=== PATIENT | male | born 1940 | race Two or more races ===

== ENCOUNTER 2024-10-22 05:54 | Inpatient (IN) | payer MEDICARE, MEDICAID, SELFPAY ==
[2024-10-22] VITALS (15 sets, daily range): BP systolic 102–148; BP diastolic 64–101; PULSE 69–122; RESP 20–34; TEMP 36.3–36.9; O2SAT 89–100; BMI 29.5
--- NOTE | 2024-10-22 06:10 | XR_ITS ---
Examination: AP chest single view Technique one AP portable upright chest single view Exam date and time: October 22, 2024 0616 hrs. Comparison December 30, 2023 Indications: Onset chest pain today Findings: Mild heart failure Moderate enlargement left ventricle Prominent vascular congestion with early septal edema at the lung bases Cardiac leads stable position Impression: Mild heart failure
--- NOTE | 2024-10-22 06:10 | EKG_ITS ---
[facility] Test Date: 2024-10-22 Pat Name: JIN THURSTON Department: Room: - Gender: Male Clamper: : [id number] Requested By: Ariane Ferraro Order Number: [id number] Reading MD: Ariane Ferraro Measurements Intervals [place] Rate: 105 P: 82 OK: 88 QRS: 172 QRSD: 172 T: 28 QT: 420 QTc: 557 Interpretive Statements ELECTRONIC VENTRICULAR PACEMAKER ABNORMAL RHYTHM ECG Compared to ECG 12/30/2023 18:40:21 No significant changes /store/S0/[id number]/ecg/[id number].pdf
[2024-10-22] MEDS: FUROSEMIDE INJ 10 MG/ML 4ML VIAL 60 MG IVP (06:20)
--- NOTE | 2024-10-22 06:41 | PD.EDSOB ---
ED SOB =RME/HPI General Chief Complaint: Shortness of Breath/Dyspnea Stated Complaint: SOB Time Seen by Provider: 10/22/24 06:10 Arrival date/time: 10/22/24 05:54 RME / HPI RME / HPI Narrative: DR. RUIZ MAIN ED EVALUATION: 84 year old male presents to the Emergency Department [facility] with complaint of shortness of breath today. Symptoms are moderate. No fevers, chills, vomiting, diarrhea, dysuria, or other symptoms reported. 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 Social Hx: No tobacco, alcohol, or substance use. Related Data Home Medications ?Medication ?Instructions ?Recorded ?Confirmed atorvastatin 10 mg tablet 10 mg PO QDAY 03/31/21 12/08/23 amlodipine 5 mg tablet 5 mg PO QDAY 04/02/21 12/08/23 finasteride 5 mg tablet 1 tab PO QDAY 03/24/22 12/08/23 albuterol sulfate 90 mcg/actuation 90 mcg inhalation Q4H PRN short of 12/08/23 12/08/23 aerosol inhaler breath dapagliflozin propanediol 10 mg 10 mg PO DAILY 12/08/23 12/08/23 tablet (Farxiga) Previous Rx's ?Medication ?Instructions ?Recorded bumetanide 1 mg tablet 1 mg PO QDAY #30 tabs 01/03/24 Allergies Allergy/AdvReac Type Severity Reaction Status Date / Time Penicillins Allergy Severe RASH Verified 03/30/21 10:07 Review of Systems Review of Systems Systems Reviewed: All systems reviewed, normal except as documented Narrative Review of Systems: GEN: No fever, no chills, no weight loss EYES: No discharge, no visual changes, no pain HEENT: No ear pain, no congestion, no sore throat PULM: + shortness of breath, no cough, no congestion CV: No chest pain, no dyspnea on exertion, no palpitations GI: No nausea, no vomiting, no diarrhea, no pain, no constipation : No frequency, no urgency and no dysuria MUSC/SKEL: No joint pain, no back pain SKIN: No rash PSYCH: No hallucinations, no depression HEME/LYMPH: No easy bleeding or bruising tendencies NEURO: No weakness, no headache Past Medical History Past Medical History CARDIAC: Positive Cardiac Disorders, Atrial Fibrillation, Congestive Heart Failure, Edema and Hypertension RESPIRATORY: Negative Chronic Obstructive Pulmonary Disease (COPD) GENITOURINARY: Positive Benign Prostatic Hyperplasia; Negative Renal Disease MUSCULOSKELETAL: Positive Musculoskeletal Disorders and Arthritis ENT: Positive Cataracts ENDOCRINE: Positive Diabetes Mellitus Type 2; Negative Diabetes Mellitus Type 1 Surgical History SURGICAL: Positive Cardiac Surgery and Pacemaker Social History SMOKING STATUS: Never smoker SECOND HAND EXPOSURE: No SUBSTANCE USE: does not use ALCOHOL: Never Travel History EBOLA RISK: No ED Exam Narrative Physical exam: GENERAL APPEARANCE: alert and oriented x 4, well-developed, well-nourished VITALS: All vitals were reviewed and the pulse ox is 98% on 2 L/min via a nasal cannula. HEENT: Normocephalic, atraumatic; pupils equal, round, reactive to light; EOMI; mucous membranes pink, moist; oropharynx clear NECK: Supple LUNGS: no wheezes, no rales, no rhonchi HEART: Regular rate, regular rhythm; normal S1, S2; no murmurs ABDOMEN: non distended; normal BS; soft, no tenderness, no guarding, no rebound; no masses, no organomegaly, no hernia BACK: no CVA tenderness EXTREMITIES: atraumatic; no edema NEUROLOGIC: awake; alert and oriented x4; cranial nerves II-XII grossly intact; no focal sensory or motor deficits PSYCHIATRIC: appropriate mood and affect SKIN: warm, dry, normal color; no rashes Course Quality Measures none Orders Category Date Time Status Bedside COVID-19 Antigen Test NOW Care 10/22/24 08:26 Active Bedside Influenza A&B Antigen Test NOW Care 10/22/24 08:26 Completed Package 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 NOW Care 10/22/24 06:10 Active EKG (ED ONLY) *Do not use* NOW Care 10/22/24 06:10 Completed EKG (ED Only) Stat Exams 10/22/24 06:10 Draft XR chest 1V portable Stat Exams 10/22/24 06:10 Completed Alcohol, Blood Medical Stat Lab 10/22/24 08:40 Completed B-Type Natriuretic Peptide Stat Lab 10/22/24 06:23 Completed Blood Culture (Lab) Stat Lab 10/22/24 08:40 Received CBC Stat Lab 10/22/24 06:23 Completed Comprehensive Metabolic Panel Stat Lab 10/22/24 06:23 Completed Drug Screen,Urine Stat Lab 10/22/24 09:35 Completed Lactate (Lactic Acid) Stat Lab 10/22/24 08:40 Completed Lipase Stat Lab 10/22/24 06:23 Completed Magnesium Stat Lab 10/22/24 06:23 Completed Partial Thromboplastin Time Stat Lab 10/22/24 06:23 Completed Procalcitonin Stat Lab 10/22/24 08:40 Completed Prothrombin Time with INR Stat Lab 10/22/24 06:23 Completed Troponin I Stat Lab 10/22/24 06:23 Completed Troponin I Stat Lab 10/22/24 08:40 Completed UA, C/S IF [Urinalysis, C/S if Indicated] Stat Lab 10/22/24 09:35 Completed Urine Culture Stat Lab 10/22/24 09:35 Received Aspirin Chew Med 10/22/24 07:03 Discontinued 324 mg PO X1 ONE Furosemide Inj [Lasix Inj] Med 10/22/24 06:11 Discontinued 60 mg IVP X1 ONE Vital Signs Vital signs: Vital Signs Temperature 98.5 F 10/22/24 05:59 Pulse Rate 108 H 10/22/24 05:59 Respiratory Rate 22 H 10/22/24 05:59 Blood Pressure 115/67 10/22/24 05:59 Pulse Oximetry (%) 99 10/22/24 05:59 Oxygen Delivery Method Oxy Mask 10/22/24 05:59 Oxygen Flow Rate 10 10/22/24 05:59 Shortness of Breath / Dyspnea MDM Narrative MDM Narrative:: Delmi Roberts am scribing for and in the presence of Dr. Ruiz. 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 How is presenting disease/condition affected by chronic disease/condition?: exacerbated by Evaluation data The following diagnostics were reviewed and interpreted by me:: lab results, radiology exam(s) and EKG tracing(s) (EKG#1: EKG at 0624 hours. Interpreted by me: ventricular paced rhythm, rate 105, frequent PVCs, moderate artifact) Lab and/or radiology exams considered but not ordered:: none Interpretation Summary: Procedure(s): XR chest 1V portable Accession Number(s): [id number] cc: Michael Keane MD; NO PRIMARY/FAMILY,PHYSICIAN; Ariane Ruiz MD~ Examination: AP chest single view Technique one AP portable upright chest single view Exam date and time: October 22, 2024 0616 hrs. Comparison December 30, 2023 Indications: Onset chest pain today Findings: Mild heart failure Moderate enlargement left ventricle Prominent vascular congestion with early septal edema at the lung bases Cardiac leads stable position Impression: Mild heart failure Dictated By: Michael Keane MD Medications / Prescriptions Medications or Prescriptions considered but not ordered:: none Medication administrations:: Medication Administration History Acetaminophen (Acetaminophen 325 Mg Tablet) 650 mg PO Q4HR PRN PRN Reason: Fever >100.3 or pain Stop: 11/21/24 12:54 Hydrocodone Bitart/Acetaminophen (Hydrocodone/Apap 5/325 Tablet) 1 tab PO Q4HR PRN PRN Reason: PAIN SCALE 4-10(Mod-Sev Stop: 10/27/24 14:19 Albuterol/Ipratropium (Albuterol/Ipratropium (Duoneb) Rt Risa 3 Ml Nebu) 3 ml INH Q8HRRT FRED Stop: 11/21/24 14:59 Last Admin: 10/22/24 13:35 Dose: 3 ml Documented By: AA Bumetanide (Bumetanide Inj 0.25 Mg/Ml Vial 4 Ml) 1 mg IVP BID FRED Stop: 11/21/24 20:59 Discontinued Medications Aspirin (Aspirin 81 Mg Chew) 324 mg PO X1 ONE Stop: 10/22/24 07:04 Last Admin: 10/22/24 07:16 Dose: 324 mg Documented By: EH Furosemide (Furosemide Inj 10 Mg/Ml 4ml Vial) 60 mg IVP X1 ONE Stop: 10/22/24 06:12 Last Admin: 10/22/24 06:20 Dose: 60 mg Documented By: SYLVAIN Magnesium Sulfate (Magnesium Sulfate Ivpb) 2 gm in 50 mls @ 25 mls/hr IV X1 ONE Stop: 10/22/24 14:52 Last Infusion: 10/22/24 15:09 Dose: Infused Documented By: Admin: 10/22/24 13:02 Dose: 25 mls/hr Documented By: GM Oseltamivir Phosphate (Oseltamivir 30 Mg Capsule) 30 mg PO X1 ONE Stop: 10/22/24 13:36 Last Admin: 10/22/24 14:52 Dose: 30 mg Documented By: EH Potassium Chloride (Potassium Chloride 10% 20 Meq/15 Ml Udc) 40 meq PO X1 ONE Stop: 10/22/24 12:54 Last Admin: 10/22/24 13:00 Dose: 40 meq Documented By: GM Sodium Chloride (Sodium Chloride Rt 10% 15 Ml Nebu) 5 ml INH X1 ONE Stop: 10/22/24 13:37 Last Admin: 10/22/24 14:22 Dose: Not Given Documented By: JERARDO Non-Admin Reason: Other, see note Comments: not needed see above Consultations Consultation(s) initiated? (list below): Yes Consultation #1 (Physician, Specialty, Details): Discussed test HPI, PMHx, lab, radiology results and/or management with hospitalist. Will admit for further evaluation and management. Accepts patient for admission. Time: 12:35 Diagnosis Shortness of Breath Differential Diagnosis: acute exacerbation of chronic obstructive airways disease, congestive heart failure, community acquired pneumonia, asthma with exacerbation and pulmonary embolism Most likely diagnosis given after review of the tests above:: CHF exacerbation Hypoxia Thrombocytopenia Dyspnea Elevated troponin Admission Indicated Admission indicated?: indicated Admission Request Was there a request for admission?: Yes Admission Attestation Admission request attestation: Discussed case with [] from Hospitalist service regarding admission. Discussed patients ED course, exam findings, labs, and radiology results. The Hospitalist [agrees,declines] to accept the patient for admission. Disposition Plan Disposition Plan: Admit Critical Care Time Critical Care Time Critical Care Time: Yes Total Critical Care Time (min.): 45 Attestation: The high probability of sudden, clinically significant deterioration in the patient?s condition required the highest level of my preparedness to intervene urgently. The services I provided to this patient were to treat and/or prevent clinically significant deterioration. Services included the following: chart data review, reviewing nursing notes and/or old charts, documentation time, call center support consultant collaboration regarding findings and treatment options, medication orders and management, direct patient care, vital sign assessments and ordering, interpreting and reviewing diagnostic studies and lab tests. Aggregate critical care time includes only time during which I was engaged in work directly related to the patient?s care, as described above, whether at bedside or elsewhere in the Emergency Department. It did not include time spent performing other reported procedures or the services of residents, students, nurses or physician assistants. Discharge Plan Problem List Clinical Impression: CHF exacerbation, Hypoxia, Thrombocytopenia, Dyspnea, Elevated troponin
[2024-10-22 06:49] LABS: B-Type Natriuretic Peptide 1904 pg/mL (0-100); Basophils % (Auto) 0 % (0-2.5); Eosinophils % (Auto) 0 % (0-10); Hematocrit 31.7 % (41.0-53.0); Hemoglobin 10.6 g/dL (13.5-16.0); Immature Granulocytes % (Auto) 1 % (0-0); Immature Granulocytes Auto 0.08 Thou/mm3 (0.00-0.00); Lymphocytes # (Auto) 0.5 Thou/mm3 (1.0-4.8); Lymphocytes % (Auto) 4 % (10-50); Mean Corpuscular HGB Conc 33.4 g/dl (31.0-37.0); Mean Corpuscular Hemoglobin 32.3 pg (25.0-35.0); Mean Corpuscular Volume 97 fL (80-100); Monocytes # (Auto) 1.3 Thou/mm3 (0.0-0.8); Monocytes % (Auto) 10 % (0-12); Neutrophils # (Auto) 11.6 Thou/mm3 (1.8-7.7); Neutrophils % (Auto) 86 % (37-80); Nucleated Red Blood Cell % 0 /100 WBC (0); RDW Standard Deviation 49.1 fL (35.1-43.9); Red Blood Count 3.28 Miln/mm3 (4.50-5.90); White Blood Count 13.5 Thou/mm3 (3.8-10.6)
[2024-10-22 06:50] LABS: Alanine Aminotransferase 15 U/L (10-49); Albumin, Serum 4.2 gm/dL (3.4-4.8); Albumin/Globulin Ratio 1.4 (1.2-2.2); Alkaline Phosphatase 73 U/L (46-116); Anion Gap 11 (7-16); Aspartate Amino Transferase 19 U/L (0-34); BUN/Creatinine Ratio 19 Ratio (12-20); Bilirubin,Total 1.6 mg/dL (0.3-1.2); Blood Urea Nitrogen 30 mg/dL (9-23); Carbon Dioxide 22.7 mMol/L (20.0-31.0); Chloride 106 mMol/L (98-107); Creatinine (Component) 1.6 mg/dL (0.6-1.3); Estimated Creatinine Clearance 37.6 mL/min (>60); Globulin 2.9 gm/dL (2.3-3.5); Glucose 130 mg/dL (74-106); Lipase 25 U/L (12-53); Magnesium 1.8 mg/dL (1.6-2.6); Osmolality,Calculated 287 (275-295); Potassium 3.6 mMol/L (3.4-5.1); Sodium 140 mMol/L (136-145); Total Protein 7.1 gm/dL (5.7-8.2); eGFR 42 See Note
[2024-10-22 07:01] LABS: INR 1.2 (0.9-1.3); Prothrombin Time 13.2 Seconds (9.0-12.2)
[2024-10-22 07:02] LABS: Troponin I 0.134 ng/mL (0.0-0.045)
[2024-10-22] MEDS: ASPIRIN 81 MG CHEW 324 MG PO (07:16)
[2024-10-22 07:32] LABS: Platelet Count 18 Thou/mm3 (140-440)
[2024-10-22 07:33] LABS: Slide Review Platelets confirmed
[2024-10-22 08:57] LABS: Lactate (Lactic Acid) 1.3 mMol/L (0.4-2.0)
[2024-10-22 10:08] LABS: Collection Type, Urine Clean Catch
[2024-10-22 10:15] LABS: Alcohol, Blood Medical < 10.0 mg/dL (0-10.0); Procalcitonin 0.38 ng/ml (0.0-0.49)
[2024-10-22 10:19] LABS: Amphetamine/Methamp Scrn,U Negative (Negative); Barbiturate Screen,Urine Negative (Negative); Benzodiazepines Screen,Urine Negative (Negative); Benzoylecgonine Screen, Ur Negative (Negative); Fentanyl Screen,Urine Negative (Negative); Opiate Screen,Urine Negative (Negative); THC Screen,Urine Negative (Negative)
[2024-10-22 10:19] LABS: Troponin I 0.178 ng/mL (0.0-0.045)
[2024-10-22 10:29] LABS: Bacteria,Urine Rare; Bilirubin,Urine Negative (Negative); Blood,Urine 1+ (Negative); Budding Yeast,Urine Present; Clarity,Urine Cloudy (Clear/Hazy); Color,Urine Lt-Yellow (Lt Yel-Yel); Culture Indicated,Urine Yes; Glucose, Urine Negative (Negative); Ketones,Urine Negative (Negative); Leukocyte Esterase,Urine Positive (Negative); Nitrite,Urine Negative (Negative); Protein,Urine 1+ (Neg - Trace); RBC,Urine 21 /hpf (0-3); Specific Gravity,Urine 1.009 (1.001-1.035); Squamous Epithelial Cell,Urine 2 /hpf (0-5); Urobilinogen,Urine Negative mg/dL (0.0-1.0); WBC,Urine 90 /hpf (0-5)
--- NOTE | 2024-10-22 12:54 | ESHP_ITS ---
<Statement entered by Milton Trujillo MD - 10/30/24 15:01> I reviewed above note and agree with findings and plans. I have also personally examined the patient with medicine team and went over assessment and plan with medical team including promotions intern and resident physician. <Statement entered by Keith Burleson MD - 10/23/24 16:30> Agree with plan and examination finding on the note below. Patient seen and examined at bedside today. Labs and imaging reviewed. Patient care discussed with my attending Dr. Trujillo and co-resident . Documentation for date of: 10/22/24 HPI History of Present Illness Chief complaint: Shortness of breath History of present illness: HPI: Patient is an 84-year-old male with past medical history significant for HFrEF [15-20%], atrial fibrillation s/p PROGRAM DIRECTOR/MORNING SHOW HOST-D placement, guo-[id number]-[id number] diabetes mellitus type 2, primary hypertension, hyperlipidemia and BPH presented with a chief complaint of worsening shortness of breath. Patient states his shortness of breath started yesterday and progressively started to worsen. He stated that initially it was on mild activity while he was taking a shower but progressed to being at rest. Usually patient can carry out his daily activities without any SOB and this is much worse than his baseline. He also has an associated nonproductive cough. Patient also endorses a 2 pillow orthopnea and PND. He says he cannot lie flat or else he feels as if he is drowning. Denies any chest pain/pressure, palpitations, lower extremity swelling, fever, vomiting, sick contacts and recent travel. Of note patient states that he has noncompliant with medication as it is too many pills to take. ED course: BP 148/86, pulse 89, RR 23, temp 97.7 F, SpO2 96% on 2L via NC. Labs significant for Hb 10.6, HCT 31.7, Mg 1.8, K 3.6, BUN 30, CR 1.6, troponin I 0.134 --> 0.178, BNP 1904. Chest x-ray significant for pulmonary vascular congestion with septal edema at lung bases. EKG significant for ventricular paced rhythm, rate 105. In the ED patient received furosemide 60 Mg IV x 1, ASA 324 Mg p.o. x 1. Patient will be admitted for acute respiratory failure with hypoxia secondary to acute decompensated CHF exacerbation. Review of Systems Review of Systems Narrative Review of Systems: GENERAL: Denies fever/chills or diaphoresis. HEENT: Denies headaches or visual changes. Denies discharge. Neuro: Denies unusual weakness or difficulty speaking. CARDIO: As above PULM: As above GI: Denies abdominal pain, N/V/C/D. Reports having BMs. URO: Denies burning/itching/pain/urinary changes. MSK/EXT/SKIN: Denies joint/skeletal/muscle pain, issues/changes in upper or lower extremities, itchiness, or superficial pain. PSYCH: Cooperative, pleasant mood & affect. The rest of the review of systems is otherwise negative. Past Medical History Past Medical History Comments PMH COMMENT: Past medical history: ?Chronic systolic heart failure with reduced ejection fraction [15-20%] ? Atrial fibrillation s/p PROGRAM DIRECTOR/MORNING SHOW HOST-D ? Uia-sggwoyn-brpudnmrd diabetes mellitus type 2 ? Primary hypertension ? BPH ? 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 Previously [id number] history ETHO use: Denies Illicit drug use: Denies Social History Note: [place]. At baseline ambulates with a walker Family History: Nil Exam Vital Signs Temp Pulse Resp BP Pulse Ox O2 Del Method O2 Flow Rate 97.7 F 75 22 H 102/83 97 Room Air 2 10/22/24 12:16 10/22/24 12:16 10/22/24 12:16 10/22/24 12:16 10/22/24 12:16 10/22/24 12:16 10/22/24 09:32 Narrative Exam Constitutional Alert, oriented x 3 and comfortable. Elderly male on O2 via NC HEENT Vision grossly intact. Patent nares. Trachea midline Respiratory Chest normal on inspection and poor air entry in all lung lang bilaterally with scattered crackles at bases Cardiovascular S1 and S2 audible, RRR. No murmurs carotid bruit. No gross JVD. Abdominal Soft and non tender to palpation in all quadrants. BS + Genitourinary No bladder tenderness, no flank pain. Normal to palpation Musculoskeletal Extremities tone within normal limits. 2+ lower extremity pitting edema bilaterally up to knees Neurological CN II - XII grossly intact. Extremity motor and sensation grossly intact. Skin Warm, dry and intact. No apparent lesions. Psychiatric Patient has good affect, is cooperative Results: Labs 10/23/24 05:29 10/23/24 05:29 Labs: Short CBC 10/22/24 Range/Units 06:23 WBC 13.5 H (3.8-10.6) Thou/mm3 Hgb 10.6 L (13.5-16.0) g/dL Hct 31.7 L (41.0-53.0) % Plt Count 18 L* (140-440) Thou/mm3 BMP 10/22/24 06:23 Sodium 140 Potassium 3.6 Chloride 106 Carbon Dioxide 22.7 BUN 30 H Creatinine 1.6 H Glucose 130 H Calcium 10.0 Cardiac Enzymes 10/22/24 10/22/24 Range/Units 06:23 08:40 Troponin I 0.134 H* 0.178 H* (0.0-0.045) ng/mL Liver Function 10/22/24 Range/Units 06:23 Total Bilirubin 1.6 H (0.3-1.2) mg/dL AST 19 (0-34) U/L ALT 15 (10-49) U/L Alkaline Phosphatase 73 (46-116) U/L Albumin 4.2 (3.4-4.8) gm/dL Urine 10/22/24 Range/Units 09:35 Urine Color Lt-Yellow (Lt Yel-Yel) Urine Clarity Cloudy A (Clear/Hazy) Urine pH 6.0 (5.0-7.0) Ur Specific [place] 1.009 (1.001-1.035) Urine Protein 1+ A (Neg - Trace) Urine Glucose (UA) Negative (Negative) Quality Measures Quality Measures none Advance care planning discussed with:: patient Medications Home Medications and Allergies Home Medications ?Medication ?Instructions ?Recorded ?Confirmed ?Type atorvastatin 10 mg tablet 10 mg PO QDAY 03/31/2112/07 History amlodipine 5 mg tablet 5 mg PO QDAY 04/02/21 History finasteride 5 mg tablet 1 tab PO QDAY 03/24/2212/07 History albuterol sulfate 90 mcg/actuation 90 mcg inhalation Q 4H PRN short of 12/08/23 12/08/23 History aerosol inhaler breath dapagliflozin propanediol 10 mg 10 mg PO DAILY 4 12/08/23 History tablet (Farxiga) Allergies Allergy/AdvReac Type Severity Reaction Status Date / Time Penicillins Allergy Severe RASH Verified 03/30/21 10:07 Visit Medications Albuterol/Ipratropium (Albuterol/Ipratropium (Duoneb) Rt Risa 3 Ml Nebu) 3 ml INH Q8HRRT FRED Stop: 11/21/24 14:59 Bumetanide (Bumetanide Inj 0.25 Mg/Ml Vial 4 Ml) 1 mg IVP BID FRED Stop: 11/21/24 20:59 Magnesium Sulfate (Magnesium Sulfate Ivpb) 2 gm in 50 mls @ 25 mls/hr IV X1 ONE Stop: 10/22/24 14:52 Potassium Chloride (Potassium Chloride 10% 20 Meq/15 Ml Udc) 40 meq PO X1 ONE Stop: 10/22/24 12:54 Discontinued Medications Aspirin (Aspirin 81 Mg Chew) 324 mg PO X1 ONE Stop: 10/22/24 07:04 Last Admin: 10/22/24 07:16 Dose: 324 mg Furosemide (Furosemide Inj 10 Mg/Ml 4ml Vial) 60 mg IVP X1 ONE Stop: 10/22/24 06:12 Last Admin: 10/22/24 06:20 Dose: 60 mg Assessment & Plan Plan Patient is an 84-year-old male with past medical history significant for HFrEF [15-20%], atrial fibrillation s/p PROGRAM DIRECTOR/MORNING SHOW HOST-D placement, phj-wgheexp-qkhwtiauh diabetes mellitus type 2, primary hypertension, hyperlipidemia and BPH presented with a chief complaint of worsening shortness of breath.Patient will be admitted for acute respiratory failure with hypoxia secondary to acute decompensated CHF exacerbation. 1. Acute respiratory failure with hypoxia 2. Acute decompensated chronic systolic and diastolic heart failure exacerbation [15-20%] 3. Dilated cardiomyopathy Patient presented with worsening shortness of breath On exam patient had decreased air entry bilaterally with scattered crackles at bases Chest x-ray significant for increased vascular markings and septal edema at lung bases. Last echo completed on 12/05/2023 findings include: Dilated cardiomyopathy. Severe dilated LV. Severe systolic dysfunction. Severe global hypokinesis. Estimated EF 15-20% diastolic dysfunction present but cannot grade due to paced rhythm. RV mildly dilated with normal systolic dysfunction. Pacing wire present. NYHA class D stage IV BNP 1904 Home medication Bumex 1 Mg p.o. twice daily. Noncompliant Plan: ? 2G sodium restricted diet - Strict input output charting - 1500 cc/day fluid restriction ? Daily weight ?Transthoracic echocardiogram ordered to assess for wall motion abnormalities, valvular defects and ejection fraction. ? Start Bumex 1 Mg IV twice daily ? Patient will need to start beta-jaret and ARB at later date as part of GDMT. ? DuoNebs Q8 hourly for decreased air entry' 4. Thrombocytopenia On admission plt 18. DDx: Leukemia, viral infection, autoimmune, portal hypertension. Currently no signs of active bleeding and patient not on any aspirin or antiplatelet agents. Currently low suspicion for TTP. Plan: ? Avoid antiplatelet agents and heparin ? Monitor for signs of bleeding ? LDH, blood smear and reticulocyte count ordered 5. Influenza A infection Patient had shortness of breath and cough that started 1 day ago Creatinine clearance 31 Plan: ? Started on Tamiflu 30 Mg p.o. twice daily for total of 5 days. To complete on 10/27/2024 6. Acute kidney injury prerenal versus renal On admission CR 1.6. Baseline appears to be between 1?1.2 Plan: ? Renally dose medication ? Avoid nephrotoxic agents 7. Atrial fibrillation s/p PROGRAM DIRECTOR/MORNING SHOW HOST-D placement Vascor is high. Patient may benefit from anticoagulation EKG on admission showed ventricular paced rhythm rate 105. No acute ST changes Plan: ? Consider anticoagulation on discharge 8. NSTEMI type I versus type II Patient denies any ACS symptoms including chest pain/pressure or palpitations. Likely type II in setting of acute decompensated CHF exacerbation Stroke I 0.134 ---> 0.178 Plan: ? Trend 1 more troponin 9. Primary hypertension 10. Hyperlipidemia BP 148/86 Plan: ? Antihypertensives currently on hold to give blood pressure extra room for diuresis if necessary 11. BPH Home medication finasteride Plan: ? Restarted home medication finasteride Health maintenance: Disposition: IV diuresis Diet: Cardiac Lines: pIVs GI Prophylaxis: None Thrombo Prophylaxis: Contraindicated Code status: FULL CODE
[2024-10-22] MEDS: POTASSIUM CHLORIDE 10% 20 MEQ/15 ML UDC 40 MEQ PO ×2 (13:00→18:49)
[2024-10-22] MEDS: Magnesium Sulfate 2 GM Ivpb 2 GM/50 ML BAG IV (13:02)
[2024-10-22 13:15] LABS: Basophils % (Auto) 0 % (0-2.5); Eosinophils % (Auto) 0 % (0-10); Hematocrit 33.8 % (41.0-53.0); Hemoglobin 11.4 g/dL (13.5-16.0); Immature Granulocytes % (Auto) 1 % (0-0); Immature Granulocytes Auto 0.08 Thou/mm3 (0.00-0.00); Lymphocytes # (Auto) 1.1 Thou/mm3 (1.0-4.8); Lymphocytes % (Auto) 7 % (10-50); Mean Corpuscular HGB Conc 33.7 g/dl (31.0-37.0); Mean Corpuscular Hemoglobin 32.9 pg (25.0-35.0); Mean Corpuscular Volume 97 fL (80-100); Monocytes # (Auto) 1.6 Thou/mm3 (0.0-0.8); Monocytes % (Auto) 10 % (0-12); Neutrophils # (Auto) 13.2 Thou/mm3 (1.8-7.7); Neutrophils % (Auto) 83 % (37-80); Nucleated Red Blood Cell % 0 /100 WBC (0); RDW Standard Deviation 49.7 fL (35.1-43.9); Red Blood Count 3.47 Miln/mm3 (4.50-5.90)
[2024-10-22] MEDS: ALBUTEROL/IPRATROPIUM (Duoneb) RT SOL 3 ML NEBU INH ×2 (13:35→23:44)
[2024-10-22 13:38] LABS: Albumin, Serum 4.4 gm/dL (3.4-4.8); Anion Gap 10 (7-16); BUN/Creatinine Ratio 17 Ratio (12-20); Blood Urea Nitrogen 31 mg/dL (9-23); Calcium 10.3 mg/dL (8.3-10.6); Calcium (Corrected) 10.3 mg/dL (8.5-10.1); Carbon Dioxide 27.6 mMol/L (20.0-31.0); Chloride 103 mMol/L (98-107); Creatinine (Component) 1.8 mg/dL (0.6-1.3); Estimated Creatinine Clearance 33.4 mL/min (>60); Glucose 124 mg/dL (74-106); Osmolality,Calculated 288 (275-295); Phosphorous 4.3 mg/dL (2.4-5.1); Potassium 3.5 mMol/L (3.4-5.1); Sodium 141 mMol/L (136-145); eGFR 36 See Note
--- NOTE | 2024-10-22 13:38 | ECHO_ITS ---
Transthoracic Echo Report Ht (in): 69 Wt (lb): 200 Exam Location: Echo Lab Status: Inpatient Plant Controller: MARLON Toscano^^^^ Indications: Procedure Performed: BP: 146 / 100 HR: 86 Rhythm: NSR Technical Quality: Fair MEASUREMENTS (Male / Female) Normal Values 2D ECHO LV Diastolic Diameter PLAX 6.5 cm 4.2 - 5.9 / 3.9 - 5.3 cm LV Systolic Diameter PLAX 5.1 cm IVS Diastolic Thickness 0.9 cm 0.6 - 1.0 / 0.6 - 0.9 cm LVPW Diastolic Thickness 1.1 cm 0.6 - 1.0 / 0.6 - 0.9 cm LV Relative Wall Thickness 0.3 RV Internal Dim ED PLAX 3.5 cm LVOT Diameter 1.9 cm Aortic Root Diameter 4.1 cm LA Systolic Diameter LX 3.5 cm 3.0 - 4.0 / 2.7 - 3.8 cm LV Ejection Fraction MOD 4C 42.8 % LV Cardiac Index MOD 4C 4210.3 cm?/min?m? LV Ejection Fraction 4C AL 43.8 % LV Cardiac Index 4C AL 4466.0 cm?/min?m? LA Volume Index 53.0 cm?/m? 16 - 28 cm?/m? Ascending Aorta Diameter 3.6 cm DOPPLER AV Peak Velocity 196.0 cm/s AV Peak Gradient 15.4 mmHg AV Mean Gradient 9.0 mmHg AV Velocity Time Integral 35.6 cm AI Peak Velocity 338.0 cm/s AI Peak Gradient 45.7 mmHg AI Pressure Half Time 536.0 ms LVOT Peak Velocity 93.8 cm/s LVOT Peak Gradient 3.5 mmHg LVOT Velocity Time Integral 16.0 cm LVOT Cardiac Index 1836.5 cm?/min?m? AV Area Cont Eq vti 1.3 cm? AV Area Cont Eq pk 1.4 cm? MV Area PHT 5.5 cm? MR Peak Velocity 461.0 cm/s MR Peak Gradient 85.0 mmHg Mitral E Point Velocity 108.0 cm/s Mitral A Point Velocity 107.0 cm/s Mitral E to A Ratio 1.0 LV E' Lateral Velocity 7.9 cm/s Mitral E to LV E' Lateral Ratio 13.6 LV E' Septal Velocity 4.9 cm/s Mitral E to LV E' Septal Ratio 22.0 TR Peak Velocity 251.7 cm/s TR Peak Gradient 25.3 mmHg PV Peak Velocity 63.8 cm/s PV Peak Gradient 1.6 mmHg FINDINGS Left Ventricle The left ventricular ejection fraction is moderately decreased, estimated at 30-35%. The left ventricular cavity size is moderately increased. There is grade II diastolic dysfunction of the left ventricle (pseudonormal filling pattern). Right Ventricle The right ventricle is normal in size and systolic function. The estimated right ventricular systolic pressure, 31 mmHg. Left Atrium The left atrial cavity size is moderately increased. Right Atrium The right atrium is normal by two-dimensional imaging, color flow and Doppler imaging with no structural abnormalities, no thrombus formation present. Atrial Septum The interatrial septum appears normal with no evidence of a shunt. Aorta The aortic root and proximal ascending aorta are normal to two-dimensional imaging. Mitral Valve Mitral annular calcification. [id number]-[id number] mitral regurgitation. Mild thickening of the mitral valve leaflets. Aortic Valve Mild aortic valve regurgitation. Aortic valve sclerosis. Tricuspid Valve There is mild tricuspid valve regurgitation. Pulmonic Valve Mild pulmonic valve regurgitation. Vessels The pulmonary artery appears normal. The inferior vena cava pulmonary and hepatic veins appear normal. Pericardium The pericardium is normal by two-dimensional imaging. There is no significant pericardial effusion. CONCLUSIONS Indication: CHF EXACERBATION Dilated Cariomyopathy. Severe LV systolic dysfunction. Estimated EF of 10-15%. Moderately dilated LV. Diastolic dysfunction present butc annot be graded due to paced rhythm. Normal Rv size and function. The estimated right ventricular systolic pressure, 31 mmHg. Mild TR. Modertately dilated LA and mildly dilated RA Mild MAC. Moderate MR. Mild thickening of the MV leaflets. Mild AI. Modertae AV sclerosis without stenosis - possible underestimated AV velocities and PG due to low EF. Jose M Gonzalez (Electronically Signed) Final Date: 24 October 2024 03:29
[2024-10-22 13:45] LABS: Path Review Blood Smear Sent to Pathologist
[2024-10-22 13:46] LABS: Slide Review Platelets confirmed
--- NOTE | 2024-10-22 14:01 | PC.CC ---
ASWShraddha attempted to complete initial assessment with patient; however, patient is confused. Patient presents as alert but only oriented to self. ASW attempted to make telephone contact with Carmen Munson patient's granddaughter that is listed as his next of Kin on demographics but all numbers are disconnected. ASW also attempted to make contact with Rip Munson person listed to Notify but the number is listed is disconnected.
[2024-10-22 14:17] LABS: Immature Reticulocyte Fraction 10.7 % (2.3-13.4); Reticulocyte % (Auto) 2.5 % (0.5-1.5); Reticulocyte Absolute Auto 85.5 Biln/L (25.0-75.0); Reticulocyte Hgb Content 33.9 pg (28.0-35.0)
--- NOTE | 2024-10-22 14:22 | PC.RT ---
sputum sent to lab
[2024-10-22 14:27] LABS: Platelet Count 22 Thou/mm3 (140-440)
[2024-10-22 14:30] LABS: Bilirubin,Direct 0.6 mg/dL (0.0-0.3); LDH (Lactate Dehydrogenase) 206 U/L (120-246)
[2024-10-22] MEDS: OSELTAMIVIR 30 MG CAPSULE PO (14:52)
[2024-10-22 15:29] LABS: Troponin I 0.143 ng/mL (0.0-0.045)
--- NOTE | 2024-10-22 16:59 | PC.NURSE ---
Patients grandson/caregiver states that he would like to look into SNF placement when patient D/Cs home.
[2024-10-22] MEDS: BUMETANIDE INJ 0.25 MG/ML VIAL 4 ML 1 MG IVP (21:55)
--- NOTE | 2024-10-22 22:12 | EKG_ITS ---
[facility] Test Date: 2024-10-22 Pat Name: JIN THURSTON [facility] Lock Fitter: QUITA : 1940 Requested By: Jose M Lorenzo Order Number: [id number] Reading MD: Jose M Lorenzo Measurements Intervals [place] Rate: 112 P: 86 WV: 103 QRS: 167 QRSD: 160 T: -9 QT: 370 QTc: 506 Interpretive Statements ELECTRONIC VENTRICULAR PACEMAKER ABNORMAL RHYTHM ECG Compared to ECG 10/22/2024 06:24:52 No significant changes /store/S0/[id number]
[2024-10-22 22:18] LABS: Magnesium 2.4 mg/dL (1.6-2.6); Potassium 4.6 mMol/L (3.4-5.1)
--- NOTE | 2024-10-22 22:24 | PD.RESEVENT ---
Documentation for date of: 10/22/24 Event Note Event Note: Rapid response called for patient at about 10:30 PM for tachycardia, heart rate sustaining in 140s, SpO2 down to 70s. On examination patient alert and oriented, no wheezing appreciated on physical exam, reports feeling tired, patient's O2 flow rate increased to 6 L, patient's SpO2 improved to 100, EKG ordered showed pacemaker rhythm, no concern of atrial fibrillation ordered CMP, magnesium, troponin. Eventually patient's heart rate improved to 110s, patient will be placed on BiPAP as patient has congestive heart failure. Will follow labs, continue to monitor patient. Case discussed with Attending Dr. Delgado. Jennifer Lorenzo PGY1 Disclaimer: This note was dictated by speech recognition. Minor errors in nurse staff community health may be present due to voice recognition software.
[2024-10-22 22:58] LABS: Alanine Aminotransferase 18 U/L (10-49); Albumin, Serum 4.2 gm/dL (3.4-4.8); Albumin/Globulin Ratio 1.4 (1.2-2.2); Alkaline Phosphatase 75 U/L (46-116); Anion Gap 9 (7-16); Aspartate Amino Transferase 23 U/L (0-34); BUN/Creatinine Ratio 21 Ratio (12-20); Bilirubin,Total 1.3 mg/dL (0.3-1.2); Blood Urea Nitrogen 37 mg/dL (9-23); Calcium 9.9 mg/dL (8.3-10.6); Calcium (Corrected) 9.9 mg/dL (8.5-10.1); Carbon Dioxide 26.6 mMol/L (20.0-31.0); Chloride 106 mMol/L (98-107); Creatinine (Component) 1.8 mg/dL (0.6-1.3); Estimated Creatinine Clearance 33.4 mL/min (>60); Globulin 2.9 gm/dL (2.3-3.5); Glucose 142 mg/dL (74-106); Osmolality,Calculated 293 (275-295); Potassium 4.7 mMol/L (3.4-5.1); Sodium 142 mMol/L (136-145); Total Protein 7.1 gm/dL (5.7-8.2); eGFR 36 See Note
[2024-10-22 23:01] LABS: Troponin I 0.117 ng/mL (0.0-0.045)
[2024-10-23] VITALS (82 sets, daily range): BP systolic 88–175; BP diastolic 49–121; PULSE 75–173; RESP 13–49; TEMP 35.8–36.1; O2SAT 67–100; BMI 29.5
[2024-10-23 06:01] LABS: Basophils % (Auto) 0 % (0-2.5); Eosinophils % (Auto) 0 % (0-10); Hematocrit 33.7 % (41.0-53.0); Immature Granulocytes % (Auto) 1 % (0-0); Immature Granulocytes Auto 0.07 Thou/mm3 (0.00-0.00); Lymphocytes # (Auto) 0.8 Thou/mm3 (1.0-4.8); Lymphocytes % (Auto) 7 % (10-50); Mean Corpuscular HGB Conc 32.6 g/dl (31.0-37.0); Mean Corpuscular Hemoglobin 31.9 pg (25.0-35.0); Mean Corpuscular Volume 98 fL (80-100); Monocytes # (Auto) 1.2 Thou/mm3 (0.0-0.8); Monocytes % (Auto) 10 % (0-12); Neutrophils # (Auto) 9.9 Thou/mm3 (1.8-7.7); Neutrophils % (Auto) 82 % (37-80); Nucleated Red Blood Cell % 0 /100 WBC (0); RDW Standard Deviation 50.1 fL (35.1-43.9); Red Blood Count 3.45 Miln/mm3 (4.50-5.90); White Blood Count 12.1 Thou/mm3 (3.8-10.6)
[2024-10-23 06:09] LABS: Platelet Count 41 Thou/mm3 (140-440)
[2024-10-23 06:23] LABS: Slide Review Platelets confirmed
--- NOTE | 2024-10-23 07:31 | ESPR_ITS ---
<Statement entered by Milton Trujillo MD - 10/30/24 15:02> I reviewed above note and agree with findings and plans. I have also personally examined the patient with medicine team and went over assessment and plan with medical team including consultants intern and resident physician. <Statement entered by Keith Burleson MD - 10/24/24 17:14> Agree with plan and examination finding on the note below. Patient seen and examined at bedside today. Labs and imaging reviewed. Patient care discussed with my attending Dr. Trujillo and co-resident Dr. Tapia. Documentation for date of: 10/23/24 Subjective Subjective Interval history: Patient is Setswana-speaking and interaction facilitated by registered healthcare asphalt dauber Patient was seen and examined at bedside this AM. Overnight patient became confused and attempted to leave the room. He was assigned a one-to-one sitter Patient tolerating diet, adequate urine output and mentation is at baseline. Patient still complains of shortness of breath at rest. Patient had 1 minute of sustained V. tach this morning EKG was ordered showed ventricular paced rhythm, rate 100. Started patient on amiodarone 200 Mg p.o. twice daily and metoprolol XL 50 Mg p.o. daily. Patient on diuresis with Bumex 1 Mg IV twice daily. Urine output not accurately charted. Will place Moore catheter for accurate input/output K4.7, Mg 2.4. Will maintain K >4 and Mg >2 at all times to avoid any further arrhythmias. Trop I 0.143??>0.117. Will stop trending troponin. Exam Vital Signs Temp Pulse Resp BP Pulse Ox O2 Del Method O2 Flow Rate 97.0 F 97 18 136/91 H 96 Nasal Cannula 2 10/23/24 04:00 10/23/24 04:00 10/23/24 04:00 10/23/24 04:00 10/23/24 04:00 10/23/24 04:00 10/23/24 04:00 FiO2 30 10/23/24 03:16 Narrative Exam Constitutional Alert, oriented x 3 and comfortable. Elderly male on O2 via NC HEENT Vision grossly intact. Patent nares. Trachea midline Respiratory Chest normal on inspection and air entry equal bilaterally with scattered crackles at bases Cardiovascular S1 and S2 audible, RRR. No murmurs carotid bruit. No gross JVD. Abdominal Soft and non tender to palpation in all quadrants. BS + Genitourinary No bladder tenderness, no flank pain. Normal to palpation Musculoskeletal Extremities tone within normal limits. 2+ lower extremity pitting edema bilaterally up to knees?improving Neurological CN II - XII grossly intact. Extremity motor and sensation grossly intact. Skin Warm, dry and intact. No apparent lesions. Psychiatric Patient has good affect, is cooperative Objective Labs 10/23/24 05:29 10/23/24 05:29 Labs: Laboratory Results - last 24 hr 10/22/24 10/22/24 10/22/24 06:23 08:40 09:35 WBC 13.5 H RBC 3.28 L Hgb 10.6 L Hct 31.7 L MCV 97 MCH 32.3 MCHC 33.4 RDW Std Deviation 49.1 H Plt Count 18 L* Neut % (Auto) 86 H Lymph % (Auto) 4 L [place] % (Auto) 10 Eos % (Auto) 0 Baso % (Auto) 0 Neut # (Auto) 11.6 H Lymph # (Auto) 0.5 L [place] # (Auto) 1.3 H Eos # (Auto) 0.0 Baso # (Auto) 0.0 Immature Gran # (Auto) 0.08 H Absolute Nucleated RBC 0.00 Immature Gran % 1 H Nucleated RBC % 0 Smear Path Review Retic Count (auto) Absolute Retic Immature Retic Fraction Retic Hgb Content CHr Sodium Potassium Chloride Carbon Dioxide Anion Gap BUN Creatinine Estim Creat Clear Calc eGFR BUN/Creatinine Ratio Glucose Calculated Osmolality Lactic Acid 1.3 Calcium Corrected Calcium Phosphorus Magnesium Total Bilirubin Direct Bilirubin AST ALT Alkaline Phosphatase Lactate Dehydrogenase Troponin I 0.178 H* Total Protein Albumin Globulin Albumin/Globulin Ratio Procalcitonin 0.38 Ur Collection Type Clean Catch Urine Color Lt-Yellow Urine Clarity Cloudy A Urine pH 6.0 Ur Specific Otho 1.009 Urine Protein 1+ A Urine Glucose (UA) Negative Urine Ketones Negative Urine Blood 1+ A Urine Nitrite Negative Urine Bilirubin Negative Urine Urobilinogen (Auto) Negative Ur Leukocyte Esterase Positive Urine RBC 21 H Urine WBC 90 H Ur Squamous Epith Cells 2 Urine Bacteria Rare Urine Yeast (Budding) Present A Ur Culture Indicated? Yes Urine Opiates Screen Negative Urine Fentanyl Screen Negative Ur Barbiturates Screen Negative U Amphetamin/Meth Scrn Negative U Benzodiazepines Scrn Negative U Cocaine Metab Screen Negative U Marijuana (THC) Screen Negative Ethyl Alcohol < 10.0 Misc Test Result Platelets confirmed 10/22/24 10/22/24 10/22/24 13:00 14:55 21:53 WBC 16.0 H RBC 3.47 L Hgb 11.4 L Hct 33.8 L MCV 97 MCH 32.9 MCHC 33.7 RDW Std Deviation 49.7 H Plt Count 22 L* D Neut % (Auto) 83 H Lymph % (Auto) 7 L [place] % (Auto) 10 Eos % (Auto) 0 Baso % (Auto) 0 Neut # (Auto) 13.2 H Lymph # (Auto) 1.1 [place] # (Auto) 1.6 H Eos # (Auto) 0.0 Baso # (Auto) 0.0 Immature Gran # (Auto) 0.08 H Absolute Nucleated RBC 0.00 Immature Gran % 1 H Nucleated RBC % 0 Smear Path Review Sent to Pathologist Retic Count (auto) 2.5 H Absolute Retic 85.5 H Immature Retic Fraction 10.7 Retic Hgb Content CHr 33.9 Sodium 141 142 Potassium 3.5 4.6 D Chloride 103 Carbon Dioxide 27.6 Anion Gap 10 BUN 31 H Creatinine 1.8 H Estim Creat Clear Calc 33.4 L eGFR 36 L BUN/Creatinine Ratio 17 Glucose 124 H Calculated Osmolality 288 Lactic Acid Calcium 10.3 Corrected Calcium 10.3 H Phosphorus 4.3 Magnesium Total Bilirubin Direct Bilirubin 0.6 H AST ALT Alkaline Phosphatase Lactate Dehydrogenase 206 Troponin I 0.143 H* Total Protein Albumin 4.4 Globulin Albumin/Globulin Ratio Procalcitonin Ur Collection Type Urine Color Urine Clarity Urine pH Ur Specific Otho Urine Protein Urine Glucose (UA) Urine Ketones Urine Blood Urine Nitrite Urine Bilirubin Urine Urobilinogen (Auto) Ur Leukocyte Esterase Urine RBC Urine WBC Ur Squamous Epith Cells Urine Bacteria Urine Yeast (Budding) Ur Culture Indicated? Urine Opiates Screen Urine Fentanyl Screen Ur Barbiturates Screen U Amphetamin/Meth Scrn U Benzodiazepines Scrn U Cocaine Metab Screen U Marijuana (THC) Screen Ethyl Alcohol Misc Test Result Platelets confirmed 10/22/24 10/23/24 21:53 05:29 WBC 12.1 H RBC 3.45 L Hgb 11.0 L Hct 33.7 L MCV 98 MCH 31.9 MCHC 32.6 RDW Std Deviation 50.1 H Plt Count 41 L D Neut % (Auto) 82 H Lymph % (Auto) 7 L [place] % (Auto) 10 Eos % (Auto) 0 Baso % (Auto) 0 Neut # (Auto) 9.9 H Lymph # (Auto) 0.8 L [place] # (Auto) 1.2 H Eos # (Auto) 0.0 Baso # (Auto) 0.0 Immature Gran # (Auto) 0.07 H Absolute Nucleated RBC 0.00 Immature Gran % 1 H Nucleated RBC % 0 Smear Path Review Retic Count (auto) Absolute Retic Immature Retic Fraction Retic Hgb Content CHr Sodium Potassium 4.7 Chloride 106 Carbon Dioxide 26.6 Anion Gap 9 BUN 37 H Creatinine 1.8 H Estim Creat Clear Calc 33.4 L eGFR 36 L BUN/Creatinine Ratio 21 H Glucose 142 H Calculated Osmolality 293 Lactic Acid Calcium 9.9 Corrected Calcium 9.9 Phosphorus Magnesium 2.4 Total Bilirubin 1.3 H Direct Bilirubin AST 23 ALT 18 Alkaline Phosphatase 75 Lactate Dehydrogenase Troponin I 0.117 H* Total Protein 7.1 Albumin 4.2 Globulin 2.9 Albumin/Globulin Ratio 1.4 Procalcitonin Ur Collection Type Urine Color Urine Clarity Urine pH Ur Specific Otho Urine Protein Urine Glucose (UA) Urine Ketones Urine Blood Urine Nitrite Urine Bilirubin Urine Urobilinogen (Auto) Ur Leukocyte Esterase Urine RBC Urine WBC Ur Squamous Epith Cells Urine Bacteria Urine Yeast (Budding) Ur Culture Indicated? Urine Opiates Screen Urine Fentanyl Screen Ur Barbiturates Screen U Amphetamin/Meth Scrn U Benzodiazepines Scrn U Cocaine Metab Screen U Marijuana (THC) Screen Ethyl Alcohol Misc Test Result Platelets confirmed Quality Measures Quality Measures none Advance care planning discussed with:: patient Assessment & Plan Assessment Current Active Medications: Generic Name Dose Route Start Last Admin Trade Name Regina PRN Reason Stop Dose Admin Acetaminophen 650 mg 10/22/24 12:55 Acetaminophen 325 Mg Tablet PO 11/21/24 12:54 Q4HR PRN Fever >100.3 or pain Protocol Hydrocodone Bitart/Acetaminophen 1 tab 10/22/24 14:20 Hydrocodone/Apap 5/325 Tablet PO 10/27/24 14:19 Q4HR PRN PAIN SCALE 4-10(Mod-Sev Albuterol/Ipratropium 3 ml 10/22/24 15:00 10/23/24 07:27 Albuterol/Ipratropium (Duoneb) Rt Risa 3 Ml Nebu INH 11/21/24 14:59 Not Given Q8HRRT FRED Amiodarone HCl 200 mg 10/23/24 09:00 Amiodarone Hcl 200 Mg Tablet PO 11/22/24 08:59 QDAY [facility] Bumetanide 1 mg 10/22/24 21:00 10/22/24 21:55 Bumetanide Inj 0.25 Mg/Ml Vial 4 Ml IVP 11/21/24 20:59 1 mg BID FRED Administration Dextrose 50 ml 10/22/24 17:48 Dextrose 50%-Water Inj 50 Ml Syringe IV 11/21/24 17:47 Q15MIN PRN BG <50 OR BG <70 & pt unresponsive Glucagon 1 mg 10/22/24 17:48 Glucagon Inj 1 Mg Vial IM Q15MIN PRN BG <70, and no IV access Insulin Human Regular 0 unit 10/23/24 07:30 Insulin Hum Regular 1 Unit/0.01 Ml (Per Unit) SC 11/22/24 07:29 AC [facility] Protocol Oseltamivir Phosphate 30 mg 10/23/24 09:00 Oseltamivir 30 Mg Capsule PO 10/27/24 08:59 BID [facility] Plan Patient is an 84-year-old male with past medical history significant for HFrEF [15-20%], atrial fibrillation s/p RESIDENT SERVICES MANAGER-D placement, oax-tutqlpd-cqlvkptza diabetes mellitus type 2, primary hypertension, hyperlipidemia and BPH presented with a chief complaint of worsening shortness of breath.Patient will be admitted for acute respiratory failure with hypoxia secondary to acute decompensated CHF exacerbation. 1. Acute respiratory failure with hypoxia - improving 2. Acute decompensated chronic systolic and diastolic heart failure exacerbation [15-20%] 3. Dilated cardiomyopathy Patient presented with worsening shortness of breath On exam patient had decreased air entry bilaterally with scattered crackles at bases Chest x-ray significant for increased vascular markings and septal edema at lung bases. Last echo completed on 12/05/2023 findings include: Dilated cardiomyopathy. Severe dilated LV. Severe systolic dysfunction. Severe global hypokinesis. Estimated EF 15-20% diastolic dysfunction present but cannot grade due to paced rhythm. RV mildly dilated with normal systolic dysfunction. Pacing wire present. NYHA class D stage IV BNP 1903 Home medication Bumex 1 Mg p.o. twice daily. Noncompliant Patient still complains of shortness of breath at rest. Patient on diuresis with Bumex 1 Mg IV twice daily. Urine output not accurately charted. Will place Moore catheter for accurate input/output K4.7, Mg 2.4. Will maintain K >4 and Mg >2 at all times to avoid any further arrhythmias. Plan: ? 2G sodium restricted diet - Strict input output charting - 1500 cc/day fluid restriction ? Daily weight ? Transthoracic echocardiogram ordered to assess for wall motion abnormalities, valvular defects and ejection fraction. ? Continue Bumex 1 Mg IV twice daily ? Patient will need to start Entresto and SGLT2 at later date as part of GDMT. ? DuoNebs Q8 hourly for decreased air entry. - Cardiology, Dr. Gonzalez consulted and closely following the case. Appreciate recommendations 4. Thrombocytopenia - improving On admission plt 18 ---> plt 41 DDx: Leukemia, viral infection, autoimmune, portal hypertension. Currently no signs of active bleeding and patient not on any aspirin or antiplatelet agents. Currently low suspicion for TTP. LDH 206, reticulocyte count 2.5, Peripheral blood smear revealed severe thrombocytopenia Plan: ? Avoid antiplatelet agents and heparin ? Monitor for signs of bleeding 5. Influenza A infection Patient had shortness of breath and cough that started 1 day ago Creatinine clearance 31 Plan: ? Continue Tamiflu 30 Mg p.o. twice daily for total of 5 days. To complete on 10/27/2024 6. Acute kidney injury prerenal versus renal - worsening Baseline appears to be between 1?1.2 On admission CR 1.6. Plan: ? Renally dose medication ? Avoid nephrotoxic agents 7. Atrial fibrillation -paroxysmal 8. History of V. tach s/p RESIDENT SERVICES MANAGER T?D placement Patient had RESIDENT SERVICES MANAGER TD placement greater than 12 years ago. Last battery change in June 2023 Vascor is high. Patient may benefit from anticoagulation EKG on admission showed ventricular paced rhythm rate 105. No acute ST changes Patient had 1 minute of sustained V. tach this morning EKG was ordered showed ventricular paced rhythm, rate 100. Started patient on amiodarone 200 Mg p.o. twice daily and metoprolol XL 50 Mg p.o. daily. Plan: ? Started on amiodarone 200 Mg p.o. twice daily ? Started on metoprolol XL 50 Mg p.o. daily ? Consider anticoagulation on discharge. Currently anticoagulation on hold due to thrombocytopenia. ? Cardiology, Dr. Gonzalez consulted and closely following the case. Appreciate recommendations 9. NSTEMI type I versus type II Patient denies any ACS symptoms including chest pain/pressure or palpitations. Likely type II in setting of acute decompensated CHF exacerbation Stroke I 0.134 ---> 0.178 ---> 0.117 Plan: ? No need to further trend troponin 10. Primary hypertension 11. Hyperlipidemia BP 136/91 Plan: ? Antihypertensives currently on hold to give blood pressure extra room for diuresis if necessary 12. BPH Home medication finasteride Plan: ? Coninue home medication finasteride Health maintenance: Disposition: IV diuresis. Pending echocardiogram Diet: Cardiac, fluid restriction. Lines: pIVs GI Prophylaxis: None Thrombo Prophylaxis: Contraindicated Code status: FULL CODE Plan of care discussed with Attending Dr. Trujillo and PGY3 Dr. Benjy Tapia MD PGY 1
--- NOTE | 2024-10-23 07:36 | PC.NURSE ---
@[phone]- Dr. Barnard notified of patient in V-tach and sustaining. STAT order for EKG, no other orders at this time.
--- NOTE | 2024-10-23 07:38 | EKG_ITS ---
[facility] Test Date: 2024-10-23 Pat Name: JIN THURSTON [facility] Male Slab Polisher: DAVID : 1940 Requested By: Eulalio Tapia Order Number: [id number] Reading MD: Eulalio Tapia Measurements Intervals [place] Rate: 100 P: 76 VA: 107 QRS: 206 QRSD: 170 T: 43 QT: 425 QTc: 550 Interpretive Statements ELECTRONIC VENTRICULAR PACEMAKER ABNORMAL RHYTHM ECG Compared to ECG 10/22/2024 22:17:59 No significant changes /store/S0/[id number].pdf
[2024-10-23 07:49] LABS: Alanine Aminotransferase 17 U/L (10-49); Albumin, Serum 4.2 gm/dL (3.4-4.8); Albumin/Globulin Ratio 1.3 (1.2-2.2); Alkaline Phosphatase 71 U/L (46-116); Anion Gap 11 (7-16); Aspartate Amino Transferase 25 U/L (0-34); BUN/Creatinine Ratio 21 Ratio (12-20); Bilirubin,Total 1.3 mg/dL (0.3-1.2); Blood Urea Nitrogen 37 mg/dL (9-23); Calcium 10.1 mg/dL (8.3-10.6); Calcium (Corrected) 10.1 mg/dL (8.5-10.1); Carbon Dioxide 28.5 mMol/L (20.0-31.0); Cardiac Risk Estimate 3.1 RATIO (4.0-6.7); Chloride 104 mMol/L (98-107); Cholesterol 118 mg/dL (132-200); Creatinine (Component) 1.8 mg/dL (0.6-1.3); Estimated Creatinine Clearance 33.4 mL/min (>60); Globulin 3.2 gm/dL (2.3-3.5); Glucose 115 mg/dL (74-106); HDL Cholesterol 38 mg/dL (40-60); LDL Cholesterol,Calculated 65 mg/dL (0-130); Osmolality,Calculated 294 (275-295); Potassium 4.5 mMol/L (3.4-5.1); Sodium 143 mMol/L (136-145); Thyroid Stimulating Hormone 0.66 uIU/mL (0.55-4.78); Total Protein 7.4 gm/dL (5.7-8.2); Triglycerides 75 mg/dL (30-150); eGFR 36 See Note
[2024-10-23 07:52] LABS: Glucose Estimated Average 100 mg/dL (80-131); Hemoglobin A1C 5.1 % Hgb (4.8-6.0)
[2024-10-23 08:24] LABS: Base Excess 3 (-3-3); HCO3 28 mEq/L (20-26); Inspired O2, VO2 Liters 3 L/min; Inspired Oxygen, FIO2 21 %; O2 Saturation 99 % (91-98); PCO2 43 mmHg (32.0-48.0); PO2 107 mmHg (83-108); pH, Arterial 7.42 (7.35-7.45)
[2024-10-23 08:29] LABS: Allen Test Performed/OK; Puncture Site Right Radial
--- NOTE | 2024-10-23 09:07 | PC.SS ---
Follow up note: Possible d/c after dialysis. Pt will return home upon dc.
--- NOTE | 2024-10-23 09:08 | PC.SS ---
Follow up note: Heart failure. Echo is pending.
[2024-10-23] MEDS: BUMETANIDE INJ 0.25 MG/ML VIAL 4 ML 1 MG IVP ×3 (09:12→21:40)
[2024-10-23] MEDS: AMIODARONE HCL 200 MG TABLET PO (09:13)
--- NOTE | 2024-10-23 10:00 | PC.NURSE ---
@1000- Dr. Barnard notified of patient with SOB, restless, elevated HR(130's), RR(30's). Pt with dementia and not following instructions, pulling at lines. 1:[address] New order for 0.5mg Morphine IVP x1
[2024-10-23] MEDS: METOPROLOL SUCCINATE XL 25 MG TABCR 50 MG PO (11:17)
[2024-10-23] MEDS: MORPHINE SULF INJ 10 MG/ML VIAL IVP (11:18)
[2024-10-23] MEDS: OSELTAMIVIR 30 MG CAPSULE PO ×2 (11:19→21:43)
--- NOTE | 2024-10-23 11:30 | PC.NURSE ---
Pt agitated with 1:1 sitter, not following instructions, confused, restless. Unable to reach MD (residents/attending) at this time.
--- NOTE | 2024-10-23 12:45 | PC.NURSE ---
Dr. Trujillo notified of patient still continuing to be restless, pulling at lines, SOB, not following instructions. Pt agitated with 1:1 sitter x1 order 25mg Benadryl IVP
[2024-10-23] MEDS: HYDROcodone/APAP 5/325 TABLET 1 TAB PO (13:19)
[2024-10-23] MEDS: DiphenhydrAMINE INJ 50 MG/ML VIAL 25 MG IVP (13:19)
--- NOTE | 2024-10-23 14:00 | PC.NURSE ---
Pt agitated, restless, continuously pulling monitoring coordinator and taking clothing off with SOB. Benadryl was administered with no effect. Attempted to call Team B at all extensions multiple times, no answer. RT notified pt in need of scheduled breathing treatment NOW, pt wheezing and SOB. 1:1 sitter at bedside, will continue to make contact with MD.
--- NOTE | 2024-10-23 14:27 | PC.NURSE ---
Pt in Vtach 161bpm; did not sustain. Unable to reach MD
[2024-10-23] MEDS: ALBUTEROL/IPRATROPIUM (Duoneb) RT SOL 3 ML NEBU INH ×2 (14:43→23:30)
--- NOTE | 2024-10-23 15:00 | PC.NURSE ---
After breathing treatment, pt now sleeping with no signs of distress.
--- NOTE | 2024-10-23 16:43 | PD.RESCONSUL ---
HPI Data of Consult Requesting Physician: Milton Trujillo MD Admitting Provider: Milton Trujillo MD Attending Provider: Milton Trujillo MD Primary Care Provider: Physician No Primary/Family Consult Narrative History of present illness: Mr. Ramos is an 84 year old male with past medical history significant for hypertension, hyperlipidemia, aef-qkhfkdz-ggsybzbeq type 2 diabetes, BPH, A-fib status post POWDER ROOM ATTENDANT-D placed 12 years ago, HFrEF with ejection fraction of 15 to 20% presented to the ED complaining of worsening shortness of breath. Patient recently was having cough and flu like symptoms for the last couple days and started experiencing severe shortness of breath yesterday which has progressively worsened. Patient was unable to complete his daily activities like showering and walking around the home as patient even experienced the shortness of breath at rest. Patient states he was unable to lay flat due to the shortness of breath and was waking up in the middle of the night gasping for air. However patient denies any chest pain pressure, palpitations, dizziness or blurred. ED course in the ED patient's initial blood pressure 148/86, heart rate 89, respirations 23 and oxygen saturation is 96% on 2 L of oxygen via nasal cannula. Lab findings include hemoglobin 10.6, hematocrit 31.7, potassium 3.6, magnesium 1.8, creatinine 146, troponins 0.134 -> 0.178 and BNP 09/21/2003 -EKG findings included paced rhythm with heart rate of 105 Chest Xray - Mild heart failure, Moderate enlargement left ventricle In the ED patient was given Lasix 60 mg IV x 1 and aspirin 324 Mg p.o. x 1 Rapid influenza A was positive Echo 12/05/23 findings include: Dilated cardiomyopathy. Severe dilated LV. Severe systolic dysfunction. Severe global hypokinesis. Estimated EF 15-20 % Diastolic dysfunction present but cannot grade due to paced rhythm. RV mildly dilated with normal systolic dysfunction. Pacing wire present Moderate MR, mild AI, mild to moderate TR, PI. Mild AV sclerosis without stenosis. Pleural effusion present. 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 somlonant not in acute distress, Pt is saturating 97% on 3L O2 NEURO: no focal neurological deficits HEENT: Atraumatic, Normocephalic. mucous membranes moist. Eyes open, symmetrical, & clear HEART: Normal Heart Sounds LUNGS: Clear to auscultation with no wheezing or crackles. ABDOMEN: soft, non-distended, non-tender, bowel sounds heard, no guarding or rebound tenderness SKIN: No Rash or ecchymoses, chronic venous stasis skin changes bilaterally below knees EXTREMITIES: No edema, tenderness, able to move all 4 extremities, pedal pulses palpated Results Labs 10/23/24 05:29 10/23/24 18:55 Labs: Short CBC 10/23/24 Range/Units 05:29 WBC 12.1 H (3.8-10.6) Thou/mm3 Hgb 11.0 L (13.5-16.0) g/dL Hct 33.7 L (41.0-53.0) % Plt Count 41 L D (140-440) Thou/mm3 BMP 10/22/24 10/22/24 10/23/24 21:53 21:53 05:29 Sodium 142 143 Potassium 4.6 D 4.7 4.5 Chloride 106 104 Carbon Dioxide 26.6 28.5 BUN 37 H 37 H Creatinine 1.8 H 1.8 H Glucose 142 H 115 H Calcium 9.9 10.1 Cardiac Enzymes 10/22/24 Range/Units 21:53 Troponin I 0.117 H* (0.0-0.045) ng/mL Liver Function 10/22/24 10/23/24 Range/Units 21:53 05:29 Total Bilirubin 1.3 H 1.3 H (0.3-1.2) mg/dL AST 23 25 (0-34) U/L ALT 18 17 (10-49) U/L Alkaline Phosphatase 75 71 (46-116) U/L Albumin 4.2 4.2 (3.4-4.8) gm/dL ABG Interpretation ABG results: 10/23/24 08:16 ABG pH 7.42 ABG pCO2 43 ABG pO2 107 ABG HCO3 28 H ABG O2 Saturation 99 H ABG Base Excess 3 Quality Measures Quality Measures none Advance care planning discussed with:: patient Medications Home Medications and Allergies Home Medications ?Medication ?Instructions ?Recorded ?Confirmed ?Type atorvastatin 10 mg tablet 10 mg PO QDAY 03/31/21 12/08/23 History amlodipine 5 mg tablet 5 mg PO QDAY 04/02/21 12/08/23 History finasteride 5 mg tablet 1 tab PO QDAY 03/24/22 12/08/23 History albuterol sulfate 90 mcg/actuation 90 mcg inhalation Q4H PRN short of 12/08/23 12/08/23 History aerosol inhaler breath dapagliflozin propanediol 10 mg 10 mg PO DAILY 12/08/23 12/08/23 History tablet (Farxiga) Allergies Allergy/AdvReac Type Severity Reaction Status Date / Time Penicillins Allergy Severe RASH Verified 03/30/21 10:07 Visit Medications Acetaminophen (Acetaminophen 325 Mg Tablet) 650 mg PO Q4HR PRN; Protocol PRN Reason: Fever >100.3 or pain Stop: 11/21/24 12:54 Hydrocodone Bitart/Acetaminophen (Hydrocodone/Apap 5/325 Tablet) 1 tab PO Q4HR PRN PRN Reason: PAIN SCALE 4-10(Mod-Sev Stop: 10/27/24 14:19 Last Admin: 10/23/24 13:19 Dose: 1 tab Albuterol/Ipratropium (Albuterol/Ipratropium (Duoneb) Rt Risa 3 Ml Nebu) 3 ml INH Q8HRRT FRED Stop: 11/21/24 14:59 Last Admin: 10/23/24 14:43 Dose: 3 ml Amiodarone HCl (Amiodarone Hcl 200 Mg Tablet) 200 mg PO BID FRED Stop: 11/22/24 20:59 Bumetanide (Bumetanide Inj 0.25 Mg/Ml Vial 4 Ml) 1 mg IVP BID [facility] Stop: 11/21/24 20:59 Last Admin: 10/23/24 09:12 Dose: 1 mg Dextrose (Dextrose 50%-Water Inj 50 Ml Syringe) 50 ml IV Q15MIN PRN PRN Reason: BG <50 OR BG <70 & pt unresponsive Stop: 11/21/24 17:47 Glucagon (Glucagon Inj 1 Mg Vial) 1 mg IM Q15MIN PRN PRN Reason: BG <70, and no IV access Insulin Human Regular (Insulin Hum Regular 1 Unit/0.01 Ml (Per Unit)) 0 unit SC [facility]; Protocol Stop: 11/22/24 07:29 Last Admin: 10/23/24 11:29 Dose: Not Given Metoprolol Succinate (Metoprolol Succinate Xl 25 Mg Tabcr) 50 mg PO QDAY [facility] Stop: 11/22/24 09:59 Last Admin: 10/23/24 11:17 Dose: 50 mg Oseltamivir Phosphate (Oseltamivir 30 Mg Capsule) 30 mg PO BID [facility] Stop: 10/27/24 08:59 Last Admin: 10/23/24 11:19 Dose: 30 mg Discontinued Medications Amiodarone HCl (Amiodarone Hcl 200 Mg Tablet) 200 mg PO QDAY [facility] Stop: 11/22/24 08:59 Last Admin: 10/23/24 09:13 Dose: 200 mg Aspirin (Aspirin 81 Mg Chew) 324 mg PO X1 ONE Stop: 10/22/24 07:04 Last Admin: 10/22/24 07:16 Dose: 324 mg Diphenhydramine HCl (Diphenhydramine Inj 50 Mg/Ml Vial) 25 mg IVP X1 ONE Stop: 10/23/24 13:04 Last Admin: 10/23/24 13:19 Dose: 25 mg Furosemide (Furosemide Inj 10 Mg/Ml 4ml Vial) 60 mg IVP X1 ONE Stop: 10/22/24 06:12 Last Admin: 10/22/24 06:20 Dose: 60 mg Magnesium Sulfate (Magnesium Sulfate Ivpb) 2 gm in 50 mls @ 25 mls/hr IV X1 ONE Stop: 10/22/24 14:52 Last Infusion: 10/22/24 15:09 Dose: Infused Metoprolol Succinate (Metoprolol Succinate Xl 25 Mg Tabcr) 25 mg PO QDAY [facility] Stop: 11/22/24 09:29 Last Admin: 10/23/24 09:30 Dose: Not Given Morphine Sulfate (Morphine Sulf Inj 10 Mg/Ml Vial) 0.5 mg IVP X1 ONE Stop: 10/23/24 10:30 Last Admin: 10/23/24 11:18 Dose: 0.5 mg Oseltamivir Phosphate (Oseltamivir 30 Mg Capsule) 30 mg PO X1 ONE Stop: 10/22/24 13:36 Last Admin: 10/22/24 14:52 Dose: 30 mg Potassium Chloride (Potassium Chloride 10% 20 Meq/15 Ml Udc) 40 meq PO X1 ONE Stop: 10/22/24 12:54 Last Admin: 10/22/24 13:00 Dose: 40 meq Potassium Chloride (Potassium Chloride 10% 20 Meq/15 Ml Udc) 40 meq PO X1 ONE Stop: 10/22/24 18:30 Last Admin: 10/22/24 18:49 Dose: 40 meq Sodium Chloride (Sodium Chloride Rt 10% 15 Ml Nebu) 5 ml INH X1 ONE Stop: 10/22/24 13:37 Last Admin: 10/22/24 14:22 Dose: Not Given Assessment & Plan Plan Mr. Ramos is an 84 year old male with past medical history significant for hypertension, hyperlipidemia, isz-rzdhdti-zwdhwojxh type 2 diabetes, BPH, A-fib status post POWDER ROOM ATTENDANT-D placed 12 years ago, HFrEF with ejection fraction of 15 to 20% presented to the ED complaining of worsening shortness of breath. #Aute hypoxic respiratory failure #Aute CHF exacerbation #Dilated Cardiomyopathy -Pt complains of progressively worsening SOB, that is present even at rest. -Cest Xray - Mild heart failure, Moderate enlargement left ventricle -BNP on admission 1904 -Echo 12/05/23 findings include: Dilated cardiomyopathy. Severe dilated LV. Severe systolic dysfunction. Severe global hypokinesis. Estimated EF 15-20 % Diastolic dysfunction present but cannot grade due to paced rhythm. RV mildly dilated with normal systolic dysfunction. Pacing wire present Moderate MR, mild AI, mild to moderate TR, PI. Mild AV sclerosis without stenosis. Pleural effusion present. -In the ED patient was given 60 mg IV push of Lasix x 1 -Patient is started on Bumex 1 mg twice daily along with metoprolol 50 XL and amiodarone 200 mg twice daily -Strict ins and outs, fluid restriction and daily weights #A-fib s/p POWDER ROOM ATTENDANT-D placement (12 years ago) -[id number] is 5, although due to his medical history Pt should be on anticoagulation. Unless there is a know contraindication recommend starting Pt on anticoagulation. - Pt's POWDER ROOM ATTENDANT-D was placed 12 years ago with recent battery change in June 2023 -per chart reviewing : [employer] POWDER ROOM ATTENDANT-D check was completed during last admission in November 2023 which showed no evidence of any acute events which required any shocks. -EKG on admission: ventricular paced rhythm with no ST or T wave changes. -Patient is started on amiodarone 200 Mg twice daily and metoprolol 50 XL once daily -Keep potassium above 4 and magnesium above 2 at all times -Pt had a rapid response called at approximately 7:15 for HR above 170, Pt was in afib and despite bolus amnio pt quickly started desatting to 60's and was unable to protect his airway, and immediate decision was made to intubate the patient. Amio GTT was started. Recommend additional Amio 200mg BID via GT and metoprolol 50xl daily. will reevaluate tomorrow if need to increase metoprolol #elevated troponins #troponins type 1 vs type 2 -likely type 2 demand ischemia. -initial troponins 0.134 -> 0.178 -> 0.143 -> 0.117 #acute kidney injury -on admission creatinine was 1.6 and today creatinine is 1.8 and pts baseline is between 1 - 1.2 -Pt is unable to get IV fluids due to acute CHF exacerbation. Will continue to monitor daily CMP and renaly dose medications and avoid nephrotoxic drugs. #Influenza A positive Patient is influenza A positive which likely contributed to the shortness of breath and cough. Patient is started on Tamiflu by the primary team. #Primary hypertension -On admission patient blood pressure was 148/86 and blood pressure today is 137/95. Will not resume home amlodipine as patient likely will need metoprolol and diuresis which likely will soften the blood pressure and allow for room to increase metoprolol if needed. # Hyperlipidemia patient was supposed to be taking statin but current medication list does not list. Pt is recommended to continue statin #BPH patient's home finasteride is resumed by the primary team Assessment and plan discussed with my attending physician Dr. Carlos Fuentes (PGY-1)- Internal medicine resident Attending Provider Attestation/Addendum I have personally seen and examined the patient separately on the above date of service and discussed the plan of care with the resident. I reviewed the resident Dr. Luc Fuentes consultation note and agree with the resident findings and plan in the note above and have also edited the documentation to reflect my findings and plan. Patient well-known to me from previous admissions and follow-up in the clinic last year but has been lost to follow-up [place]. 83-year-old male with a past medical history of dilated nonischemic cardiomyopathy with severe systolic congestive heart failure with an EF of around 15% status post POWDER ROOM ATTENDANT-D in 2011 and recent battery change in June 2023, paroxysmal atrial fibrillation, NSVT on previous admissions on amiodarone, type 2 diabetes mellitus, essential hypertension, BPH, hyperlipidemia,, and venous stasis with questionable PAD, mild dementia with cognitive deficiency, small abdominal hernia, BPH presented to the hospital for worsening shortness of breath. Patient apparently has been having flulike symptoms over the past couple of days. And has been having worsening shortness of breath over the past couple of days and also a cough but with no sputum production. Patient also had shortness of breath which is worse on lying down which most orthopnea and cannot lie flat. Denied chest pain chest pressure, palpitations, worsening lower extremity swelling, dizziness or syncope or fall. Denies any kind of fever or chills. In the emergency department initial blood pressure was 148/86 mmHg heart rate of 89/min, paced rhythm, RR 23 and afebrile and saturation of 96% on room air. Labs showed hemoglobin of 10.6 platelets of 18, WBC 12.1, BUN 13 and creatinine of 1.6 which worsened to 1.8. Initial troponin was 0.134 and repeat was 0.178 BNP was 1904 and previously was 1600. Chest x-ray with pulmonary vascular congestion with septal edema. EKG showed ventricular paced rhythm at 105 bpm. Patient flu test was positive. Patient did receive IV Lasix in the emergency department and was admitted to the hospital for acute hypoxic respiratory failure in the setting of flu as well as possible CHF exacerbation. 1. Acute hypoxic respiratory failure in the setting of acute influenza A infection and possible CHF exacerbation. Later in the evening patient had rapid response with hypoxia and was intubated on mechanical ventilation. 2. Acute influenza A infection 3. Acute on chronic severe systolic congestive heart failure exacerbation 4. Dilated nonischemic cardiomyopathy s/p POWDER ROOM ATTENDANT-D 12 years ago around 2011 with recent battery change in June 2023 5. History of NSVT during last admission on amiodarone 6. Paroxysmal atrial fibrillation 7. Thrombocytopenia severe 8. Essential hypertension 9. Diabetes mellitus type 2 10. BPH 11. Hyperlipidemia 12. Chronic venous stasis with questionable PAD 13. Mild cognitive deficiency 14. Acute kidney injury. Patient presented with acute hypoxic respiratory failure in the setting of active influenza infection which probably contributed to his acute on chronic CHF exacerbation. Overall on examination patient does not appear to be volume overloaded. Initial chest x-ray did show minimal septal edema also no evidence of any consolidation. BNP was elevated at 1906 and previous was 1600. Patient did endorse to orthopnea along with flulike symptoms and cough symptoms. Primary team started the patient on Tamiflu for the influenza A renal dosing given the acute kidney injury. This evening patient went into atrial fibrillation with RVR and was hypoxic during the rapid response and was intubated and placed on mechanical ventilation. Critical care team on board and managing the mechanical ventilation. Repeat chest x-ray did show the same vascular congestion as well as perihilar edema and questionable right lower lobe consolidation and will need to rule out aspiration. Regarding his severe systolic CHF patient does have dilated nonischemic cardiomyopathy with an EF of around 15% as documented the previous echo in November 2023 with severe global hypokinesis, diastolic dysfunction, mildly dilated RV, moderate MR, mild AI and mild to moderate TR. Mild AV sclerosis without stenosis. Biatrial dilatation. Initially BNP was 1906 and BUN of 13 creatinine of 1.6. His baseline creatinine is 1.2. Could be cardiorenal syndrome but there is no significant hepatic congestion. Patient was started on IV Bumex 1 mg twice daily by the primary team renal function continues to worsen at 38 and 1.9 this morning. Continue to monitor strict input output, daily weights and 2 g sodium diet. Continue diuresis for now and will monitor the response. History of POWDER ROOM ATTENDANT-D secondary to severe systolic CHF placed in 2011 and battery changed in June 2023. Last interrogation was during the last admission and device functioning well. Recommend to obtain send 2/about device check again for the patient. Mildly elevated troponins which peaked around 0.1-0.2. Patient does have history of severe systolic CHF and in the presence of acute influenza A infection with elevated troponins mostly NSTEMI type II in the setting of supply/demand mismatch. Patient not on anticoagulation previously and now cannot be started because of the severe thrombocytopenia which is 18 initially and now at 41. Repeat echocardiogram on 12 and will follow-up the results. No aspirin given the severe. Severe thrombocytopenia. Continue statin. Patient had a history of NSVT during last admission and was started on oral amiodarone 200 mg once daily and metoprolol XL once daily. Patient continues to have significant PVCs and NSVT's this morning and was recommended to increase amiodarone to 200 mg twice daily. Continue metoprolol XL 50 mg once daily blood pressure is permissible and continue to uptitrate the metoprolol XL. Paroxysmal atrial fibrillation with RVR-patient went into A-fib with RVR this evening with heart rate of around 150 bpm and the patient was given amiodarone bolus along with drip and now the patient converted to normal sinus rhythm/sinus tachycardia around 90-110 bpm. No anticoagulation because of the low platelets. Continue amiodarone drip at 1 mg/min for the next 24 hours and then changed to oral amiodarone 200 mg twice daily. Continue to monitor the QTc. Continue beta-jaret 50 mg once daily and uptitrate based on the blood pressure. Acute kidney injury with creatinine of 1.6 on admission which worsened to 1.9. BUN is around 40 now and on admission was 30. Could be secondary to cardiorenal syndrome given the severe systolic congestive heart failure exacerbation versus prerenal etiology.. Continue diuresis for now and monitor renal function closely along with the urine output. Patient condition is critical and overall overall poor prognosis given his longstanding severe systolic congestive heart failure which was explained to the son this evening. Son understands well his prognosis at the present point of time and at present patient is full code There is a high probability of sudden, clinically significant or life threatening deterioration in the patient condition which required the highest level of physician preparedness to intervene urgently. I have personally spent 65 minutes of critical care time, exclusive of time spent on any procedures, in evaluation and management of this critically ill patient. Management of rest of the medical conditions as per primary team and other consultants. Thank you for the consult and allowing me to participate in the care of the patient. Cardiology will continue to follow. Jose M Gonzalez M.D. Interventional Cardiology
--- NOTE | 2024-10-23 18:00 | PC.NURSE ---
Pt woke up approximately 1740 and began to get restless. Pulling at all lines and ekg monitor, pt not following instructions and Dr. Barnard notified and new order for bilateral wrist restraints; orders carried out. 1:1 sitter at bedside.
--- NOTE | 2024-10-23 18:25 | PC.NURSE ---
ANGULAR DEVELOPER- Pt agitated, SOB, with increased WOB. HR in 170's, RR 35, 15L oxymask with O2 75%. Pt lungs sound wet/crackles and displaying air hunger. MD at bedside ordered 2mg Morphine, 1 mg Bumex. Pt placed on BiPAP, however pt not tolerating and agitated. 100% on BiPAP and O2 in 78%. New order to transfer to ICU for intubation.
[2024-10-23] MEDS: MORPHINE SULF INJ 10 MG/ML VIAL 2 MG IVP (18:28)
[2024-10-23] MEDS: ETOMIDATE INJ 2 MG/ML VIAL 10 ML 20 MG IVP (18:50)
[2024-10-23 18:52] LABS: Base Excess -3 (-3-3); HCO3 25 mEq/L (20-26); Inspired Oxygen, FIO2 100 %; O2 Saturation 101 % (91-98); PCO2 60 mmHg (32.0-48.0); PO2 296 mmHg (83-108); pH, Arterial 7.23 (7.35-7.45)
[2024-10-23] MEDS: ROCURONIUM INJ 10 MG/ML VIAL 10 ML 50 MG IVP (18:59)
--- NOTE | 2024-10-23 19:02 | XR_ITS ---
Examination: AP chest single view Technique one AP portable supine chest single view Exam date and time: October 23, 2024 1922 hrs. Comparison October 22, 2024 Indications: Hypoxic respiratory failure, postintubation today. Findings: [id number] heart failure Enlarged left ventricle with prominent vascular congestion and perihilar edema Consider superimposed pneumonia at the lung bases Endotracheal tube tip 5.4 cm above dustin Orogastric tube in the stomach tip below the level film Impression: [id number] heart failure Consider superimposed pneumonia at the lung bases
[2024-10-23] MEDS: PROPOFOL 1,000 MG IVPB 1,000 MG/100 ML VIAL 2.441 MG IV (19:09)
[2024-10-23] MEDS: fentaNYL 2,500 MCG/250 ML BAG 2,500 MCG/250 ML BAG IV (19:10)
[2024-10-23 19:11] LABS: Allen Test Performed/OK; Puncture Site Right Radial
[2024-10-23] MEDS: AMIODARONE 150 MG IVPB 150 MG/100 ML BAG 600 MG IV (19:11)
--- NOTE | 2024-10-23 19:18 | EVENTNT_ITS ---
<Statement entered by Keith Burleson MD - 10/24/24 17:15> Agree with plan and examination finding on the note below. Patient seen and examined at bedside today. Labs and imaging reviewed. Patient care discussed with my attending Dr. Trujillo and co-resident Dr. Tapia. Documentation for date of: 10/23/24 Event Note Event Note: At 6:23pm rapid response was called for patient's heart rate 150s and respiratory distress. Upon arrival patient was confused and then moderate respiratory distress unresponsive to his name. SpO2 was 71% and patient heart rate 158 with V. tach on monitor and storage bin tender. Initially morphine 2 Mg IV x 1 was ordered along with Bumex 1 Mg IV x 1. Patient was also placed on BiPAP and ABG and EKG were ordered. CMP and troponin were also ordered. Patient saturations did not go above 75% on BiPAP and patient was subsequently transferred to ICU and intubated and mechanically ventilated. Patient's heart rate was still in the 140s and amiodarone infusion was started as per cardiology recommendations. Heart rate subsequently decreased to the 100s. EKG was ordered. Patient's son, Bogdan contacted and updated on the above. All questions and concerns were addressed. Plan of care discussed with Attending Dr. Trujillo and PGY3 Dr. Benjy Tapia MD PGY 1
--- NOTE | 2024-10-23 19:18 | PD.RESPROC ---
Procedures Procedure Date / Time 10/23/24 1900 Intubation Indication(s): other (Afib with RVR, Hypercarbia) Informed consent obtained: implied Time out done, and the following verified: correct patient, side and site, procedure, patient position and implants and/or equipment Sedative: etomidate Mg given: 20 Paralytic: rocuronium Mg given: 50 Laryngoscope: fiber optic video scope Assist device used: Bougie ET tube size: 7.5 ET tube uncuffed: No Tube secured depth (cm): 25 Tube secured location: teeth Tube placement confirmation: visualized tube passing through cords, equal breath sounds bilaterally, no breath sounds over epigastrium and confirmation by capnometry Patient tolerated procedure: well EBL(ml): 0 Intubation complications: none Additional comments: Patient was preoxygenated with BiPAP to SpO2 100%. Etomidate 20 Mg IV x 1 was given followed by rocuronium 50 Mg IV x 1 and fiberoptic glide scope was introduced. Vocal cords were directly visualized and ET tube was successfully placed. Chest x-ray was ordered postprocedure and confirmed placement. The entire procedure was supervised by my attending Dr. Mick Tapia MD PGY 1
[2024-10-23] MEDS: AMIODARONE 360 MG IVPB 360 MG/200 ML BAG 33.333 MG IV (19:20)
[2024-10-23 19:32] LABS: Albumin, Serum 4.3 gm/dL (3.4-4.8); Anion Gap 11 (7-16); BUN/Creatinine Ratio 21 Ratio (12-20); Blood Urea Nitrogen 39 mg/dL (9-23); Calcium 10.2 mg/dL (8.3-10.6); Calcium (Corrected) 10.2 mg/dL (8.5-10.1); Carbon Dioxide 26.5 mMol/L (20.0-31.0); Chloride 103 mMol/L (98-107); Creatinine (Component) 1.9 mg/dL (0.6-1.3); Estimated Creatinine Clearance 28.4 mL/min (>60); Glucose 198 mg/dL (74-106); Magnesium 2.4 mg/dL (1.6-2.6); Osmolality,Calculated 294 (275-295); Potassium 4.5 mMol/L (3.4-5.1); Sodium 140 mMol/L (136-145); eGFR 34 See Note
[2024-10-23 19:48] LABS: Troponin I 0.131 ng/mL (0.0-0.045)
--- NOTE | 2024-10-23 20:06 | PD.RESCONSUL ---
HPI Data of Consult Requesting Physician: Milton Trujillo MD Admitting Provider: Milton Trujillo MD Attending Provider: Milton Trujillo MD Primary Care Provider: Physician No Primary/Family Consult Narrative History of present illness: Patient is an 84-year-old Ukrainian-speaking male with past medical history significant for HFrEF [15-20%], atrial fibrillation s/p [employer]AD-D placement, rll-dcstyqu-alaqkjyrn diabetes mellitus type 2, hypertension, hyperlipidemia and BPH that presented with to the ED with complaints of worsening shortness of breath. Patient had been treated for CHF exacerbation and had been on and off BiPAP. Earlier today patient had a rapid response due to desaturation and suspected ventricular tachycardia that turned out to be atrial fibrillation. Patient was not improving on BiPAP and was therefore transferred to ICU for intubation. cc:: cc: Milton Trujillo MD Exam Vital Signs Temp Pulse Resp BP Pulse Ox O2 Del Method O2 Flow Rate 96.9 F 100 20 147/83 H 100 Nasal Cannula 3 10/23/24 16:00 10/23/24 19:22 10/23/24 16:00 10/23/24 19:22 10/23/24 19:22 10/23/24 16:00 10/23/24 16:00 FiO2 50 10/23/24 19:22 Narrative Exam GENERAL: Elderly male. Sedated and on mechanical ventilation. HEART: Tachycardic, no murmurs, rubs or gallops. LUNGS: Crackles/rales on bilateral lower lobes. On mechanical ventilation. ABDOMEN: Soft, non-tender, no guarding or rebound tenderness. There are no abnormal masses palpated. EXTREMITIES: Stasis dermatitis bilateral lower extremities. +1 edema bilateral lower extremities. SKIN: Warm and dry, no jaundice or rashes noted. Results Labs 10/23/24 05:29 10/23/24 18:55 Labs: Short CBC 10/23/24 Range/Units : WBC 12.1 H (3.8-10.6) Thou/mm3 Hgb 11.0 L (13.5-16.0) g/dL Hct 33.7 L (41.0-53.0) % Plt Count 41 L D (140-440) Thou/mm3 BMP 10/22/24 10/22/24 10/23/24 21:53 21:53 05:29 Sodium 142 143 Potassium 4.6 D 4.7 4.5 Chloride 106 104 Carbon Dioxide 26.6 28.5 BUN 37 H 37 H Creatinine 1.8 H 1.8 H Glucose 142 H 115 H Calcium 9.9 10.1 10/23/24 18:55 Sodium 140 Potassium 4.5 Chloride 103 Carbon Dioxide 26.5 BUN 39 H Creatinine 1.9 H Glucose 198 H D Calcium 10.2 Cardiac Enzymes 10/22/24 10/23/24 Range/Units 21:53 18:55 Troponin I 0.117 H* 0.131 H* (0.0-0.045) ng/mL Liver Function 10/22/24 10/23/24 10/23/24 Range/Units 21:53 05:29 18:55 Total Bilirubin 1.3 H 1.3 H (0.3-1.2) mg/dL AST 23 25 (0-34) U/L ALT 18 17 (10-49) U/L Alkaline Phosphatase 75 71 (46-116) U/L Albumin 4.2 4.2 4.3 (3.4-4.8) gm/dL ABG Interpretation ABG results: 10/23/24 10/23/24 08:16 18:33 ABG pH 7.42 7.23 L D ABG pCO2 43 60 H D ABG pO2 107 296 H D ABG HCO3 28 H 25 ABG O2 Saturation 99 H 101 H ABG Base Excess 3 -3 Quality Measures Quality Measures none Advance care planning discussed with:: child (Spoke with daughter who is alternate decision-maker. Patient is full code.) Medications Home Medications and Allergies Home Medications ?Medication ?Instructions ?Recorded ?Confirmed ?Type atorvastatin 10 mg tablet 10 mg PO QDAY 03/31/21 12/08/23 History amlodipine 5 mg tablet 5 mg PO QDAY 04/02/21 12/08/23 History finasteride 5 mg tablet 1 tab PO QDAY 03/24/22 12/08/23 History albuterol sulfate 90 mcg/actuation 90 mcg inhalation Q4H PRN short of 12/08/23 12/08/23 History aerosol inhaler breath dapagliflozin propanediol 10 mg 10 mg PO DAILY 12/08/23 12/08/23 History tablet (Farxiga) Allergies Allergy/AdvReac Type Severity Reaction Status Date / Time Penicillins Allergy Severe RASH Verified 03/30/21 10:07 Visit Medications Acetaminophen (Acetaminophen 325 Mg Tablet) 650 mg PO Q4HR PRN; Protocol PRN Reason: Fever >100.3 or pain Stop: 11/21/24 12:54 Hydrocodone Bitart/Acetaminophen (Hydrocodone/Apap 5/325 Tablet) 1 tab PO Q4HR PRN PRN Reason: PAIN SCALE 4-10(Mod-Sev Stop: 10/27/24 14:19 Last Admin: 10/23/24 13:19 Dose: 1 tab Albuterol/Ipratropium (Albuterol/Ipratropium (Duoneb) Rt Risa 3 Ml Nebu) 3 ml INH Q8HRRT FRED Stop: 11/21/24 14:59 Last Admin: 10/23/24 14:43 Dose: 3 ml Amiodarone HCl (Amiodarone Hcl 200 Mg Tablet) 200 mg GT BID FRED Stop: 11/22/24 20:59 Bumetanide (Bumetanide Inj 0.25 Mg/Ml Vial 4 Ml) 1 mg IVP BID FRED Stop: 11/21/24 20:59 Last Admin: 10/23/24 09:12 Dose: 1 mg Dextrose (Dextrose 50%-Water Inj 50 Ml Syringe) 50 ml IV Q15MIN PRN PRN Reason: BG <50 OR BG <70 & pt unresponsive Stop: 11/21/24 17:47 Glucagon (Glucagon Inj 1 Mg Vial) 1 mg IM Q15MIN PRN PRN Reason: BG <70, and no IV access Amiodarone HCl/Dextrose (Nexterone Ivpb) 360 mg in 200 mls @ 33.333 mls/hr IV .Q6H ONE Stop: 10/24/24 00:50 Last Admin: 10/23/24 19:20 Dose: 33.333 mls/hr Amiodarone HCl/Dextrose (Nexterone Ivpb) 360 mg in 200 mls @ 16.667 mls/hr IV .Q12H FRED Stop: 10/25/24 00:50 Propofol (Diprivan Ivpb) 1,000 mg in 100 mls @ 2.441 mls/hr IV .Q24H PRN; Protocol PRN Reason: PER PROTOCOL Stop: 11/22/24 19:01 Last Admin: 10/23/24 19:09 Dose: 5 mcg/kg/min, 2.441 mls/hr Fentanyl Citrate (Sublimaze Inj 2,500 Mcg/250 Ml Bag) 2,500 mcg in 250 mls @ 2.5 mls/hr IV .Q24H PRN; Protocol PRN Reason: PER PROTOCOL Stop: 10/28/24 19:01 Last Admin: 10/23/24 19:10 Dose: 25 mcg/hr, 2.5 mls/hr Cefepime HCl 2 gm/ Sodium (Chloride) 50 mls @ 100 mls/hr IV Q12HR [facility] Stop: 10/30/24 19:29 Metronidazole (Flagyl 500 Mg Iv) 500 mg in 100 mls @ 200 mls/hr IV Q8HR [facility] Stop: 10/30/24 19:26 Insulin Human Regular (Insulin Hum Regular 1 Unit/0.01 Ml (Per Unit)) 0 unit SC AC [facility]; Protocol Stop: 11/22/24 07:29 Last Admin: 10/23/24 17:15 Dose: Not Given Metoprolol Succinate (Metoprolol Succinate Xl 25 Mg Tabcr) 50 mg PO QDAY [facility] Stop: 11/22/24 09:59 Last Admin: 10/23/24 11:17 Dose: 50 mg Oseltamivir Phosphate (Oseltamivir 30 Mg Capsule) 30 mg PO BID [facility] Stop: 10/27/24 08:59 Last Admin: 10/23/24 11:19 Dose: 30 mg Discontinued Medications Amiodarone HCl (Amiodarone Hcl 200 Mg Tablet) 200 mg PO QDAY [facility] Stop: 11/22/24 08:59 Last Admin: 10/23/24 09:13 Dose: 200 mg Amiodarone HCl (Amiodarone Hcl 200 Mg Tablet) 200 mg PO BID [facility] Stop: 11/22/24 20:59 Aspirin (Aspirin 81 Mg Chew) 324 mg PO X1 ONE Stop: 10/22/24 07:04 Last Admin: 10/22/24 07:16 Dose: 324 mg Bumetanide (Bumetanide Inj 0.25 Mg/Ml Vial 4 Ml) 1 mg IVP X1 ONE Stop: 10/23/24 18:33 Last Admin: 10/23/24 18:40 Dose: 1 mg Diphenhydramine HCl (Diphenhydramine Inj 50 Mg/Ml Vial) 25 mg IVP X1 ONE Stop: 10/23/24 13:04 Last Admin: 10/23/24 13:19 Dose: 25 mg Etomidate (Etomidate Inj 2 Mg/Ml Vial 10 Ml) 20 mg IVP X1 ONE Stop: 10/23/24 19:00 Last Admin: 10/23/24 18:50 Dose: 20 mg Furosemide (Furosemide Inj 10 Mg/Ml 4ml Vial) 60 mg IVP X1 ONE Stop: 10/22/24 06:12 Last Admin: 10/22/24 06:20 Dose: 60 mg Magnesium Sulfate (Magnesium Sulfate Ivpb) 2 gm in 50 mls @ 25 mls/hr IV X1 ONE Stop: 10/22/24 14:52 Last Infusion: 10/22/24 15:09 Dose: Infused Amiodarone HCl/Dextrose (Nexterone Ivpb) 150 mg in 100 mls @ 600 mls/hr IV .Q10M ONE Stop: 10/23/24 18:50 Last Admin: 10/23/24 19:11 Dose: 600 mls/hr Nitroglycerin/Dextrose (Nitroglycerin In D5w Ivpb) 50 mg in 250 mls @ 1.5 mls/hr IV .Q24H PRN; Protocol PRN Reason: PER PROTOCOL Stop: 11/22/24 19:01 Nitroglycerin/Dextrose (Nitroglycerin In D5w Ivpb) 1 mg in 5 mls @ 999 mls/hr IV .Q1M ONE; Protocol Stop: 10/23/24 20:01 Metoprolol Succinate (Metoprolol Succinate Xl 25 Mg Tabcr) 25 mg PO QDAY FRED Stop: 11/22/24 09:29 Last Admin: 10/23/24 09:30 Dose: Not Given Morphine Sulfate (Morphine Sulf Inj 10 Mg/Ml Vial) 0.5 mg IVP X1 ONE Stop: 10/23/24 10:30 Last Admin: 10/23/24 11:18 Dose: 0.5 mg Morphine Sulfate (Morphine Sulf Inj 10 Mg/Ml Vial) 2 mg IVP X1 ONE Stop: 10/23/24 18:29 Last Admin: 10/23/24 18:28 Dose: 2 mg Oseltamivir Phosphate (Oseltamivir 30 Mg Capsule) 30 mg PO X1 ONE Stop: 10/22/24 13:36 Last Admin: 10/22/24 14:52 Dose: 30 mg Potassium Chloride (Potassium Chloride 10% 20 Meq/15 Ml Udc) 40 meq PO X1 ONE Stop: 10/22/24 12:54 Last Admin: 10/22/24 13:00 Dose: 40 meq Potassium Chloride (Potassium Chloride 10% 20 Meq/15 Ml Udc) 40 meq PO X1 ONE Stop: 10/22/24 18:30 Last Admin: 10/22/24 18:49 Dose: [address] (Rocuronium Inj 10 Mg/Ml Vial 10 Ml) 50 mg IVP X1 ONE Stop: 10/23/24 19:00 Last Admin: 10/23/24 18:59 Dose: 50 mg Sodium Chloride (Sodium Chloride Rt 10% 15 Ml Nebu) 5 ml INH X1 ONE Stop: 10/22/24 13:37 Last Admin: 10/22/24 14:22 Dose: Not Given Sodium Chloride (Sodium Chloride Rt 10% 15 Ml Nebu) 5 ml INH X1 ONE Stop: 10/23/24 19:51 Assessment & Plan Plan Patient is an 84-year-old Ukrainian-speaking male with past medical history significant for HFrEF [15-20%], atrial fibrillation s/p [employer]-D placement, voi-ewlbant-afgozpolu diabetes mellitus type 2, hypertension, hyperlipidemia and BPH that presented with to the ED with complaints of worsening shortness of breath and was upgraded to ICU due to acute hypoxic hypercarbic respiratory failure. Neuro: #Sedated and on mechanical ventilation RASS -2 Continue on propofol and fentanyl drip until SBT trial and extubation Cardio: #A-fib with RVR #Acute CHF exacerbation EF 15 to 20% #History of V. tach status post [employer] LE[employer] D?T placement Patient with history of A-fib went into A-fib with RVR during rapid response Heart rates went up to the 150s to 160s Patient already on amnio drip and amnio p.o. 200 mg twice daily Continue metoprolol succinate 50 mg daily Cardiology following patient appreciate recommendations Keep magnesium above 2 and potassium above 4 Continue with Bumex Strict ins and outs Fluid restrictions #Elevated troponin Likely type II in setting of A-fib with RVR Follow-up EKG Will continue monitor troponin #Hypertension #Hyperlipidemia Continue home medications Pulm: #Acute hypoxic hypercarbic respiratory failure Likely secondary to CHF exacerbation Patient failed BiPAP and required intubation ABG during rapid showed pH 7.23, CO2 60 Will follow-up ABG and adjust vent settings Renal: #MARK on CKD Current creatinine 1.9 Baseline creatinine around 1.1 Possible cardiorenal Will continue to diurese patient with Bumex Avoid nephrotoxic agents Renally dose medications #Hyperphosphatemia Likely secondary to CKD Will continue to monitor for now GI: #Elevated T. bili AST and ALT within normal limits T. bili has been downtrending Follow-up direct bili Will consider liver ultrasound if remains elevated GI prophylaxis: Protonix Endo: #History of diabetes mellitus Continue sliding scale A1c 5.1 Heme #Thrombocytopenia Likely secondary to medication VS infection Continue to monitor ID: #Influenza A Patient positive for influenza A Patient continue on Tamiflu 30 mg p.o. twice daily to complete course on 10-27-2024 #Pneumonia Post intubation chest x-ray shows pneumonia Covering anaerobic and both gram-negative and gram-positive in setting of RSI Patient started on broad-spectrum antibiotics cefepime and metronidazole Follow-up blood cultures and sputum cultures Narrow antibiotics pending results DVT prophylaxis: SCDs CODE STATUS: Full code Case discussed with my attending Dr. Danny Rodas MD PGY3 Attending Provider Attestation/Addendum I have examined the patient, reviewed labs and imaging findings, discussed the case with the resident(s), and reviewed entered orders. I agree with the plan of care as outlined in this note. Dr. Delgado
[2024-10-23 20:27] LABS: Base Excess 3 (-3-3); HCO3 30 mEq/L (20-26); Inspired Oxygen, FIO2 30 %; O2 Saturation 95 % (91-98); PCO2 54 mmHg (32.0-48.0); PO2 73 mmHg (83-108); pH, Arterial 7.35 (7.35-7.45)
[2024-10-23 20:34] LABS: Allen Test Performed/OK; Puncture Site Right Radial
[2024-10-23] MEDS: metroNIDAZOLE/NS 500 MG IVPB 500 MG/100 ML BAG 200 MG IV (20:44)
[2024-10-23] MEDS: CEFEPIME INJ 2 GM in SODIUM CHLORIDE 0.9% 50 ML IV (20:52)
--- NOTE | 2024-10-23 20:58 | PC.RT ---
Rapid response called, upon arrival the patients spo2 was 71%. Placed on bipap with 100%fio2 and collected a ABG. pt taken to the ICU and intubated at 1900 with a 7.5 ETT W/ improvement in spo2 to 100%.
[2024-10-23] MEDS: AMIODARONE HCL 200 MG TABLET GT (21:42)
--- NOTE | 2024-10-23 23:42 | PC.NURSE ---
Bárbara Atkins (daughter) [phone]
[2024-10-24] VITALS (162 sets, daily range): BP systolic 56–155; BP diastolic 35–117; PULSE 74–123; RESP 12–36; TEMP 36.7–37.9; O2SAT 80–99; BMI 26.4
[2024-10-24 01:47] LABS: Troponin I 0.211 ng/mL (0.0-0.045)
[2024-10-24] MEDS: AMIODARONE 360 MG IVPB 360 MG/200 ML BAG 16.667 MG IV ×2 (02:03→13:16)
[2024-10-24] MEDS: metroNIDAZOLE/NS 500 MG IVPB 500 MG/100 ML BAG 200 MG IV (05:35)
[2024-10-24 05:41] LABS: Basophils % (Auto) 0 % (0-2.5); Eosinophils % (Auto) 0 % (0-10); Hematocrit 34.5 % (41.0-53.0); Hemoglobin 11.4 g/dL (13.5-16.0); Immature Granulocytes % (Auto) 1 % (0-0); Immature Granulocytes Auto 0.11 Thou/mm3 (0.00-0.00); Lymphocytes # (Auto) 0.7 Thou/mm3 (1.0-4.8); Lymphocytes % (Auto) 6 % (10-50); Mean Corpuscular Hemoglobin 32.5 pg (25.0-35.0); Mean Corpuscular Volume 98 fL (80-100); Monocytes # (Auto) 1.5 Thou/mm3 (0.0-0.8); Monocytes % (Auto) 12 % (0-12); Neutrophils # (Auto) 10.1 Thou/mm3 (1.8-7.7); Neutrophils % (Auto) 81 % (37-80); Nucleated Red Blood Cell % 0 /100 WBC (0); Platelet Count 102 Thou/mm3 (140-440); RDW Standard Deviation 49.8 fL (35.1-43.9); Red Blood Count 3.51 Miln/mm3 (4.50-5.90); White Blood Count 12.5 Thou/mm3 (3.8-10.6)
[2024-10-24] MEDS: ALBUTEROL/IPRATROPIUM (Duoneb) RT SOL 3 ML NEBU INH ×3 (06:09→23:00)
[2024-10-24 06:21] LABS: Alanine Aminotransferase 18 U/L (10-49); Albumin/Globulin Ratio 1.3 (1.2-2.2); Alkaline Phosphatase 65 U/L (46-116); Anion Gap 10 (7-16); Aspartate Amino Transferase 21 U/L (0-34); BUN/Creatinine Ratio 20 Ratio (12-20); Bilirubin,Direct 0.5 mg/dL (0.0-0.3); Bilirubin,Total 1.2 mg/dL (0.3-1.2); Blood Urea Nitrogen 49 mg/dL (9-23); Calcium 10.2 mg/dL (8.3-10.6); Calcium (Corrected) 10.2 mg/dL (8.5-10.1); Carbon Dioxide 30.6 mMol/L (20.0-31.0); Chloride 102 mMol/L (98-107); Creatinine (Component) 2.4 mg/dL (0.6-1.3); Estimated Creatinine Clearance 22.5 mL/min (>60); Glucose 82 mg/dL (74-106); Osmolality,Calculated 296 (275-295); Potassium 3.5 mMol/L (3.4-5.1); Sodium 143 mMol/L (136-145); eGFR 26 See Note
--- NOTE | 2024-10-24 08:19 | PC.SS ---
Late note 10-23-24: Bedside nurse provided patient's son, Bogdan Munson phone# [phone].
[2024-10-24 08:24] LABS: Troponin I 0.196 ng/mL (0.0-0.045)
--- NOTE | 2024-10-24 08:49 | EKG_ITS ---
[facility] Test Date: 2024-10-24 Pat Name: JIN THURSTON [facility] [employer] Intelligence Officer: DAVID : 1940 Requested By: Kash Haley Order Number: [id number] Reading MD: Kash Haley Measurements Intervals [place] Rate: 75 P: 117 KS: 123 QRS: 181 QRSD: 145 T: 0 QT: 483 QTc: 542 Interpretive Statements ELECTRONIC VENTRICULAR PACEMAKER ABNORMAL RHYTHM ECG Compared to ECG 10/23/2024 08:04:07 No significant changes /store/S0/[id number]
[2024-10-24] MEDS: Norepinephrine/NS 16mg/250ml 16 MG/250 ML BAG 3.797 MG IV (08:50)
--- NOTE | 2024-10-24 09:12 | XR_ITS ---
Examination: AP chest single view Technique one AP portable semiupright chest single view Exam date and time: October 24, 2024 0945 hours Comparison October 23, 2024 INDICATIONS: ICU patient with CHF exacerbation, shortness of breath dyspnea FINDINGS: Mild to moderate heart failure Mild to moderate enlargement left ventricle with prominent vascular congestion perihilar and basilar edema Cardiac leads stable position Endotracheal tube tip 4.7 cm above dustin Orogastric tube is in the stomach, the tip is below the level of the film Possible pneumonia left base IMPRESSION: [id number] heart failure Suspicious for pneumonia left base
--- NOTE | 2024-10-24 09:48 | PD.RESPRO ---
Documentation for date of: 10/24/24 Subjective Subjective Interval history: 10/24: Late yesterday evening patient had a rapid response was for HR above 170, Pt was in afib and despite bolus amnio pt quickly started desatting to 60's and was unable to protect his airway and the Pt was intubate Amio GTT was started as well as amio 200 BID PO along with metroprolol XL. This morning pt is seen in ICU,patient is sedated and intubated mechanically ventilated this morning patient was also started on Levophed due to low blood pressure. Currently patient is on Levophed is running at 0.5 mmHg/h and blood pressure is 90/48 with a MAP of 65. Patient's antibiotics were changed to ceftriaxone by the ICU team and Bumex is on hold. Exam Vital Signs Temp Pulse Resp BP Pulse Ox O2 Del Method O2 Flow Rate 100.2 F 82 20 87/49 L 98 Mechanical Ventilation 3 10/24/24 04:45 10/24/24 08:50 10/24/24 06:10 10/24/24 08:50 10/24/24 06:10 10/24/24 04:45 10/23/24 16:00 FiO2 30 10/24/24 06:10 Narrative Exam GENERAL: Pt is sedated, intubated and mechanical ventilated. NEURO: unable to asses as Pt is sedated and mechanically ventilated HEENT: Atraumatic, Normocephalic. mucous membranes moist. Eyes open, symmetrical, & clear HEART: Normal Heart Sounds LUNGS: Clear to auscultation with no wheezing or crackles. ABDOMEN: soft, non-distended, non-tender, bowel sounds heard, no guarding or rebound tenderness SKIN: No Rash or ecchymoses, chronic venous stasis skin changes bilaterally below knees EXTREMITIES: No edema, tenderness, able to move all 4 extremities, pedal pulses palpated Objective Labs 10/25/24 04:56 10/25/24 04:56 Labs: Laboratory Results - last 24 hr 10/23/24 10/23/24 10/23/24 18:33 18:55 20:18 WBC RBC Hgb Hct MCV MCH MCHC RDW Std Deviation Plt Count Neut % (Auto) Lymph % (Auto) [place] % (Auto) Eos % (Auto) Baso % (Auto) Neut # (Auto) Lymph # (Auto) [place] # (Auto) Eos # (Auto) Baso # (Auto) Immature Gran # (Auto) Absolute Nucleated RBC Immature Gran % Nucleated RBC % Puncture Site Right Radial Right Radial ABG pH 7.23 L D 7.35 D ABG pCO2 60 H D 54 H ABG pO2 296 H D 73 L D ABG HCO3 25 30 H ABG O2 Saturation 101 H 95 ABG Base Excess -3 3 FiO2 100 30 Sodium 140 Potassium 4.5 Chloride 103 Carbon Dioxide 26.5 Anion Gap 11 BUN 39 H Creatinine 1.9 H Estim Creat Clear Calc 28.4 L eGFR 34 L BUN/Creatinine Ratio 21 H Glucose 198 H D Calculated Osmolality 294 Calcium 10.2 Corrected Calcium 10.2 H Phosphorus 6.0 H Magnesium 2.4 Total Bilirubin Direct Bilirubin AST ALT Alkaline Phosphatase Troponin I 0.131 H* Total Protein Albumin 4.3 Globulin Albumin/Globulin Ratio 10/24/24 10/24/24 10/24/24 00:56 04:54 07:41 WBC 12.5 H RBC 3.51 L Hgb 11.4 L Hct 34.5 L MCV 98 MCH 32.5 MCHC 33.0 RDW Std Deviation 49.8 H Plt Count 102 L D Neut % (Auto) 81 H Lymph % (Auto) 6 L [place] % (Auto) 12 Eos % (Auto) 0 Baso % (Auto) 0 Neut # (Auto) 10.1 H Lymph # (Auto) 0.7 L [place] # (Auto) 1.5 H Eos # (Auto) 0.0 Baso # (Auto) 0.0 Immature Gran # (Auto) 0.11 H Absolute Nucleated RBC 0.00 Immature Gran % 1 H Nucleated RBC % 0 Puncture Site ABG pH ABG pCO2 ABG pO2 ABG HCO3 ABG O2 Saturation ABG Base Excess FiO2 Sodium 143 Potassium 3.5 D Chloride 102 Carbon Dioxide 30.6 Anion Gap 10 BUN 49 H Creatinine 2.4 H D Estim Creat Clear Calc 22.5 L eGFR 26 L BUN/Creatinine Ratio 20 Glucose 82 D Calculated Osmolality 296 H Calcium 10.2 Corrected Calcium 10.2 H Phosphorus Magnesium Total Bilirubin 1.2 Direct Bilirubin 0.5 H AST 21 ALT 18 Alkaline Phosphatase 65 Troponin I 0.211 H* 0.196 H* Total Protein 7.0 Albumin 4.0 Globulin 3.0 Albumin/Globulin Ratio 1.3 ABG Interpretation ABG results: 10/23/24 10/23/24 10/23/24 08:16 18:33 20:18 ABG pH 7.42 7.23 L D 7.35 D ABG pCO2 43 60 H D 54 H ABG pO2 107 296 H D 73 L D ABG HCO3 28 H 25 30 H ABG O2 Saturation 99 H 101 H 95 ABG Base Excess 3 -3 3 Quality Measures Quality Measures none Advance care planning discussed with:: other Assessment & Plan Assessment Current Active Medications: Generic Name Dose Route Start Last Admin Trade Name Freq PRN Reason Stop Dose Admin Acetaminophen 650 mg 10/22/24 12:55 Acetaminophen 325 Mg Tablet PO 11/21/24 12:54 Q4HR PRN Fever >100.3 or pain Protocol Albuterol/Ipratropium 3 ml 10/22/24 15:00 10/24/24 06:09 Albuterol/Ipratropium (Duoneb) Rt Risa 3 Ml Nebu INH 11/21/24 14:59 3 ml Q8HRRT FRED Administration Amiodarone HCl 200 mg 10/23/24 21:00 10/23/24 21:42 Amiodarone Hcl 200 Mg Tablet GT 11/22/24 20:59 200 mg BID FRED Administration Aspirin 81 mg 10/24/24 09:15 Aspirin Ec 81 Mg Tabec PO 11/23/24 09:14 QDAY FRED Bumetanide 1 mg 10/22/24 21:00 10/23/24 21:40 Bumetanide Inj 0.25 Mg/Ml Vial 4 Ml IVP 11/21/24 20:59 1 mg BID FRED Administration Dextrose 50 ml 10/22/24 17:48 Dextrose 50%-Water Inj 50 Ml Syringe IV 11/21/24 17:47 Q15MIN PRN BG <50 OR BG <70 & pt unresponsive Glucagon 1 mg 10/22/24 17:48 Glucagon Inj 1 Mg Vial IM Q15MIN PRN BG <70, and no IV access Amiodarone HCl/Dextrose 360 mg in 200 mls @ 16.667 mls/hr 10/24/24 00:51 10/24/24 02:03 Nexterone Ivpb IV 10/25/24 00:50 16.667 mls/hr .Q12H FRED Administration Propofol 1,000 mg in 100 mls @ 2.441 mls/hr 10/23/24 19:02 10/24/24 06:00 Diprivan Ivpb IV 11/22/24 19:01 5 mcg/kg/min .Q24H PRN 2.441 mls/hr PER PROTOCOL Titration Protocol 5 MCG/KG/MIN Fentanyl Citrate 2,500 mcg in 250 mls @ 2.5 mls/hr 10/23/24 19:02 10/24/24 06:00 Sublimaze Inj 2,500 Mcg/250 Ml Bag IV 10/28/24 19:01 75 mcg/hr .Q24H PRN 7.5 mls/hr PER PROTOCOL Titration Protocol 25 MCG/HR Norepinephrine Bitartrate 16 mg in 250 mls @ 3.797 mls/hr 10/24/24 06:36 10/24/24 08:50 Levophed In Ns 16mg/250ml IV 11/23/24 06:35 0.05 mcg/kg/min .Q24H PRN 3.797 mls/hr PER protocol Administration Protocol 0.05 MCG/KG/MIN Dexmedetomidine/Sodium Chloride 200 mcg in 50 mls @ 4.05 mls/hr 10/24/24 07:55 Precedex Ivpb IV 11/23/24 07:54 .[id number] PRN Per PROTOCOL Protocol 0.2 MCG/KG/HR Ceftriaxone Sodium 1,000 mg/ 50 mls @ 100 mls/hr 10/24/24 09:16 Sodium Chloride IV 10/31/24 09:15 QDAY FRED Insulin Human Lispro 0 unit 10/24/24 06:00 10/24/24 05:32 Insulin Lispro (Admelog) 1 Unit/0.01 Ml Unit SC 11/23/24 05:59 Not Given Q6HR [facility] Protocol Oseltamivir Phosphate 30 mg 10/23/24 09:00 10/23/24 21:43 Oseltamivir 30 Mg Capsule PO 10/27/24 08:59 30 mg BID FRED Administration Pantoprazole Sodium 40 mg 10/24/24 09:00 Pantoprazole Inj 40 Mg Vial IVP 11/23/24 08:59 QDAY FRED Plan Mr. Ramos is an 84 year old male with past medical history significant for hypertension, hyperlipidemia, [id number] type 2 diabetes, BPH, A-fib status post SPECIAL EDUCATION SUPERINTENDENT-D placed 12 years ago, HFrEF with ejection fraction of 15 to 20% presented to the ED complaining of worsening shortness of breath. #Aute hypoxic respiratory failure #Aute CHF exacerbation #Dilated Cardiomyopathy -Pt complains of progressively worsening SOB, that is present even at rest. -Cest Xray - Mild heart failure, Moderate enlargement left ventricle -BNP on admission 1904 -Echo 12/05/23 findings include: Dilated cardiomyopathy. Severe dilated LV. Severe systolic dysfunction. Severe global hypokinesis. Estimated EF 15-20 % Diastolic dysfunction present but cannot grade due to paced rhythm. RV mildly dilated with normal systolic dysfunction. Pacing wire present Moderate MR, mild AI, mild to moderate TR, PI. Mild AV sclerosis without stenosis. Pleural effusion present. -In the ED patient was given 60 mg IV push of Lasix x 1 -Patient is started on Bumex 1 mg twice daily along with metoprolol 50 XL and amiodarone 200 mg twice daily -Strict ins and outs, fluid restriction and daily weights #A-fib s/p SPECIAL EDUCATION SUPERINTENDENT-D placement (12 years ago) -[id number] is 5, although due to his medical history Pt should be on anticoagulation. Unless there is a know contraindication recommend starting Pt on anticoagulation. - Pt's SPECIAL EDUCATION SUPERINTENDENT-D was placed 12 years ago with recent battery change in June 2023 -per chart reviewing : [employer] SPECIAL EDUCATION SUPERINTENDENT-D check was completed during last admission in November 2023 which showed no evidence of any acute events which required any shocks. -EKG on admission: ventricular paced rhythm with no ST or T wave changes. -Patient is started on amiodarone 200 Mg twice daily and metoprolol 50 XL once daily -Keep potassium above 4 and magnesium above 2 at all times -Pt had a rapid response called at approximately 7:15 for HR above 170, Pt was in afib and despite bolus amnio pt quickly started desatting to 60's and was unable to protect his airway, and immediate decision was made to intubate the patient. Amio GTT was started. -Recommend additional Amio 200mg BID via GT and will add metoprolol 50xl twice daily when blood pressure permissible #elevated troponins #troponins type 1 vs type 2 -likely type 2 demand ischemia. -initial troponins 0.134 -> 0.178 -> 0.143 -> 0.117 #acute tubular necrosis -on admission creatinine was 1.6 and pts baseline is between 1 - 1.2 -On 10/20 creatinine is 3.4, GFR 70 -likely secondary to prerenal azotemia -Recommend to stop the Lasix and give IV hydration -Will continue to monitor daily CMP and renaly dose medications and avoid nephrotoxic drugs. # Hypotension -Patient became hypotensive this morning MAP below 65 patient was started on Levophed at 0.5 mL/h -Will hold the metoprolol until patient is off of pressors and if blood pressure permits will recommend to start metoprolol 50 XL twice daily #Influenza A positive Patient is influenza A positive which likely contributed to the shortness of breath and cough. Patient is started on Tamiflu by the primary team. #Primary hypertension -On admission patient blood pressure was 148/86 and blood pressure today is 137/95. -Will not resume home amlodipine as patient likely will need metoprolol and diuresis which likely will soften the blood pressure and allow for room to increase metoprolol if needed. # Hyperlipidemia patient was supposed to be taking statin but current medication list does not list. Pt is recommended to continue statin #BPH patient's home finasteride is resumed by the primary team Assessment and plan discussed with my attending physician Dr. Carlos Fuentes (PGY-1)- Internal medicine resident Attending Provider Attestation/Addendum I have personally seen and examined the patient separately on the above date of service and discussed the plan of care with the resident. I reviewed the resident Dr. Luc Fuentes consultation note and agree with the resident findings and plan in the note above and have also edited the documentation to reflect my findings and plan. Patient well-known to me from previous admissions and follow-up in the clinic last year but has been lost to follow-up [place]. 83-year-old male with a past medical history of dilated nonischemic cardiomyopathy with severe systolic congestive heart failure with an EF of around 15% status post SPECIAL EDUCATION SUPERINTENDENT-D in 2011 and recent battery change in June 2023, paroxysmal atrial fibrillation, NSVT on previous admissions on amiodarone, type 2 diabetes mellitus, essential hypertension, BPH, hyperlipidemia,, and venous stasis with questionable PAD, mild dementia with cognitive deficiency, small abdominal hernia, BPH presented to the hospital for worsening shortness of breath. Patient apparently has been having flulike symptoms over the past couple of days. And has been having worsening shortness of breath over the past couple of days and also a cough but with no sputum production. Patient also had shortness of breath which is worse on lying down which most orthopnea and cannot lie flat. Denied chest pain chest pressure, palpitations, worsening lower extremity swelling, dizziness or syncope or fall. Denies any kind of fever or chills. In the emergency department initial blood pressure was 148/86 mmHg heart rate of 89/min, paced rhythm, RR 23 and afebrile and saturation of 96% on room air. Labs showed hemoglobin of 10.6 platelets of 18, WBC 12.1, BUN 13 and creatinine of 1.6 which worsened to 1.8. Initial troponin was 0.134 and repeat was 0.178 BNP was 1904 and previously was 1600. Chest x-ray with pulmonary vascular congestion with septal edema. EKG showed ventricular paced rhythm at 105 bpm. Patient flu test was positive. Patient did receive IV Lasix in the emergency department and was admitted to the hospital for acute hypoxic respiratory failure in the setting of flu as well as possible CHF exacerbation. 1. Acute hypoxic respiratory failure in the setting of acute influenza A infection and possible CHF exacerbation. Later in the evening patient had rapid response with hypoxia and was intubated on mechanical ventilation. 2. Acute influenza A infection 3. Acute on chronic severe systolic congestive heart failure exacerbation 4. Acute kidney injury versus MARK on CKD stage III 4. Dilated nonischemic cardiomyopathy s/p SPECIAL EDUCATION SUPERINTENDENT-D 12 years ago around 2011 with recent battery change in June 2023 5. History of NSVT during last admission on amiodarone 6. Paroxysmal atrial fibrillation 7. Thrombocytopenia severe 8. Essential hypertension 9. Diabetes mellitus type 2 10. BPH 11. Hyperlipidemia 12. Chronic venous stasis with questionable PAD 13. Mild cognitive deficiency Patient presented with acute hypoxic respiratory failure in the setting of active influenza infection which probably contributed to his acute on chronic CHF exacerbation. Overall on examination patient does not appear to be volume overloaded. Initial chest x-ray did show minimal septal edema also no evidence of any consolidation. BNP was elevated at 1906 and previous was 1600. Patient did endorse to orthopnea along with flulike symptoms and cough symptoms. Primary team started the patient on Tamiflu for the influenza A renal dosing given the acute kidney injury. This evening patient went into atrial fibrillation with RVR and was hypoxic during the rapid response and was intubated and placed on mechanical ventilation. Critical care team on board and managing the mechanical ventilation. Repeat chest x-ray did show the same vascular congestion as well as perihilar edema and questionable right lower lobe consolidation and will need to rule out aspiration. Regarding his severe systolic CHF patient does have dilated nonischemic cardiomyopathy with an EF of around 15% as documented the previous echo in November 2023 with severe global hypokinesis, diastolic dysfunction, mildly dilated RV, moderate MR, mild AI and mild to moderate TR. Mild AV sclerosis without stenosis. Biatrial dilatation. Initially BNP was 1906 and BUN of 13 creatinine of 1.6. His baseline creatinine is 1.2. Could be cardiorenal syndrome but there is no significant hepatic congestion. Patient was started on IV Bumex 1 mg twice daily by the primary team. Renal function continues to worsen at 57 and 3.4 this morning. Patient probably has ATN at the present moment and continue to monitor the urine output along with renal function closely. Recommend to stop the diuresis completely. Continue to monitor strict input output, daily weights and 2 g sodium diet. Paroxysmal atrial fibrillation with RVR-patient went into A-fib with RVR this evening with heart rate of around 150 bpm and the patient was given amiodarone bolus along with drip and now the patient converted to normal sinus rhythm/sinus tachycardia around 90-110 bpm. No anticoagulation because of the low platelets. Continue amiodarone drip at 1 mg/min for the next 24 hours and then changed to oral amiodarone 200 mg twice daily if patient able to take orally otherwise continue the amiodarone drip. Continue to monitor the QTc. Continue beta-jaret 50 mg once daily and uptitrate if blood pressure is permissible presently patient is on pressors. Patient had a history of NSVT during last admission and was started on oral amiodarone 200 mg once daily and metoprolol XL once daily. Patient continues to have significant PVCs and NSVT's this morning and was recommended to increase amiodarone to 200 mg twice daily. Continue metoprolol XL 50 mg once daily blood pressure is permissible and continue to uptitrate the metoprolol XL. History of SPECIAL EDUCATION SUPERINTENDENT-D secondary to severe systolic CHF placed in 2011 and battery changed in June 2023. Last interrogation was during the last admission and device functioning well. Recommend to obtain [employer] device check again for the patient. Mildly elevated troponins which peaked around 0.1-0.2. Patient does have history of severe systolic CHF and in the presence of acute influenza A infection with elevated troponins mostly NSTEMI type II in the setting of supply/demand mismatch. Patient not on anticoagulation previously and now cannot be started because of the severe thrombocytopenia which is 18 initially and now at 41. Repeat echocardiogram on 12 and will follow-up the results. No aspirin given the severe severe thrombocytopenia. Continue statin. Patient condition is critical and overall overall poor prognosis given his longstanding severe systolic congestive heart failure which was explained to the son this evening. Son understands well his prognosis at the present point of time and at present patient is full code There is a high probability of sudden, clinically significant or life threatening deterioration in the patient condition which required the highest level of physician preparedness to intervene urgently. I have personally spent 35 minutes of critical care time, exclusive of time spent on any procedures, in evaluation and management of this critically ill patient. Management of rest of the medical conditions as per primary team and other consultants. Thank you for the consult and allowing me to participate in the care of the patient. Cardiology will continue to follow. Jose M Gonzalez M.D. Interventional Cardiology
[2024-10-24] MEDS: PANTOPRAZOLE INJ 40 MG VIAL IVP (09:55)
[2024-10-24] MEDS: AMIODARONE HCL 200 MG TABLET GT ×2 (09:56→22:22)
[2024-10-24] MEDS: ASPIRIN EC 81 MG TABEC PO (09:56)
[2024-10-24] MEDS: cefTRIAXone 1,000 MG in SODIUM CHLORIDE 0.9% (P) 50 ML 100 MG IV (09:56)
[2024-10-24] MEDS: POTASSIUM CHLORIDE 10% 20 MEQ/15 ML UDC 40 MEQ NG (10:00)
--- NOTE | 2024-10-24 10:10 | PC.DIETICIAN ---
Nutrition prescription If EN is initiated, consider: Vital 1.2 at 20 ml/hr via OG tube by pump. Advance 10 ml every 8 hrs to goal rate of 60 ml/hr x 24 hrs. If no IV fluids, water flushes of 15 ml/hr (or per MD).
[2024-10-24 10:20] LABS: Magnesium 1.9 mg/dL (1.6-2.6)
--- NOTE | 2024-10-24 11:04 | PC.SS ---
Addendum entered and electronically signed by SHANT Garcia 10/24/24 16:40: SUPERVISOR PAYROLL informed residential team that family is requesting to transition the patient to hospice services. Residential team informed that patient's son, Bogdan Munson; is now the patient's medical surrogate decision maker. Original Note: SUPERVISOR PAYROLL informed by patient's medical surrogate decision maker, Rip Munson ; that patient's son, Bogdan Munson will now be the patient's designated medical surrogate decision maker. Patient's daughter, Bárbara Atkins ([phone]) in agreement with decision. Charge nurse present to confirm designation. SUPERVISOR PAYROLL updated community organization director. Family has agreed to transition the patient to SNF with hospice. Discussed with family need for medical team to confirm patient is stable for transport and need to submit referral for SNF placement with hospice. No preferred hospice agency identified. Family preferring [facility] for placement.
[2024-10-24] MEDS: RINGERS LACTATED 1000 ML 250 ML 999 ML IV (13:08)
[2024-10-24] MEDS: OSELTAMIVIR 30 MG CAPSULE PO ×2 (13:12→21:33)
[2024-10-24] MEDS: Magnesium Sulfate 2 GM Ivpb 2 GM/50 ML BAG IV (13:15)
[2024-10-24] MEDS: RINGERS LACTATED 1000 ML 1,000 ML 125 ML IV (13:17)
[2024-10-24] MEDS: DEXMEDETOMIDINE 200 MCG IVPB 200 MCG/50 ML BOTTLE 20.25 MCG IV (13:27)
[2024-10-24] MEDS: PROPOFOL 1,000 MG IVPB 1,000 MG/100 ML VIAL 24.409 MG IV ×2 (13:38→19:03)
--- NOTE | 2024-10-24 14:51 | ESPR_ITS ---
<Statement entered by Rosaura Sesay MD - 10/25/24 10:42> TOTAL CC TIME: 45 MIN I saw and evaluated the patient. I reviewed the resident?s note and agree with findings and plan as documented in the resident?s note. Upon my evaluation, this patient had a high probability of imminent or life- threatening deterioration due to SVT, severe acute on chronic systolic congestive heart failure exacerbation, infectious pneumonia, ATN which required my direct attention, intervention, and personal management. This time is exclusive of time spent on procedures, which are documented separately if performed. Given the trajectory of renal dysfunction I suspect the patient had significant renal injury prehospitalization and now is in progressive failure. We attempted to wean sedation and extubate but he became extraordinarily agitated with recurring SVT. We are continuing amiodarone and following cardiology recommendations. Our hope is that we will be able to extubate him under sedation and then liberate sedation postextubation. His son was updated at bedside and had reservations about continuing aggressive care and management. He wanted to talk to the remainder of his family and get back to us regarding goals of care. Documentation for date of: 10/24/24 Subjective Subjective Interval history: Richard Munson is an 84-year-old Citizen Of [place]-speaking male with past medical history of HFrEF (EF 10 to 15%, 10/22/2024), A-fib on home amiodarone and status post SURGICAL ATTENDANT-D placement, T2DM, hypertension, hyperlipidemia, BPH presented to ED on 10/22 for progressive shortness of breath with associated PND and orthopnea. Also noted to have nonproductive cough. Thus patient was admitted for acute deep decompensated CHF exacerbation and found to be influenza A positive. On admission, initially on 2 L nasal cannula, however, RR on 10/22 for tachycardia at 140 bpm and SpO2 in 70s. O2 flow rate increased to 6 L with improvement of SpO2 to 100% and heart rate improved to 110s. EKG showed paced ventricular rhythm. Amiodarone 200 mg PO and metoprolol succinate 50 mg PO daily started following morning. Second RR on 10/23 for tachycardia in 150s and respiratory distress with SpO2 71%. Placed on BiPAP but SpO2 did not increase above 74% and subsequently transferred to ICU for RSI and placed on amiodarone drip. Per cardiology, continue amiodarone drip for 24 hours and then change to PO amiodarone 200 mg BID (monitor QTc) while continuing metoprolol succinate 50 mg daily if blood pressure permits. 10/24: Seen and examined at bedside in ICU, mechanically ventilated (VT 450, RR 20 PEEP 5, FiO2 30%) and sedated on propofol and fentanyl drips. Propofol drip held due to hypotension and to assess mentation. However, patient became agitated and unable to obtain accurate SpO2 and so propofol was restarted. Bedside echo to evaluate IVC and lungs to evaluate fluid status did not reveal fluid overload. Additionally, crackles and lower extremity edema not appreciated on exam. Thus, bumex will be held in setting of increasing Cr (1.9 to 2.4) and 250 cc bolus and 1 L at 125 cc/hr of LR will be given. Repeat CXR did not show significantly changed infiltrates and lower suspicion that pneumonia is etiology of desaturation so will deescalate cefepime and flagyl to ceftriaxone. Given that repeat EKG continues to showed prolonged QTc, additional reason for DC'ing flagyl. K and Mg repleted to maintain above 4 ad 2, respectively. Of note, medical decision maker has now been changed to from grandson (Ck Munson) to son (Bogdan Munson). Patient's daughter, Bárbara Atkins, in agreement with decision. Family requesting transition to hospice services. Exam Vital Signs Temp Pulse Resp BP Pulse Ox O2 Del Method O2 Flow Rate 100.2 F 86 20 80/44 L 90 L Mechanical Ventilation 3 10/24/24 04:45 10/24/24 14:41 10/24/24 06:10 10/24/24 14:41 10/24/24 14:41 10/24/24 04:45 10/23/24 16:00 FiO2 30 10/24/24 14:41 Narrative Exam General: intubated and mechanically ventilated, on sedation (propofol and fentanyl), on pressors (levophed) HEENT: NC/AT, mucous membranes moist, bilateral sclera anicteric Cardiovascular: regular rate and rhythm, S1/S2 present, no murmurs appreciated Pulmonary: coarse lung sounds at bases, no crackles or wheezing appreciated Abdominal: soft, non-tender, non-distended, no rebound/guarding Musculoskeletal: chronic venous stasis changes in BLE, no peripheral edema Neuro: sedated as mentioned above Objective Labs 10/24/24 04:54 10/24/24 15:30 Labs: Laboratory Results - last 24 hr 10/23/24 10/23/24 10/23/24 18:33 18:55 20:18 WBC RBC Hgb Hct MCV MCH MCHC RDW Std Deviation Plt Count Neut % (Auto) Lymph % (Auto) [place] % (Auto) Eos % (Auto) Baso % (Auto) Neut # (Auto) Lymph # (Auto) [place] # (Auto) Eos # (Auto) Baso # (Auto) Immature Gran # (Auto) Absolute Nucleated RBC Immature Gran % Nucleated RBC % Puncture Site Right Radial Right Radial ABG pH 7.23 L D 7.35 D ABG pCO2 60 H D 54 H ABG pO2 296 H D 73 L D ABG HCO3 25 30 H ABG O2 Saturation 101 H 95 ABG Base Excess -3 3 FiO2 100 30 Sodium 140 Potassium 4.5 Chloride 103 Carbon Dioxide 26.5 Anion Gap 11 BUN 39 H Creatinine 1.9 H Estim Creat Clear Calc 28.4 L eGFR 34 L BUN/Creatinine Ratio 21 H Glucose 198 H D Calculated Osmolality 294 Calcium 10.2 Corrected Calcium 10.2 H Phosphorus 6.0 H Magnesium 2.4 Total Bilirubin Direct Bilirubin AST ALT Alkaline Phosphatase Troponin I 0.131 H* Total Protein Albumin 4.3 Globulin Albumin/Globulin Ratio 10/24/24 10/24/24 10/24/24 00:56 04:54 07:41 WBC 12.5 H RBC 3.51 L Hgb 11.4 L Hct 34.5 L MCV 98 MCH 32.5 MCHC 33.0 RDW Std Deviation 49.8 H Plt Count 102 L D Neut % (Auto) 81 H Lymph % (Auto) 6 L [place] % (Auto) 12 Eos % (Auto) 0 Baso % (Auto) 0 Neut # (Auto) 10.1 H Lymph # (Auto) 0.7 L [place] # (Auto) 1.5 H Eos # (Auto) 0.0 Baso # (Auto) 0.0 Immature Gran # (Auto) 0.11 H Absolute Nucleated RBC 0.00 Immature Gran % 1 H Nucleated RBC % 0 Puncture Site ABG pH ABG pCO2 ABG pO2 ABG HCO3 ABG O2 Saturation ABG Base Excess FiO2 Sodium 143 Potassium 3.5 D Chloride 102 Carbon Dioxide 30.6 Anion Gap 10 BUN 49 H Creatinine 2.4 H D Estim Creat Clear Calc 22.5 L eGFR 26 L BUN/Creatinine Ratio 20 Glucose 82 D Calculated Osmolality 296 H Calcium 10.2 Corrected Calcium 10.2 H Phosphorus Magnesium 1.9 Total Bilirubin 1.2 Direct Bilirubin 0.5 H AST 21 ALT 18 Alkaline Phosphatase 65 Troponin I 0.211 H* 0.196 H* Total Protein 7.0 Albumin 4.0 Globulin 3.0 Albumin/Globulin Ratio 1.3 ABG Interpretation ABG results: 10/23/24 10/23/24 10/23/24 08:16 18:33 20:18 ABG pH 7.42 7.23 L D 7.35 D ABG pCO2 43 60 H D 54 H ABG pO2 107 296 H D 73 L D ABG HCO3 28 H 25 30 H ABG O2 Saturation 99 H 101 H 95 ABG Base Excess 3 -3 3 Quality Measures Quality Measures none Advance care planning discussed with:: child and legal surragate Assessment & Plan Assessment Current Active Medications: Generic Name Dose Route Start Last Admin Trade Name Freq PRN Reason Stop Dose Admin Acetaminophen 650 mg 10/22/24 12:55 Acetaminophen 325 Mg Tablet PO 11/21/24 12:54 Q4HR PRN Fever >100.3 or pain Protocol Albuterol/Ipratropium 3 ml 10/22/24 15:00 10/24/24 14:48 Albuterol/Ipratropium (Duoneb) Rt Risa 3 Ml Nebu INH 11/21/24 14:59 3 ml Q8HRRT FRED Administration Amiodarone HCl 200 mg 10/23/24 21:00 10/24/24 09:56 Amiodarone Hcl 200 Mg Tablet GT 11/22/24 20:59 200 mg BID FRED Administration Aspirin 81 mg 10/24/24 09:15 10/24/24 09:56 Aspirin Ec 81 Mg Tabec PO 11/23/24 09:14 81 mg QDAY RFED Administration Bumetanide 1 mg 10/22/24 21:00 10/23/24 21:40 Bumetanide Inj 0.25 Mg/Ml Vial 4 Ml IVP 11/21/24 20:59 1 mg BID FRED Administration Dextrose 50 ml 10/22/24 17:48 Dextrose 50%-Water Inj 50 Ml Syringe IV 11/21/24 17:47 Q15MIN PRN BG <50 OR BG <70 & pt unresponsive Glucagon 1 mg 10/22/24 17:48 Glucagon Inj 1 Mg Vial IM Q15MIN PRN BG <70, and no IV access Amiodarone HCl/Dextrose 360 mg in 200 mls @ 16.667 mls/hr 10/24/24 00:51 10/24/24 13:16 Nexterone Ivpb IV 10/25/24 00:50 16.667 mls/hr .Q12H FRED Administration Propofol 1,000 mg in 100 mls @ 2.441 mls/hr 10/23/24 19:02 10/24/24 06:00 Diprivan Ivpb IV 11/22/24 19:01 5 mcg/kg/min .Q24H PRN 2.441 mls/hr PER PROTOCOL Titration Protocol 5 MCG/KG/MIN Fentanyl Citrate 2,500 mcg in 250 mls @ 2.5 mls/hr 10/23/24 19:02 10/24/24 06:00 Sublimaze Inj 2,500 Mcg/250 Ml Bag IV 10/28/24 19:01 75 mcg/hr .Q24H PRN 7.5 mls/hr PER PROTOCOL Titration Protocol 25 MCG/HR Norepinephrine Bitartrate 16 mg in 250 mls @ 3.797 mls/hr 10/24/24 06:36 10/24/24 08:50 Levophed In Ns 16mg/250ml IV 11/23/24 06:35 0.05 mcg/kg/min .Q24H PRN 3.797 mls/hr PER protocol Administration Protocol 0.05 MCG/KG/MIN Dexmedetomidine/Sodium Chloride 200 mcg in 50 mls @ 4.05 mls/hr 10/24/24 07:55 Precedex Ivpb IV 11/23/24 07:54 .[id number] PRN Per PROTOCOL Protocol 0.2 MCG/KG/HR Ceftriaxone Sodium 1,000 mg/ 50 mls @ 100 mls/hr 10/24/24 09:16 10/24/24 09:56 Sodium Chloride IV 10/31/24 09:15 100 mls/hr QDAY FRED Administration Lactated Ringer's 1,000 mls @ 125 mls/hr 10/24/24 11:59 10/24/24 13:17 Lactated Ringers IV 10/24/24 19:58 125 mls/hr .Q8H ONE Administration Insulin Human Lispro 0 unit 10/24/24 06:00 10/24/24 05:32 Insulin Lispro (Admelog) 1 Unit/0.01 Ml Unit SC 11/23/24 05:59 Not Given Q6HR [facility] Protocol Oseltamivir Phosphate 30 mg 10/23/24 09:00 10/24/24 13:12 Oseltamivir 30 Mg Capsule PO 10/27/24 08:59 30 mg BID FRED Administration Pantoprazole Sodium 40 mg 10/24/24 09:00 10/24/24 09:55 Pantoprazole Inj 40 Mg Vial IVP 11/23/24 08:59 40 mg QDAY FRED Administration Plan Richard Munson is an 84-year-old Citizen Of [place]-speaking male with past medical history of HFrEF (EF 10 to 15%, 10/22/2024), A-fib on home amiodarone and status post SURGICAL ATTENDANT-D placement, T2DM, hypertension, hyperlipidemia, BPH admitted on 10/22 for acute decompensated CHF exacerbation in setting of influenza A. Upgraded to ICU after not improving on BiPAP on 10/23 requiring RSI. Neurological #Sedated, on propofol and fentanyl Attempted sedation holiday by holding propofol but patient became agitated and did not tolerate. - Keep RASS score between -4 and-5 as patient desaturates when agitated/not sedated - Plan to extubate while on sedation to maintain respiratory drive Cardiovascular #A-fib with RVR #History of VTs/p SURGICAL ATTENDANT-D placement Multiple rapid responses for tachycardia and hypoxemia. Suspect that arrhythmia may be the etiology for patient's desaturation given already significantly reduced EF. Lower suspicion for pneumonia as there are no significant changes when comparing CXR findings before and after rapid responses that would account for decreased oxygenation and hypercapnia. - Cardiology consulted: amiodarone drip for 24 hours and will restart 200 mg PO BID tonight (10/24), metoprolol succinate 50 mg daily #Acute decompensated CHF exacerbation (EF 10-15%, 10/22) Echo 10/22: EF 10-15%, moderately dilated LV, dilated cardiomyopathy, RVSP 31 mmHG CXR 10/22: vascular congestion, moderate enlargement left ventricle BNP 1904, 1 L UOP on bumex 1 mg IV BID Bedside echo on 10/24 to evaluate IVC and lungs to evaluate fluid status did not reveal fluid overload - Hold bumex in setting of increasing creatinine - Strict I/O - Fluid restriction - K > 4 and Mg > 2 #Elevated troponins, likely demand ischemia In setting of a-fib and CHF exacerbation causing demand ischemia. Troponin: 0.13 -> 0.18 -> 0.14 -> 0.12 -> 0.13 -> 0.21 -> 0.19 -> 0.16 EKG showed ventricular paced rhythm and PVCs - No longer trending troponins Pulmonary #Acute hypoxic-hypercapnic respiratory failure, secondary to a-fib RVR vs CHF exacerbation vs pneumonia Failed BiPAP and was thus intubated and upgraded to ICU on 10/23. Noted to be tachycaric in 150s during RR with concurrent hypoxemia and suspect this to be primary etiology for hypoxemia as noted above. ABG during RR: pH 7.23, pCO2 60, pO2 296 -> pH 7.35, pCO2 54, pO2 73 - Mechanical ventilation: VT 450, RR 20, PEEP 5.0, FiO2 30% Renal #Acute kidney injury, secondary to prerenal azotemia vs cardiorenal syndrome Baseline Cr 1.1; Cr uptrending since admission while on bumex 1 mg IV BID. Bedside echo did not reveal dilated IVC of significant fluid in lungs, thus leaning toward prerenal azotemia so will hold bumex. - Hold bumex - Strict I/O - Renally dose medications - Avoid nephrotoxic agents #Hyperphosphatemia, in setting of MARK Gastrointestinal #Hyperbilirubinemia, resolved #GI prophylaxis, pantoprazole IV Endocrine #Type 2 diabetes mellitus A1c 5.1% - SSI Heme #Thrombocytopenia - Follow-up drug-induced lupus labs #Normocytic anemia Reticulocyte count 2.5%, indicating intact bone marrow Elevated indirect bilirubin in conjunction with thombocytopenia may indicat hemolysis. However, will follow-up iron panel first prior to hemolytic anemia work-up. - Follow-up iron panel Infectious disease #Influenza A - Tamiflu 30 mg PO (renally dosed) until 10/27 #Pneumonia CXR 10/24 compared to 10/23 showed mildly increased opacities in RLL - Ceftriaxone 2 g IV daily - Sputum culture 10/23: GPC and gram variable rods - Blood culture 10/22: NGTD #? UTI UA cloudy, 1+ protein, 1+ blood, 21 RBC, 90 WBC, LE (+), rare bacteria, yeast - Urine culture 10/22: NGTD - Antibiotics as above Hospital management: Disposition: intubated, mechanically ventilated, on pressors and sedated Pressors: levophed Sedation: propofol and fentanyl Fluids: 1 L LR at 125 cc/hr Diet: NPO Lines: PIV GI prophylaxis: pantoprazole IV Moore: placed CODE STATUS: full code ----- Plan discussed with attending physician Dr. Lázaro Lopez MD PGY-1 Internal Medicine
[2024-10-24 16:31] LABS: Alanine Aminotransferase 15 U/L (10-49); Albumin, Serum 3.6 gm/dL (3.4-4.8); Albumin/Globulin Ratio 1.2 (1.2-2.2); Alkaline Phosphatase 57 U/L (46-116); Anion Gap 9 (7-16); Aspartate Amino Transferase 11 U/L (0-34); BUN/Creatinine Ratio 17 Ratio (12-20); Blood Urea Nitrogen 57 mg/dL (9-23); Calcium 9.8 mg/dL (8.3-10.6); Calcium (Corrected) 10.1 mg/dL (8.5-10.1); Carbon Dioxide 26.4 mMol/L (20.0-31.0); Chloride 107 mMol/L (98-107); Creatinine (Component) 3.4 mg/dL (0.6-1.3); Estimated Creatinine Clearance 15.4 mL/min (>60); Globulin 2.9 gm/dL (2.3-3.5); Glucose 98 mg/dL (74-106); Magnesium 2.1 mg/dL (1.6-2.6); Osmolality,Calculated 298 (275-295); Potassium 4.3 mMol/L (3.4-5.1); Sodium 142 mMol/L (136-145); Total Protein 6.5 gm/dL (5.7-8.2); eGFR 17 See Note
[2024-10-24 16:32] LABS: Troponin I 0.159 ng/mL (0.0-0.045)
[2024-10-24 18:51] LABS: Iron 14 mcg/dL (65-175); Percent Iron Saturation 6 % (20-55); Total Iron Binding Capacity 208 mcg/dL (250-425); Unsaturated Iron Binding 194 (225-295)
[2024-10-24] MEDS: fentaNYL 2,500 MCG/250 ML BAG 2,500 MCG/250 ML BAG 10 MCG IV (18:56)
[2024-10-24] MEDS: PROPOFOL 1,000 MG IVPB 1,000 MG/100 ML VIAL 21.968 MG IV (23:31)
[2024-10-25] VITALS (163 sets, daily range): BP systolic 70–181; BP diastolic 43–109; PULSE 59–180; RESP 5–20; TEMP 36.2–36.8; O2SAT 82–99
[2024-10-25] MEDS: PROPOFOL 1,000 MG IVPB 1,000 MG/100 ML VIAL 21.968 MG IV (04:40)
[2024-10-25 05:18] LABS: Misc Send Out* See Sep Rpt
[2024-10-25 05:22] LABS: Basophils % (Auto) 0 % (0-2.5); Eosinophils % (Auto) 0 % (0-10); Hematocrit 33.4 % (41.0-53.0); Hemoglobin 10.9 g/dL (13.5-16.0); Immature Granulocytes % (Auto) 1 % (0-0); Immature Granulocytes Auto 0.07 Thou/mm3 (0.00-0.00); Lymphocytes # (Auto) 1.2 Thou/mm3 (1.0-4.8); Lymphocytes % (Auto) 8 % (10-50); Mean Corpuscular HGB Conc 32.6 g/dl (31.0-37.0); Mean Corpuscular Hemoglobin 31.6 pg (25.0-35.0); Mean Corpuscular Volume 97 fL (80-100); Monocytes # (Auto) 1.8 Thou/mm3 (0.0-0.8); Monocytes % (Auto) 12 % (0-12); Neutrophils % (Auto) 80 % (37-80); Nucleated Red Blood Cell % 0 /100 WBC (0); Platelet Count 127 Thou/mm3 (140-440); RDW Standard Deviation 50.2 fL (35.1-43.9); Red Blood Count 3.45 Miln/mm3 (4.50-5.90)
[2024-10-25 06:09] LABS: Alanine Aminotransferase 14 U/L (10-49); Albumin, Serum 3.7 gm/dL (3.4-4.8); Albumin/Globulin Ratio 1.2 (1.2-2.2); Alkaline Phosphatase 63 U/L (46-116); Anion Gap 12 (7-16); Aspartate Amino Transferase 12 U/L (0-34); BUN/Creatinine Ratio 17 Ratio (12-20); Blood Urea Nitrogen 73 mg/dL (9-23); Calcium 10.2 mg/dL (8.3-10.6); Calcium (Corrected) 10.4 mg/dL (8.5-10.1); Carbon Dioxide 25.2 mMol/L (20.0-31.0); Chloride 106 mMol/L (98-107); Creatinine (Component) 4.2 mg/dL (0.6-1.3); Estimated Creatinine Clearance 12.4 mL/min (>60); Glucose 110 mg/dL (74-106); Magnesium 2.3 mg/dL (1.6-2.6); Osmolality,Calculated 307 (275-295); Potassium 3.8 mMol/L (3.4-5.1); Sodium 143 mMol/L (136-145); Total Protein 6.7 gm/dL (5.7-8.2); eGFR 13 See Note
[2024-10-25] MEDS: ALBUTEROL/IPRATROPIUM (Duoneb) RT SOL 3 ML NEBU INH ×3 (06:16→23:00)
--- NOTE | 2024-10-25 07:00 | XR_ITS ---
Examination: AP chest single view Technique one AP portable semiupright chest single view Exam date and time: October 25, 2024 at 0319 hrs. Comparison October 24, 2024 Indications: Coughing congestion this week, hypoxic respiratory failure Findings: [id number] heart failure Enlarged left ventricle with prominent vascular congestion perihilar edema Dense opacity at the lung bases, more severe right lung base compared to the prior study consistent with pneumonia Cardiac leads stable position Tracheal tube tip 5 cm above dustin The orogastric tube is in the stomach, the tip is below the level film Impression: [id number] heart failure Bibasilar pneumonia, worse at the right base compared to prior study
[2024-10-25 07:21] LABS: Base Excess 1 (-3-3); HCO3 27 mEq/L (20-26); Inspired Oxygen, FIO2 30 %; O2 Saturation 98 % (91-98); PCO2 47 mmHg (32.0-48.0); PO2 91 mmHg (83-108); pH, Arterial 7.36 (7.35-7.45)
[2024-10-25 07:22] LABS: Allen Test Performed/OK; Puncture Site Right Radial
[2024-10-25 07:47] LABS: Phosphorous 4.6 mg/dL (2.4-5.1)
[2024-10-25] MEDS: DEXMEDETOMIDINE 200 MCG IVPB 200 MCG/50 ML BOTTLE IV ×2 (07:51→22:45)
[2024-10-25] MEDS: PROPOFOL 1,000 MG IVPB 1,000 MG/100 ML VIAL 9.78 MG IV (07:55)
[2024-10-25] MEDS: cefTRIAXone/D5w 2gm 2 GM/50 ML BAG IV (08:55)
[2024-10-25] MEDS: PANTOPRAZOLE INJ 40 MG VIAL IVP (08:56)
[2024-10-25] MEDS: AMIODARONE HCL 200 MG TABLET GT (08:56)
[2024-10-25] MEDS: OSELTAMIVIR 30 MG CAPSULE PO (08:56)
[2024-10-25] MEDS: POTASSIUM CHLORIDE 10% 20 MEQ/15 ML UDC GT (08:56)
[2024-10-25] MEDS: ASPIRIN 81 MG CHEW GT (08:57)
--- NOTE | 2024-10-25 10:02 | PD.RESPRO ---
Documentation for date of: 10/25/24 Subjective Subjective Interval history: 10/25: no acute overnight events. Pt is seen and examined in ICU to. Patient is currently on mechanical ventilation, goals of care discussion was held with the family and the ICU team and patient's family have decided to go ahead with extubation and change the CODE STATUS to DNR/DNI if patient requires reintubation patient's family have decided to pursue comfort care at that time. Patient is seen in the evening again and patient is extubated he is currently saturating 97% on 5 L of oxygen patient urine output is approximately 150 cc an overnight patient's urine output was about 225 cc. In the evening patient is placed back on Levophed at 0.03 for hypotension. Exam Vital Signs Temp Pulse Resp BP Pulse Ox O2 Del Method O2 Flow Rate 97.1 F 68 20 134/73 H 97 Mechanical Ventilation 3 10/25/24 04:00 10/25/24 08:56 10/25/24 06:18 10/25/24 08:56 10/25/24 08:15 10/25/24 00:00 10/23/24 16:00 FiO2 30 10/25/24 06:18 Narrative Exam GENERAL: Pt is extubated, currently saturating on 5L O2 via oxy mask NEURO: unable to asses as Pt is sedated and mechanically ventilated HEENT: Atraumatic, Normocephalic. mucous membranes moist. Eyes open, symmetrical, & clear HEART: Normal Heart Sounds LUNGS: Clear to auscultation with no wheezing or crackles. ABDOMEN: soft, non-distended, non-tender, bowel sounds heard, no guarding or rebound tenderness SKIN: No Rash or ecchymoses, chronic venous stasis skin changes bilaterally below knees EXTREMITIES: No edema, tenderness, able to move all 4 extremities, pedal pulses palpated Objective Labs 10/26/24 04:00 10/26/24 04:00 Labs: Laboratory Results - last 24 hr 10/24/24 10/24/24 10/24/24 04:54 07:41 15:30 WBC RBC Hgb Hct MCV MCH MCHC RDW Std Deviation Plt Count Neut % (Auto) Lymph % (Auto) [place] % (Auto) Eos % (Auto) Baso % (Auto) Neut # (Auto) Lymph # (Auto) [place] # (Auto) Eos # (Auto) Baso # (Auto) Immature Gran # (Auto) Absolute Nucleated RBC Immature Gran % Nucleated RBC % Puncture Site ABG pH ABG pCO2 ABG pO2 ABG HCO3 ABG O2 Saturation ABG Base Excess FiO2 Sodium 142 Potassium 4.3 D Chloride 107 Carbon Dioxide 26.4 Anion Gap 9 BUN 57 H Creatinine 3.4 H D Estim Creat Clear Calc 15.4 L eGFR 17 L BUN/Creatinine Ratio 17 Glucose 98 Calculated Osmolality 298 H Calcium 9.8 Corrected Calcium 10.1 Phosphorus Magnesium 1.9 2.1 Iron 14 L TIBC 208 L Iron Saturation 6 L Unsat Iron Binding 194 L Total Bilirubin 1.0 AST 11 ALT 15 Alkaline Phosphatase 57 Troponin I 0.159 H* Total Protein 6.5 Albumin 3.6 Globulin 2.9 Albumin/Globulin Ratio 1.2 10/25/24 10/25/24 04:56 07:12 WBC 15.0 H RBC 3.45 L Hgb 10.9 L Hct 33.4 L MCV 97 MCH 31.6 MCHC 32.6 RDW Std Deviation 50.2 H Plt Count 127 L D Neut % (Auto) 80 Lymph % (Auto) 8 L [place] % (Auto) 12 Eos % (Auto) 0 Baso % (Auto) 0 Neut # (Auto) 12.0 H Lymph # (Auto) 1.2 [place] # (Auto) 1.8 H Eos # (Auto) 0.0 Baso # (Auto) 0.0 Immature Gran # (Auto) 0.07 H Absolute Nucleated RBC 0.00 Immature Gran % 1 H Nucleated RBC % 0 Puncture Site Right Radial ABG pH 7.36 ABG pCO2 47 ABG pO2 91 ABG HCO3 27 H ABG O2 Saturation 98 ABG Base Excess 1 FiO2 30 Sodium 143 Potassium 3.8 D Chloride 106 Carbon Dioxide 25.2 Anion Gap 12 BUN 73 H Creatinine 4.2 H* D Estim Creat Clear Calc 12.4 L eGFR 13 L* BUN/Creatinine Ratio 17 Glucose 110 H Calculated Osmolality 307 H Calcium 10.2 Corrected Calcium 10.4 H Phosphorus 4.6 Magnesium 2.3 Iron TIBC Iron Saturation Unsat Iron Binding Total Bilirubin 1.0 AST 12 ALT 14 Alkaline Phosphatase 63 Troponin I Total Protein 6.7 Albumin 3.7 Globulin 3.0 Albumin/Globulin Ratio 1.2 ABG Interpretation ABG results: 10/23/24 10/23/24 10/23/24 08:16 18:33 20:18 ABG pH 7.42 7.23 L D 7.35 D ABG pCO2 43 60 H D 54 H ABG pO2 107 296 H D 73 L D ABG HCO3 28 H 25 30 H ABG O2 Saturation 99 H 101 H 95 ABG Base Excess 3 -3 3 10/25/24 07:12 ABG pH 7.36 ABG pCO2 47 ABG pO2 91 ABG HCO3 27 H ABG O2 Saturation 98 ABG Base Excess 1 Quality Measures Quality Measures none Advance care planning discussed with:: other Assessment & Plan Assessment Current Active Medications: Generic Name Dose Route Start Last Admin Trade Name Freq PRN Reason Stop Dose Admin Acetaminophen 650 mg 10/22/24 12:55 Acetaminophen 325 Mg Tablet PO 11/21/24 12:54 Q4HR PRN Fever >100.3 or pain Protocol Albuterol/Ipratropium 3 ml 10/22/24 15:00 10/25/24 06:16 Albuterol/Ipratropium (Duoneb) Rt Risa 3 Ml Nebu INH 11/21/24 14:59 3 ml Q8HRRT FRED Administration Amiodarone HCl 200 mg 10/24/24 21:00 10/25/24 08:56 Amiodarone Hcl 200 Mg Tablet GT 11/23/24 20:59 200 mg BID FRED Administration Aspirin 81 mg 10/25/24 09:00 10/25/24 08:57 Aspirin 81 Mg Chew GT 11/23/24 09:14 81 mg QDAY FRED Administration Bumetanide 1 mg 10/22/24 21:00 10/24/24 20:32 Bumetanide Inj 0.25 Mg/Ml Vial 4 Ml IVP 11/21/24 20:59 Not Given BID FRED Dextrose 50 ml 10/22/24 17:48 Dextrose 50%-Water Inj 50 Ml Syringe IV 11/21/24 17:47 Q15MIN PRN BG <50 OR BG <70 & pt unresponsive Glucagon 1 mg 10/22/24 17:48 Glucagon Inj 1 Mg Vial IM Q15MIN PRN BG <70, and no IV access Norepinephrine Bitartrate 16 mg in 250 mls @ 3.797 mls/hr 10/24/24 06:36 10/25/24 06:00 Levophed In Ns 16mg/250ml IV 11/23/24 06:35 0.05 mcg/kg/min .Q24H PRN 3.797 mls/hr PER protocol Titration Protocol 0.05 MCG/KG/MIN Ceftriaxone Sodium/Dextrose 2 gm in 50 mls @ 100 mls/hr 10/25/24 09:00 10/25/24 08:55 Rocephin/D5w 2gm IV 11/01/24 08:59 100 mls/hr QDAY FRED Administration Dexmedetomidine/Sodium Chloride 200 mcg in 50 mls @ 4.05 mls/hr 10/24/24 17:33 10/25/24 08:23 Precedex Ivpb IV 11/23/24 07:54 0.6 mcg/kg/hr .[id number] PRN 12.15 mls/hr Per PROTOCOL Titration Protocol 0.2 MCG/KG/HR Fentanyl Citrate 2,500 mcg in 250 mls @ 2.5 mls/hr 10/25/24 07:50 Sublimaze Inj 2,500 Mcg/250 Ml Bag IV 10/28/24 19:01 .Q24H PRN PER PROTOCOL Protocol 25 MCG/HR Propofol 1,000 mg in 100 mls @ 2.445 mls/hr 10/25/24 07:50 10/25/24 08:23 Diprivan Ivpb IV 11/22/24 19:01 10 mcg/kg/min .Q24H PRN 4.89 mls/hr PER PROTOCOL Titration Protocol 5 MCG/KG/MIN Insulin Human Lispro 0 unit 10/24/24 06:00 10/25/24 05:26 Insulin Lispro (Admelog) 1 Unit/0.01 Ml Unit SC 11/23/24 05:59 Not Given Q6HR FRED Protocol Oseltamivir Phosphate 30 mg 10/23/24 09:00 10/25/24 08:56 Oseltamivir 30 Mg Capsule PO 10/27/24 08:59 30 mg BID FRED Administration Pantoprazole Sodium 40 mg 10/24/24 09:00 10/25/24 08:56 Pantoprazole Inj 40 Mg Vial IVP 11/23/24 08:59 40 mg QDAY FRED Administration Plan Mr. Ramos is an 84 year old male with past medical history significant for hypertension, hyperlipidemia, [id number] type 2 diabetes, BPH, A-fib status post ANIMAL CARE GIVER-D placed 12 years ago, HFrEF with ejection fraction of 15 to 20% presented to the ED complaining of worsening shortness of breath. #Aute hypoxic respiratory failure #Aute CHF exacerbation #Dilated Cardiomyopathy -Pt complains of progressively worsening SOB, that is present even at rest. -Cest Xray - Mild heart failure, Moderate enlargement left ventricle -BNP on admission 1904 -Echo 12/05/23 findings include: Dilated cardiomyopathy. Severe dilated LV. Severe systolic dysfunction. Severe global hypokinesis. Estimated EF 15-20 % Diastolic dysfunction present but cannot grade due to paced rhythm. RV mildly dilated with normal systolic dysfunction. Pacing wire present Moderate MR, mild AI, mild to moderate TR, PI. Mild AV sclerosis without stenosis. Pleural effusion present. -In the ED patient was given 60 mg IV push of Lasix x 1 -Patient is started on Bumex 1 mg twice daily along with metoprolol 50 XL and amiodarone 200 mg twice daily -Strict ins and outs, fluid restriction and daily weights #A-fib s/p ANIMAL CARE GIVER-D placement (12 years ago) -[id number] is 5, although due to his medical history Pt should be on anticoagulation. Unless there is a know contraindication recommend starting Pt on anticoagulation. - Pt's ANIMAL CARE GIVER-D was placed 12 years ago with recent battery change in June 2023 -per chart reviewing : [employer] ANIMAL CARE GIVER-D check was completed during last admission in November 2023 which showed no evidence of any acute events which required any shocks. -EKG on admission: ventricular paced rhythm with no ST or T wave changes. -Patient is started on amiodarone 200 Mg twice daily and metoprolol 50 XL once daily -Keep potassium above 4 and magnesium above 2 at all times -Pt had a rapid response called at approximately 7:15 for HR above 170, Pt was in afib and despite bolus amnio pt quickly started desatting to 60's and was unable to protect his airway, and immediate decision was made to intubate the patient. Amio GTT was started. -Recommend additional Amio 200mg BID via GT and will add metoprolol 50xl twice daily when blood pressure permissible #elevated troponins #troponins type 1 vs type 2 -likely type 2 demand ischemia. -initial troponins 0.134 -> 0.178 -> 0.143 -> 0.117 #acute tubular necrosis -on admission creatinine was 1.6 and pts baseline is between 1 - 1.2 -On 10/25 creatinine is 4.2, GFR 13 -likely secondary to prerenal azotemia -Pt is making urine; overnight 225 cc and this morning 150 cc -Recommend to stop the Lasix and give IV hydration -Will continue to monitor daily CMP and renaly dose medications and avoid nephrotoxic drugs. # Hypotension -Patient became hypotensive this morning MAP below 65 patient was started on Levophed at 0.5 mL/h -Will hold the metoprolol until patient is off of pressors and if blood pressure permits will recommend to start metoprolol 50 XL twice daily #Influenza A positive Patient is influenza A positive which likely contributed to the shortness of breath and cough. Patient is started on Tamiflu by the primary team. #Primary hypertension -On admission patient blood pressure was 148/86 and blood pressure today is 137/95. -Will not resume home amlodipine as patient likely will need metoprolol and diuresis which likely will soften the blood pressure and allow for room to increase metoprolol if needed. # Hyperlipidemia patient was supposed to be taking statin but current medication list does not list. Pt is recommended to continue statin #BPH patient's home finasteride is resumed by the primary team Assessment and plan discussed with my attending physician Dr. Carlos Fuentes ([id number])- Internal medicine resident Attending Provider Attestation/Addendum I have personally seen and examined the patient separately on the above date of service and discussed the plan of care with the resident. I reviewed the resident Dr. Luc Fuentes consultation note and agree with the resident findings and plan in the note above and have also edited the documentation to reflect my findings and plan. Patient well-known to me from previous admissions and follow-up in the clinic last year but has been lost to follow-up [place]. 83-year-old male with a past medical history of dilated nonischemic cardiomyopathy with severe systolic congestive heart failure with an EF of around 15% status post ANIMAL CARE GIVER-D in 2011 and recent battery change in June 2023, paroxysmal atrial fibrillation, NSVT on previous admissions on amiodarone, type 2 diabetes mellitus, essential hypertension, BPH, hyperlipidemia,, and venous stasis with questionable PAD, mild dementia with cognitive deficiency, small abdominal hernia, BPH presented to the hospital for worsening shortness of breath. Patient apparently has been having flulike symptoms over the past couple of days. And has been having worsening shortness of breath over the past couple of days and also a cough but with no sputum production. Patient also had shortness of breath which is worse on lying down which most orthopnea and cannot lie flat. Denied chest pain chest pressure, palpitations, worsening lower extremity swelling, dizziness or syncope or fall. Denies any kind of fever or chills. In the emergency department initial blood pressure was 148/86 mmHg heart rate of 89/min, paced rhythm, RR 23 and afebrile and saturation of 96% on room air. Labs showed hemoglobin of 10.6 platelets of 18, WBC 12.1, BUN 13 and creatinine of 1.6 which worsened to 1.8. Initial troponin was 0.134 and repeat was 0.178 BNP was 1904 and previously was 1600. Chest x-ray with pulmonary vascular congestion with septal edema. EKG showed ventricular paced rhythm at 105 bpm. Patient flu test was positive. Patient did receive IV Lasix in the emergency department and was admitted to the hospital for acute hypoxic respiratory failure in the setting of flu as well as possible CHF exacerbation. 1. Acute hypoxic respiratory failure in the setting of acute influenza A infection and possible CHF exacerbation. Later in the evening patient had rapid response with hypoxia and was intubated on mechanical ventilation. 2. Acute influenza A infection 3. Acute on chronic severe systolic congestive heart failure exacerbation 4. Acute kidney injury versus MARK on CKD stage III 4. Dilated nonischemic cardiomyopathy s/p ANIMAL CARE GIVER-D 12 years ago around 2011 with recent battery change in June 2023 5. History of NSVT during last admission on amiodarone 6. Paroxysmal atrial fibrillation 7. Thrombocytopenia severe 8. Essential hypertension 9. Diabetes mellitus type 2 10. BPH 11. Hyperlipidemia 12. Chronic venous stasis with questionable PAD 13. Mild cognitive deficiency Patient presented with acute hypoxic respiratory failure in the setting of active influenza infection which probably contributed to his acute on chronic CHF exacerbation. Overall on examination patient does not appear to be volume overloaded. Initial chest x-ray did show minimal septal edema also no evidence of any consolidation. BNP was elevated at 1906 and previous was 1600. Patient did endorse to orthopnea along with flulike symptoms and cough symptoms. Primary team started the patient on Tamiflu for the influenza A renal dosing given the acute kidney injury. This evening patient went into atrial fibrillation with RVR and was hypoxic during the rapid response and was intubated and placed on mechanical ventilation. Repeat chest x-ray did show the same vascular congestion as well as perihilar edema and questionable right lower lobe consolidation and will need to rule out aspiration. Started on IV antibiotics for presumed pneumonia and sepsis. Patient has been extubated successfully by the ICU team on 08/24/2025. Patient is on oxygen via Ventimask at 4-5 and 5 L/min and is saturating 97% on room air. Still continues to be on low-dose pressors with Levophed Primary team to discuss the code dose status with the patient and patient is now DNR and DNI and do not want any invasive treatments. Regarding his severe systolic CHF patient does have dilated nonischemic cardiomyopathy with an EF of around 15% as documented the previous echo in November 2023 with severe global hypokinesis, diastolic dysfunction, mildly dilated RV, moderate MR, mild AI and mild to moderate TR. Mild AV sclerosis without stenosis. Biatrial dilatation. Initially BNP was 1906 and BUN of 13 creatinine of 1.6. His baseline creatinine is 1.2. Could be cardiorenal syndrome but there is no significant hepatic congestion. Patient was started on IV Bumex 1 mg twice daily by the primary team. Renal function continues to worsen at 73 and 4.2 this morning. Patient probably has ATN at the present moment and continue to monitor the urine output along with renal function closely. Recommend to stop the diuresis completely. Continue to monitor strict input output, daily weights and 2 g sodium diet. Paroxysmal atrial fibrillation with RVR-patient went into A-fib with RVR this evening with heart rate of around 150 bpm and the patient was given amiodarone bolus along with drip and now the patient converted to normal sinus rhythm/sinus tachycardia around 90-110 bpm. No anticoagulation because of the low platelets. Amiodarone completed and patient is on oral amiodarone 200 mg twice daily for now. If patient unable to take oral please restart the amiodarone drip.. Continue to monitor the QTc. Continue beta-jaret 50 mg once daily and uptitrate if blood pressure is permissible presently patient is on pressors. Patient had a history of NSVT during last admission and was started on oral amiodarone 200 mg once daily and metoprolol XL once daily. Patient continues to have significant PVCs and NSVT's this morning and was recommended to increase amiodarone to 200 mg twice daily. Continue metoprolol XL 50 mg once daily blood pressure is permissible and continue to uptitrate the metoprolol XL. Patient still needing low-dose pressor with Levophed. History of ANIMAL CARE GIVER-D secondary to severe systolic CHF placed in 2011 and battery changed in June 2023. Last interrogation was during the last admission and device functioning well. Recommend to obtain [employer]/ mymission2 device check again for the patient. Mildly elevated troponins which peaked around 0.1-0.2. Patient does have history of severe systolic CHF and in the presence of acute influenza A infection with elevated troponins mostly NSTEMI type II in the setting of supply/demand mismatch. Patient not on anticoagulation previously and now cannot be started because of the severe thrombocytopenia which is 18 initially and now at 41. Repeat echocardiogram on 12 and will follow-up the results. No aspirin given the severe severe thrombocytopenia. Continue statin. Patient condition is critical and overall overall poor prognosis given his longstanding severe systolic congestive heart failure which was explained to the son this evening. Son understands well his prognosis at the present point of time and at present patient is DNR and DNI There is a high probability of sudden, clinically significant or life threatening deterioration in the patient condition which required the highest level of physician preparedness to intervene urgently. I have personally spent 35 minutes of critical care time, exclusive of time spent on any procedures, in evaluation and management of this critically ill patient. Management of rest of the medical conditions as per primary team and other consultants. Thank you for the consult and allowing me to participate in the care of the patient. Cardiology will continue to follow. Jose M Gonzalez M.D. Interventional Cardiology
--- NOTE | 2024-10-25 10:27 | ESPR_ITS ---
<Statement entered by Rosaura Sesay MD - 10/26/24 08:23> TOTAL CC TIME: 35 MIN I saw and evaluated the patient. I reviewed the resident?s note and agree with findings and plan as documented in the resident?s note. Upon my evaluation, this patient had a high probability of imminent or life- threatening deterioration due to shock, respiratory failure which required my direct attention, intervention, and personal management. This time is exclusive of time spent on procedures, which are documented separately if performed. We were able to wean down sedation and placed on pressure support ventilation. Patient remains on Levophed which may be vasodilation due to resolving shock versus Precedex induced. Goals of care were discussed with the patient's son who is made the medical decision maker by his 2 sisters. The patient's son has requested that we obtain a hospice consult with the hopes of being able to stabilize his father and have him discharged from the hospital with hospice. Renal failure is progressive and he is aware of this as well. The son would like us to prioritize the patient's comfort over medical care for medical diseases. Documentation for date of: 10/25/24 Subjective Subjective Interval history: Richard Munson is an 84-year-old Malay-speaking male with past medical history of HFrEF (EF 10 to 15%, 10/22/2024), A-fib on home amiodarone and status post S[employer]EL[employer] placement, T2DM, hypertension, hyperlipidemia, BPH presented to ED on 10/22 for progressive shortness of breath with associated PND and orthopnea. Also noted to have nonproductive cough. Thus patient was admitted for acute deep decompensated CHF exacerbation and found to be influenza A positive. On admission, initially on 2 L nasal cannula, however, RR on 10/22 for tachycardia at 140 bpm and SpO2 in 70s. O2 flow rate increased to 6 L with improvement of SpO2 to 100% and heart rate improved to 110s. EKG showed paced ventricular rhythm. Amiodarone 200 mg PO and metoprolol succinate 50 mg PO daily started following morning. Second RR on 10/23 for tachycardia in 150s and respiratory distress with SpO2 71%. Placed on BiPAP but SpO2 did not increase above 74% and subsequently transferred to ICU for RSI and placed on amiodarone drip. Per cardiology, continue amiodarone drip for 24 hours and then change to PO amiodarone 200 mg BID (monitor QTc) while continuing metoprolol succinate 50 mg daily if blood pressure permits. 10/24: Seen and examined at bedside in ICU, mechanically ventilated (VT 450, RR 20 PEEP 5, FiO2 30%) and sedated on propofol and fentanyl drips. Propofol drip held due to hypotension and to assess mentation. However, patient became agitated and unable to obtain accurate SpO2 and so propofol was restarted. Bedside echo to evaluate IVC and lungs to evaluate fluid status did not reveal fluid overload. Additionally, crackles and lower extremity edema not appreciated on exam. Thus, bumex will be held in setting of increasing Cr (1.9 to 2.4) and 250 cc bolus and 1 L at 125 cc/hr of LR will be given. Repeat CXR did not show significantly changed infiltrates and lower suspicion that pneumonia is etiology of desaturation so will deescalate cefepime and flagyl to ceftriaxone. Given that repeat EKG continues to showed prolonged QTc, additional reason for DC'ing flagyl. K and Mg repleted to maintain above 4 ad 2, respectively. Of note, medical decision maker has now been changed to from grandson (Ck Munson) to son (Bogdan Munson). Patient's daughter, Bárbara Atkins, in agreement with decision. Family requesting transition to hospice services. 10/25: No acute overnight events noted. Renal function noted to decrease during hospitalization. Suspect that patient had renal insult prior to hospitalization and then had second insult inpatient that led to worsening renal function. However, spoke to son who is now decision-maker and CODE STATUS changed to DNR/DNI. Also spoke to son regarding goals of care. Stated that if patient does not tolerate extubation that we will not reintubate and comfort care will be initiated. If patient does tolerate, will initiate hospice with plans to discharge to SNF. Additionally, son decided to not have dialysis whether patient does or does not tolerate extubation. Overnight, patient was sedated with propofol and fentanyl and maintain RASS score of -2/-3. This a.m., propofol decreased and started on Precedex to increase RASS in order to attempt extubation with mild sedation. Edit: successfully extubated on 10/25 at 1:52 PM. Patient was placed on 6 L oxymask and saturating well at 95%. Will wean off levophed and precedex and place PRN ativan for agitation. Exam Vital Signs Temp Pulse Resp BP Pulse Ox O2 Del Method O2 Flow Rate 97.1 F 70 20 134/73 H 95 Mechanical Ventilation 3 10/25/24 04:00 10/25/24 10:21 10/25/24 06:18 10/25/24 08:56 10/25/24 10:21 10/25/24 00:00 10/23/24 16:00 FiO2 30 10/25/24 10:21 Narrative Exam Exam prior to extubation: General: intubated and mechanically ventilated, on sedation (weaning off propofol and fentanyl to precedez), on pressors (levophed) HEENT: NC/AT, mucous membranes moist, bilateral sclera anicteric Cardiovascular: regular rate and rhythm, S1/S2 present, no murmurs appreciated Pulmonary: coarse lung sounds in upper lung lang, no crackles or wheezing appreciated Abdominal: soft, non-tender, non-distended, no rebound/guarding Musculoskeletal: chronic venous stasis changes in BLE, no peripheral edema Neuro: sedated as mentioned above Objective Labs 10/25/24 04:56 10/25/24 04:56 Labs: Laboratory Results - last 24 hr 10/24/24 10/24/24 10/25/24 04:54 15:30 04:56 WBC 15.0 H RBC 3.45 L Hgb 10.9 L Hct 33.4 L MCV 97 MCH 31.6 MCHC 32.6 RDW Std Deviation 50.2 H Plt Count 127 L D Neut % (Auto) 80 Lymph % (Auto) 8 L Chase % (Auto) 12 Eos % (Auto) 0 Baso % (Auto) 0 Neut # (Auto) 12.0 H Lymph # (Auto) 1.2 Chase # (Auto) 1.8 H Eos # (Auto) 0.0 Baso # (Auto) 0.0 Immature Gran # (Auto) 0.07 H Absolute Nucleated RBC 0.00 Immature Gran % 1 H Nucleated RBC % 0 Puncture Site ABG pH ABG pCO2 ABG pO2 ABG HCO3 ABG O2 Saturation ABG Base Excess FiO2 Sodium 142 143 Potassium 4.3 D 3.8 D Chloride 107 106 Carbon Dioxide 26.4 25.2 Anion Gap 9 12 BUN 57 H 73 H Creatinine 3.4 H D 4.2 H* D Estim Creat Clear Calc 15.4 L 12.4 L eGFR 17 L 13 L* BUN/Creatinine Ratio 17 17 Glucose 98 110 H Calculated Osmolality 298 H 307 H Calcium 9.8 10.2 Corrected Calcium 10.1 10.4 H Phosphorus 4.6 Magnesium 2.1 2.3 Iron 14 L TIBC 208 L Iron Saturation 6 L Unsat Iron Binding 194 L Total Bilirubin 1.0 1.0 AST 11 12 ALT 15 14 Alkaline Phosphatase 57 63 Troponin I 0.159 H* Total Protein 6.5 6.7 Albumin 3.6 3.7 Globulin 2.9 3.0 Albumin/Globulin Ratio 1.2 1.2 10/25/24 07:12 WBC RBC Hgb Hct MCV MCH MCHC RDW Std Deviation Plt Count Neut % (Auto) Lymph % (Auto) Chase % (Auto) Eos % (Auto) Baso % (Auto) Neut # (Auto) Lymph # (Auto) Chase # (Auto) Eos # (Auto) Baso # (Auto) Immature Gran # (Auto) Absolute Nucleated RBC Immature Gran % Nucleated RBC % Puncture Site Right Radial ABG pH 7.36 ABG pCO2 47 ABG pO2 91 ABG HCO3 27 H ABG O2 Saturation 98 ABG Base Excess 1 FiO2 30 Sodium Potassium Chloride Carbon Dioxide Anion Gap BUN Creatinine Estim Creat Clear Calc eGFR BUN/Creatinine Ratio Glucose Calculated Osmolality Calcium Corrected Calcium Phosphorus Magnesium Iron TIBC Iron Saturation Unsat Iron Binding Total Bilirubin AST ALT Alkaline Phosphatase Troponin I Total Protein Albumin Globulin Albumin/Globulin Ratio ABG Interpretation ABG results: 10/23/24 10/23/24 10/23/24 08:16 18:33 20:18 ABG pH 7.42 7.23 L D 7.35 D ABG pCO2 43 60 H D 54 H ABG pO2 107 296 H D 73 L D ABG HCO3 28 H 25 30 H ABG O2 Saturation 99 H 101 H 95 ABG Base Excess 3 -3 3 10/25/24 07:12 ABG pH 7.36 ABG pCO2 47 ABG pO2 91 ABG HCO3 27 H ABG O2 Saturation 98 ABG Base Excess 1 Quality Measures Quality Measures none Advance care planning discussed with:: child and legal surragate Assessment & Plan Assessment Current Active Medications: Generic Name Dose Route Start Last Admin Trade Name Freq PRN Reason Stop Dose Admin Acetaminophen 650 mg 10/22/24 12:55 Acetaminophen 325 Mg Tablet PO 11/21/24 12:54 Q4HR PRN Fever >100.3 or pain Protocol Albuterol/Ipratropium 3 ml 10/22/24 15:00 10/25/24 06:16 Albuterol/Ipratropium (Duoneb) Rt Risa 3 Ml Nebu INH 11/21/24 14:59 3 ml Q8HRRT FRED Administration Amiodarone HCl 200 mg 10/24/24 21:00 10/25/24 08:56 Amiodarone Hcl 200 Mg Tablet GT 11/23/24 20:59 200 mg BID FRED Administration Aspirin 81 mg 10/25/24 09:00 10/25/24 08:57 Aspirin 81 Mg Chew GT 11/23/24 09:14 81 mg QDAY FRED Administration Bumetanide 1 mg 10/22/24 21:00 10/24/24 20:32 Bumetanide Inj 0.25 Mg/Ml Vial 4 Ml IVP 11/21/24 20:59 Not Given BID FRED Dextrose 50 ml 10/22/24 17:48 Dextrose 50%-Water Inj 50 Ml Syringe IV 11/21/24 17:47 Q15MIN PRN BG <50 OR BG <70 & pt unresponsive Glucagon 1 mg 10/22/24 17:48 Glucagon Inj 1 Mg Vial IM Q15MIN PRN BG <70, and no IV access Norepinephrine Bitartrate 16 mg in 250 mls @ 3.797 mls/hr 10/24/24 06:36 10/25/24 06:00 Levophed In Ns 16mg/250ml IV 11/23/24 06:35 0.05 mcg/kg/min .Q24H PRN 3.797 mls/hr PER protocol Titration Protocol 0.05 MCG/KG/MIN Ceftriaxone Sodium/Dextrose 2 gm in 50 mls @ 100 mls/hr 10/25/24 09:00 10/25/24 08:55 Rocephin/D5w 2gm IV 11/01/24 08:59 100 mls/hr QDAY FRED Administration Dexmedetomidine/Sodium Chloride 200 mcg in 50 mls @ 4.05 mls/hr 10/25/24 10:14 Precedex Ivpb IV 11/23/24 07:54 .[id number] PRN Per PROTOCOL Protocol 0.2 MCG/KG/HR Propofol 1,000 mg in 100 mls @ 2.441 mls/hr 10/25/24 10:14 Diprivan Ivpb IV 11/22/24 19:01 .Q24H PRN PER PROTOCOL Protocol 5 MCG/KG/MIN Fentanyl Citrate 2,500 mcg in 250 mls @ 2.5 mls/hr 10/25/24 10:14 Sublimaze Inj 2,500 Mcg/250 Ml Bag IV 10/28/24 19:01 .Q24H PRN PER PROTOCOL Protocol 25 MCG/HR Insulin Human Lispro 0 unit 10/24/24 06:00 10/25/24 05:26 Insulin Lispro (Admelog) 1 Unit/0.01 Ml Unit SC 11/23/24 05:59 Not Given Q6HR FRED Protocol Oseltamivir Phosphate 30 mg 10/23/24 09:00 10/25/24 08:56 Oseltamivir 30 Mg Capsule PO 10/27/24 08:59 30 mg BID FRED Administration Pantoprazole Sodium 40 mg 10/24/24 09:00 10/25/24 08:56 Pantoprazole Inj 40 Mg Vial IVP 11/23/24 08:59 40 mg QDAY FRED Administration Plan Richard Munson is an 84-year-old Malay-speaking male with past medical history of HFrEF (EF 10 to 15%, 10/22/2024), A-fib on home amiodarone and status post [employer] placement, T2DM, hypertension, hyperlipidemia, BPH admitted on 10/22 for acute decompensated CHF exacerbation in setting of influenza A. Upgraded to ICU after not improving on BiPAP on 10/23 requiring RSI and successfully extubated on 10/25. Neurological #Sedated, on propofol, fentanyl, and precedex Currently weaning down on propofol and transitioning to precedex with a RASS goal of 0 to 1. Previously attempted sedation holiday by holding propofol but patient became agitated and did not tolerate. On 10/25, patient was successfully extubated on mild sedation (precedex). Patient was placed on 6 L oxymask and saturating well at 95%. Will wean off levophed and precedex and place PRN ativan for agitation. - Wean off levophed and precedex - PRN IV ativan for agitation as patient is NPO Cardiovascular #A-fib with RVR #History of VTs/p S[employer] DEV[employer] placement Multiple rapid responses for tachycardia and hypoxemia. Suspect that arrhythmia may be the etiology for patient's desaturation given already significantly reduced EF. Lower suspicion for pneumonia as there are no significant changes when comparing CXR findings before and after rapid responses that would account for decreased oxygenation and hypercapnia. Cardiology started IV amiodarone for 24 hours on 10/23 and has since completed course. - Cardiology consulted: amiodarone 200 mg PO BID #Acute decompensated CHF exacerbation (EF 10-15%, 10/22) Echo 10/22: EF 10-15%, moderately dilated LV, dilated cardiomyopathy, RVSP 31 mmHG CXR 10/22: vascular congestion, moderate enlargement left ventricle BNP 1904, 1 L UOP on bumex 1 mg IV BID Bedside echo on 10/24 to evaluate IVC and lungs to evaluate fluid status did not reveal fluid overload - Bumex held in setting of increasing creatinine - Strict I/O - Fluid restriction - K > 4 and Mg > 2 #Elevated troponins, likely demand ischemia In setting of a-fib and CHF exacerbation causing demand ischemia. Troponin: 0.13 -> 0.18 -> 0.14 -> 0.12 -> 0.13 -> 0.21 -> 0.19 -> 0.16 EKG showed ventricular paced rhythm and PVCs - No longer trending troponins Pulmonary #Acute hypoxic-hypercapnic respiratory failure, secondary to a-fib RVR vs CHF exacerbation vs pneumonia Failed BiPAP and was thus intubated and upgraded to ICU on 10/23. Noted to be tachycaric in 150s during RR with concurrent hypoxemia and suspect this to be primary etiology for hypoxemia as noted above. ABG during RR: pH 7.23, pCO2 60, pO2 296 -> pH 7.35, pCO2 54, pO2 73 after being on ventilator Successfully extubated on 10/25. Renal #Acute kidney injury, secondary to prerenal azotemia vs cardiorenal syndrome Baseline Cr 1.1; Cr uptrending since admission while on bumex 1 mg IV BID. Bedside echo did not reveal dilated IVC of significant fluid in lungs, thus leaning toward prerenal azotemia so will hold bumex. Received 250 mL bolus of LR and 1 L LR at 125 cc/hr on 10/24. Minimal urine output overnight after holding bumex (125 cc entire shift). - Hold bumex - Strict I/O - Renally dose medications - Avoid nephrotoxic agents #Hyperphosphatemia, in setting of MARK Gastrointestinal #Hyperbilirubinemia, resolved #GI prophylaxis, pantoprazole IV Endocrine #Type 2 diabetes mellitus A1c 5.1% - SSI Heme #Thrombocytopenia - Follow-up drug-induced lupus labs #Normocytic anemia Reticulocyte count 2.5%, indicating intact bone marrow Iron panel indicates iron deficiency and likely etiology of patient's anemia. Infectious disease #Influenza A - Tamiflu 30 mg PO (renally dosed) until 10/27 #Pneumonia CXR 10/24 compared to 10/23 showed mildly increased opacities in RLL - Ceftriaxone 2 g IV daily - Sputum culture 10/23: GPC and gram variable rods - Blood culture 10/22: NGTD #? UTI UA cloudy, 1+ protein, 1+ blood, 21 RBC, 90 WBC, LE (+), rare bacteria, yeast - Urine culture 10/22: yeast -> likely contaminant Hospital management: Disposition: successfully extubated, weaning off precedex and levophed Pressors: levophed Sedation: precedex Fluids: none Diet: NPO Lines: PIV GI prophylaxis: pantoprazole IV Moore: placed CODE STATUS: changed to DNR/DNI on 10/25 ----- Plan discussed with attending physician Dr. Lázaro Lopez MD PGY-1 Internal Medicine
--- NOTE | 2024-10-25 10:51 | PC.SS ---
Update: Plan is to attempt extubation of patient today.
[2024-10-25] MEDS: DEXMEDETOMIDINE 200 MCG IVPB 200 MCG/50 ML BOTTLE 12.15 MCG IV (11:28)
--- NOTE | 2024-10-25 15:04 | PC.SS ---
Update: Patient extubated today. Pending decsision to transition the patient to hospice.
[2024-10-25] MEDS: DEXMEDETOMIDINE 200 MCG IVPB 200 MCG/50 ML BOTTLE 20.25 MCG IV ×3 (17:10→20:00)
[2024-10-25] MEDS: Norepinephrine/NS 16mg/250ml 16 MG/250 ML BAG 2.278 MG IV (20:00)
[2024-10-26] VITALS (55 sets, daily range): BP systolic 86–147; BP diastolic 48–97; PULSE 64–99; RESP 14–42; TEMP 36.3–36.8; O2SAT 88–100
[2024-10-26] MEDS: DEXMEDETOMIDINE 200 MCG IVPB 200 MCG/50 ML BOTTLE 20.25 MCG IV (01:50)
[2024-10-26] MEDS: DEXMEDETOMIDINE 200 MCG IVPB 200 MCG/50 ML BOTTLE 8.1 MCG IV (05:22)
[2024-10-26 05:34] LABS: Basophils % (Auto) 0 % (0-2.5); Eosinophils % (Auto) 0 % (0-10); Hematocrit 33.6 % (41.0-53.0); Immature Granulocytes % (Auto) 1 % (0-0); Immature Granulocytes Auto 0.09 Thou/mm3 (0.00-0.00); Lymphocytes # (Auto) 0.8 Thou/mm3 (1.0-4.8); Lymphocytes % (Auto) 8 % (10-50); Mean Corpuscular HGB Conc 32.7 g/dl (31.0-37.0); Mean Corpuscular Hemoglobin 31.9 pg (25.0-35.0); Mean Corpuscular Volume 97 fL (80-100); Monocytes # (Auto) 0.9 Thou/mm3 (0.0-0.8); Monocytes % (Auto) 9 % (0-12); Neutrophils # (Auto) 8.5 Thou/mm3 (1.8-7.7); Neutrophils % (Auto) 82 % (37-80); Nucleated Red Blood Cell % 0 /100 WBC (0); Platelet Count 97 Thou/mm3 (140-440); RDW Standard Deviation 50.2 fL (35.1-43.9); Red Blood Count 3.45 Miln/mm3 (4.50-5.90); White Blood Count 10.4 Thou/mm3 (3.8-10.6)
[2024-10-26] MEDS: ALBUTEROL/IPRATROPIUM (Duoneb) RT SOL 3 ML NEBU INH ×2 (06:14→15:07)
[2024-10-26 06:24] LABS: Alanine Aminotransferase 17 U/L (10-49); Albumin, Serum 3.4 gm/dL (3.4-4.8); Albumin/Globulin Ratio 1.1 (1.2-2.2); Alkaline Phosphatase 66 U/L (46-116); Anion Gap 16 (7-16); Aspartate Amino Transferase 24 U/L (0-34); BUN/Creatinine Ratio 18 Ratio (12-20); Bilirubin,Total 0.8 mg/dL (0.3-1.2); Blood Urea Nitrogen 93 mg/dL (9-23); Calcium 9.8 mg/dL (8.3-10.6); Calcium (Corrected) 10.3 mg/dL (8.5-10.1); Carbon Dioxide 23.4 mMol/L (20.0-31.0); Chloride 108 mMol/L (98-107); Creatinine (Component) 5.1 mg/dL (0.6-1.3); Estimated Creatinine Clearance 10.2 mL/min (>60); Glucose 111 mg/dL (74-106); Magnesium 2.6 mg/dL (1.6-2.6); Osmolality,Calculated 322 (275-295); Potassium 4.3 mMol/L (3.4-5.1); Sodium 147 mMol/L (136-145); Total Protein 6.4 gm/dL (5.7-8.2); eGFR 10 See Note
--- NOTE | 2024-10-26 07:34 | ESPR_ITS ---
Documentation for date of: 10/26/24 Subjective Subjective Interval history: Patient seen and examined at the bedside. No new cardiac complaints Patient heart rate is well-controlled on the telemetry in the 90s. Patient has been extubated on 08/24/2025 and is off sedation and he is also off all pressors at the present moment. Patient is doing well and able to answer some questions but still confused. Patient to urine output improved since last night and is no longer oliguric and immediately 720 mL of urine. BUN is 93 and creatinine at 5.1 still today. Recommend to hold diuretics for now He is in ATN and bili improved the next couple of days. Continue to monitor input output closely for the patient. Patient is waiting well and using oxygen via Ventimask at 30% Continue amiodarone 200 mg twice daily for now for paroxysmal atrial fibrillation and his NSVT. Restart metoprolol XL 50 mg once daily when blood pressure is stable and can be increased to 50 mg twice daily if blood pressure is permissible at later point. Primary team and ICU team did discuss with the family and patient is DNR/DNI at the present point of time and probably looking at hospice care. Exam Vital Signs Temp Pulse Resp BP Pulse Ox O2 Del Method O2 Flow Rate 97.3 F 69 18 106/58 L 99 Mechanical Ventilation 6 10/26/24 04:02 10/26/24 06:16 10/26/24 06:16 10/26/24 06:00 10/26/24 06:16 10/25/24 00:00 10/26/24 06:16 FiO2 30 10/25/24 13:52 Objective Labs 10/26/24 04:00 10/26/24 04:00 Labs: Laboratory Results - last 24 hr 10/25/24 10/26/24 04:56 04:00 WBC 10.4 RBC 3.45 L Hgb 11.0 L Hct 33.6 L MCV 97 MCH 31.9 MCHC 32.7 RDW Std Deviation 50.2 H Plt Count 97 L D Neut % (Auto) 82 H Lymph % (Auto) 8 L Sherman % (Auto) 9 Eos % (Auto) 0 Baso % (Auto) 0 Neut # (Auto) 8.5 H Lymph # (Auto) 0.8 L Sherman # (Auto) 0.9 H Eos # (Auto) 0.0 Baso # (Auto) 0.0 Immature Gran # (Auto) 0.09 H Absolute Nucleated RBC 0.00 Immature Gran % 1 H Nucleated RBC % 0 Sodium 147 H Potassium 4.3 D Chloride 108 H Carbon Dioxide 23.4 Anion Gap 16 BUN 93 H Creatinine 5.1 H* D Estim Creat Clear Calc 10.2 L eGFR 10 L* BUN/Creatinine Ratio 18 Glucose 111 H Calculated Osmolality 322 H Calcium 9.8 Corrected Calcium 10.3 H Phosphorus 4.6 Magnesium 2.6 Total Bilirubin 0.8 AST 24 ALT 17 Alkaline Phosphatase 66 Total Protein 6.4 Albumin 3.4 Globulin 3.0 Albumin/Globulin Ratio 1.1 L ABG Interpretation ABG results: 10/23/24 10/23/24 10/23/24 08:16 18:33 20:18 ABG pH 7.42 7.23 L D 7.35 D ABG pCO2 43 60 H D 54 H ABG pO2 107 296 H D 73 L D ABG HCO3 28 H 25 30 H ABG O2 Saturation 99 H 101 H 95 ABG Base Excess 3 -3 3 10/25/24 07:12 ABG pH 7.36 ABG pCO2 47 ABG pO2 91 ABG HCO3 27 H ABG O2 Saturation 98 ABG Base Excess 1 Assessment & Plan A&P Narrative 83-year-old male with a past medical history of dilated nonischemic cardiomyopathy with severe systolic congestive heart failure with an EF of around 15% 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 Patient well-known to me from previous admissions and follow-up in the clinic last year but has been lost to follow-up [place] to [place]. Patient apparently has been having flulike symptoms over the past couple of days. And has been having worsening shortness of breath over the past couple of days and also a cough but with no sputum production. Patient also had shortness of breath which is worse on lying down which most orthopnea and cannot lie flat. Denied chest pain chest pressure, palpitations, worsening lower extremity swelling, dizziness or syncope or fall. Denies any kind of fever or chills. In the emergency department initial blood pressure was 148/86 mmHg heart rate of 89/min, paced rhythm, RR 23 and afebrile and saturation of 96% on room air. Labs showed hemoglobin of 10.6 platelets of 18, WBC 12.1, BUN 13 and creatinine of 1.6 which worsened to 1.8. Initial troponin was 0.134 and repeat was 0.178 BNP was 1904 and previously was 1600. Chest x-ray with pulmonary vascular congestion with septal edema. EKG showed ventricular paced rhythm at 105 bpm. Patient flu test was positive. Patient did receive IV Lasix in the emergency department and was admitted to the hospital for acute hypoxic respiratory failure in the setting of flu as well as possible CHF exacerbation. 1. Acute hypoxic respiratory failure in the setting of acute influenza A infection and possible CHF exacerbation. Later in the evening patient had rapid response with hypoxia and was intubated on mechanical ventilation. 2. Acute influenza A infection 3. Acute on chronic severe systolic congestive heart failure exacerbation 4. Acute kidney injury versus MARK on CKD stage III 4. 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 History of NSVT during last admission on amiodarone 6. Paroxysmal atrial fibrillation 7. Thrombocytopenia severe 8. Essential hypertension 9. Diabetes mellitus type 2 10. BPH 11. Hyperlipidemia 12. Chronic venous stasis with questionable PAD 13. Mild cognitive deficiency Patient presented with acute hypoxic respiratory failure in the setting of active influenza infection which probably contributed to his acute on chronic CHF exacerbation. Overall on examination patient does not appear to be volume overloaded. Initial chest x-ray did show minimal septal edema also no evidence of any consolidation. BNP was elevated at 1906 and previous was 1600. Patient did endorse to orthopnea along with flulike symptoms and cough symptoms. Primary team started the patient on Tamiflu for the influenza A renal dosing given the acute kidney injury. This evening patient went into atrial fibrillation with RVR and was hypoxic during the rapid response and was intubated and placed on mechanical ventilation. Repeat chest x-ray did show the same vascular congestion as well as perihilar edema and questionable right lower lobe consolidation and will need to rule out aspiration. Started on IV antibiotics for presumed pneumonia and sepsis. Patient has been extubated successfully by the ICU team on 08/24/2025. Patient is on oxygen via Ventimask at 4-5 and 5 L/min and is saturating 97% on room air. Still continues to be on low-dose pressors with Levophed Primary team to discuss the code dose status with the patient and patient is now DNR and DNI and do not want any invasive treatments. Regarding his severe systolic CHF patient does have dilated nonischemic cardiomyopathy with an EF of around 15% as documented the previous echo in November 2023 with severe global hypokinesis, diastolic dysfunction, mildly dilated RV, moderate MR, mild AI and mild to moderate TR. Mild AV sclerosis without stenosis. Biatrial dilatation. Initially BNP was 1906 and BUN of 13 creatinine of 1.6. His baseline creatinine is 1.2. Could be cardiorenal syndrome but there is no significant hepatic congestion. Patient was started on IV Bumex 1 mg twice daily by the primary team. 10/26/2024: Patient heart rate is well-controlled on the telemetry in the 90s. Patient has been extubated on 08/24/2025 and is off sedation and he is also off all pressors at the present moment. Patient is doing well and able to answer some questions but still confused. Patient to urine output improved since last night and is no longer oliguric and immediately 720 mL of urine. BUN is 93 and creatinine at 5.1 still today. Recommend to hold diuretics for now He is in ATN and bili improved the next couple of days. Continue to monitor input output closely for the patient. Patient is waiting well and using oxygen via Ventimask at 30% Continue amiodarone 200 mg twice daily for now for paroxysmal atrial fibrillation and his NSVT. Restart metoprolol XL 50 mg once daily when blood pressure is stable and can be increased to 50 mg twice daily if blood pressure is permissible at later point. Primary team and ICU team did discuss with the family and patient is DNR/DNI at the present point of time and probably looking at hospice care. Paroxysmal atrial fibrillation with RVR-patient went into A-fib with RVR this evening with heart rate of around 150 bpm and the patient was given amiodarone bolus along with drip and now the patient converted to normal sinus rhythm/sinus tachycardia around 90-110 bpm. No anticoagulation because of the low platelets. Amiodarone completed and patient is on oral amiodarone 200 mg twice daily for now. If patient unable to take oral please restart the amiodarone drip.. Continue to monitor the QTc. Continue beta-jaret 50 mg once daily and uptitrate if blood pressure is permissible presently patient is on pressors. Patient had a history of NSVT during last admission and was started on oral amiodarone 200 mg once daily and metoprolol XL once daily. Patient continues to have significant PVCs and NSVT's this morning and was recommended to increase amiodarone to 200 mg twice daily. Continue metoprolol XL 50 mg once daily blood pressure is permissible and continue to uptitrate the metoprolol XL. Patient still needing low-dose pressor with Levophed. 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 Last interrogation was during the last admission and device functioning well. Recommend to obtain [employer]/ Clean PET device check again for the patient. Mildly elevated troponins which peaked around 0.1-0.2. Patient does have history of severe systolic CHF and in the presence of acute influenza A infection with elevated troponins mostly NSTEMI type II in the setting of supply/demand mismatch. Patient not on anticoagulation previously and now cannot be started because of the severe thrombocytopenia which is 18 initially and now at 41. Repeat echocardiogram on 12 and will follow-up the results. No aspirin given the severe severe thrombocytopenia. Continue statin. Patient condition is critical and overall overall poor prognosis given his longstanding severe systolic congestive heart failure which was explained to the son this evening. Son understands well his prognosis at the present point of time and at present patient is DNR and DNI There is a high probability of sudden, clinically significant or life threatening deterioration in the patient condition which required the highest level of physician preparedness to intervene urgently. I have personally spent 35 minutes of critical care time, exclusive of time spent on any procedures, in evaluation and management of this critically ill patient. Management of rest of the medical conditions as per primary team and other consultants. Thank you for the consult and allowing me to participate in the care of the patient. Cardiology will continue to follow. Jose M Gonzalez M.D. Interventional Cardiology Time Spent With Patient Time: Total time spent is greater than 50% in coordination of care (as documented) at patient's floor/unit and/or counseling patient:
--- NOTE | 2024-10-26 07:46 | PD.RESEVENT ---
Documentation for date of: 10/26/24
[2024-10-26] MEDS: LORazepam 2 MG/ML VIAL IVP ×2 (08:41→14:30)
[2024-10-26] MEDS: HALOPERIDOL LACT INJ 5 MG/ML VIAL 2 MG IV (08:41)
--- NOTE | 2024-10-26 09:06 | PC.SS ---
SNF referral submitted on [facility] [place]. Preferred area is [facility]. If no accepting SNF in [facility], son in agreement with placement at local [facility] SNF's. Awaiting responses.
[2024-10-26] MEDS: PANTOPRAZOLE INJ 40 MG VIAL IVP (09:21)
[2024-10-26] MEDS: cefTRIAXone/D5w 2gm 2 GM/50 ML BAG IV (09:21)
--- NOTE | 2024-10-26 09:21 | ESPR_ITS ---
<Statement entered by Rosaura Sesay MD - 10/27/24 11:03> TOTAL TIME: 45MINUTES ON DIRECT MEDICAL CARE, MANAGEMENT - COORDINATION AND COUNSELING > 50% OF TOTAL TIME I saw and evaluated the patient. I reviewed the resident?s note and agree with findings and plan as documented in the resident?s note. Patient was successfully extubated without incident. Adjusted medications such as Ativan and Haldol to improve control of her agitation and delirium. Spoke with family at bedside and they are still interested in attempting discharge with hospice. He is now stable to be transferred to the medical surgical floor for continued care and follow-up. Family is also aware of progressive renal failure. He remains DNR/DNI Documentation for date of: 10/26/24 Subjective Subjective Interval history: Richard Munson is an 84-year-old Sami-speaking male with past medical history of HFrEF (EF 10 to 15%, 10/22/2024), A-fib on home amiodarone and status post ACTUARIAL INTERN-D placement, T2DM, hypertension, hyperlipidemia, BPH presented to ED on 10/22 for progressive shortness of breath with associated PND and orthopnea. Also noted to have nonproductive cough. Thus patient was admitted for acute deep decompensated CHF exacerbation and found to be influenza A positive. On admission, initially on 2 L nasal cannula, however, RR on 10/22 for tachycardia at 140 bpm and SpO2 in 70s. O2 flow rate increased to 6 L with improvement of SpO2 to 100% and heart rate improved to 110s. EKG showed paced ventricular rhythm. Amiodarone 200 mg PO and metoprolol succinate 50 mg PO daily started following morning. Second RR on 10/23 for tachycardia in 150s and respiratory distress with SpO2 71%. Placed on BiPAP but SpO2 did not increase above 74% and subsequently transferred to ICU for RSI and placed on amiodarone drip. Per cardiology, continue amiodarone drip for 24 hours and then change to PO amiodarone 200 mg BID (monitor QTc) while continuing metoprolol succinate 50 mg daily if blood pressure permits. 10/24: Seen and examined at bedside in ICU, mechanically ventilated (VT 450, RR 20 PEEP 5, FiO2 30%) and sedated on propofol and fentanyl drips. Propofol drip held due to hypotension and to assess mentation. However, patient became agitated and unable to obtain accurate SpO2 and so propofol was restarted. Bedside echo to evaluate IVC and lungs to evaluate fluid status did not reveal fluid overload. Additionally, crackles and lower extremity edema not appreciated on exam. Thus, bumex will be held in setting of increasing Cr (1.9 to 2.4) and 250 cc bolus and 1 L at 125 cc/hr of LR will be given. Repeat CXR did not show significantly changed infiltrates and lower suspicion that pneumonia is etiology of desaturation so will deescalate cefepime and flagyl to ceftriaxone. Given that repeat EKG continues to showed prolonged QTc, additional reason for DC'ing flagyl. K and Mg repleted to maintain above 4 ad 2, respectively. Of note, medical decision maker has now been changed to from grandson (Ck Munson) to son (Bogdan Munson). Patient's daughter, Bárbara Atkins, in agreement with decision. Family requesting transition to hospice services. 10/25: No acute overnight events noted. Renal function noted to decrease during hospitalization. Suspect that patient had renal insult prior to hospitalization and then had second insult inpatient that led to worsening renal function. However, spoke to son who is now decision-maker and CODE STATUS changed to DNR/DNI. Also spoke to son regarding goals of care. Stated that if patient does not tolerate extubation that we will not reintubate and comfort care will be initiated. If patient does tolerate, will initiate hospice with plans to discharge to SNF. Additionally, son decided to not have dialysis whether patient does or does not tolerate extubation. Overnight, patient was sedated with propofol and fentanyl and maintain RASS score of -2/-3. This a.m., propofol decreased and started on Precedex to increase RASS in order to attempt extubation with mild sedation. Edit: successfully extubated on 10/25 at 1:52 PM. Patient was placed on 6 L oxymask and saturating well at 95%. Will wean off levophed and precedex and place PRN ativan for agitation. 10/26: No acute overnight events. Was able to be weaned off of levophed but was still weaning off of precedex in AM. Mildly agitated overnight but did not require PRN anxiolytics. After being extubated, saturating in mid 90s on 6 L oxymask and was on 5 L oxymask in AM still saturating well. At approximately 8:50 AM precedex drip was turned off and patient calm upon evaluation. Renal function continues to decline but again, family does not want to pursue dialysis. UOP overnight 25 cc/hr. Exam Vital Signs Temp Pulse Resp BP Pulse Ox O2 Del Method O2 Flow Rate 97.3 F 71 19 98/55 L 97 Mechanical Ventilation 6 10/26/24 04:02 10/26/24 09:00 10/26/24 09:00 10/26/24 09:00 10/26/24 09:00 10/25/24 00:00 10/26/24 06:16 FiO2 30 10/25/24 13:52 Narrative Exam General: extubated, no longer sedated, alert, breathing comfortably on 5 L oxymask HEENT: NC/AT, mucous membranes moist, bilateral sclera anicteric Cardiovascular: regular rate and rhythm, S1/S2 present, no murmurs appreciated Pulmonary: coarse lung sounds in upper lung lang, no crackles or wheezing appreciated Abdominal: soft, non-distended, grimacing to palpation in lower quadrants Musculoskeletal: chronic venous stasis changes in BLE, no peripheral edema Neuro: alert, oriented to name only; otherwise, does not follow commands as recently off of precedex Objective Labs 10/26/24 04:00 10/26/24 04:00 Labs: Laboratory Results - last 24 hr 10/26/24 04:00 WBC 10.4 RBC 3.45 L Hgb 11.0 L Hct 33.6 L MCV 97 MCH 31.9 MCHC 32.7 RDW Std Deviation 50.2 H Plt Count 97 L D Neut % (Auto) 82 H Lymph % (Auto) 8 L [place] % (Auto) 9 Eos % (Auto) 0 Baso % (Auto) 0 Neut # (Auto) 8.5 H Lymph # (Auto) 0.8 L [place] # (Auto) 0.9 H Eos # (Auto) 0.0 Baso # (Auto) 0.0 Immature Gran # (Auto) 0.09 H Absolute Nucleated RBC 0.00 Immature Gran % 1 H Nucleated RBC % 0 Sodium 147 H Potassium 4.3 D Chloride 108 H Carbon Dioxide 23.4 Anion Gap 16 BUN 93 H Creatinine 5.1 H* D Estim Creat Clear Calc 10.2 L eGFR 10 L* BUN/Creatinine Ratio 18 Glucose 111 H Calculated Osmolality 322 H Calcium 9.8 Corrected Calcium 10.3 H Magnesium 2.6 Total Bilirubin 0.8 AST 24 ALT 17 Alkaline Phosphatase 66 Total Protein 6.4 Albumin 3.4 Globulin 3.0 Albumin/Globulin Ratio 1.1 L ABG Interpretation ABG results: 10/23/24 10/23/24 10/23/24 08:16 18:33 20:18 ABG pH 7.42 7.23 L D 7.35 D ABG pCO2 43 60 H D 54 H ABG pO2 107 296 H D 73 L D ABG HCO3 28 H 25 30 H ABG O2 Saturation 99 H 101 H 95 ABG Base Excess 3 -3 3 10/25/24 07:12 ABG pH 7.36 ABG pCO2 47 ABG pO2 91 ABG HCO3 27 H ABG O2 Saturation 98 ABG Base Excess 1 Quality Measures Quality Measures none Advance care planning discussed with:: legal surragate Assessment & Plan Assessment Current Active Medications: Generic Name Dose Route Start Last Admin Trade Name Freq PRN Reason Stop Dose Admin Acetaminophen 650 mg 10/22/24 12:55 Acetaminophen 325 Mg Tablet PO 11/21/24 12:54 Q4HR PRN Fever >100.3 or pain Protocol Albuterol/Ipratropium 3 ml 10/22/24 15:00 10/26/24 06:14 Albuterol/Ipratropium (Duoneb) Rt Risa 3 Ml Nebu INH 11/21/24 14:59 3 ml Q8HRRT FRED Administration Amiodarone HCl 200 mg 10/24/24 21:00 10/26/24 09:12 Amiodarone Hcl 200 Mg Tablet GT 11/23/24 20:59 Not Given BID FRED Aspirin 81 mg 10/25/24 09:00 10/26/24 09:12 Aspirin 81 Mg Chew GT 11/23/24 09:14 Not Given QDAY FRED Bumetanide 1 mg 10/22/24 21:00 10/24/24 20:32 Bumetanide Inj 0.25 Mg/Ml Vial 4 Ml IVP 11/21/24 20:59 Not Given BID FRED Dextrose 50 ml 10/22/24 17:48 Dextrose 50%-Water Inj 50 Ml Syringe IV 11/21/24 17:47 Q15MIN PRN BG <50 OR BG <70 & pt unresponsive Glucagon 1 mg 10/22/24 17:48 Glucagon Inj 1 Mg Vial IM Q15MIN PRN BG <70, and no IV access Ceftriaxone Sodium/Dextrose 2 gm in 50 mls @ 100 mls/hr 10/25/24 09:00 10/25/24 08:55 Rocephin/D5w 2gm IV 11/01/24 08:59 100 mls/hr QDAY FRED Administration Insulin Human Lispro 0 unit 10/24/24 06:00 10/26/24 05:31 Insulin Lispro (Admelog) 1 Unit/0.01 Ml Unit SC 11/23/24 05:59 Not Given Q6HR FRED Protocol Lorazepam 2 mg 10/26/24 07:52 10/26/24 08:41 Lorazepam 2 Mg/Ml Vial IVP 10/30/24 16:36 2 mg Q4HR PRN Administration Anxiety or agitation Oseltamivir Phosphate 30 mg 10/23/24 09:00 10/26/24 09:11 Oseltamivir 30 Mg Capsule PO 10/27/24 08:59 Not Given BID FRED Pantoprazole Sodium 40 mg 10/24/24 09:00 10/25/24 08:56 Pantoprazole Inj 40 Mg Vial IVP 11/23/24 08:59 40 mg QDAY FRED Administration Plan Richard Munson is an 84-year-old Sami-speaking male with past medical history of HFrEF (EF 10 to 15%, 10/22/2024), A-fib on home amiodarone and status post ACTUARIAL INTERN-D placement, T2DM, hypertension, hyperlipidemia, BPH admitted on 10/22 for acute decompensated CHF exacerbation in setting of influenza A. Upgraded to ICU after not improving on BiPAP on 10/23 requiring RSI and successfully extubated on 10/25. Neurological #Previously sedated On 10/24, held propofol for sedation holiday to assess mentation but patient did not tolerate and became agitated. Thus, plan was to extubate patient while under mild sedation with precedex, which occurred on 10/25 at approximately 1:52 PM. Able to wean off of propofol and fentanyl on 10/25 and ultimately weaned off of precedex on 10/26. - 2 mg IV ativan PRN Cardiovascular #A-fib with RVR #History of VTs/p ACTUARIAL INTERN-D placement Multiple rapid responses for tachycardia and hypoxemia. Suspect that arrhythmia may be the etiology for patient's desaturation given already significantly reduced EF. Lower suspicion for pneumonia as there are no significant changes when comparing CXR findings before and after rapid responses that would account for decreased oxygenation and hypercapnia. Cardiology started IV amiodarone for 24 hours on 10/23 and has since completed course. - Cardiology consulted: amiodarone 200 mg NG BID #Acute decompensated CHF exacerbation (EF 10-15%, 10/22) Echo 10/22: EF 10-15%, moderately dilated LV, dilated cardiomyopathy, RVSP 31 mmHG CXR 10/22: vascular congestion, moderate enlargement left ventricle BNP 1904, 1 L UOP on bumex 1 mg IV BID Bedside echo on 10/24 to evaluate IVC and lungs to evaluate fluid status did not reveal fluid overload - Bumex held in setting of increasing creatinine - Strict I/O - Fluid restriction - K > 4 and Mg > 2 #Elevated troponins, likely demand ischemia In setting of a-fib and CHF exacerbation causing demand ischemia. Troponin: 0.13 -> 0.18 -> 0.14 -> 0.12 -> 0.13 -> 0.21 -> 0.19 -> 0.16 EKG showed ventricular paced rhythm and PVCs - No longer trending troponins Pulmonary #Acute hypoxic-hypercapnic respiratory failure, secondary to a-fib RVR vs CHF exacerbation vs pneumonia Failed BiPAP and was thus intubated and upgraded to ICU on 10/23. Noted to be tachycaric in 150s during RR with concurrent hypoxemia and suspect this to be primary etiology for hypoxemia as noted above. ABG during RR: pH 7.23, pCO2 60, pO2 296 -> pH 7.35, pCO2 54, pO2 73 after being on ventilator Successfully extubated on 10/25. Renal #Acute kidney injury, secondary to prerenal azotemia vs cardiorenal syndrome Baseline Cr 1.1; Cr uptrending since admission while on bumex 1 mg IV BID. Bedside echo did not reveal dilated IVC of significant fluid in lungs, thus leaning toward prerenal azotemia so will hold bumex. Received 250 mL bolus of LR and 1 L LR at 125 cc/hr on 10/24. Minimal urine output overnight after holding bumex (125 cc entire shift). - Hold bumex - Strict I/O - Renally dose medications - Avoid nephrotoxic agents #Hyperphosphatemia, in setting of MARK Gastrointestinal #Hyperbilirubinemia, resolved #GI prophylaxis, pantoprazole IV Endocrine #Type 2 diabetes mellitus A1c 5.1% - SSI Heme #Thrombocytopenia - Follow-up drug-induced lupus labs #Normocytic anemia Reticulocyte count 2.5%, indicating intact bone marrow Iron panel indicates iron deficiency and likely etiology of patient's anemia. Infectious disease #Influenza A - Tamiflu 30 mg PO (renally dosed) until 10/27 #Pneumonia CXR 10/24 compared to 10/23 showed mildly increased opacities in RLL - Ceftriaxone 2 g IV daily - Sputum culture 10/22: mixed grant - Sputum culture 10/23: GPC and gram variable rods - Blood culture 10/22: NGTD #? UTI UA cloudy, 1+ protein, 1+ blood, 21 RBC, 90 WBC, LE (+), rare bacteria, yeast - Urine culture 10/22: yeast -> likely contaminant Hospital management: Disposition: weaned off precedex and levophex, stable to be downgraded Pressors: none Sedation: none Fluids: none Diet: NPO Lines: PIV GI prophylaxis: pantoprazole IV Moore: placed CODE STATUS: changed to DNR/DNI on 10/25 ----- Plan discussed with attending physician Dr. Lázaro Lopez MD PGY-1 Internal Medicine
--- NOTE | 2024-10-26 13:43 | ESPR_ITS ---
<Statement entered by Nghia Carroll MD - 10/26/24 18:19> I discussed with and supervised the programming internship physician involved in the care of this patient. Patient assessment and plan was discussed with entire medicine team, including my attending. I agree with the assessment and plan as documented by programming internship doctor. Patient care was discussed with my attending physician Dr. Sol Carroll, PGY-2 Documentation for date of: 10/26/24 Subjective Subjective Interval history: Patient was seen and examined in ICU this AM. Patient was extubated on 10/25/2024 and weaned off of sedation. Downgraded to the floor on 10/26/2024. Patient NPO, adequate urine output and mentation altered Patient currently not responsive to tactile or verbal stimuli. Spontaneous respirations noted and patient protecting his airway. BUN 93, CR 5.1. Currently still holding diuretics Goals of care discussion was had with family and they decided on DNR/DNI with hospice care. Exam Vital Signs Temp Pulse Resp BP Pulse Ox O2 Del Method O2 Flow Rate 97.3 F 65 28 H 103/49 L 99 Mechanical Ventilation 6 10/26/24 04:02 10/26/24 11:15 10/26/24 11:15 10/26/24 11:15 10/26/24 11:15 10/25/24 00:00 10/26/24 06:16 FiO2 30 10/25/24 13:52 Narrative Exam Constitutional Alert, oriented x 0 and comfortable. Elderly male and forward?5 L O2 via oxy pupils equal and reactive to light bilaterally mask. HEENT Pupils equal and reactive to light bilaterally, Trachea midline and nares patent Respiratory Chest normal on inspection and clear auscultation bilaterally Cardiovascular S1 and S2 audible, RRR. No murmurs carotid bruit. No gross JVD. Abdominal Soft and non tender to palpation in all quadrants. BS + Genitourinary No bladder tenderness, no flank pain. Normal to palpation Musculoskeletal Extremities tone within normal limits. No LE edema. Neurological Patient currently not responsive to verbal or tactile stimuli. Skin Warm, dry and intact. No apparent lesions. Objective Labs 10/29/24 08:49 10/29/24 08:49 Labs: Laboratory Results - last 24 hr 10/26/24 04:00 WBC 10.4 RBC 3.45 L Hgb 11.0 L Hct 33.6 L MCV 97 MCH 31.9 MCHC 32.7 RDW Std Deviation 50.2 H Plt Count 97 L D Neut % (Auto) 82 H Lymph % (Auto) 8 L [place] % (Auto) 9 Eos % (Auto) 0 Baso % (Auto) 0 Neut # (Auto) 8.5 H Lymph # (Auto) 0.8 L [place] # (Auto) 0.9 H Eos # (Auto) 0.0 Baso # (Auto) 0.0 Immature Gran # (Auto) 0.09 H Absolute Nucleated RBC 0.00 Immature Gran % 1 H Nucleated RBC % 0 Sodium 147 H Potassium 4.3 D Chloride 108 H Carbon Dioxide 23.4 Anion Gap 16 BUN 93 H Creatinine 5.1 H* D Estim Creat Clear Calc 10.2 L eGFR 10 L* BUN/Creatinine Ratio 18 Glucose 111 H Calculated Osmolality 322 H Calcium 9.8 Corrected Calcium 10.3 H Magnesium 2.6 Total Bilirubin 0.8 AST 24 ALT 17 Alkaline Phosphatase 66 Total Protein 6.4 Albumin 3.4 Globulin 3.0 Albumin/Globulin Ratio 1.1 L ABG Interpretation ABG results: 10/23/24 10/23/24 10/23/24 08:16 18:33 20:18 ABG pH 7.42 7.23 L D 7.35 D ABG pCO2 43 60 H D 54 H ABG pO2 107 296 H D 73 L D ABG HCO3 28 H 25 30 H ABG O2 Saturation 99 H 101 H 95 ABG Base Excess 3 -3 3 10/25/24 07:12 ABG pH 7.36 ABG pCO2 47 ABG pO2 91 ABG HCO3 27 H ABG O2 Saturation 98 ABG Base Excess 1 Quality Measures Quality Measures none Advance care planning discussed with:: child (Bogdan - son) Assessment & Plan Assessment Current Active Medications: Generic Name Dose Route Start Last Admin Trade Name Freq PRN Reason Stop Dose Admin Acetaminophen 650 mg 10/22/24 12:55 Acetaminophen 325 Mg Tablet PO 11/21/24 12:54 Q4HR PRN Fever >100.3 or pain Protocol Albuterol/Ipratropium 3 ml 10/22/24 15:00 10/26/24 06:14 Albuterol/Ipratropium (Duoneb) Rt Risa 3 Ml Nebu INH 11/21/24 14:59 3 ml Q8HRRT FRED Administration Amiodarone HCl 200 mg 10/24/24 21:00 10/26/24 09:12 Amiodarone Hcl 200 Mg Tablet GT 11/23/24 20:59 Not Given BID FERD Aspirin 81 mg 10/25/24 09:00 10/26/24 09:12 Aspirin 81 Mg Chew GT 11/23/24 09:14 Not Given QDAY FRED Bumetanide 1 mg 10/22/24 21:00 10/24/24 20:32 Bumetanide Inj 0.25 Mg/Ml Vial 4 Ml IVP 11/21/24 20:59 Not Given BID FRED Dextrose 50 ml 10/22/24 17:48 Dextrose 50%-Water Inj 50 Ml Syringe IV 11/21/24 17:47 Q15MIN PRN BG <50 OR BG <70 & pt unresponsive Glucagon 1 mg 10/22/24 17:48 Glucagon Inj 1 Mg Vial IM Q15MIN PRN BG <70, and no IV access Ceftriaxone Sodium/Dextrose 2 gm in 50 mls @ 100 mls/hr 10/25/24 09:00 10/26/24 09:21 Rocephin/D5w 2gm IV 11/01/24 08:59 100 mls/hr QDAY FRED Administration Insulin Human Lispro 0 unit 10/24/24 06:00 10/26/24 12:49 Insulin Lispro (Admelog) 1 Unit/0.01 Ml Unit SC 11/23/24 05:59 Not Given Q6HR [facility] Protocol Lorazepam 2 mg 10/26/24 07:52 10/26/24 08:41 Lorazepam 2 Mg/Ml Vial IVP 10/30/24 16:36 2 mg Q4HR PRN Administration Anxiety or agitation Oseltamivir Phosphate 30 mg 10/23/24 09:00 10/26/24 09:11 Oseltamivir 30 Mg Capsule PO 10/27/24 08:59 Not Given BID FRED Pantoprazole Sodium 40 mg 10/24/24 09:00 10/26/24 09:21 Pantoprazole Inj 40 Mg Vial IVP 11/23/24 08:59 40 mg QDAY FRED Administration Plan Patient is an 84-year-old male with past medical history significant for HFrEF [15-20%], atrial fibrillation s/p ACID PUMP OPERATOR-D placement, [id number] diabetes mellitus type 2, primary hypertension, hyperlipidemia and BPH presented with a chief complaint of worsening shortness of breath.Patient will be admitted for acute respiratory failure with hypoxia secondary to acute decompensated CHF exacerbation. 1. Acute kidney injury prerenal versus renal - worsening Baseline appears to be between 1?1.2 On admission CR 1.6 ---> 5.1 Etiology: ATN, overdiuresis, medication side effects Family counseled by ICU team on need for possible dialysis. Family does not wish for any invasive intervention and wished for hospice care. Plan: ? Renally dose medication ? Avoid nephrotoxic agents 2. Acute respiratory failure with hypoxia - improving 3. Acute decompensated chronic systolic and diastolic heart failure exacerbation [10-15%] 4. Dilated cardiomyopathy Patient presented with worsening shortness of breath On exam patient had decreased air entry bilaterally with scattered crackles at bases Chest x-ray significant for increased vascular markings and septal edema at lung bases. Transthoracic echocardiogram completed on 10/22/2024 findings include: Dilated Cariomyopathy. Severe LV systolic dysfunction. Estimated EF of 10-15%. Moderately dilated LV. Diastolic dysfunction present butc annot be graded due to paced rhythm. Normal Rv size and function. The estimated right ventricular systolic pressure, 31 mmHg. Mild TR. Modertately dilated LA and mildly dilated RA Mild MAC. Moderate MR. Mild thickening of the MV leaflets. NYHA class D stage IV BNP 1904 Home medication Bumex 1 Mg p.o. twice daily. Noncompliant Plan: ? 2G sodium restricted diet - Strict input output charting - 1500 cc/day fluid restriction ? Daily weight ? Continue Diuretic holiday ? Patient will need to start Entresto and SGLT2 at later date as part of GDMT. - Cardiology, Dr. Gonzalez consulted and closely following the case. Appreciate recommendations 5. Thrombocytopenia - improving On admission plt 18 ---> plt 97 DDx: Leukemia, viral infection, autoimmune, portal hypertension. Currently no signs of active bleeding and patient not on any aspirin or antiplatelet agents. Currently low suspicion for TTP. LDH 206, reticulocyte count 2.5, Peripheral blood smear revealed severe thrombocytopenia Plan: ? Avoid antiplatelet agents and heparin ? Monitor for signs of bleeding 6. Influenza A infection Patient had shortness of breath and cough that started 1 day ago Creatinine clearance 31 Plan: ? Continue Tamiflu 30 Mg p.o. twice daily for total of 5 days. To complete on 10/27/2024 7. Atrial fibrillation -paroxysmal 8. History of V. tach s/p ACID PUMP OPERATOR T?D placement Patient had ACID PUMP OPERATOR TD placement greater than 12 years ago. Last battery change in June 2023 Vascor is high. Patient may benefit from anticoagulation EKG on admission showed ventricular paced rhythm rate 105. No acute ST changes Patient had 1 minute of sustained V. tach this morning EKG was ordered showed ventricular paced rhythm, rate 100. Started patient on amiodarone 200 Mg p.o. twice daily and metoprolol XL 50 Mg p.o. daily. Plan: ? Started on amiodarone 200 Mg p.o. twice daily ? Started on metoprolol XL 50 Mg p.o. daily ? Consider anticoagulation on discharge. Currently anticoagulation on hold due to thrombocytopenia. ? Cardiology, Dr. Gonzalez consulted and closely following the case. Appreciate recommendations 9. NSTEMI type I versus type II Patient denies any ACS symptoms including chest pain/pressure or palpitations. Likely type II in setting of acute decompensated CHF exacerbation Stroke I 0.134 ---> 0.178 ---> 0.117 Plan: ? No need to further trend troponin 10. Primary hypertension 11. Hyperlipidemia BP 136/91 Plan: ? Antihypertensives currently on hold to give blood pressure extra room for diuresis if necessary 12. BPH Home medication finasteride Plan: ? Continue home medication finasteride Health maintenance: Disposition: Pending placement for hospice. Diet: N.p.o. Lines: pIVs GI Prophylaxis: Pantoprazole Thrombo Prophylaxis: Contraindicated Code status: DNR/DNI Plan of care discussed with Attending Dr. Miller and PGY2 Dr. Glen Tapia MD PGY 1 Attending Provider Attestation/Addendum I attest that I was physically present for the evaluation, physical examination, lab and imaging review of the patient with the residents. I discussed the case with the residents and agree with the findings and plans of care as documented above. Estela Miller MD
--- NOTE | 2024-10-26 13:43 | PC.NURSE ---
At 0700 Pts precedex was at 0.2 mcg/kg/hr, at 0728 Precedex was shut off due to MD at bedside.
--- NOTE | 2024-10-26 14:52 | PC.SS ---
Follow up note: SS sent referral for hospice on [facility]. [facility] was the designated hospice agency for today. [facility] accepted referral. Patient will be discharging to SNF w/hospice. Family prefers SNF in [place], However if no accepting facility then they are agreeable to local SNF's.
--- NOTE | 2024-10-26 15:04 | PCS.ST ---
Pt has not been able to participate in swallow evaluation today. Will try in AM
[2024-10-26] MEDS: DEXTROSE 50%-WATER INJ 50 ML SYRINGE IV (18:09)
--- NOTE | 2024-10-26 19:55 | PC.NURSE ---
Pts POC called and informed that pt changed rooms and floors.
[2024-10-27] VITALS (10 sets, daily range): BP systolic 98–154; BP diastolic 70–96; PULSE 63–96; RESP 16–20; TEMP 36.2–36.8; O2SAT 90–99; BMI 27.1
[2024-10-27] MEDS: ALBUTEROL/IPRATROPIUM (Duoneb) RT SOL 3 ML NEBU INH ×4 (01:44→22:36)
[2024-10-27 05:52] LABS: Basophils % (Auto) 0 % (0-2.5); Eosinophils # (Auto) 0.1 Thou/mm3 (0.0-0.5); Eosinophils % (Auto) 1 % (0-10); Hematocrit 34.5 % (41.0-53.0); Hemoglobin 11.2 g/dL (13.5-16.0); Immature Granulocytes % (Auto) 1 % (0-0); Immature Granulocytes Auto 0.11 Thou/mm3 (0.00-0.00); Lymphocytes # (Auto) 0.8 Thou/mm3 (1.0-4.8); Lymphocytes % (Auto) 10 % (10-50); Mean Corpuscular HGB Conc 32.5 g/dl (31.0-37.0); Mean Corpuscular Hemoglobin 32.1 pg (25.0-35.0); Mean Corpuscular Volume 99 fL (80-100); Monocytes # (Auto) 1.2 Thou/mm3 (0.0-0.8); Monocytes % (Auto) 14 % (0-12); Neutrophils # (Auto) 6.3 Thou/mm3 (1.8-7.7); Neutrophils % (Auto) 74 % (37-80); Nucleated Red Blood Cell % 0 /100 WBC (0); RDW Standard Deviation 51.5 fL (35.1-43.9); Red Blood Count 3.49 Miln/mm3 (4.50-5.90); White Blood Count 8.5 Thou/mm3 (3.8-10.6)
[2024-10-27 06:06] LABS: Platelet Count 58 Thou/mm3 (140-440)
[2024-10-27 06:22] LABS: Slide Review Platelets confirmed
[2024-10-27 06:39] LABS: Alanine Aminotransferase 20 U/L (10-49); Albumin, Serum 3.6 gm/dL (3.4-4.8); Albumin/Globulin Ratio 1.2 (1.2-2.2); Alkaline Phosphatase 67 U/L (46-116); Anion Gap 14 (7-16); Aspartate Amino Transferase 14 U/L (0-34); BUN/Creatinine Ratio 20 Ratio (12-20); Bilirubin,Total 0.8 mg/dL (0.3-1.2); Calcium 9.9 mg/dL (8.3-10.6); Calcium (Corrected) 10.2 mg/dL (8.5-10.1); Carbon Dioxide 25.4 mMol/L (20.0-31.0); Chloride 111 mMol/L (98-107); Estimated Creatinine Clearance 9.5 mL/min (>60); Globulin 3.1 gm/dL (2.3-3.5); Glucose 95 mg/dL (74-106); Magnesium 2.9 mg/dL (1.6-2.6); Osmolality,Calculated 336 (275-295); Potassium 3.8 mMol/L (3.4-5.1); Sodium 150 mMol/L (136-145); Total Protein 6.7 gm/dL (5.7-8.2); eGFR 9 See Note
[2024-10-27 06:41] LABS: Blood Urea Nitrogen 120 mg/dL (9-23)
[2024-10-27] MEDS: cefTRIAXone/D5w 2gm 2 GM/50 ML BAG IV (09:06)
[2024-10-27] MEDS: PANTOPRAZOLE INJ 40 MG VIAL IVP (09:06)
--- NOTE | 2024-10-27 10:00 | PC.SS ---
SS spoke to Kristin with [facility] in regards to barrier with an accepting facility with hospice. Per Kristin she will make some phone calls and get back to SS as soon as possible.
--- NOTE | 2024-10-27 10:19 | PCS.ST ---
Limited swallow evaluation d/t ability to participate. See report for details. Recommend ice chips for now and continue PO trials if/when able to fully participate. Pt refusing and spitting puree attempts.
[2024-10-27 13:47] LABS: Sm Antibody <1.0 NEG AI (<1.0 NEGATIVE)
[2024-10-27] MEDS: POTASSIUM CHL 10 mEq IVPB 10 MEQ/100 ML BAG 100 MEQ IV ×2 (15:36→16:41)
--- NOTE | 2024-10-27 16:12 | PC.SS ---
[facility] [place] [facility] ACCEPTED if pt DC on comfort NOT hospice [facility]
--- NOTE | 2024-10-27 16:36 | PC.SS ---
SS spoke to pt DM, Bogdan Munson in regards to barrier with SNF placement. SS informed him [facility] and [facility] have accepted with the pt only being comfort not on Hospice. Bogdan had questions in regards to how pt would take his meds if he is not currently eating or able to swallow. SS explained SS will follow up with Team and we can touch basis tomorrow. Bogdan stated he would prefer pt to go to [facility] at the time of DC. SS spoke to team who stated we can touch basis tomorrow. SS will follow up tomorrow with Teams plan and keep pt son Bogdan updated
[2024-10-27] MEDS: DEXTROSE 5%-WATER 1,000 ML 65 ML IV (16:41)
--- NOTE | 2024-10-27 17:12 | PD.IMPROG ---
Documentation for date of: 10/27/24 Subjective Subjective Interval history: Patient seen and examined at the bedside. No new cardiac complaints Patient heart rate is well-controlled on the telemetry in the 90s. Continue amiodarone 200 mg twice daily along with metoprolol XL 50 mg XL once daily as blood pressure now appears to be elevated Patient extubated on 08/24/2025 and is off of pressors and sedation and was transferred to the regular nursing floor. This morning during my examination patient appears to be lethargic in the confused. Labs reviewed and sodium is elevated 850 and chloride is 111. BUN continues to increase at 120 and creatinine is 6.0. Calculated osmolality of 336 and is in hyperosmolar state. Calcium is also elevated. Patient apparently has not received any kind of diet for the last few days and he failed his swallow eval. Discussed with the primary team to start the patient decreased on D5W at 50 mL/h for now. Patient probably has ATN and could have a chance to recover. If he does not recover then patient is not a candidate for dialysis. Primary team and ICU team did discuss with the family and patient is DNR/DNI at the present point of time with hospice care and medical management. He is not comfort care at the present moment. Recommend the primary team to talk to the family regarding feeding the patient an alternate means of nutrition if medical management is still being continued. Exam Vital Signs Temp Pulse Resp BP Pulse Ox O2 Del Method O2 Flow Rate 98.3 F 90 18 136/90 H 98 Nasal Cannula 2 10/27/24 12:00 10/27/24 15:38 10/27/24 15:38 10/27/24 12:00 10/27/24 15:38 10/27/24 12:00 10/27/24 15:38 FiO2 30 10/25/24 13:52 Narrative Exam GENERAL: Pt is extubated, currently saturating on 5L O2 via oxy mask NEURO: unable to asses as Pt is sedated and mechanically ventilated HEENT: Atraumatic, Normocephalic. mucous membranes moist. Eyes open, symmetrical, & clear HEART: Normal Heart Sounds LUNGS: Clear to auscultation with no wheezing or crackles. ABDOMEN: soft, non-distended, non-tender, bowel sounds heard, no guarding or rebound tenderness SKIN: No Rash or ecchymoses, chronic venous stasis skin changes bilaterally below knees EXTREMITIES: No edema, tenderness, able to move all 4 extremities, pedal pulses palpated Objective Labs 10/27/24 04:51 10/27/24 04:51 Labs: Laboratory Results - last 24 hr 10/27/24 04:51 WBC 8.5 RBC 3.49 L Hgb 11.2 L Hct 34.5 L MCV 99 MCH 32.1 MCHC 32.5 RDW Std Deviation 51.5 H Plt Count 58 L D Neut % (Auto) 74 Lymph % (Auto) 10 [place] % (Auto) 14 H Eos % (Auto) 1 Baso % (Auto) 0 Neut # (Auto) 6.3 Lymph # (Auto) 0.8 L [place] # (Auto) 1.2 H Eos # (Auto) 0.1 Baso # (Auto) 0.0 Immature Gran # (Auto) 0.11 H Absolute Nucleated RBC 0.00 Immature Gran % 1 H Nucleated RBC % 0 Sodium 150 H Potassium 3.8 D Chloride 111 H Carbon Dioxide 25.4 Anion Gap 14 BUN 120 H* Creatinine 6.0 H* D Estim Creat Clear Calc 9.5 L eGFR 9 L* BUN/Creatinine Ratio 20 Glucose 95 Calculated Osmolality 336 H Calcium 9.9 Corrected Calcium 10.2 H Magnesium 2.9 H Total Bilirubin 0.8 AST 14 ALT 20 Alkaline Phosphatase 67 Total Protein 6.7 Albumin 3.6 Globulin 3.1 Albumin/Globulin Ratio 1.2 Misc Test Result Platelets confirmed ABG Interpretation ABG results: 10/23/24 10/23/24 10/23/24 08:16 18:33 20:18 ABG pH 7.42 7.23 L D 7.35 D ABG pCO2 43 60 H D 54 H ABG pO2 107 296 H D 73 L D ABG HCO3 28 H 25 30 H ABG O2 Saturation 99 H 101 H 95 ABG Base Excess 3 -3 3 10/25/24 07:12 ABG pH 7.36 ABG pCO2 47 ABG pO2 91 ABG HCO3 27 H ABG O2 Saturation 98 ABG Base Excess 1 Assessment & Plan A&P Narrative 83-year-old male with a past medical history of dilated nonischemic cardiomyopathy with severe systolic congestive heart failure with an EF of around 15% status post PRIVATE CLIENT ADVISOR-D in 2011 and recent battery change in June 2023, paroxysmal atrial fibrillation, NSVT on previous admissions on amiodarone, type 2 diabetes mellitus, essential hypertension, BPH, hyperlipidemia,, and venous stasis with questionable PAD, mild dementia with cognitive deficiency, small abdominal hernia, BPH presented to the hospital for worsening shortness of breath. Patient well-known to me from previous admissions and follow-up in the clinic last year but has been lost to follow-up as [place]. Patient apparently has been having flulike symptoms over the past couple of days. And has been having worsening shortness of breath over the past couple of days and also a cough but with no sputum production. Patient also had shortness of breath which is worse on lying down which most orthopnea and cannot lie flat. Denied chest pain chest pressure, palpitations, worsening lower extremity swelling, dizziness or syncope or fall. Denies any kind of fever or chills. In the emergency department initial blood pressure was 148/86 mmHg heart rate of 89/min, paced rhythm, RR 23 and afebrile and saturation of 96% on room air. Labs showed hemoglobin of 10.6 platelets of 18, WBC 12.1, BUN 13 and creatinine of 1.6 which worsened to 1.8. Initial troponin was 0.134 and repeat was 0.178 BNP was 1904 and previously was 1600. Chest x-ray with pulmonary vascular congestion with septal edema. EKG showed ventricular paced rhythm at 105 bpm. Patient flu test was positive. Patient did receive IV Lasix in the emergency department and was admitted to the hospital for acute hypoxic respiratory failure in the setting of flu as well as possible CHF exacerbation. 1. Acute hypoxic respiratory failure in the setting of acute influenza A infection and possible CHF exacerbation. Later in the evening patient had rapid response with hypoxia and was intubated on mechanical ventilation. 2. Acute influenza A infection 3. Acute on chronic severe systolic congestive heart failure exacerbation 4. Acute kidney injury versus MARK on CKD stage III 4. Dilated nonischemic cardiomyopathy s/p PRIVATE CLIENT ADVISOR-D 12 years ago around 2011 with recent battery change in June 2023 5. History of NSVT during last admission on amiodarone 6. Paroxysmal atrial fibrillation 7. Thrombocytopenia severe 8. Essential hypertension 9. Diabetes mellitus type 2 10. BPH 11. Hyperlipidemia 12. Chronic venous stasis with questionable PAD 13. Mild cognitive deficiency Patient presented with acute hypoxic respiratory failure in the setting of active influenza infection which probably contributed to his acute on chronic CHF exacerbation. Overall on examination patient does not appear to be volume overloaded. Initial chest x-ray did show minimal septal edema also no evidence of any consolidation. BNP was elevated at 1906 and previous was 1600. Patient did endorse to orthopnea along with flulike symptoms and cough symptoms. Primary team started the patient on Tamiflu for the influenza A renal dosing given the acute kidney injury. This evening patient went into atrial fibrillation with RVR and was hypoxic during the rapid response and was intubated and placed on mechanical ventilation. Repeat chest x-ray did show the same vascular congestion as well as perihilar edema and questionable right lower lobe consolidation and will need to rule out aspiration. Started on IV antibiotics for presumed pneumonia and sepsis. Patient has been extubated successfully by the ICU team on 08/24/2025. Patient is on oxygen via Ventimask at 4-5 and 5 L/min and is saturating 97% on room air. Still continues to be on low-dose pressors with Levophed Primary team to discuss the code dose status with the patient and patient is now DNR and DNI and do not want any invasive treatments. Regarding his severe systolic CHF patient does have dilated nonischemic cardiomyopathy with an EF of around 15% as documented the previous echo in November 2023 with severe global hypokinesis, diastolic dysfunction, mildly dilated RV, moderate MR, mild AI and mild to moderate TR. Mild AV sclerosis without stenosis. Biatrial dilatation. Initially BNP was 1906 and BUN of 13 creatinine of 1.6. His baseline creatinine is 1.2. Could be cardiorenal syndrome but there is no significant hepatic congestion. Patient was started on IV Bumex 1 mg twice daily by the primary team. 10/27/2024: Patient heart rate is well-controlled on the telemetry in the 90s. Continue amiodarone 200 mg twice daily along with metoprolol XL 50 mg XL once daily as blood pressure now appears to be elevated Patient extubated on 08/24/2025 and is off of pressors and sedation and was transferred to the regular nursing floor. This morning during my examination patient appears to be lethargic in the confused. Labs reviewed and sodium is elevated 850 and chloride is 111. BUN continues to increase at 120 and creatinine is 6.0. Calculated osmolality of 336 and is in hyperosmolar state. Calcium is also elevated. Patient apparently has not received any kind of diet for the last few days and he failed his swallow eval. Discussed with the primary team to start the patient decreased on D5W at 50 mL/h for now. Patient probably has ATN and could have a chance to recover. If he does not recover then patient is not a candidate for dialysis. Primary team and ICU team did discuss with the family and patient is DNR/DNI at the present point of time with hospice care and medical management. He is not comfort care at the present moment. Recommend the primary team to talk to the family regarding feeding the patient an alternate means of nutrition if medical management is still being continued. Patient had a history of NSVT during last admission and was started on oral amiodarone 200 mg once daily and metoprolol XL once daily. Patient continues to have significant PVCs and NSVT's this morning and was recommended to increase amiodarone to 200 mg twice daily. Continue metoprolol XL 50 mg once daily blood pressure is permissible and continue to uptitrate the metoprolol XL. Patient still needing low-dose pressor with Levophed. History of PRIVATE CLIENT ADVISOR-D secondary to severe systolic CHF placed in 2011 and battery changed in June 2023. Last interrogation was during the last admission and device functioning well. Recommend to obtain [employer]/ [employer] device check again for the patient. Mildly elevated troponins which peaked around 0.1-0.2. Patient does have history of severe systolic CHF and in the presence of acute influenza A infection with elevated troponins mostly NSTEMI type II in the setting of supply/demand mismatch. Patient not on anticoagulation previously and now cannot be started because of the severe thrombocytopenia which is 18 initially and now at 41. Repeat echocardiogram on 12 and will follow-up the results. No aspirin given the severe severe thrombocytopenia. Continue statin. Patient condition is critical and overall overall poor prognosis given his longstanding severe systolic congestive heart failure which was explained to the son this evening. Son understands well his prognosis at the present point of time and at present patient is DNR and DNI There is a high probability of sudden, clinically significant or life threatening deterioration in the patient condition which required the highest level of physician preparedness to intervene urgently. I have personally spent 35 minutes of critical care time, exclusive of time spent on any procedures, in evaluation and management of this critically ill patient. Management of rest of the medical conditions as per primary team and other consultants. Thank you for the consult and allowing me to participate in the care of the patient. Cardiology will continue to follow. Jose M Gonzalez M.D. Interventional Cardiology Time Spent With Patient Time: Total time spent is greater than 50% in coordination of care (as documented) at patient's floor/unit and/or counseling patient:
--- NOTE | 2024-10-27 18:31 | ESPR_ITS ---
Documentation for date of: 10/27/24 Subjective Subjective Interval history: Patient continues to be altered, unable to communicate or answer questions. While patient is able to drink ice chips, he has failed swallow evaluation. Case workers in contact with family regarding hospice versus hospice with comfort care. Spoke to son regarding electrolyte imbalance due to MARK/ESRD requiring hemodialysis. Family does not want to proceed with hemodialysis. We started patient on D5W NS as currently he is not eating or drinking anything by mouth and he has hypernatremia. Labs significant for declining renal function. We will speak to family members regarding nutrition and see if they would like for possible PEG tube placement. Exam Vital Signs Temp Pulse Resp BP Pulse Ox O2 Del Method O2 Flow Rate 97.1 F 63 18 148/94 H 99 Nasal Cannula 2 10/27/24 16:00 10/27/24 16:00 10/27/24 16:00 10/27/24 16:00 10/27/24 16:00 10/27/24 16:00 10/27/24 16:00 FiO2 30 10/25/24 13:52 Narrative Exam Constitutional Alert, oriented x 0 and comfortable. Elderly male and forward?5 L O2 via oxy pupils equal and reactive to light bilaterally mask. HEENT Pupils equal and reactive to light bilaterally, Trachea midline and nares patent Respiratory Chest normal on inspection and clear auscultation bilaterally Cardiovascular S1 and S2 audible, RRR. No murmurs carotid bruit. No gross JVD. Abdominal Soft and non tender to palpation in all quadrants. BS + Genitourinary No bladder tenderness, no flank pain. Normal to palpation Musculoskeletal Extremities tone within normal limits. No LE edema. Neurological Patient currently not responsive to verbal or tactile stimuli. Skin Warm, dry and intact. No apparent lesions. Objective Labs 10/29/24 08:49 10/29/24 08:49 Labs: Laboratory Results - last 24 hr 10/27/24 04:51 WBC 8.5 RBC 3.49 L Hgb 11.2 L Hct 34.5 L MCV 99 MCH 32.1 MCHC 32.5 RDW Std Deviation 51.5 H Plt Count 58 L D Neut % (Auto) 74 Lymph % (Auto) 10 [place] % (Auto) 14 H Eos % (Auto) 1 Baso % (Auto) 0 Neut # (Auto) 6.3 Lymph # (Auto) 0.8 L [place] # (Auto) 1.2 H Eos # (Auto) 0.1 Baso # (Auto) 0.0 Immature Gran # (Auto) 0.11 H Absolute Nucleated RBC 0.00 Immature Gran % 1 H Nucleated RBC % 0 Sodium 150 H Potassium 3.8 D Chloride 111 H Carbon Dioxide 25.4 Anion Gap 14 BUN 120 H* Creatinine 6.0 H* D Estim Creat Clear Calc 9.5 L eGFR 9 L* BUN/Creatinine Ratio 20 Glucose 95 Calculated Osmolality 336 H Calcium 9.9 Corrected Calcium 10.2 H Magnesium 2.9 H Total Bilirubin 0.8 AST 14 ALT 20 Alkaline Phosphatase 67 Total Protein 6.7 Albumin 3.6 Globulin 3.1 Albumin/Globulin Ratio 1.2 Misc Test Result Platelets confirmed ABG Interpretation ABG results: 10/23/24 10/23/24 10/23/24 08:16 18:33 20:18 ABG pH 7.42 7.23 L D 7.35 D ABG pCO2 43 60 H D 54 H ABG pO2 107 296 H D 73 L D ABG HCO3 28 H 25 30 H ABG O2 Saturation 99 H 101 H 95 ABG Base Excess 3 -3 3 10/25/24 07:12 ABG pH 7.36 ABG pCO2 47 ABG pO2 91 ABG HCO3 27 H ABG O2 Saturation 98 ABG Base Excess 1 Quality Measures Quality Measures none Advance care planning discussed with:: child Assessment & Plan Assessment Current Active Medications: Generic Name Dose Route Start Last Admin Trade Name Freq PRN Reason Stop Dose Admin Acetaminophen 650 mg 10/22/24 12:55 Acetaminophen 325 Mg Tablet PO 11/21/24 12:54 Q4HR PRN Fever >100.3 or pain Protocol Albuterol/Ipratropium 3 ml 10/22/24 15:00 10/27/24 15:37 Albuterol/Ipratropium (Duoneb) Rt Risa 3 Ml Nebu INH 11/21/24 14:59 3 ml Q8HRRT FRED Administration Amiodarone HCl 200 mg 10/24/24 21:00 10/27/24 09:04 Amiodarone Hcl 200 Mg Tablet GT 11/23/24 20:59 Not Given BID FRED Aspirin 81 mg 10/25/24 09:00 10/27/24 09:04 Aspirin 81 Mg Chew GT 11/23/24 09:14 Not Given QDAY FRED Dextrose 50 ml 10/22/24 17:48 10/26/24 18:09 Dextrose 50%-Water Inj 50 Ml Syringe IV 11/21/24 17:47 50 ml Q15MIN PRN Administration BG <50 OR BG <70 & pt unresponsive Glucagon 1 mg 10/22/24 17:48 Glucagon Inj 1 Mg Vial IM Q15MIN PRN BG <70, and no IV access Ceftriaxone Sodium/Dextrose 2 gm in 50 mls @ 100 mls/hr 10/25/24 09:00 10/27/24 09:06 Rocephin/D5w 2gm IV 11/01/24 08:59 100 mls/hr QDAY FRED Administration Dextrose 1,000 mls @ 65 mls/hr 10/27/24 16:15 10/27/24 16:41 D5w IV 11/26/24 16:14 65 mls/hr .[id number] FRED Administration Insulin Human Lispro 0 unit 10/24/24 06:00 10/27/24 17:35 Insulin Lispro (Admelog) 1 Unit/0.01 Ml Unit SC 11/23/24 05:59 Not Given Q6HR FRED Protocol Lorazepam 2 mg 10/26/24 07:52 10/26/24 14:30 Lorazepam 2 Mg/Ml Vial IVP 10/30/24 16:36 2 mg Q4HR PRN Administration Anxiety or agitation Pantoprazole Sodium 40 mg 10/24/24 09:00 10/27/24 09:06 Pantoprazole Inj 40 Mg Vial IVP 11/23/24 08:59 40 mg QDAY FRED Administration Plan Patient is an 84-year-old male with past medical history significant for HFrEF [15-20%], atrial fibrillation s/p REHABILITATION THERAPIST-D placement, [id number] diabetes mellitus type 2, primary hypertension, hyperlipidemia and BPH presented with a chief complaint of worsening shortness of breath.Patient will be admitted for acute respiratory failure with hypoxia secondary to acute decompensated CHF exacerbation. 1. Acute kidney injury prerenal versus renal - worsening Baseline appears to be between 1?1.2 On admission CR 1.6 ---> 5.1 Etiology: ATN, overdiuresis, medication side effects Family counseled by ICU team on need for possible dialysis. Family does not wish for any invasive intervention and wished for hospice care. Plan: ? Renally dose medication ? Avoid nephrotoxic agents 2. Acute respiratory failure with hypoxia - improving 3. Acute decompensated chronic systolic and diastolic heart failure exacerbation [10-15%] 4. Dilated cardiomyopathy Patient presented with worsening shortness of breath On exam patient had decreased air entry bilaterally with scattered crackles at bases Chest x-ray significant for increased vascular markings and septal edema at lung bases. Transthoracic echocardiogram completed on 10/22/2024 findings include: Dilated Cariomyopathy. Severe LV systolic dysfunction. Estimated EF of 10-15%. Moderately dilated LV. Diastolic dysfunction present butc annot be graded due to paced rhythm. Normal Rv size and function. The estimated right ventricular systolic pressure, 31 mmHg. Mild TR. Modertately dilated LA and mildly dilated RA Mild MAC. Moderate MR. Mild thickening of the MV leaflets. NYHA class D stage IV BNP 1904 Home medication Bumex 1 Mg p.o. twice daily. Noncompliant Plan: ? 2G sodium restricted diet - Strict input output charting - 1500 cc/day fluid restriction ? Daily weight ? Continue Diuretic holiday ? Patient will need to start Entresto and SGLT2 at later date as part of GDMT. - Cardiology, Dr. Gonzalez consulted and closely following the case. Appreciate recommendations 5. Thrombocytopenia - improving On admission plt 18 ---> plt 97 DDx: Leukemia, viral infection, autoimmune, portal hypertension. Currently no signs of active bleeding and patient not on any aspirin or antiplatelet agents. Currently low suspicion for TTP. LDH 206, reticulocyte count 2.5, Peripheral blood smear revealed severe thrombocytopenia Plan: ? Avoid antiplatelet agents and heparin ? Monitor for signs of bleeding 6. Influenza A infection Patient had shortness of breath and cough that started 1 day ago Creatinine clearance 31 Plan: ? Continue Tamiflu 30 Mg p.o. twice daily for total of 5 days. To complete on 10/27/2024 7. Atrial fibrillation -paroxysmal 8. History of V. tach s/p REHABILITATION THERAPIST T?D placement Patient had REHABILITATION THERAPIST TD placement greater than 12 years ago. Last battery change in June 2023 Vascor is high. Patient may benefit from anticoagulation EKG on admission showed ventricular paced rhythm rate 105. No acute ST changes Patient had 1 minute of sustained V. tach this morning EKG was ordered showed ventricular paced rhythm, rate 100. Started patient on amiodarone 200 Mg p.o. twice daily and metoprolol XL 50 Mg p.o. daily. Plan: ? Started on amiodarone 200 Mg p.o. twice daily ? Started on metoprolol XL 50 Mg p.o. daily ? Consider anticoagulation on discharge. Currently anticoagulation on hold due to thrombocytopenia. ? Cardiology, Dr. Gonzalez consulted and closely following the case. Appreciate recommendations 9. NSTEMI type I versus type II Patient denies any ACS symptoms including chest pain/pressure or palpitations. Likely type II in setting of acute decompensated CHF exacerbation Stroke I 0.134 ---> 0.178 ---> 0.117 Plan: ? No need to further trend troponin 10. Primary hypertension 11. Hyperlipidemia BP 136/91 Plan: ? Antihypertensives currently on hold to give blood pressure extra room for diuresis if necessary 12. BPH Home medication finasteride Plan: ? Continue home medication finasteride Health maintenance: Disposition: Pending placement for hospice. Diet: N.p.o. Lines: pIVs GI Prophylaxis: Pantoprazole Thrombo Prophylaxis: Contraindicated Code status: DNR/DNI This patient care was discussed with my attending Dr. Paul Carroll MD PGY-2 Disclaimer: Minor errors in certified neurodiagnostic technologist may be present since this note was dictated by speech recognition software. Attending Provider Attestation/Addendum I attest that I was physically present for the evaluation, physical examination, lab and imaging review of the patient with the residents. I discussed the case with the residents and agree with the findings and plans of care as documented above. At bedside today, patient continues to be confused, unable to answer questions or follow commands. He was able to drink ice chips but failed swallow evaluation with speech therapy. Discussed with family, regarding hemodialysis, family denied hemodialysis. Started patient on D5 NS, he is not able to have any oral intake and starting to have hyponatremia along with worsening kidney function. Diuretics on hold as patient does not have good oral intake. Patient also noted to have low platelets, which have been improving. Completed his Tamiflu dose. Continues to be on amiodarone, metoprolol for A-fib. Anticoagulation on hold due to his thrombocytopenia. Cardiology following, appreciate recommendations. Estela Miller MD
--- NOTE | 2024-10-27 19:22 | PC.NURSE ---
Spoke to Wasiq regarding PO meds still on GT per MD will change it in AM once pt pass the swallow eval.
[2024-10-28] VITALS (11 sets, daily range): BP systolic 134–156; BP diastolic 84–97; PULSE 52–97; RESP 16–20; TEMP 36.1–37; O2SAT 92–99
[2024-10-28 05:48] LABS: Basophils # (Auto) 0.1 Thou/mm3 (0.0-0.2); Basophils % (Auto) 1 % (0-2.5); Eosinophils # (Auto) 0.1 Thou/mm3 (0.0-0.5); Eosinophils % (Auto) 1 % (0-10); Hemoglobin 12.4 g/dL (13.5-16.0); Immature Granulocytes % (Auto) 3 % (0-0); Immature Granulocytes Auto 0.19 Thou/mm3 (0.00-0.00); Lymphocytes # (Auto) 0.9 Thou/mm3 (1.0-4.8); Lymphocytes % (Auto) 12 % (10-50); Mean Corpuscular HGB Conc 32.6 g/dl (31.0-37.0); Mean Corpuscular Volume 98 fL (80-100); Monocytes # (Auto) 1.2 Thou/mm3 (0.0-0.8); Monocytes % (Auto) 16 % (0-12); Neutrophils # (Auto) 5.2 Thou/mm3 (1.8-7.7); Neutrophils % (Auto) 68 % (37-80); Nucleated Red Blood Cell % 0 /100 WBC (0); RDW Standard Deviation 51.4 fL (35.1-43.9); Red Blood Count 3.88 Miln/mm3 (4.50-5.90); White Blood Count 7.6 Thou/mm3 (3.8-10.6)
[2024-10-28 06:09] LABS: Platelet Count 29 Thou/mm3 (140-440)
[2024-10-28 06:34] LABS: Slide Review Platelets confirmed
[2024-10-28 06:48] LABS: Alanine Aminotransferase 23 U/L (10-49); Albumin, Serum 3.8 gm/dL (3.4-4.8); Albumin/Globulin Ratio 1.1 (1.2-2.2); Alkaline Phosphatase 71 U/L (46-116); Anion Gap 16 (7-16); Aspartate Amino Transferase 22 U/L (0-34); BUN/Creatinine Ratio 20 Ratio (12-20); Calcium 10.1 mg/dL (8.3-10.6); Calcium (Corrected) 10.3 mg/dL (8.5-10.1); Carbon Dioxide 23.4 mMol/L (20.0-31.0); Chloride 113 mMol/L (98-107); Creatinine (Component) 6.2 mg/dL (0.6-1.3); Estimated Creatinine Clearance 8.4 mL/min (>60); Globulin 3.4 gm/dL (2.3-3.5); Glucose 126 mg/dL (74-106); Osmolality,Calculated 342 (275-295); Potassium 3.7 mMol/L (3.4-5.1); Sodium 152 mMol/L (136-145); Total Protein 7.2 gm/dL (5.7-8.2); eGFR 8 See Note
[2024-10-28 06:52] LABS: Blood Urea Nitrogen 122 mg/dL (9-23)
[2024-10-28] MEDS: ALBUTEROL/IPRATROPIUM (Duoneb) RT SOL 3 ML NEBU INH (06:52)
[2024-10-28] MEDS: cefTRIAXone/D5w 2gm 2 GM/50 ML BAG IV (09:00)
[2024-10-28] MEDS: AMIODARONE HCL 200 MG TABLET GT (09:00)
[2024-10-28] MEDS: PANTOPRAZOLE INJ 40 MG VIAL IVP (09:01)
[2024-10-28] MEDS: ASPIRIN 81 MG CHEW GT (09:01)
[2024-10-28] MEDS: DEXTROSE 5%-WATER 1,000 ML 65 ML IV (09:01)
--- NOTE | 2024-10-28 12:39 | ESCONSULT_ITS ---
History of Present Illness Data of Consult Requesting Physician: Rosaura Sesay MD Primary Care Provider: Physician No Primary/Family Consult Narrative Reason for consult: MARK on CKD History of present illness: Chart review done as patient has altered mental status Mr. 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 Diagnosed with congestive heart failure and was given diuretics and subsequently transferred to the floor. Noted significant worsening of renal function and renal consultation was requested. Medications currently included Tylenol, amiodarone, ceftriaxone, insulin sliding scale, Ativan as needed, Protonix. 10/28/2024 labs that showed sodium 152, potassium 3.7, bicarbonate 23.4, anion gap 16, BUN 122, creatinine 6.2, calcium 10.3, magnesium 3, LFTs normal, albumin 3.8 urine sodium 63. WBC 7.6, hemoglobin 12.4, platelets 29,000. Patient apparently was seen by Dr. Danielle Marroquin. Noted family requesting comfort care/hospice with no aggressive management including dialysis. cc:: cc: Rosaura Sesay MD Review of Systems Review of Systems ROS Unobtainable: unobtainable due to medical condition Past Medical History Past Medical History NEUROLOGIC: Positive Dementia CARDIAC: Positive Cardiac Disorders, Atrial Fibrillation, Congestive Heart Failure, Edema and Hypertension RESPIRATORY: Negative Chronic Obstructive Pulmonary Disease (COPD) or Asthma GENITOURINARY: Positive Benign Prostatic Hyperplasia; Negative Renal Disease MUSCULOSKELETAL: Positive Musculoskeletal Disorders and Arthritis ENT: Positive Cataracts ENDOCRINE: Positive Diabetes Mellitus Type 2; Negative Diabetes Mellitus Type 1 HEMATOLOGIC: Negative Sickle Cell Disease Surgical History SURGICAL: Positive Cardiac Surgery and Pacemaker Social History SMOKING STATUS: Never smoker SECOND HAND EXPOSURE: No SUBSTANCE USE: does not use Travel History EBOLA RISK: No Past Medical History Comments PMH COMMENT: Past medical history: ?Chronic systolic heart failure with reduced ejection fraction [15-20%] ? Atrial fibrillation s/p VICE PRESIDENT [employer]IENT SERVICES-D ? Vfu-cmrpcii-zbyphvipn diabetes mellitus type 2 ? Primary hypertension ? BPH ? 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 Previously 48-wgrq-[id number] history ETHO use: Denies Illicit drug use: Denies Social History Note: [place] At baseline ambulates with a walker Family History: Nil Meds Home Medications and Allergies Home Medications ?Medication ?Instructions ?Recorded ?Confirmed ?Type atorvastatin 10 mg tablet 10 mg PO QDAY 03/31/2112/07 History amlodipine 5 mg tablet 5 mg PO QDAY 04/02/21 History finasteride 5 mg tablet 1 tab PO QDAY 03/24/2212/07 History albuterol sulfate 90 mcg/actuation 90 mcg inhalation Q 4H PRN short of 12/08/23 12/08/23 History aerosol inhaler breath dapagliflozin propanediol 10 mg 10 mg PO DAILY 4 12/08/23 History tablet (Farxiga) Allergies Allergy/AdvReac Type Severity Reaction Status Date / Time Penicillins Allergy Severe RASH Verified 03/30/21 10:07 Exam Vital Signs Temp Pulse Resp BP Pulse Ox O2 Del Method O2 Flow Rate 36.1 C 77 19 134/97 H 98 Nasal Cannula 2 10/28/24 16:00 10/28/24 16:00 10/28/24 16:00 10/28/24 16:00 10/28/24 16:00 10/28/24 16:00 10/28/24 16:00 FiO2 30 10/25/24 13:52 Narrative Exam GENERAL APPEARANCE: Elderly gentleman currently seen in medical floor. Extremely dehydrated with a dry mucosa. NECK: Neck supple, no JVD or bruit CARDIOVASCULAR: Heart regular, no murmurs LUNGS/CHEST: Few rhonchi noted bilaterally ABDOMEN: Soft, nontender, nondistended. No masses. Normal bowel sounds. EXTREMITIES: No edema, clubbing or cyanosis. SKIN: Skin exam normal without any rashes MUSCULOSKELETAL: In bed NEUROLOGICAL : Unresponsive Results Labs 10/29/24 08:49 10/29/24 08:49 Labs: Short CBC 10/28/24 Range/Units 04:39 WBC 7.6 (3.8-10.6) Thou/mm3 Hgb 12.4 L (13.5-16.0) g/dL Hct 38.0 L (41.0-53.0) % Plt Count 29 L* D (140-440) Thou/mm3 BMP 10/28/24 04:39 Sodium 152 H Potassium 3.7 Chloride 113 H Carbon Dioxide 23.4 BUN 122 H* Creatinine 6.2 H* Glucose 126 H Calcium 10.1 Liver Function 10/28/24 Range/Units 04:39 Total Bilirubin 1.0 (0.3-1.2) mg/dL AST 22 (0-34) U/L ALT 23 (10-49) U/L Alkaline Phosphatase 71 (46-116) U/L Albumin 3.8 (3.4-4.8) gm/dL ABG Interpretation ABG results: 10/23/24 10/23/24 10/23/24 08:16 18:33 20:18 ABG pH 7.42 7.23 L D 7.35 D ABG pCO2 43 60 H D 54 H ABG pO2 107 296 H D 73 L D ABG HCO3 28 H 25 30 H ABG O2 Saturation 99 H 101 H 95 ABG Base Excess 3 -3 3 10/25/24 07:12 ABG pH 7.36 ABG pCO2 47 ABG pO2 91 ABG HCO3 27 H ABG O2 Saturation 98 ABG Base Excess 1 Assessment & Plan Additional Assessment & Plan Additional Plan: Jeimy is a 84-year-old gentleman with severe cardiomyopathy and ejection fraction 10 to 15% presented with congestive heart failure and noted to be in a cardiorenal syndrome with worsening renal function despite giving fluids versus diuretics. However currently he seems to be dehydrated and D5W was initiated. Acute problems- #1 MARK secondary to ATN/cardiorenal syndrom #2 acute hypoxic respiratory failure #3 acute decompensated chronic systolic heart failure with ejection fraction of 10 to 15% #4 dilated cardiomyopathy-NIHA stage IV #5 thrombocytopenia #6Atrial fibrillation #7 history of V. tach status post defibrillator #8Dyslipidemia #9 altered mental status from metabolic encephalopathy Agree with family that he is not a candidate for dialysis owing to his fragility and poor ejection fraction. Hospice seems to be appropriate. Will replace electrolytes. Unfortunately seems to be imminent. Thank you Estela for allowing me to participate in the care of Mr. Munson
--- NOTE | 2024-10-28 13:34 | XR_ITS ---
Examination: Retroperitoneal ultrasound, complete Technique: Multiple high resolution grayscale images of the retroperitoneum obtained, including kidneys and bladder. Exam date and time:October 28, 2024 at 1627 hrs. Indications: Renal insufficiency on left are examination this week. Findings: Right kidney 12.7 x 6.6 x 5.4 cm cortex 1.8 cm Left kidney 14.5 x 5.9 x 6.1 cm cortex 1.6 cm Multiple left renal cysts, the largest in the upper pole 8.5 cm No bladder mass or bladder calculi Contracted urinary bladder prevoid volume 66 cc Prominent prostatomegaly 6.2 x 5.5 x 6.7 cm no prostate nodules Impression: Bilateral renal cortical thinning No hydronephrosis Marked prostatomegaly
--- NOTE | 2024-10-28 16:47 | PD.RESPRO ---
Documentation for date of: 10/28/24 Subjective Subjective Interval history: No significant overnight events. Nephrology Dr. Mederos was consulted, recommendation to continue D5W IVF as there is room for fluid resuscitation. Social service and works with family members in regards to hospice versus SNF versus home with comfort care. On physical exam patient not responding, platelets decreased from 5829, NA 153, K3.7, BUN 122 and DESK LIEUTENANT 6.2. Exam Vital Signs Temp Pulse Resp BP Pulse Ox O2 Del Method O2 Flow Rate 96.9 F 77 19 134/97 H 98 Nasal Cannula 2 10/28/24 16:00 10/28/24 16:00 10/28/24 16:00 10/28/24 16:00 10/28/24 16:00 10/28/24 16:00 10/28/24 16:00 FiO2 30 10/25/24 13:52 Narrative Exam Constitutional Alert, oriented x 0 and comfortable. Elderly male and forward?5 L O2 via oxy pupils equal and reactive to light bilaterally mask. HEENT Pupils equal and reactive to light bilaterally, Trachea midline and nares patent Respiratory Chest normal on inspection and clear auscultation bilaterally Cardiovascular S1 and S2 audible, RRR. No murmurs carotid bruit. No gross JVD. Abdominal Soft and non tender to palpation in all quadrants. BS + Genitourinary No bladder tenderness, no flank pain. Normal to palpation Musculoskeletal Extremities tone within normal limits. No LE edema. Neurological Patient currently not responsive to verbal or tactile stimuli. Skin Warm, dry and intact. No apparent lesions. Objective Labs 10/29/24 08:49 10/29/24 08:49 Labs: Laboratory Results - last 24 hr 10/28/24 04:39 WBC 7.6 RBC 3.88 L Hgb 12.4 L Hct 38.0 L MCV 98 MCH 32.0 MCHC 32.6 RDW Std Deviation 51.4 H Plt Count 29 L* D Neut % (Auto) 68 Lymph % (Auto) 12 Rock % (Auto) 16 H Eos % (Auto) 1 Baso % (Auto) 1 Neut # (Auto) 5.2 Lymph # (Auto) 0.9 L Rock # (Auto) 1.2 H Eos # (Auto) 0.1 Baso # (Auto) 0.1 Immature Gran # (Auto) 0.19 H Absolute Nucleated RBC 0.00 Immature Gran % 3 H Nucleated RBC % 0 Sodium 152 H Potassium 3.7 Chloride 113 H Carbon Dioxide 23.4 Anion Gap 16 BUN 122 H* Creatinine 6.2 H* Estim Creat Clear Calc 8.4 L eGFR 8 L* BUN/Creatinine Ratio 20 Glucose 126 H Calculated Osmolality 342 H Calcium 10.1 Corrected Calcium 10.3 H Magnesium 3.0 H Total Bilirubin 1.0 AST 22 ALT 23 Alkaline Phosphatase 71 Total Protein 7.2 Albumin 3.8 Globulin 3.4 Albumin/Globulin Ratio 1.1 L Misc Test Result Platelets confirmed ABG Interpretation ABG results: 10/23/24 10/23/24 10/23/24 08:16 18:33 20:18 ABG pH 7.42 7.23 L D 7.35 D ABG pCO2 43 60 H D 54 H ABG pO2 107 296 H D 73 L D ABG HCO3 28 H 25 30 H ABG O2 Saturation 99 H 101 H 95 ABG Base Excess 3 -3 3 10/25/24 07:12 ABG pH 7.36 ABG pCO2 47 ABG pO2 91 ABG HCO3 27 H ABG O2 Saturation 98 ABG Base Excess 1 Quality Measures Quality Measures none Advance care planning discussed with:: other Assessment & Plan Assessment Current Active Medications: Generic Name Dose Route Start Last Admin Trade Name Freq PRN Reason Stop Dose Admin Acetaminophen 650 mg 10/22/24 12:55 Acetaminophen 325 Mg Tablet PO 11/21/24 12:54 Q4HR PRN Fever >100.3 or pain Protocol Albuterol/Ipratropium 3 ml 10/28/24 15:17 Albuterol/Ipratropium (Duoneb) Rt Risa 3 Ml Nebu INH 11/27/24 18:59 Q4HRRT PRN wheeze Amiodarone HCl 200 mg 10/24/24 21:00 10/28/24 09:00 Amiodarone Hcl 200 Mg Tablet GT 11/23/24 20:59 200 mg BID FRED Administration Dextrose 50 ml 10/22/24 17:48 10/26/24 18:09 Dextrose 50%-Water Inj 50 Ml Syringe IV 11/21/24 17:47 50 ml Q15MIN PRN Administration BG <50 OR BG <70 & pt unresponsive Glucagon 1 mg 10/22/24 17:48 Glucagon Inj 1 Mg Vial IM Q15MIN PRN BG <70, and no IV access Ceftriaxone Sodium/Dextrose 2 gm in 50 mls @ 100 mls/hr 10/25/24 09:00 10/28/24 09:00 Rocephin/D5w 2gm IV 11/01/24 08:59 100 mls/hr QDAY FRED Administration Dextrose 1,000 mls @ 125 mls/hr 10/28/24 13:45 D5w IV 11/27/24 13:44 .Q8H FERD Insulin Human Lispro 0 unit 10/24/24 06:00 10/28/24 05:32 Insulin Lispro (Admelog) 1 Unit/0.01 Ml Unit SC 11/23/24 05:59 Not Given Q6HR FRED Protocol Lorazepam 2 mg 10/26/24 07:52 10/26/24 14:30 Lorazepam 2 Mg/Ml Vial IVP 10/30/24 16:36 2 mg Q4HR PRN Administration Anxiety or agitation Pantoprazole Sodium 40 mg 10/24/24 09:00 10/28/24 09:01 Pantoprazole Inj 40 Mg Vial IVP 11/23/24 08:59 40 mg QDAY FRED Administration Plan Patient is an 84-year-old male with past medical history significant for HFrEF [15-20%], atrial fibrillation s/p DESK LIEUTENANT-D placement, [id number]-nnyvfwlyt diabetes mellitus type 2, primary hypertension, hyperlipidemia and BPH presented with a chief complaint of worsening shortness of breath.Patient will be admitted for acute respiratory failure with hypoxia secondary to acute decompensated CHF exacerbation. 1. Acute kidney injury prerenal versus renal - worsening Baseline appears to be between 1?1.2 On admission CR 1.6 ---> 5.1 Etiology: ATN, overdiuresis, medication side effects Family counseled by ICU team on need for possible dialysis. Family does not wish for any invasive intervention and wished for hospice care. Plan: ? Renally dose medication ? Avoid nephrotoxic agents 2. Acute respiratory failure with hypoxia - improving 3. Acute decompensated chronic systolic and diastolic heart failure exacerbation [10-15%] 4. Dilated cardiomyopathy Patient presented with worsening shortness of breath On exam patient had decreased air entry bilaterally with scattered crackles at bases Chest x-ray significant for increased vascular markings and septal edema at lung bases. Transthoracic echocardiogram completed on 10/22/2024 findings include: Dilated Cariomyopathy. Severe LV systolic dysfunction. Estimated EF of 10-15%. Moderately dilated LV. Diastolic dysfunction present butc annot be graded due to paced rhythm. Normal Rv size and function. The estimated right ventricular systolic pressure, 31 mmHg. Mild TR. Modertately dilated LA and mildly dilated RA Mild MAC. Moderate MR. Mild thickening of the MV leaflets. NYHA class D stage IV BNP 1904 Home medication Bumex 1 Mg p.o. twice daily. Noncompliant Plan: - Strict input output charting ? Daily weight ? Continue Diuretic holiday ? Patient will need to start Entresto and SGLT2 at later date as part of GDMT. - Cardiology, Dr. Gonzalez consulted and closely following the case. Appreciate recommendations 5. Thrombocytopenia - improving On admission plt 18 ---> plt 97 DDx: Leukemia, viral infection, autoimmune, portal hypertension. Currently no signs of active bleeding and patient not on any aspirin or antiplatelet agents. Currently low suspicion for TTP. LDH 206, reticulocyte count 2.5, Peripheral blood smear revealed severe thrombocytopenia Plan: ? Avoid antiplatelet agents and heparin ? Monitor for signs of bleeding 6. Influenza A infection Patient had shortness of breath and cough that started 1 day ago Creatinine clearance 31 Plan: ? Continue Tamiflu 30 Mg p.o. twice daily for total of 5 days. To complete on 10/27/2024 7. Atrial fibrillation -paroxysmal 8. History of V. tach s/p DESK LIEUTENANT T?D placement Patient had DESK LIEUTENANT TD placement greater than 12 years ago. Last battery change in June 2023 Vascor is high. Patient may benefit from anticoagulation EKG on admission showed ventricular paced rhythm rate 105. No acute ST changes Patient had 1 minute of sustained V. tach this morning EKG was ordered showed ventricular paced rhythm, rate 100. Started patient on amiodarone 200 Mg p.o. twice daily and metoprolol XL 50 Mg p.o. daily. Plan: ? Started on amiodarone 200 Mg p.o. twice daily ? Started on metoprolol XL 50 Mg p.o. daily ? Consider anticoagulation on discharge. Currently anticoagulation on hold due to thrombocytopenia. ? Cardiology, Dr. Gonzalez consulted and closely following the case. Appreciate recommendations 9. NSTEMI type I versus type II Patient denies any ACS symptoms including chest pain/pressure or palpitations. Likely type II in setting of acute decompensated CHF exacerbation Stroke I 0.134 ---> 0.178 ---> 0.117 Plan: ? No need to further trend troponin 10. Primary hypertension 11. Hyperlipidemia BP 136/91 Plan: ? Antihypertensives currently on hold to give blood pressure extra room for diuresis if necessary 12. BPH Home medication finasteride Plan: ? Continue home medication finasteride Health maintenance: Disposition: Pending placement for hospice. Diet: N.p.o. Lines: pIVs GI Prophylaxis: Pantoprazole Thrombo Prophylaxis: Contraindicated Code status: DNR/DNI This patient care was discussed with my attending Dr. Paul Carroll MD PGY-2 Disclaimer: Minor errors in restaurant kitchen manager may be present since this note was dictated by speech recognition software. Attending Provider Attestation/Addendum I attest that I was physically present for the evaluation, physical examination, lab and imaging review of the patient with the residents. I discussed the case with the residents and agree with the findings and plans of care as documented above. At bedside today, patient continues to be confused. Noted to have worsening BUN and creatinine at 122 and 6.2. Sodium went up to 152. Patient has been on 65 cc/h of D5W. Noted to have some urine output, unable to have Moore, unable to exactly measure the urine output. Since patient is starting to have urine output, we will obtain nephrology consult. Increased fluid to 125 cc/h after discussion with nephrology. We will continue to monitor his kidney function and mentation closely. We will hold off on discussion with family regarding goals of care for now, if patient does not improve with IV hydration, we will plan for another goals of care meeting. Estela Miller MD
[2024-10-28] MEDS: DEXTROSE 5%-WATER 1,000 ML 125 ML IV (20:00)
[2024-10-28] MEDS: AMIODARONE HCL 200 MG TABLET PO (21:07)
[2024-10-28 21:46] LABS: Chloride,Urine Random 57.6 mMol/L (55.0-125.0); Creatinine,Random Urine 48 mg/dL (30-125); Potassium,Urine Random 25 mMol/L (12-62); Sodium,Urine Random 63.5 mMol/L (20.0-110.0)
--- NOTE | 2024-10-28 23:56 | ESPR_ITS ---
Documentation for date of: 10/28/24 Subjective Subjective Interval history: Patient seen and examined at the bedside. Patient very lethargic and minimally responsive. Patient started on IV fluids with D5W and patient still not eating well Patient heart rate is well-controlled on the telemetry in the 90s. Continue amiodarone 200 mg twice daily along with metoprolol XL 50 mg XL once daily as blood pressure now appears to be elevated Patient extubated on 08/24/2025 and is off of pressors and sedation and was transferred to the regular nursing floor. Labs reviewed and sodium is 152 and chloride of 112. BUN is 122 and creatinine is 6.2 Patient apparently has not received any kind of diet for the last few days and he failed his swallow eval. Patient probably has ATN and could have a chance to recover. If he does not recover then patient is not a candidate for dialysis. Nephrology consulted Primary team and ICU team did discuss with the family and patient is DNR/DNI at the present point of time with hospice care and medical management. He is not comfort care at the present moment. Recommend the primary team to talk to the family regarding feeding the patient an alternate means of nutrition if medical management is still being continued. Exam Vital Signs Temp Pulse Resp BP Pulse Ox O2 Del Method O2 Flow Rate 97.1 F 52 L 18 142/88 H 98 Nasal Cannula 3 10/28/24 20:00 10/28/24 23:02 10/28/24 23:02 10/28/24 21:07 10/28/24 23:02 10/28/24 20:00 10/28/24 23:02 FiO2 30 10/25/24 13:52 Narrative Exam GENERAL: Patient very lethargic and on oxygen via Ventimask NEURO: Limited exam as patient lethargic HEENT: Atraumatic, Normocephalic. mucous membranes moist. HEART: S1, S2 present and irregular. 2 or 6 systolic murmur at the apex LUNGS: Clear to auscultation with no wheezing or crackles but decreased at the apex ABDOMEN: soft, non-distended, non-tender, bowel sounds heard, no guarding or rebound tenderness SKIN: No Rash or ecchymoses, chronic venous stasis skin changes bilaterally below knees EXTREMITIES: Trace edema, able to move all 4 limbs Objective Labs 10/28/24 04:39 10/28/24 04:39 Labs: Laboratory Results - last 24 hr 10/28/24 10/28/24 04:39 21:22 WBC 7.6 RBC 3.88 L Hgb 12.4 L Hct 38.0 L MCV 98 MCH 32.0 MCHC 32.6 RDW Std Deviation 51.4 H Plt Count 29 L* D Neut % (Auto) 68 Lymph % (Auto) 12 [place] % (Auto) 16 H Eos % (Auto) 1 Baso % (Auto) 1 Neut # (Auto) 5.2 Lymph # (Auto) 0.9 L [place] # (Auto) 1.2 H Eos # (Auto) 0.1 Baso # (Auto) 0.1 Immature Gran # (Auto) 0.19 H Absolute Nucleated RBC 0.00 Immature Gran % 3 H Nucleated RBC % 0 Sodium 152 H Potassium 3.7 Chloride 113 H Carbon Dioxide 23.4 Anion Gap 16 BUN 122 H* Creatinine 6.2 H* Estim Creat Clear Calc 8.4 L eGFR 8 L* BUN/Creatinine Ratio 20 Glucose 126 H Calculated Osmolality 342 H Calcium 10.1 Corrected Calcium 10.3 H Magnesium 3.0 H Total Bilirubin 1.0 AST 22 ALT 23 Alkaline Phosphatase 71 Total Protein 7.2 Albumin 3.8 Globulin 3.4 Albumin/Globulin Ratio 1.1 L Ur Random Creatinine 48 Ur Random Sodium 63.5 Ur Random Potassium 25 Ur Random Chloride 57.6 Ur Random Urea Nitrogn 607.0 Misc Test Result Platelets confirmed ABG Interpretation ABG results: 10/23/24 10/23/24 10/23/24 08:16 18:33 20:18 ABG pH 7.42 7.23 L D 7.35 D ABG pCO2 43 60 H D 54 H ABG pO2 107 296 H D 73 L D ABG HCO3 28 H 25 30 H ABG O2 Saturation 99 H 101 H 95 ABG Base Excess 3 -3 3 10/25/24 07:12 ABG pH 7.36 ABG pCO2 47 ABG pO2 91 ABG HCO3 27 H ABG O2 Saturation 98 ABG Base Excess 1 Assessment & Plan A&P Narrative 83-year-old male with a past medical history of dilated nonischemic cardiomyopathy with severe systolic congestive heart failure with an EF of around 15% 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 Patient well-known to me from previous admissions and follow-up in the clinic last year but has been lost to follow-up as [place] to [place]. Patient apparently has been having flulike symptoms over the past couple of days. And has been having worsening shortness of breath over the past couple of days and also a cough but with no sputum production. Patient also had shortness of breath which is worse on lying down which most orthopnea and cannot lie flat. Denied chest pain chest pressure, palpitations, worsening lower extremity swelling, dizziness or syncope or fall. Denies any kind of fever or chills. In the emergency department initial blood pressure was 148/86 mmHg heart rate of 89/min, paced rhythm, RR 23 and afebrile and saturation of 96% on room air. Labs showed hemoglobin of 10.6 platelets of 18, WBC 12.1, BUN 13 and creatinine of 1.6 which worsened to 1.8. Initial troponin was 0.134 and repeat was 0.178 BNP was 1904 and previously was 1600. Chest x-ray with pulmonary vascular congestion with septal edema. EKG showed ventricular paced rhythm at 105 bpm. Patient flu test was positive. Patient did receive IV Lasix in the emergency department and was admitted to the hospital for acute hypoxic respiratory failure in the setting of flu as well as possible CHF exacerbation. 1. Acute hypoxic respiratory failure in the setting of acute influenza A infection and possible CHF exacerbation. Later in the evening patient had rapid response with hypoxia and was intubated on mechanical ventilation. 2. Acute influenza A infection 3. Acute on chronic severe systolic congestive heart failure exacerbation 4. Acute kidney injury versus MARK on CKD stage III 4. Dilated nonischemic cardiomyopathy s/p CASTING MACHINE OPERATOR-D 12 years ago around 2011 with recent battery change in June 2023 5. History of NSVT during last admission on amiodarone 6. Paroxysmal atrial fibrillation 7. Thrombocytopenia severe 8. Essential hypertension 9. Diabetes mellitus type 2 10. BPH 11. Hyperlipidemia 12. Chronic venous stasis with questionable PAD 13. Mild cognitive deficiency Patient presented with acute hypoxic respiratory failure in the setting of active influenza infection which probably contributed to his acute on chronic CHF exacerbation. Overall on examination patient does not appear to be volume overloaded. Initial chest x-ray did show minimal septal edema also no evidence of any consolidation. BNP was elevated at 1906 and previous was 1600. Patient did endorse to orthopnea along with flulike symptoms and cough symptoms. Primary team started the patient on Tamiflu for the influenza A renal dosing given the acute kidney injury. This evening patient went into atrial fibrillation with RVR and was hypoxic during the rapid response and was intubated and placed on mechanical ventilation. Repeat chest x-ray did show the same vascular congestion as well as perihilar edema and questionable right lower lobe consolidation and will need to rule out aspiration. Started on IV antibiotics for presumed pneumonia and sepsis. Patient has been extubated successfully by the ICU team on 08/24/2025. Patient is on oxygen via Ventimask at 4-5 and 5 L/min and is saturating 97% on room air. Still continues to be on low-dose pressors with Levophed Primary team to discuss the code dose status with the patient and patient is now DNR and DNI and do not want any invasive treatments. Regarding his severe systolic CHF patient does have dilated nonischemic cardiomyopathy with an EF of around 15% as documented the previous echo in November 2023 with severe global hypokinesis, diastolic dysfunction, mildly dilated RV, moderate MR, mild AI and mild to moderate TR. Mild AV sclerosis without stenosis. Biatrial dilatation. Initially BNP was 1906 and BUN of 13 creatinine of 1.6. His baseline creatinine is 1.2. Could be cardiorenal syndrome but there is no significant hepatic congestion. Patient was started on IV Bumex 1 mg twice daily by the primary team. 10/28/2024: Patient very lethargic and minimally responsive. Patient started on IV fluids with D5W and patient still not eating well Patient heart rate is well-controlled on the telemetry in the 90s. Continue amiodarone 200 mg twice daily along with metoprolol XL 50 mg XL once daily as blood pressure now appears to be elevated Patient extubated on 08/24/2025 and is off of pressors and sedation and was transferred to the regular nursing floor. Labs reviewed and sodium is 152 and chloride of 112. BUN is 122 and creatinine is 6.2 Patient apparently has not received any kind of diet for the last few days and he failed his swallow eval. Patient probably has ATN and could have a chance to recover. If he does not recover then patient is not a candidate for dialysis. Nephrology consulted Primary team and ICU team did discuss with the family and patient is DNR/DNI at the present point of time with hospice care and medical management. He is not comfort care at the present moment. Recommend the primary team to talk to the family regarding feeding the patient an alternate means of nutrition if medical management is still being continued. Patient had a history of NSVT during last admission and was started on oral amiodarone 200 mg once daily and metoprolol XL once daily. Patient continues to have significant PVCs and NSVT's this morning and was recommended to increase amiodarone to 200 mg twice daily. Continue metoprolol XL 50 mg once daily blood pressure is permissible and continue to uptitrate the metoprolol XL. Patient still needing low-dose pressor with Levophed. History of CASTING MACHINE OPERATOR-D secondary to severe systolic CHF placed in 2011 and battery changed in June 2023. Last interrogation was during the last admission and device functioning well. Recommend to obtain [facility] [employer] device check again for the patient. Mildly elevated troponins which peaked around 0.1-0.2. Patient does have history of severe systolic CHF and in the presence of acute influenza A infection with elevated troponins mostly NSTEMI type II in the setting of supply/demand mismatch. Patient not on anticoagulation previously and now cannot be started because of the severe thrombocytopenia which is 18 initially and now at 41. Repeat echocardiogram on 12 and will follow-up the results. No aspirin given the severe severe thrombocytopenia. Continue statin. Patient condition is critical and overall overall poor prognosis given his longstanding severe systolic congestive heart failure which was explained to the son this evening. Son understands well his prognosis at the present point of time and at present patient is DNR and DNI Management of rest of the medical conditions as per primary team and other consultants. Thank you for the consult and allowing me to participate in the care of the patient. Cardiology will continue to follow. Jose M Gonzalez M.D. Interventional Cardiology Time Spent With Patient Time: Total time spent is greater than 50% in coordination of care (as documented) at patient's floor/unit and/or counseling patient:
[2024-10-29] VITALS (13 sets, daily range): BP systolic 107–150; BP diastolic 64–80; PULSE 6–89; RESP 12–20; TEMP 36.1–36.6; O2SAT 91–97
[2024-10-29] MEDS: DEXTROSE 5%-WATER 1,000 ML 125 ML IV ×3 (04:01→23:03)
[2024-10-29 06:36] LABS: Magnesium 2.7 mg/dL (1.6-2.6)
[2024-10-29 09:19] LABS: Basophils # (Auto) 0.1 Thou/mm3 (0.0-0.2); Basophils % (Auto) 1 % (0-2.5); Eosinophils # (Auto) 0.1 Thou/mm3 (0.0-0.5); Eosinophils % (Auto) 1 % (0-10); Hematocrit 37.4 % (41.0-53.0); Hemoglobin 12.3 g/dL (13.5-16.0); Immature Granulocytes % (Auto) 3 % (0-0); Immature Granulocytes Auto 0.22 Thou/mm3 (0.00-0.00); Lymphocytes # (Auto) 0.9 Thou/mm3 (1.0-4.8); Lymphocytes % (Auto) 10 % (10-50); Mean Corpuscular HGB Conc 32.9 g/dl (31.0-37.0); Mean Corpuscular Hemoglobin 31.9 pg (25.0-35.0); Mean Corpuscular Volume 97 fL (80-100); Monocytes # (Auto) 1.3 Thou/mm3 (0.0-0.8); Monocytes % (Auto) 14 % (0-12); Neutrophils # (Auto) 6.4 Thou/mm3 (1.8-7.7); Neutrophils % (Auto) 71 % (37-80); Nucleated Red Blood Cell % 0 /100 WBC (0); RDW Standard Deviation 49.1 fL (35.1-43.9); Red Blood Count 3.85 Miln/mm3 (4.50-5.90); White Blood Count 8.9 Thou/mm3 (3.8-10.6)
[2024-10-29 10:02] LABS: Alanine Aminotransferase 18 U/L (10-49); Albumin, Serum 3.6 gm/dL (3.4-4.8); Albumin/Globulin Ratio 1.1 (1.2-2.2); Alkaline Phosphatase 69 U/L (46-116); Anion Gap 11 (7-16); Aspartate Amino Transferase 18 U/L (0-34); Bilirubin,Total 1.2 mg/dL (0.3-1.2); Calcium (Corrected) 10.3 mg/dL (8.5-10.1); Chloride 108 mMol/L (98-107); Creatinine (Component) 5.8 mg/dL (0.6-1.3); Globulin 3.4 gm/dL (2.3-3.5); Glucose 136 mg/dL (74-106); Potassium 4.3 mMol/L (3.4-5.1); Sodium 147 mMol/L (136-145); eGFR 9 See Note
[2024-10-29 10:06] LABS: BUN/Creatinine Ratio 19 Ratio (12-20); Blood Urea Nitrogen 112 mg/dL (9-23); Osmolality,Calculated 329 (275-295)
[2024-10-29] MEDS: AMIODARONE HCL 200 MG TABLET PO ×2 (10:12→20:27)
[2024-10-29] MEDS: PANTOPRAZOLE INJ 40 MG VIAL IVP (10:12)
[2024-10-29] MEDS: cefTRIAXone/D5w 2gm 2 GM/50 ML BAG IV (10:12)
[2024-10-29 10:23] LABS: Platelet Count 5 Thou/mm3 (140-440)
[2024-10-29 10:36] LABS: Path Review Blood Smear Sent to Pathologist; Slide Review Platelets confirmed
--- NOTE | 2024-10-29 10:40 | ESPR_ITS ---
<Statement entered by Nghia Carroll MD - 10/30/24 07:03> I discussed with and supervised the corporate development intern physician involved in the care of this patient. Patient assessment and plan was discussed with entire medicine team, including my attending. I agree with the assessment and plan as documented by corporate development intern doctor. Patient care was discussed with my attending physician Dr. Paul Carroll, PGY-2 Documentation for date of: 10/29/24 Subjective Subjective Interval history: Patient seen in [facility] with family including sonBogdan at bedside No acute exents overnight. Patient tolerating diet, adequate urine output and mentation is altered Patient currently making nonsensical statements and somnolent. BUN 112, CR 5.8. PLT 5. 1 units of platelets ordered. Patient's sonBogdan and rest of family in the room updated on patient's current clinical prognosis. Informed of improved kidney function, but still too early to say if it would recover completely. All questions and concerns were addressed. Patient currently pending transfer to acute rehab with comfort care. Exam Vital Signs Temp Pulse Resp BP Pulse Ox O2 Del Method O2 Flow Rate 97.8 F 76 17 150/75 H 95 Nasal Cannula 2 10/29/24 08:00 10/29/24 10:12 10/29/24 08:00 10/29/24 10:12 10/29/24 08:00 10/29/24 08:00 10/29/24 08:00 FiO2 30 10/25/24 13:52 Narrative Exam Constitutional Alert, oriented x 0 and comfortable. Elderly male on Room air HEENT Pupils equal and reactive to light bilaterally, Trachea midline and nares patent Respiratory Chest normal on inspection and clear auscultation bilaterally Cardiovascular S1 and S2 audible, RRR. No murmurs carotid bruit. No gross JVD. Abdominal Soft and non tender to palpation in all quadrants. BS + Genitourinary No bladder tenderness, no flank pain. Normal to palpation Musculoskeletal Extremities tone within normal limits. No LE edema. Neurological Patient responsive to verbal or tactile stimuli. Skin Warm, dry and intact. No apparent lesions. Objective Labs 10/29/24 08:49 10/29/24 08:49 Labs: Laboratory Results - last 24 hr 10/28/24 10/29/24 10/29/24 21:22 05:11 08:49 WBC 8.9 RBC 3.85 L Hgb 12.3 L Hct 37.4 L MCV 97 MCH 31.9 MCHC 32.9 RDW Std Deviation 49.1 H Plt Count 5 L* D Neut % (Auto) 71 Lymph % (Auto) 10 [place] % (Auto) 14 H Eos % (Auto) 1 Baso % (Auto) 1 Neut # (Auto) 6.4 Lymph # (Auto) 0.9 L [place] # (Auto) 1.3 H Eos # (Auto) 0.1 Baso # (Auto) 0.1 Immature Gran # (Auto) 0.22 H Absolute Nucleated RBC 0.00 Immature Gran % 3 H Nucleated RBC % 0 Smear Path Review Sent to Pathologist Sodium 147 H Potassium 4.3 D Chloride 108 H Carbon Dioxide 28.0 Anion Gap 11 BUN 112 H* Creatinine 5.8 H* Estim Creat Clear Calc 9.0 L eGFR 9 L* BUN/Creatinine Ratio 19 Glucose 136 H Calculated Osmolality 329 H Calcium 10.0 Corrected Calcium 10.3 H Magnesium 2.7 H Total Bilirubin 1.2 AST 18 ALT 18 Alkaline Phosphatase 69 Total Protein 7.0 Albumin 3.6 Globulin 3.4 Albumin/Globulin Ratio 1.1 L Ur Random Creatinine 48 Ur Random Sodium 63.5 Ur Random Potassium 25 Ur Random Chloride 57.6 Ur Random Urea Nitrogn 607.0 Misc Test Result Platelets confirmed ABG Interpretation ABG results: 10/23/24 10/23/24 10/23/24 08:16 18:33 20:18 ABG pH 7.42 7.23 L D 7.35 D ABG pCO2 43 60 H D 54 H ABG pO2 107 296 H D 73 L D ABG HCO3 28 H 25 30 H ABG O2 Saturation 99 H 101 H 95 ABG Base Excess 3 -3 3 10/25/24 07:12 ABG pH 7.36 ABG pCO2 47 ABG pO2 91 ABG HCO3 27 H ABG O2 Saturation 98 ABG Base Excess 1 Quality Measures Quality Measures none Advance care planning discussed with:: child and other Assessment & Plan Assessment Current Active Medications: Generic Name Dose Route Start Last Admin Trade Name Freq PRN Reason Stop Dose Admin Acetaminophen 650 mg 10/22/24 12:55 Acetaminophen 325 Mg Tablet PO 11/21/24 12:54 Q4HR PRN Fever >100.3 or pain Protocol Albuterol/Ipratropium 3 ml 10/28/24 15:17 Albuterol/Ipratropium (Duoneb) Rt Risa 3 Ml Nebu INH 11/27/24 18:59 Q4HRRT PRN wheeze Amiodarone HCl 200 mg 10/28/24 21:00 10/29/24 10:12 Amiodarone Hcl 200 Mg Tablet PO 11/27/24 20:59 200 mg BID FRED Administration Dextrose 50 ml 10/22/24 17:48 10/26/24 18:09 Dextrose 50%-Water Inj 50 Ml Syringe IV 11/21/24 17:47 50 ml Q15MIN PRN Administration BG <50 OR BG <70 & pt unresponsive Glucagon 1 mg 10/22/24 17:48 Glucagon Inj 1 Mg Vial IM Q15MIN PRN BG <70, and no IV access Ceftriaxone Sodium/Dextrose 2 gm in 50 mls @ 100 mls/hr 10/25/24 09:00 10/29/24 10:12 Rocephin/D5w 2gm IV 11/01/24 08:59 100 mls/hr QDAY FRED Administration Dextrose 1,000 mls @ 125 mls/hr 10/28/24 13:45 10/29/24 04:01 D5w IV 11/27/24 13:44 125 mls/hr .Q8H FRED Administration Insulin Human Lispro 0 unit 10/24/24 06:00 10/29/24 05:13 Insulin Lispro (Admelog) 1 Unit/0.01 Ml Unit SC 11/23/24 05:59 Not Given Q6HR FRED Protocol Lorazepam 2 mg 10/26/24 07:52 10/26/24 14:30 Lorazepam 2 Mg/Ml Vial IVP 10/30/24 16:36 2 mg Q4HR PRN Administration Anxiety or agitation Pantoprazole Sodium 40 mg 10/24/24 09:00 10/29/24 10:12 Pantoprazole Inj 40 Mg Vial IVP 11/23/24 08:59 40 mg QDAY FRED Administration Plan Patient is an 84-year-old male with past medical history significant for HFrEF [15-20%], atrial fibrillation 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 1. Thrombocytopenia On admission plt 18 ---> plt 5 DDx: Leukemia, viral infection, autoimmune, portal hypertension. Currently no signs of active bleeding and patient not on any aspirin or antiplatelet agents. Currently low suspicion for TTP. LDH 206, reticulocyte count 2.5, Peripheral blood smear revealed severe thrombocytopenia Plan: ? Type and screen stat ? 1 unit platelets ordered for transfusion ? Posttransfusion CBC ordered ? Avoid antiplatelet agents and heparin ? Monitor for signs of bleeding 2. Acute kidney injury prerenal versus renal Baseline appears to be between 1?1.2 On admission CR 1.6 ---> 5.1 ---> 5.8 Etiology: ATN, overdiuresis, medication side effects Family counseled by ICU team on need for possible dialysis. Family does not wish for any invasive intervention and wished for hospice care. Plan: ? Renally dose medication ? Avoid nephrotoxic agents ? Continue D5W IV fluids at 125 cc/h 3. Acute respiratory failure with hypoxia - resolved 4. Acute decompensated chronic systolic and diastolic heart failure exacerbation [10-15%] 5. Dilated cardiomyopathy Patient presented with worsening shortness of breath On exam patient had decreased air entry bilaterally with scattered crackles at bases Chest x-ray significant for increased vascular markings and septal edema at lung bases. Transthoracic echocardiogram completed on 10/22/2024 findings include: Dilated Cariomyopathy. Severe LV systolic dysfunction. Estimated EF of 10-15%. Moderately dilated LV. Diastolic dysfunction present butc annot be graded due to paced rhythm. Normal Rv size and function. The estimated right ventricular systolic pressure, 31 mmHg. Mild TR. Modertately dilated LA and mildly dilated RA Mild MAC. Moderate MR. Mild thickening of the MV leaflets. NYHA class D stage IV BNP 1904 Home medication Bumex 1 Mg p.o. twice daily. Noncompliant Plan: - Strict input output charting ? Daily weight ? Continue Diuretic holiday ? Patient will need to start Entresto and SGLT2 at later date as part of GDMT. - Cardiology, Dr. Gonzalez consulted and closely following the case. Appreciate recommendations 6. Influenza A infection Patient had shortness of breath and cough that started 1 day ago Creatinine clearance 31 Completed 5-day course of Tamiflu 30 Mg p.o. twice daily on 10/27/2024 7. Atrial fibrillation -paroxysmal 8. History of V. tach s/p DEMONSTRATOR SALES T?D placement Patient had DEMONSTRATOR SALES TD placement greater than 12 years ago. Last battery change in June 2023 Vascor is high. Patient may benefit from anticoagulation EKG on admission showed ventricular paced rhythm rate 105. No acute ST changes Patient had 1 minute of sustained V. tach this morning EKG was ordered showed ventricular paced rhythm, rate 100. Started patient on amiodarone 200 Mg p.o. twice daily and metoprolol XL 50 Mg p.o. daily. Plan: ? Started on amiodarone 200 Mg p.o. twice daily ? Started on metoprolol XL 50 Mg p.o. daily ? Consider anticoagulation on discharge. Currently anticoagulation on hold due to thrombocytopenia. ? Cardiology, Dr. Gonzalez consulted and closely following the case. Appreciate recommendations 9. NSTEMI type I versus type II Patient denies any ACS symptoms including chest pain/pressure or palpitations. Likely type II in setting of acute decompensated CHF exacerbation Stroke I 0.134 ---> 0.178 ---> 0.117 Plan: ? No need to further trend troponin 10. Primary hypertension 11. Hyperlipidemia BP 136/91 12. BPH Home medication finasteride Plan: ? Continue home medication finasteride Health maintenance: Disposition: Pending placement for comfort care. Diet: Dysphagia I Lines: pIVs GI Prophylaxis: Pantoprazole Thrombo Prophylaxis: Contraindicated Code status: DNR/DNI Plan of care discussed with Attending Dr. Miller and PGY2 Dr. Glen Tapia MD PGY 1 Attending Provider Attestation/Addendum I attest that I was physically present for the evaluation, physical examination, lab and imaging review of the patient with the residents. I discussed the case with the residents and agree with the findings and plans of care as documented above. At bedside today, patient appears more alert compared to yesterday. Still continues to be confused. We will continue with D5W at 125 mL/h. Continues to be on Rocephin and amiodarone. Kidney function slightly improved, BUN 112, creatinine 5.8 and sodium 147. We will continue with hydration and closely monitor his mentation. Estela Miller MD
--- NOTE | 2024-10-29 14:32 | ESPR_ITS ---
Documentation for date of: 10/29/24 Subjective Subjective Interval history: Chart review done as patient has altered mental status Mr. 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 Diagnosed with congestive heart failure and was given diuretics and subsequently transferred to the floor. Noted significant worsening of renal function and renal consultation was requested. Medications currently included Tylenol, amiodarone, ceftriaxone, insulin sliding scale, Ativan as needed, Protonix. 10/28/2024 labs that showed sodium 152, potassium 3.7, bicarbonate 23.4, anion gap 16, BUN 122, creatinine 6.2, calcium 10.3, magnesium 3, LFTs normal, albumin 3.8 urine sodium 63. WBC 7.6, hemoglobin 12.4, platelets 29,000. Patient apparently was seen by Dr. Danielle Marroquin. Noted family requesting comfort care/hospice with no aggressive management including dialysis. 10/29/2024 patient more alert, awake. No cp, sob. Still weak. 2 brothers at bedside. Pending hospice eval. Explained that he is not a candidate for dialysis. continue IVF Review of Systems Review of Systems Narrative Review of Systems: N cp, sob. more alert, awake. conversing Exam Vital Signs Temp Pulse Resp BP Pulse Ox O2 Del Method O2 Flow Rate 36.6 C 67 17 137/80 H 93 L Nasal Cannula 2 10/29/24 16:00 10/29/24 16:10/29/24 16:10/29/24 16:10/29/24 16:00 10/29/24 16:00 10/29/24 16:00 FiO2 30 10/25/24 13:52 Narrative Exam GENERAL APPEARANCE: Elderly gentleman currently seen in medical floor. Extremely dehydrated with a dry mucosa. NECK: Neck supple, no JVD or bruit CARDIOVASCULAR: Heart regular, no murmurs LUNGS/CHEST: Few rhonchi noted bilaterally ABDOMEN: Soft, nontender, nondistended. No masses. Normal bowel sounds. EXTREMITIES: No edema, clubbing or cyanosis. SKIN: Skin exam normal without any rashes MUSCULOSKELETAL: In bed NEUROLOGICAL : awake, alert Objective Labs 10/29/24 17:35 10/29/24 08:49 Labs: Laboratory Results - last 24 hr 10/28/24 10/29/24 10/29/24 21:22 05:11 08:49 WBC 8.9 RBC 3.85 L Hgb 12.3 L Hct 37.4 L MCV 97 MCH 31.9 MCHC 32.9 RDW Std Deviation 49.1 H Plt Count 5 L* D Neut % (Auto) 71 Lymph % (Auto) 10 [place] % (Auto) 14 H Eos % (Auto) 1 Baso % (Auto) 1 Neut # (Auto) 6.4 Lymph # (Auto) 0.9 L [place] # (Auto) 1.3 H Eos # (Auto) 0.1 Baso # (Auto) 0.1 Immature Gran # (Auto) 0.22 H Absolute Nucleated RBC 0.00 Immature Gran % 3 H Nucleated RBC % 0 Smear Path Review Sent to Pathologist Sodium 147 H Potassium 4.3 D Chloride 108 H Carbon Dioxide 28.0 Anion Gap 11 BUN 112 H* Creatinine 5.8 H* Estim Creat Clear Calc 9.0 L eGFR 9 L* BUN/Creatinine Ratio 19 Glucose 136 H Calculated Osmolality 329 H Calcium 10.0 Corrected Calcium 10.3 H Magnesium 2.7 H Total Bilirubin 1.2 AST 18 ALT 18 Alkaline Phosphatase 69 Total Protein 7.0 Albumin 3.6 Globulin 3.4 Albumin/Globulin Ratio 1.1 L Ur Random Creatinine 48 Ur Random Sodium 63.5 Ur Random Potassium 25 Ur Random Chloride 57.6 Ur Random Urea Nitrogn 607.0 Misc Test Result Platelets confirmed Blood Type Antibody Screen Blood Bank Wristband ID Blood Bank Comment 10/29/24 10/29/24 11:02 17:35 WBC 10.5 RBC 3.74 L Hgb 11.9 L Hct 35.8 L MCV 96 MCH 31.8 MCHC 33.2 RDW Std Deviation 48.9 H Plt Count 24 L* D Neut % (Auto) 71 Lymph % (Auto) 12 [place] % (Auto) 12 Eos % (Auto) 1 Baso % (Auto) 1 Neut # (Auto) 7.5 Lymph # (Auto) 1.3 [place] # (Auto) 1.3 H Eos # (Auto) 0.1 Baso # (Auto) 0.1 Immature Gran # (Auto) 0.35 H Absolute Nucleated RBC 0.00 Immature Gran % 3 H Nucleated RBC % 0 Smear Path Review Sodium Potassium Chloride Carbon Dioxide Anion Gap BUN Creatinine Estim Creat Clear Calc eGFR BUN/Creatinine Ratio Glucose Calculated Osmolality Calcium Corrected Calcium Magnesium Total Bilirubin AST ALT Alkaline Phosphatase Total Protein Albumin Globulin Albumin/Globulin Ratio Ur Random Creatinine Ur Random Sodium Ur Random Potassium Ur Random Chloride Ur Random Urea Nitrogn Misc Test Result Platelets confirmed Blood Type O Positive Antibody Screen NEGATIVE Blood Bank Wristband ID Yes Blood Bank Comment PLATP Ready ABG Interpretation ABG results: 10/23/24 10/23/24 10/23/24 08:16 18:33 20:18 ABG pH 7.42 7.23 L D 7.35 D ABG pCO2 43 60 H D 54 H ABG pO2 107 296 H D 73 L D ABG HCO3 28 H 25 30 H ABG O2 Saturation 99 H 101 H 95 ABG Base Excess 3 -3 3 10/25/24 07:12 ABG pH 7.36 ABG pCO2 47 ABG pO2 91 ABG HCO3 27 H ABG O2 Saturation 98 ABG Base Excess 1 Assessment & Plan Additional Assessment & Plan Additional Plan: Jeimy is a 84-year-old gentleman with severe cardiomyopathy and ejection fraction 10 to 15% presented with congestive heart failure and noted to be in a cardiorenal syndrome with worsening renal function despite giving fluids versus diuretics. However currently he seems to be dehydrated and D5W was initiated. Acute problems- #1 MARK secondary to ATN/cardiorenal syndrom #2 acute hypoxic respiratory failure #3 acute decompensated chronic systolic heart failure with ejection fraction of 10 to 15% #4 dilated cardiomyopathy-NIHA stage IV #5 thrombocytopenia #6Atrial fibrillation #7 history of V. tach status post defibrillator #8Dyslipidemia #9 altered mental status from metabolic encephalopathy Agree with family that he is not a candidate for dialysis owing to his fragility and poor ejection fraction. Hospice seems to be appropriate. Will replace electrolytes. Unfortunately seems to be imminent. family aware Thank you Estela for allowing me to participate in the care of Mr. Munson
[2024-10-29 17:46] LABS: Basophils # (Auto) 0.1 Thou/mm3 (0.0-0.2); Basophils % (Auto) 1 % (0-2.5); Eosinophils # (Auto) 0.1 Thou/mm3 (0.0-0.5); Eosinophils % (Auto) 1 % (0-10); Hematocrit 35.8 % (41.0-53.0); Hemoglobin 11.9 g/dL (13.5-16.0); Immature Granulocytes % (Auto) 3 % (0-0); Immature Granulocytes Auto 0.35 Thou/mm3 (0.00-0.00); Lymphocytes # (Auto) 1.3 Thou/mm3 (1.0-4.8); Lymphocytes % (Auto) 12 % (10-50); Mean Corpuscular HGB Conc 33.2 g/dl (31.0-37.0); Mean Corpuscular Hemoglobin 31.8 pg (25.0-35.0); Mean Corpuscular Volume 96 fL (80-100); Monocytes # (Auto) 1.3 Thou/mm3 (0.0-0.8); Monocytes % (Auto) 12 % (0-12); Neutrophils # (Auto) 7.5 Thou/mm3 (1.8-7.7); Neutrophils % (Auto) 71 % (37-80); Nucleated Red Blood Cell % 0 /100 WBC (0); RDW Standard Deviation 48.9 fL (35.1-43.9); Red Blood Count 3.74 Miln/mm3 (4.50-5.90); White Blood Count 10.5 Thou/mm3 (3.8-10.6)
[2024-10-29 17:49] LABS: Platelet Count 24 Thou/mm3 (140-440); Slide Review Platelets confirmed
--- NOTE | 2024-10-29 18:20 | PC.NURSE ---
:MD Barnard notified at 10:24 that platelet level is 5. Patient given platelets as ordered. MD Harrison notified at 18:22 that post transfusion platelet level 24.
[2024-10-30] VITALS (10 sets, daily range): BP systolic 111–163; BP diastolic 58–85; PULSE 62–80; RESP 16–20; TEMP 35.8–36.2; O2SAT 94–100
[2024-10-30 06:07] LABS: Basophils # (Auto) 0.1 Thou/mm3 (0.0-0.2); Basophils % (Auto) 1 % (0-2.5); Eosinophils # (Auto) 0.1 Thou/mm3 (0.0-0.5); Eosinophils % (Auto) 1 % (0-10); Hematocrit 37.3 % (41.0-53.0); Hemoglobin 12.4 g/dL (13.5-16.0); Immature Granulocytes % (Auto) 3 % (0-0); Immature Granulocytes Auto 0.36 Thou/mm3 (0.00-0.00); Lymphocytes # (Auto) 1.3 Thou/mm3 (1.0-4.8); Lymphocytes % (Auto) 12 % (10-50); Mean Corpuscular HGB Conc 33.2 g/dl (31.0-37.0); Mean Corpuscular Hemoglobin 32.1 pg (25.0-35.0); Mean Corpuscular Volume 97 fL (80-100); Monocytes # (Auto) 1.4 Thou/mm3 (0.0-0.8); Monocytes % (Auto) 12 % (0-12); Neutrophils # (Auto) 7.8 Thou/mm3 (1.8-7.7); Neutrophils % (Auto) 71 % (37-80); Nucleated Red Blood Cell % 0 /100 WBC (0); RDW Standard Deviation 48.2 fL (35.1-43.9); Red Blood Count 3.86 Miln/mm3 (4.50-5.90); White Blood Count 10.9 Thou/mm3 (3.8-10.6)
[2024-10-30 06:23] LABS: Platelet Count 6 Thou/mm3 (140-440)
[2024-10-30 06:31] LABS: Slide Review Platelets confirmed
[2024-10-30 06:32] LABS: Alanine Aminotransferase 21 U/L (10-49); Albumin, Serum 3.8 gm/dL (3.4-4.8); Albumin/Globulin Ratio 0.9 (1.2-2.2); Alkaline Phosphatase 72 U/L (46-116); Anion Gap 14 (7-16); Aspartate Amino Transferase 21 U/L (0-34); BUN/Creatinine Ratio 17 Ratio (12-20); Bilirubin,Total 1.4 mg/dL (0.3-1.2); Blood Urea Nitrogen 93 mg/dL (9-23); Calcium 10.3 mg/dL (8.3-10.6); Calcium (Corrected) 10.5 mg/dL (8.5-10.1); Carbon Dioxide 25.3 mMol/L (20.0-31.0); Chloride 108 mMol/L (98-107); Creatinine (Component) 5.5 mg/dL (0.6-1.3); Estimated Creatinine Clearance 9.5 mL/min (>60); Globulin 4.3 gm/dL (2.3-3.5); Glucose 139 mg/dL (74-106); Magnesium 2.4 mg/dL (1.6-2.6); Osmolality,Calculated 323 (275-295); Phosphorous 4.1 mg/dL (2.4-5.1); Potassium 3.8 mMol/L (3.4-5.1); Sodium 147 mMol/L (136-145); Total Protein 8.1 gm/dL (5.7-8.2); eGFR 10 See Note
[2024-10-30] MEDS: cefTRIAXone/D5w 2gm 2 GM/50 ML BAG IV (08:59)
[2024-10-30] MEDS: AMIODARONE HCL 200 MG TABLET PO (08:59)
[2024-10-30] MEDS: DEXTROSE 5%-WATER 1,000 ML 125 ML IV (09:00)
[2024-10-30] MEDS: PANTOPRAZOLE INJ 40 MG VIAL IVP (09:00)
[2024-10-30 09:36] LABS: Basophils % (Auto) 0 % (0-2.5); Eosinophils # (Auto) 0.1 Thou/mm3 (0.0-0.5); Eosinophils % (Auto) 1 % (0-10); Immature Granulocytes % (Auto) 4 % (0-0); Immature Granulocytes Auto 0.22 Thou/mm3 (0.00-0.00); Lymphocytes # (Auto) 0.7 Thou/mm3 (1.0-4.8); Lymphocytes % (Auto) 12 % (10-50); Mean Corpuscular HGB Conc 30.6 g/dl (31.0-37.0); Mean Corpuscular Hemoglobin 32.7 pg (25.0-35.0); Mean Corpuscular Volume 107 fL (80-100); Monocytes # (Auto) 0.6 Thou/mm3 (0.0-0.8); Monocytes % (Auto) 11 % (0-12); Neutrophils # (Auto) 4.1 Thou/mm3 (1.8-7.7); Neutrophils % (Auto) 72 % (37-80); Nucleated Red Blood Cell % 0 /100 WBC (0); RDW Standard Deviation 54.8 fL (35.1-43.9); Red Blood Count 1.68 Miln/mm3 (4.50-5.90); White Blood Count 5.8 Thou/mm3 (3.8-10.6)
[2024-10-30 09:54] LABS: Hemoglobin 5.5 g/dL (13.5-16.0)
[2024-10-30 09:55] LABS: Platelet Count < 5 Thou/mm3 (140-440)
--- NOTE | 2024-10-30 10:02 | ESPR_ITS ---
Documentation for date of: 10/30/24 Subjective Subjective Interval history: Chart review done as patient has altered mental status Mr. 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 Diagnosed with congestive heart failure and was given diuretics and subsequently transferred to the floor. Noted significant worsening of renal function and renal consultation was requested. Medications currently included Tylenol, amiodarone, ceftriaxone, insulin sliding scale, Ativan as needed, Protonix. 10/28/2024 labs that showed sodium 152, potassium 3.7, bicarbonate 23.4, anion gap 16, BUN 122, creatinine 6.2, calcium 10.3, magnesium 3, LFTs normal, albumin 3.8 urine sodium 63. WBC 7.6, hemoglobin 12.4, platelets 29,000. Patient apparently was seen by Dr. Danielle Marroquin. Noted family requesting comfort care/hospice with no aggressive management including dialysis. 10/30/2024 patient more alert, awake. No cp, sob. Still weak. Did talk to 2 brothers yesterday regarding comfort care and they agreed. Pending hospice/comfort care eval. Explained that he is not a candidate for dialysis. Clinically patient looks rather hypervolemic. IV fluids discontinued. Blood pressure 1 3475, heart rate 75. Hemoglobin 12.4 WBC 5.8, platelets less than 5. INR 1.3. Sodium 147, potassium 3.8, BUN 93, creatinine 5.5, GFR 10, calcium 10.5, phosphorus 4.1, magnesium 2.4, total bilirubin 1.4 chest x-ray showed mild fluid overload. Spoke to Dr. Palmer-regarding his renal prognosis. In agreement with comfort care. Platelets are less than 5-cannot do any intervention. Suspect bone marrow problem with his advanced age. Review of Systems Review of Systems Narrative Review of Systems: N cp, sob. more alert, awake. conversing Exam Vital Signs Temp Pulse Resp BP Pulse Ox O2 Del Method O2 Flow Rate 35.8 C L 80 20 128/77 97 Room Air 1 10/30/24 08:00 10/30/24 08:59 10/30/24 08:15 10/30/24 08:59 10/30/24 08:15 10/30/24 08:00 10/29/24 20:44 FiO2 30 10/25/24 13:52 Narrative Exam GENERAL APPEARANCE: Elderly gentleman currently seen in medical floor. NECK: Neck supple, no JVD or bruit CARDIOVASCULAR: Heart regular, no murmurs LUNGS/CHEST: Few rhonchi noted bilaterally ABDOMEN: Soft, nontender, nondistended. No masses. Normal bowel sounds. EXTREMITIES: Trace edema in the lower extremities SKIN: Skin exam normal without any rashes MUSCULOSKELETAL: In bed NEUROLOGICAL : awake, alert Objective Labs 10/30/24 11:38 10/30/24 04:52 Labs: Laboratory Results - last 24 hr 10/29/24 10/29/24 10/29/24 08:49 11:02 17:35 WBC 10.5 RBC 3.74 L Hgb 11.9 L Hct 35.8 L MCV 96 MCH 31.8 MCHC 33.2 RDW Std Deviation 48.9 H Plt Count 5 L* D 24 L* D Neut % (Auto) 71 Lymph % (Auto) 12 [place] % (Auto) 12 Eos % (Auto) 1 Baso % (Auto) 1 Neut # (Auto) 7.5 Lymph # (Auto) 1.3 [place] # (Auto) 1.3 H Eos # (Auto) 0.1 Baso # (Auto) 0.1 Immature Gran # (Auto) 0.35 H Absolute Nucleated RBC 0.00 Immature Gran % 3 H Nucleated RBC % 0 Smear Path Review Sent to Pathologist Sodium 147 H Potassium 4.3 D Chloride 108 H Carbon Dioxide 28.0 Anion Gap 11 BUN 112 H* Creatinine 5.8 H* Estim Creat Clear Calc 9.0 L eGFR 9 L* BUN/Creatinine Ratio 19 Glucose 136 H Calculated Osmolality 329 H Calcium 10.0 Corrected Calcium 10.3 H Phosphorus Magnesium Total Bilirubin 1.2 AST 18 ALT 18 Alkaline Phosphatase 69 Total Protein 7.0 Albumin 3.6 Globulin 3.4 Albumin/Globulin Ratio 1.1 L Misc Test Result Platelets confirmed Platelets confirmed Blood Type O Positive Antibody Screen NEGATIVE Blood Bank Wristband ID Yes Blood Bank Comment PLATP Ready 10/30/24 10/30/24 04:52 09:14 WBC 10.9 H 5.8 D RBC 3.86 L 1.68 L* Hgb 12.4 L 5.5 L* D Hct 37.3 L 18.0 L* MCV 97 107 H MCH 32.1 32.7 MCHC 33.2 30.6 L RDW Std Deviation 48.2 H 54.8 H Plt Count 6 L* D < 5 L* Neut % (Auto) 71 72 Lymph % (Auto) 12 12 [place] % (Auto) 12 11 Eos % (Auto) 1 1 Baso % (Auto) 1 0 Neut # (Auto) 7.8 H 4.1 Lymph # (Auto) 1.3 0.7 L [place] # (Auto) 1.4 H 0.6 Eos # (Auto) 0.1 0.1 Baso # (Auto) 0.1 0.0 Immature Gran # (Auto) 0.36 H 0.22 H Absolute Nucleated RBC 0.00 0.00 Immature Gran % 3 H 4 H Nucleated RBC % 0 0 Smear Path Review Sodium 147 H Potassium 3.8 D Chloride 108 H Carbon Dioxide 25.3 Anion Gap 14 BUN 93 H Creatinine 5.5 H* Estim Creat Clear Calc 9.5 L eGFR 10 L* BUN/Creatinine Ratio 17 Glucose 139 H Calculated Osmolality 323 H Calcium 10.3 Corrected Calcium 10.5 H Phosphorus 4.1 Magnesium 2.4 Total Bilirubin 1.4 H AST 21 ALT 21 Alkaline Phosphatase 72 Total Protein 8.1 Albumin 3.8 Globulin 4.3 H Albumin/Globulin Ratio 0.9 L Misc Test Result Platelets confirmed Blood Type Antibody Screen Blood Bank Wristband ID Blood Bank Comment ABG Interpretation ABG results: 10/23/24 10/23/24 10/23/24 08:16 18:33 20:18 ABG pH 7.42 7.23 L D 7.35 D ABG pCO2 43 60 H D 54 H ABG pO2 107 296 H D 73 L D ABG HCO3 28 H 25 30 H ABG O2 Saturation 99 H 101 H 95 ABG Base Excess 3 -3 3 10/25/24 07:12 ABG pH 7.36 ABG pCO2 47 ABG pO2 91 ABG HCO3 27 H ABG O2 Saturation 98 ABG Base Excess 1 Assessment & Plan Additional Assessment & Plan Additional Plan: Jeimy is a 84-year-old gentleman with severe cardiomyopathy and ejection fraction 10 to 15% presented with congestive heart failure and noted to be in a cardiorenal syndrome with worsening renal function despite giving fluids versus diuretics. However currently he seems to be dehydrated and D5W was initiated. Acute problems- #1 MARK secondary to ATN/cardiorenal syndrom #2 acute hypoxic respiratory failure #3 acute decompensated chronic systolic heart failure with ejection fraction of 10 to 15% #4 dilated cardiomyopathy-NIHA stage IV #5 thrombocytopenia #6Atrial fibrillation #7 history of V. tach status post defibrillator #8Dyslipidemia #9 altered mental status from metabolic encephalopathy Had a long conversation with 2 brothers -- he is not a candidate for dialysis owing to his fragility and poor ejection fraction, platelet count less than 5. Hospice/comfort care/palliative care seems to be appropriate. Will replace electrolytes. Spoke to primary team stopped IV fluids due to fluid overload. family aware Thank you Estela for allowing me to participate in the care of Mr. Munson Quality - progress note Quality Measures Quality Measures: VTE prophylaxis Reason for Continued Stay Reason for Continued Stay: further monitoring
[2024-10-30 10:24] LABS: Slide Review Platelets confirmed
[2024-10-30 12:07] LABS: Hematocrit 37.7 % (41.0-53.0); Hemoglobin 12.4 g/dL (13.5-16.0)
[2024-10-30 12:29] LABS: LDH (Lactate Dehydrogenase) 289 U/L (120-246)
--- NOTE | 2024-10-30 13:08 | ESDS_ITS ---
<Statement entered by Keith Burleson MD - 11/01/24 16:07> Agree with plan and examination finding on the note below. Patient seen and examined at bedside today. Labs and imaging reviewed. Patient care discussed with my attending Dr. Miller and co-resident Dr. Tapia. Planned Discharge Date 10/30/24 DS: Providers Provider Date of admission: 10/22/24 12:42 Primary care physician: Physician No Primary/Family Admitting Provider: Milton Trujillo MD Attending Provider on Admission: Rosaura Sesay MD Consults: 10/23/24 03:16 Referral Infection Control Routine Comment: influenza positive Reason for Infection Control Referral: Patient In Isolation Health Equity Referral - Knowledge Deficit Routine Comment: Positive screening for knowledge deficit needs. 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 With regards to patient's acute respiratory failure with hypoxia, he was initially treated with supplemental oxygen IV diuresis Bumex 1 Mg IV twice daily. On 10/23/2024 patient's went into A-fib with RVR and became hypoxic requiring BiPAP. Patient was unable to tolerate BiPAP and ABG showed hypercarbia with a pCO2 of 60. Subsequently patient was intubated and transferred to the ICU for mechanical ventilation and pressor support. He was initially treated with amiodarone infusion for A-fib with RVR and transition to amiodarone 200 Mg p.o. twice daily. He was extubated and downgraded back to the floors on 10/26/2024. He is on a diuretic holiday due to his MARK. Currently patient is saturating on room air and oriented to self. He is able to swallow and can follow some basic commands. With regards to patient's acute kidney injury, etiology is likely due to ATN. His baseline creatinine between 1?1.2 and currently is 5.8. Patient was receiving maintenance IV fluids with D5/NS. IV fluids were discontinued today [10/30/2024] due to patient's developing crackles on auscultation. Patient had severe thrombocytopenia on admission with platelets of 18. On 10/29/2024 patient's platelet downtrended to 5 and 1 unit of platelet transfusion were ordered. On 10/29/2024 patient's platelets were <5 and another unit of platelets were ordered for transfusion. Patient has very high risk of bleeding. For patient's influenza A infection, he completed a 5-day course of Tamiflu 30 Mg p.o. twice daily on 10/27/2024. With the exception of patient's platelets and kidney function, the rest of his labs are returning to his baseline. Patient's family wish for SNF/rehab with palliative care. Patient is now clinically stable for discharge to facility with palliative care. Discharge diagnoses: 1. Thrombocytopenia 2. Acute kidney injury on CKD 3. Acute respiratory failure with hypoxia secondary to acute decompensated chronic systolic and diastolic heart failure exacerbation [10-15%]?resolved 4. Dilated cardiomyopathy 5. Influenza A infection?resolved 6. Atrial fibrillation?paroxysmal 7. History of V. tach s/p IT SOFTWARE DEVELOPER?D placement [2010] 8. NSTEMI type I versus type II, likely type II 9. Primary hypertension 10. Hyperlipidemia 11. BPH Discharge plan: ? Patient to be discharged to facility with palliative care. We are grateful to be able to participate in Mr. Munson's care. We wish him the best. Plan of care discussed with Attending Dr. Miller and PGY3 Dr. Benjy Tapia MD PGY 1 Time Spent with Patient Time attestation: Total time spent providing and/or coordinating discharge services: Time spent: Greater than 30 minutes (36) Exam Vital Signs Temp Pulse Resp BP Pulse Ox O2 Del Method O2 Flow Rate 96.6 F L 72 18 150/65 H 95 Room Air 1 10/30/24 12:00 10/30/24 12:00 10/30/24 12:00 10/30/24 12:00 10/30/24 12:00 10/30/24 12:00 10/29/24 20:44 FiO2 30 10/25/24 13:52 Narrative Exam Constitutional Alert, oriented x 1 [Person] and comfortable. Elderly male on Room air HEENT Pupils equal and reactive to light bilaterally, Trachea midline and nares patent Respiratory Chest normal on inspection and Crackles at bases. Cardiovascular S1 and S2 audible, RRR. No murmurs carotid bruit. No gross JVD. Abdominal Soft and non tender to palpation in all quadrants. BS + Genitourinary No bladder tenderness, no flank pain. Normal to palpation Musculoskeletal Extremities tone within normal limits. No LE edema. Neurological Patient responsive to verbal or tactile stimuli. Skin Warm, dry and intact. No apparent lesions. Discharge Plan Plan Patient Disposition: Xfer Skilled Nsg Fac (SNF) Patient condition on transfer: Stable Care Plan Goals: ? Patient to be discharged to facility with palliative care. Prescriptions/Referrals Prescriptions/Med Rec: New acetaminophen 325 mg Tablet 650 mg PO Q4HR PRN (Reason: Fever >100.3 or pain) Qty: 14 0RF amiodarone 200 mg Tablet 200 mg PO BID Qty: 60 0RF Continued finasteride 5 mg tablet 1 tab PO QDAY Patient Comments: take 1 tablet by mouth once daily albuterol sulfate 90 mcg/actuation HFA aerosol inhaler 90 mcg INHALATION Q4H PRN (Reason: short of breath) Patient Comments: inhale 2 puffs by mouth every 4 to 6 hours if needed Discontinued atorvastatin 10 mg Tablet 10 mg PO QDAY amlodipine 5 mg tablet 5 mg PO QDAY Patient Comments: take 1 tablet by mouth once daily bumetanide 1 mg tablet 1 mg PO QDAY Qty: 30 0RF dapagliflozin propanediol [Farxiga] 10 mg tablet 10 mg PO DAILY Patient Comments: take 1 tablet by mouth every morning Referrals: No Primary/Family,Physician [Primary Care Provider] - Patient/Caregiver Discharge Instructions Print Language: Icelandic Stand Alone Forms: Adelia Award Info., Patient Portal Info Letter Quality Discharge Quality Measures none (Contraindicated) MD Attestestation MD Attestation I attest that I was physically present for the evaluation, physical examination, lab and imaging review of the patient with the residents. I discussed the case with the residents and agree with the findings and plans of care as documented above. Estela Miller MD
--- NOTE | 2024-10-30 13:16 | PD.RESPRO ---
Documentation for date of: 10/30/24 Exam Vital Signs Temp Pulse Resp BP Pulse Ox O2 Del Method O2 Flow Rate 96.6 F L 72 18 150/65 H 95 Room Air 1 10/30/24 12:00 10/30/24 12:00 10/30/24 12:00 10/30/24 12:00 10/30/24 12:00 10/30/24 12:00 10/29/24 20:44 FiO2 30 10/25/24 13:52 Objective Labs 10/30/24 11:38 10/30/24 04:52 Labs: Laboratory Results - last 24 hr 10/29/24 10/29/24 10/30/24 11:02 17:35 04:52 WBC 10.5 10.9 H RBC 3.74 L 3.86 L Hgb 11.9 L 12.4 L Hct 35.8 L 37.3 L MCV 96 97 MCH 31.8 32.1 MCHC 33.2 33.2 RDW Std Deviation 48.9 H 48.2 H Plt Count 24 L* D 6 L* D Neut % (Auto) 71 71 Lymph % (Auto) 12 12 [place] % (Auto) 12 12 Eos % (Auto) 1 1 Baso % (Auto) 1 1 Neut # (Auto) 7.5 7.8 H Lymph # (Auto) 1.3 1.3 [place] # (Auto) 1.3 H 1.4 H Eos # (Auto) 0.1 0.1 Baso # (Auto) 0.1 0.1 Immature Gran # (Auto) 0.35 H 0.36 H Absolute Nucleated RBC 0.00 0.00 Immature Gran % 3 H 3 H Nucleated RBC % 0 0 Sodium 147 H Potassium 3.8 D Chloride 108 H Carbon Dioxide 25.3 Anion Gap 14 BUN 93 H Creatinine 5.5 H* Estim Creat Clear Calc 9.5 L eGFR 10 L* BUN/Creatinine Ratio 17 Glucose 139 H Calculated Osmolality 323 H Calcium 10.3 Corrected Calcium 10.5 H Phosphorus 4.1 Magnesium 2.4 Total Bilirubin 1.4 H AST 21 ALT 21 Alkaline Phosphatase 72 Lactate Dehydrogenase Total Protein 8.1 Albumin 3.8 Globulin 4.3 H Albumin/Globulin Ratio 0.9 L Misc Test Result Platelets confirmed Platelets confirmed Blood Type O Positive Antibody Screen NEGATIVE Crossmatch See Detail Blood Bank Wristband ID Yes Blood Bank Comment PLATP Ready 10/30/24 10/30/24 09:14 11:38 WBC 5.8 D RBC 1.68 L* Hgb 5.5 L* D 12.4 L D Hct 18.0 L* 37.7 L D MCV 107 H MCH 32.7 MCHC 30.6 L RDW Std Deviation 54.8 H Plt Count < 5 L* Neut % (Auto) 72 Lymph % (Auto) 12 [place] % (Auto) 11 Eos % (Auto) 1 Baso % (Auto) 0 Neut # (Auto) 4.1 Lymph # (Auto) 0.7 L [place] # (Auto) 0.6 Eos # (Auto) 0.1 Baso # (Auto) 0.0 Immature Gran # (Auto) 0.22 H Absolute Nucleated RBC 0.00 Immature Gran % 4 H Nucleated RBC % 0 Sodium Potassium Chloride Carbon Dioxide Anion Gap BUN Creatinine Estim Creat Clear Calc eGFR BUN/Creatinine Ratio Glucose Calculated Osmolality Calcium Corrected Calcium Phosphorus Magnesium Total Bilirubin AST ALT Alkaline Phosphatase Lactate Dehydrogenase 289 H Total Protein Albumin Globulin Albumin/Globulin Ratio Misc Test Result Platelets confirmed Blood Type Antibody Screen Crossmatch Blood Bank Wristband ID Blood Bank Comment ABG Interpretation ABG results: 10/23/24 10/23/24 10/23/24 08:16 18:33 20:18 ABG pH 7.42 7.23 L D 7.35 D ABG pCO2 43 60 H D 54 H ABG pO2 107 296 H D 73 L D ABG HCO3 28 H 25 30 H ABG O2 Saturation 99 H 101 H 95 ABG Base Excess 3 -3 3 10/25/24 07:12 ABG pH 7.36 ABG pCO2 47 ABG pO2 91 ABG HCO3 27 H ABG O2 Saturation 98 ABG Base Excess 1 Quality Measures Quality Measures none Assessment & Plan Assessment Current Active Medications: Generic Name Dose Route Start Last Admin Trade Name Freq PRN Reason Stop Dose Admin Acetaminophen 650 mg 10/22/24 12:55 Acetaminophen 325 Mg Tablet PO 11/21/24 12:54 Q4HR PRN Fever >100.3 or pain Protocol Albuterol/Ipratropium 3 ml 10/28/24 15:17 Albuterol/Ipratropium (Duoneb) Rt Risa 3 Ml Nebu INH 11/27/24 18:59 Q4HRRT PRN wheeze Amiodarone HCl 200 mg 10/28/24 21:00 10/30/24 08:59 Amiodarone Hcl 200 Mg Tablet PO 11/27/24 20:59 200 mg BID FRED Administration Dextrose 50 ml 10/22/24 17:48 10/26/24 18:09 Dextrose 50%-Water Inj 50 Ml Syringe IV 11/21/24 17:47 50 ml Q15MIN PRN Administration BG <50 OR BG <70 & pt unresponsive Glucagon 1 mg 10/22/24 17:48 Glucagon Inj 1 Mg Vial IM Q15MIN PRN BG <70, and no IV access Ceftriaxone Sodium/Dextrose 2 gm in 50 mls @ 100 mls/hr 10/25/24 09:00 10/30/24 08:59 Rocephin/D5w 2gm IV 11/01/24 08:59 100 mls/hr QDAY FRED Administration Insulin Human Lispro 0 unit 10/24/24 06:00 10/30/24 05:33 Insulin Lispro (Admelog) 1 Unit/0.01 Ml Unit SC 11/23/24 05:59 Not Given Q6HR FRED Protocol Lorazepam 2 mg 10/26/24 07:52 10/26/24 14:30 Lorazepam 2 Mg/Ml Vial IVP 10/30/24 16:36 2 mg Q4HR PRN Administration Anxiety or agitation Pantoprazole Sodium 40 mg 10/24/24 09:00 10/30/24 09:00 Pantoprazole Inj 40 Mg Vial IVP 11/23/24 08:59 40 mg QDAY FRED Administration
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
[2024-10-30 13:50] LABS: INR 1.3 (0.9-1.3); Partial Thromboplastin Time 22.2 Seconds (22.0-36.0); Prothrombin Time 13.6 Seconds (9.0-12.2)
--- NOTE | 2024-10-30 13:52 | XR_ITS ---
Examination: AP chest single view Technique one AP portable semiupright chest single view Exam date and time: October 30, 2024 1532 hrs. Comparison October 25, 2024 Indications: Patient with shortness of breath Findings: Mild CHF Mild to moderate enlargement left ventricle Prominent vascular congestion with septal edema at the lung bases Stable position cardiac leads The patient has been extubated Impression: Mild CHF
--- NOTE | 2024-10-30 16:29 | PC.NURSE ---
Pt completed 1 unit of platelets no reactions noted. Pt stable at this time vs within normal limits.
--- NOTE | 2024-10-30 16:56 | ESPR_ITS ---
Documentation for date of: 10/30/24 Subjective Subjective Interval history: Patient seen and examined at the bedside. Patient very lethargic and minimally responsive. IV fluids stopped, as patient had some basal crackles. Ordered Chest Xray. Patient is going better and eating has improved. Patient heart rate is well-controlled on the telemetry in the 90s. Continue amiodarone 200 mg twice daily along with metoprolol XL 50 mg XL once daily as blood pressure now appears to be elevated Labs reviewed and sodium is 147 and chloride of 108. BUN is improving to 93 and creatinine is 5.5, peak was 127 over 6.2. Patient probably has ATN and will recover. If he does not recover then patient is not a candidate for dialysis. Nephrology consulted Primary team and ICU team did discuss with the family and patient is DNR/DNI at the present point of time with hospice care and medical management. He is not comfort care at the present moment. Recommend the primary team to talk to the family regarding feeding the patient an alternate means of nutrition if medical management is still being continued. Exam Vital Signs Temp Pulse Resp BP Pulse Ox O2 Del Method O2 Flow Rate 97.1 F 63 18 131/75 H 95 Room Air 1 10/30/24 15:51 10/30/24 15:51 10/30/24 15:51 10/30/24 15:51 10/30/24 12:00 10/30/24 12:00 10/29/24 20:44 FiO2 30 10/25/24 13:52 Narrative Exam GENERAL: Patient very lethargic and on oxygen via Ventimask NEURO: Limited exam as patient lethargic HEENT: Atraumatic, Normocephalic. mucous membranes moist. HEART: S1, S2 present and irregular. 2 or 6 systolic murmur at the apex LUNGS: Clear to auscultation with no wheezing or crackles but decreased at the apex ABDOMEN: soft, non-distended, non-tender, bowel sounds heard, no guarding or rebound tenderness SKIN: No Rash or ecchymoses, chronic venous stasis skin changes bilaterally below knees EXTREMITIES: Trace edema, able to move all 4 limbs Objective Labs 10/30/24 11:38 10/30/24 04:52 Labs: Laboratory Results - last 24 hr 10/29/24 10/29/24 10/30/24 11:02 17:35 04:52 WBC 10.5 10.9 H RBC 3.74 L 3.86 L Hgb 11.9 L 12.4 L Hct 35.8 L 37.3 L MCV 96 97 MCH 31.8 32.1 MCHC 33.2 33.2 RDW Std Deviation 48.9 H 48.2 H Plt Count 24 L* D 6 L* D Neut % (Auto) 71 71 Lymph % (Auto) 12 12 Reynolds % (Auto) 12 12 Eos % (Auto) 1 1 Baso % (Auto) 1 1 Neut # (Auto) 7.5 7.8 H Lymph # (Auto) 1.3 1.3 Reynolds # (Auto) 1.3 H 1.4 H Eos # (Auto) 0.1 0.1 Baso # (Auto) 0.1 0.1 Immature Gran # (Auto) 0.35 H 0.36 H Absolute Nucleated RBC 0.00 0.00 Immature Gran % 3 H 3 H Nucleated RBC % 0 0 PT INR APTT Sodium 147 H Potassium 3.8 D Chloride 108 H Carbon Dioxide 25.3 Anion Gap 14 BUN 93 H Creatinine 5.5 H* Estim Creat Clear Calc 9.5 L eGFR 10 L* BUN/Creatinine Ratio 17 Glucose 139 H Calculated Osmolality 323 H Calcium 10.3 Corrected Calcium 10.5 H Phosphorus 4.1 Magnesium 2.4 Total Bilirubin 1.4 H AST 21 ALT 21 Alkaline Phosphatase 72 Lactate Dehydrogenase Total Protein 8.1 Albumin 3.8 Globulin 4.3 H Albumin/Globulin Ratio 0.9 L Misc Test Result Platelets confirmed Platelets confirmed Blood Type O Positive Antibody Screen NEGATIVE Crossmatch See Detail Blood Bank Wristband ID Yes Blood Bank Comment PLATP Ready 10/30/24 10/30/24 10/30/24 09:14 11:38 13:11 WBC 5.8 D RBC 1.68 L* Hgb 5.5 L* D 12.4 L D Hct 18.0 L* 37.7 L D MCV 107 H MCH 32.7 MCHC 30.6 L RDW Std Deviation 54.8 H Plt Count < 5 L* Neut % (Auto) 72 Lymph % (Auto) 12 Reynolds % (Auto) 11 Eos % (Auto) 1 Baso % (Auto) 0 Neut # (Auto) 4.1 Lymph # (Auto) 0.7 L Reynolds # (Auto) 0.6 Eos # (Auto) 0.1 Baso # (Auto) 0.0 Immature Gran # (Auto) 0.22 H Absolute Nucleated RBC 0.00 Immature Gran % 4 H Nucleated RBC % 0 PT 13.6 H INR 1.3 APTT 22.2 Sodium Potassium Chloride Carbon Dioxide Anion Gap BUN Creatinine Estim Creat Clear Calc eGFR BUN/Creatinine Ratio Glucose Calculated Osmolality Calcium Corrected Calcium Phosphorus Magnesium Total Bilirubin AST ALT Alkaline Phosphatase Lactate Dehydrogenase 289 H Total Protein Albumin Globulin Albumin/Globulin Ratio Misc Test Result Platelets confirmed Blood Type Antibody Screen Crossmatch Blood Bank Wristband ID Blood Bank Comment ABG Interpretation ABG results: 10/23/24 10/23/24 10/23/24 08:16 18:33 20:18 ABG pH 7.42 7.23 L D 7.35 D ABG pCO2 43 60 H D 54 H ABG pO2 107 296 H D 73 L D ABG HCO3 28 H 25 30 H ABG O2 Saturation 99 H 101 H 95 ABG Base Excess 3 -3 3 10/25/24 07:12 ABG pH 7.36 ABG pCO2 47 ABG pO2 91 ABG HCO3 27 H ABG O2 Saturation 98 ABG Base Excess 1 Assessment & Plan A&P Narrative 83-year-old male with a past medical history of dilated nonischemic cardiomyopathy with severe systolic congestive heart failure with an EF of around 15% status post DECISION SCIENCE ANALYST-D in 2011 and recent battery change in June 2023, paroxysmal atrial fibrillation, NSVT on previous admissions on amiodarone, type 2 diabetes mellitus, essential hypertension, BPH, hyperlipidemia,, and venous stasis with questionable PAD, mild dementia with cognitive deficiency, small abdominal hernia, BPH presented to the hospital for worsening shortness of breath. Patient well-known to me from previous admissions and follow-up in the clinic last year but has been lost to follow-up as [place]. Patient apparently has been having flulike symptoms over the past couple of days. And has been having worsening shortness of breath over the past couple of days and also a cough but with no sputum production. Patient also had shortness of breath which is worse on lying down which most orthopnea and cannot lie flat. Denied chest pain chest pressure, palpitations, worsening lower extremity swelling, dizziness or syncope or fall. Denies any kind of fever or chills. In the emergency department initial blood pressure was 148/86 mmHg heart rate of 89/min, paced rhythm, RR 23 and afebrile and saturation of 96% on room air. Labs showed hemoglobin of 10.6 platelets of 18, WBC 12.1, BUN 13 and creatinine of 1.6 which worsened to 1.8. Initial troponin was 0.134 and repeat was 0.178 BNP was 1904 and previously was 1600. Chest x-ray with pulmonary vascular congestion with septal edema. EKG showed ventricular paced rhythm at 105 bpm. Patient flu test was positive. Patient did receive IV Lasix in the emergency department and was admitted to the hospital for acute hypoxic respiratory failure in the setting of flu as well as possible CHF exacerbation. 1. Acute hypoxic respiratory failure in the setting of acute influenza A infection and possible CHF exacerbation. Later in the evening patient had rapid response with hypoxia and was intubated on mechanical ventilation. 2. Acute influenza A infection 3. Acute on chronic severe systolic congestive heart failure exacerbation 4. Acute kidney injury versus MARK on CKD stage III 4. Dilated nonischemic cardiomyopathy s/p DECISION SCIENCE ANALYST-D 12 years ago around 2011 with recent battery change in June 2023 5. History of NSVT during last admission on amiodarone 6. Paroxysmal atrial fibrillation 7. Thrombocytopenia severe 8. Essential hypertension 9. Diabetes mellitus type 2 10. BPH 11. Hyperlipidemia 12. Chronic venous stasis with questionable PAD 13. Mild cognitive deficiency Patient presented with acute hypoxic respiratory failure in the setting of active influenza infection which probably contributed to his acute on chronic CHF exacerbation. Overall on examination patient does not appear to be volume overloaded. Initial chest x-ray did show minimal septal edema also no evidence of any consolidation. BNP was elevated at 1906 and previous was 1600. Patient did endorse to orthopnea along with flulike symptoms and cough symptoms. Primary team started the patient on Tamiflu for the influenza A renal dosing given the acute kidney injury. This evening patient went into atrial fibrillation with RVR and was hypoxic during the rapid response and was intubated and placed on mechanical ventilation. Repeat chest x-ray did show the same vascular congestion as well as perihilar edema and questionable right lower lobe consolidation and will need to rule out aspiration. Started on IV antibiotics for presumed pneumonia and sepsis. Patient has been extubated successfully by the ICU team on 08/24/2025. Patient is on oxygen via Ventimask at 4-5 and 5 L/min and is saturating 97% on room air. Still continues to be on low-dose pressors with Levophed Primary team to discuss the code dose status with the patient and patient is now DNR and DNI and do not want any invasive treatments. Regarding his severe systolic CHF patient does have dilated nonischemic cardiomyopathy with an EF of around 15% as documented the previous echo in November 2023 with severe global hypokinesis, diastolic dysfunction, mildly dilated RV, moderate MR, mild AI and mild to moderate TR. Mild AV sclerosis without stenosis. Biatrial dilatation. Initially BNP was 1906 and BUN of 13 creatinine of 1.6. His baseline creatinine is 1.2. Could be cardiorenal syndrome but there is no significant hepatic congestion. Patient was started on IV Bumex 1 mg twice daily by the primary team. 10/28/2024: Patient very lethargic and minimally responsive. Patient started on IV fluids with D5W and patient still not eating well Patient heart rate is well-controlled on the telemetry in the 90s. Continue amiodarone 200 mg twice daily along with metoprolol XL 50 mg XL once daily as blood pressure now appears to be elevated Patient extubated on 08/24/2025 and is off of pressors and sedation and was transferred to the regular nursing floor. Labs reviewed and sodium is 152 and chloride of 112. BUN is 122 and creatinine is 6.2 Patient apparently has not received any kind of diet for the last few days and he failed his swallow eval. Patient probably has ATN and could have a chance to recover. If he does not recover then patient is not a candidate for dialysis. Nephrology consulted Primary team and ICU team did discuss with the family and patient is DNR/DNI at the present point of time with hospice care and medical management. He is not comfort care at the present moment. Recommend the primary team to talk to the family regarding feeding the patient an alternate means of nutrition if medical management is still being continued. 10/29/2024: Patient seen and examined at the bedside. Patient very lethargic and minimally responsive. Patient started on IV fluids with D5W and patient still not eating well but now started on diet Patient heart rate is well-controlled on the telemetry in the 90s. Continue amiodarone 200 mg twice daily along with metoprolol XL 50 mg XL once daily as blood pressure now appears to be elevated Labs reviewed and sodium is 147 and chloride of 108. BUN is improving to 112 and creatinine is 5.8, peak was 127 over 6.2. Patient probably has ATN and will recover. If he does not recover then patient is not a candidate for dialysis. Nephrology consulted Primary team and ICU team did discuss with the family and patient is DNR/DNI at the present point of time with hospice care and medical management. He is not comfort care at the present moment. Recommend the primary team to talk to the family regarding feeding the patient an alternate means of nutrition if medical management is still being continued. Patient had a history of NSVT during last admission and was started on oral amiodarone 200 mg once daily and metoprolol XL once daily. Patient continues to have significant PVCs and NSVT's this morning and was recommended to increase amiodarone to 200 mg twice daily. Continue metoprolol XL 50 mg once daily blood pressure is permissible and continue to uptitrate the metoprolol XL. Patient still needing low-dose pressor with Levophed. History of DECISION SCIENCE ANALYST-D secondary to severe systolic CHF placed in 2011 and battery changed in June 2023. Last interrogation was during the last admission and device functioning well. Recommend to obtain [employer]/ [employer] device check again for the patient. Mildly elevated troponins which peaked around 0.1-0.2. Patient does have history of severe systolic CHF and in the presence of acute influenza A infection with elevated troponins mostly NSTEMI type II in the setting of supply/demand mismatch. Patient not on anticoagulation previously and now cannot be started because of the severe thrombocytopenia which is 18 initially and now at 41. Repeat echocardiogram on 12 and will follow-up the results. No aspirin given the severe severe thrombocytopenia. Continue statin. Patient condition is critical and overall overall poor prognosis given his longstanding severe systolic congestive heart failure which was explained to the son this evening. Son understands well his prognosis at the present point of time and at present patient is DNR and DNI Management of rest of the medical conditions as per primary team and other consultants. Thank you for the consult and allowing me to participate in the care of the patient. Cardiology will continue to follow. Jose M Gonzalez M.D. Interventional Cardiology Time Spent With Patient Time: Total time spent is greater than 50% in coordination of care (as documented) at patient's floor/unit and/or counseling patient:
--- NOTE | 2024-10-30 17:46 | PC.SS ---
GEOFFREY spoke with Bogdan providing transportation information to [facility] around 2000
[2024-10-31] VITALS (9 sets, daily range): BP systolic 136–168; BP diastolic 70–101; PULSE 64–83; RESP 17–98; TEMP 36–36.1; O2SAT 93–98; BMI 26.4
[2024-10-31 05:28] LABS: Basophils # (Auto) 0.1 Thou/mm3 (0.0-0.2); Basophils % (Auto) 1 % (0-2.5); Eosinophils # (Auto) 0.1 Thou/mm3 (0.0-0.5); Eosinophils % (Auto) 1 % (0-10); Hematocrit 37.1 % (41.0-53.0); Hemoglobin 12.3 g/dL (13.5-16.0); Immature Granulocytes % (Auto) 5 % (0-0); Immature Granulocytes Auto 0.42 Thou/mm3 (0.00-0.00); Lymphocytes % (Auto) 11 % (10-50); Mean Corpuscular HGB Conc 33.2 g/dl (31.0-37.0); Mean Corpuscular Volume 97 fL (80-100); Monocytes # (Auto) 1.1 Thou/mm3 (0.0-0.8); Monocytes % (Auto) 12 % (0-12); Neutrophils # (Auto) 6.7 Thou/mm3 (1.8-7.7); Neutrophils % (Auto) 71 % (37-80); Nucleated Red Blood Cell % 0 /100 WBC (0); Red Blood Count 3.84 Miln/mm3 (4.50-5.90); White Blood Count 9.4 Thou/mm3 (3.8-10.6)
[2024-10-31 05:46] LABS: Platelet Count 11 Thou/mm3 (140-440)
[2024-10-31 05:55] LABS: Alanine Aminotransferase 21 U/L (10-49); Albumin, Serum 3.7 gm/dL (3.4-4.8); Albumin/Globulin Ratio 1.1 (1.2-2.2); Alkaline Phosphatase 79 U/L (46-116); Anion Gap 15 (7-16); Aspartate Amino Transferase 23 U/L (0-34); BUN/Creatinine Ratio 18 Ratio (12-20); Bilirubin,Total 1.5 mg/dL (0.3-1.2); Blood Urea Nitrogen 95 mg/dL (9-23); Calcium 10.4 mg/dL (8.3-10.6); Calcium (Corrected) 10.6 mg/dL (8.5-10.1); Carbon Dioxide 24.9 mMol/L (20.0-31.0); Chloride 108 mMol/L (98-107); Estimated Creatinine Clearance 9.9 mL/min (>60); Globulin 3.4 gm/dL (2.3-3.5); Glucose 99 mg/dL (74-106); Magnesium 2.3 mg/dL (1.6-2.6); Osmolality,Calculated 323 (275-295); Phosphorous 4.8 mg/dL (2.4-5.1); Potassium 3.7 mMol/L (3.4-5.1); Sodium 148 mMol/L (136-145); Total Protein 7.1 gm/dL (5.7-8.2); eGFR 10 See Note
[2024-10-31 05:56] LABS: Creatinine (Component) 5.3 mg/dL (0.6-1.3)
[2024-10-31 05:58] LABS: Slide Review Platelets confirmed
[2024-10-31 06:56] LABS: DNA (ds) Antibody* <1 IU/mL; Sm/RNP Antibody <1.0 NEG AI (<1.0 NEGATIVE)
[2024-10-31] MEDS: PANTOPRAZOLE INJ 40 MG VIAL IVP (09:12)
[2024-10-31] MEDS: cefTRIAXone/D5w 2gm 2 GM/50 ML BAG IV (09:52)
--- NOTE | 2024-10-31 10:11 | ESPR_ITS ---
Documentation for date of: 10/31/24 Subjective Subjective Interval history: Chart review done as patient has altered mental status Mr. Munson is a 84-year-old male with past medical history significant for HFrEF [15-20%], atrial fibrillation s/p SPRING UPHOLSTERER-D placement, [id number] diabetes mellitus type 2, primary hypertension, hyperlipidemia and BPH presented to the emergency department a week ago with shortness of breath and was in ICU. Diagnosed with congestive heart failure and was given diuretics and subsequently transferred to the floor. Noted significant worsening of renal function and renal consultation was requested. Medications currently included Tylenol, amiodarone, ceftriaxone, insulin sliding scale, Ativan as needed, Protonix. 10/28/2024 labs that showed sodium 152, potassium 3.7, bicarbonate 23.4, anion gap 16, BUN 122, creatinine 6.2, calcium 10.3, magnesium 3, LFTs normal, albumin 3.8 urine sodium 63. WBC 7.6, hemoglobin 12.4, platelets 29,000. Patient apparently was seen by Dr. Danielle Marroquin. Noted family requesting comfort care/hospice with no aggressive management including dialysis. 10/30/2024 patient more alert, awake. No cp, sob. Still weak. Did talk to 2 brothers yesterday regarding comfort care and they agreed. Pending hospice/comfort care eval. Explained that he is not a candidate for dialysis. Clinically patient looks rather hypervolemic. IV fluids discontinued. Blood pressure 1 3475, heart rate 75. Hemoglobin 12.4 WBC 5.8, platelets less than 5. INR 1.3. Sodium 147, potassium 3.8, BUN 93, creatinine 5.5, GFR 10, calcium 10.5, phosphorus 4.1, magnesium 2.4, total bilirubin 1.4 chest x-ray showed mild fluid overload. Spoke to Dr. Palmer-regarding his renal prognosis. In agreement with comfort care. Platelets are less than 5-cannot do any intervention. Suspect bone marrow problem with his advanced age. 10/31/2024 patient currently seen in medical floor. Barely arousable today. Could not take anything by mouth. Due to vascular congestion fluids were discontinued. Blood pressure 150/70, heart rate 75. Hemoglobin 12.3, platelets 11,000. No active bleed. Sodium 148, potassium 3.7, BUN 95, creatinine 5.3, calcium 10.6, phosphorus 4.8, magnesium 2.3, total bilirubin 1.5Chest x-ray yesterday showed vascular congestion. Patient currently on amiodarone (unable to take due to altered mental status) despite platelet pheresis his platelets remains very low. Patient waiting to be transferred to [facility] under palliative care. Review of Systems Review of Systems Narrative Review of Systems: Patient seems to be more altered today. Not following any commands. Barely arousable. Exam Vital Signs Temp Pulse Resp BP Pulse Ox O2 Del Method O2 Flow Rate 36.0 C 70 18 163/92 H 97 Room Air 1 10/31/24 08:00 10/31/24 09:01 10/31/24 09:01 10/31/24 08:00 10/31/24 09:01 10/31/24 08:00 10/29/24 20:44 FiO2 30 10/25/24 13:52 Narrative Exam GENERAL APPEARANCE: Elderly gentleman currently seen in medical floor. Dry mucosa NECK: Neck supple, no JVD or bruit CARDIOVASCULAR: Heart regular, no murmurs LUNGS/CHEST: Few rhonchi noted bilaterally ABDOMEN: Soft, nontender, nondistended. No masses. Normal bowel sounds. EXTREMITIES: Trace edema in the lower extremities SKIN: Skin exam normal without any rashes MUSCULOSKELETAL: In bed NEUROLOGICAL : Patient altered-barely arousable Objective Labs 10/31/24 04:47 10/31/24 04:47 Labs: Laboratory Results - last 24 hr 10/25/24 10/29/24 10/30/24 04:56 11:02 09:14 WBC RBC Hgb Hct MCV MCH MCHC RDW Std Deviation Plt Count Neut % (Auto) Lymph % (Auto) [place] % (Auto) Eos % (Auto) Baso % (Auto) Neut # (Auto) Lymph # (Auto) [place] # (Auto) Eos # (Auto) Baso # (Auto) Immature Gran # (Auto) Absolute Nucleated RBC Immature Gran % Nucleated RBC % PT INR APTT Sodium Potassium Chloride Carbon Dioxide Anion Gap BUN Creatinine Estim Creat Clear Calc eGFR BUN/Creatinine Ratio Glucose Calculated Osmolality Calcium Corrected Calcium Phosphorus Magnesium Total Bilirubin AST ALT Alkaline Phosphatase Lactate Dehydrogenase Total Protein Albumin Globulin Albumin/Globulin Ratio Sm (Gomez) Antibody <1.0 NEG SM/BAG MAKING MACHINE TENDER IgG Antibody <1.0 NEG Double Strand DNA Ab <1 Misc Test Result See Sep Rpt Platelets confirmed Blood Type O Positive Antibody Screen NEGATIVE Crossmatch See Detail Blood Bank Wristband ID Yes Blood Bank Comment PLATP Ready 10/30/24 10/30/24 10/31/24 11:38 13:11 04:47 WBC 9.4 D RBC 3.84 L Hgb 12.4 L D 12.3 L Hct 37.7 L D 37.1 L MCV 97 MCH 32.0 MCHC 33.2 RDW Std Deviation 32.0 L Plt Count 11 L* D Neut % (Auto) 71 Lymph % (Auto) 11 [place] % (Auto) 12 Eos % (Auto) 1 Baso % (Auto) 1 Neut # (Auto) 6.7 Lymph # (Auto) 1.0 [place] # (Auto) 1.1 H Eos # (Auto) 0.1 Baso # (Auto) 0.1 Immature Gran # (Auto) 0.42 H Absolute Nucleated RBC 0.00 Immature Gran % 5 H Nucleated RBC % 0 PT 13.6 H INR 1.3 APTT 22.2 Sodium 148 H Potassium 3.7 Chloride 108 H Carbon Dioxide 24.9 Anion Gap 15 BUN 95 H Creatinine 5.3 H* Estim Creat Clear Calc 9.9 L eGFR 10 L* BUN/Creatinine Ratio 18 Glucose 99 Calculated Osmolality 323 H Calcium 10.4 Corrected Calcium 10.6 H Phosphorus 4.8 Magnesium 2.3 Total Bilirubin 1.5 H AST 23 ALT 21 Alkaline Phosphatase 79 Lactate Dehydrogenase 289 H Total Protein 7.1 Albumin 3.7 Globulin 3.4 Albumin/Globulin Ratio 1.1 L Sm (Gomez) Antibody SM/BAG MAKING MACHINE TENDER IgG Antibody Double Strand DNA Ab Misc Test Result Platelets confirmed Blood Type Antibody Screen Crossmatch Blood Bank Wristband ID Blood Bank Comment ABG Interpretation ABG results: 10/23/24 10/23/24 10/23/24 08:16 18:33 20:18 ABG pH 7.42 7.23 L D 7.35 D ABG pCO2 43 60 H D 54 H ABG pO2 107 296 H D 73 L D ABG HCO3 28 H 25 30 H ABG O2 Saturation 99 H 101 H 95 ABG Base Excess 3 -3 3 10/25/24 07:12 ABG pH 7.36 ABG pCO2 47 ABG pO2 91 ABG HCO3 27 H ABG O2 Saturation 98 ABG Base Excess 1 Assessment & Plan Additional Assessment & Plan Additional Plan: Jeimy is a 84-year-old gentleman with severe cardiomyopathy and ejection fraction 10 to 15% presented with congestive heart failure and noted to be in a cardiorenal syndrome with worsening renal function despite giving fluids versus diuretics. However currently he seems to be dehydrated and D5W was initiated. Acute problems- #1 MARK secondary to ATN/cardiorenal syndrome appropriate for #2 acute hypoxic respiratory failure #3 acute decompensated chronic systolic heart failure with ejection fraction of 10 to 15% #4 dilated cardiomyopathy-NIHA stage IV #5 thrombocytopenia #6Atrial fibrillation #7 history of V. tach status post defibrillator #8Dyslipidemia #9 altered mental status from metabolic encephalopathy Had a long conversation with 2 brothers -- he is not a candidate for dialysis owing to his fragility and poor ejection fraction, platelet count less than 5. Hospice/comfort care/palliative care seems to be appropriate. Will replace electrolytes. Spoke to primary team stopped IV fluids due to fluid overload. 10/31/2024 family aware of his poor prognosis. Electrolyte imbalance, MARK from ATN and cardiorenal syndrome. Appropriate for palliative care. Quality - progress note Quality Measures Quality Measures: VTE prophylaxis Reason for Continued Stay Reason for Continued Stay: further monitoring
--- NOTE | 2024-10-31 11:37 | PC.SS ---
SS attempted to a over the phone contact with pt Son, Bogdan [phone] to complete official assessment, no answer VM left.
--- NOTE | 2024-10-31 13:06 | ESPR_ITS ---
<Statement entered by Nghia Carroll MD - 11/01/24 13:47> I discussed with and supervised the hr intern physician involved in the care of this patient. Patient assessment and plan was discussed with entire medicine team, including my attending. I agree with the assessment and plan as documented by hr intern doctor. Patient care was discussed with my attending physician Dr. Paul Carroll, PGY-2 Documentation for date of: 10/31/24 Subjective Subjective Interval history: Patient seen in [facility] with family including sonBogdan at bedside No acute exents overnight. Patient tolerating minimal diet, adequate urine output and mentation is altered Patient currently making nonsensical statements and somnolent. Patient tolerating minimal po intake today according to RN. BUN 95, Cr 5.3 PLT 11. No active signs of bleeding, currently no indication for transfusion. Patient was off of restraints since 10/30/2024 at 7 PM. Pending 24 hours off of restraints prior to discharge to facility. Exam Vital Signs Temp Pulse Resp BP Pulse Ox O2 Del Method O2 Flow Rate 97.0 F 77 18 160/78 H 94 L Room Air 1 10/31/24 12:00 10/31/24 12:00 10/31/24 12:00 10/31/24 12:00 10/31/24 12:10/31/24 12:00 10/29/24 20:44 FiO2 30 10/25/24 13:52 Narrative Exam Constitutional Alert, oriented x 1 [Person] and comfortable. Elderly male on Room air HEENT Pupils equal and reactive to light bilaterally, Trachea midline and nares patent Respiratory Chest normal on inspection and Crackles at bases. Cardiovascular S1 and S2 audible, RRR. No murmurs carotid bruit. No gross JVD. Abdominal Soft and non tender to palpation in all quadrants. BS + Genitourinary No bladder tenderness, no flank pain. Normal to palpation Musculoskeletal Extremities tone within normal limits. No LE edema. Neurological Patient responsive to verbal or tactile stimuli. Skin Warm, dry and intact. No apparent lesions. Objective Labs 11/01/24 02:54 11/01/24 02:54 Labs: Laboratory Results - last 24 hr 10/25/24 10/29/24 10/30/24 04:56 11:02 13:11 WBC RBC Hgb Hct MCV MCH MCHC RDW Std Deviation Plt Count Neut % (Auto) Lymph % (Auto) Saunders % (Auto) Eos % (Auto) Baso % (Auto) Neut # (Auto) Lymph # (Auto) Saunders # (Auto) Eos # (Auto) Baso # (Auto) Immature Gran # (Auto) Absolute Nucleated RBC Immature Gran % Nucleated RBC % PT 13.6 H INR 1.3 APTT 22.2 Sodium Potassium Chloride Carbon Dioxide Anion Gap BUN Creatinine Estim Creat Clear Calc eGFR BUN/Creatinine Ratio Glucose Calculated Osmolality Calcium Corrected Calcium Phosphorus Magnesium Total Bilirubin AST ALT Alkaline Phosphatase Total Protein Albumin Globulin Albumin/Globulin Ratio Sm (Gomez) Antibody <1.0 NEG SM/LAND CHECKER IgG Antibody <1.0 NEG Double Strand DNA Ab <1 Misc Test Result See Sep Rpt Blood Type O Positive Antibody Screen NEGATIVE Crossmatch See Detail Blood Bank Wristband ID Yes Blood Bank Comment PLATP Ready 10/31/24 04:47 WBC 9.4 D RBC 3.84 L Hgb 12.3 L Hct 37.1 L MCV 97 MCH 32.0 MCHC 33.2 RDW Std Deviation 32.0 L Plt Count 11 L* D Neut % (Auto) 71 Lymph % (Auto) 11 Saunders % (Auto) 12 Eos % (Auto) 1 Baso % (Auto) 1 Neut # (Auto) 6.7 Lymph # (Auto) 1.0 Saunders # (Auto) 1.1 H Eos # (Auto) 0.1 Baso # (Auto) 0.1 Immature Gran # (Auto) 0.42 H Absolute Nucleated RBC 0.00 Immature Gran % 5 H Nucleated RBC % 0 PT INR APTT Sodium 148 H Potassium 3.7 Chloride 108 H Carbon Dioxide 24.9 Anion Gap 15 BUN 95 H Creatinine 5.3 H* Estim Creat Clear Calc 9.9 L eGFR 10 L* BUN/Creatinine Ratio 18 Glucose 99 Calculated Osmolality 323 H Calcium 10.4 Corrected Calcium 10.6 H Phosphorus 4.8 Magnesium 2.3 Total Bilirubin 1.5 H AST 23 ALT 21 Alkaline Phosphatase 79 Total Protein 7.1 Albumin 3.7 Globulin 3.4 Albumin/Globulin Ratio 1.1 L Sm (Gomez) Antibody SM/LAND CHECKER IgG Antibody Double Strand DNA Ab Misc Test Result Platelets confirmed Blood Type Antibody Screen Crossmatch Blood Bank Wristband ID Blood Bank Comment ABG Interpretation ABG results: 10/23/24 10/23/24 10/23/24 08:16 18:33 20:18 ABG pH 7.42 7.23 L D 7.35 D ABG pCO2 43 60 H D 54 H ABG pO2 107 296 H D 73 L D ABG HCO3 28 H 25 30 H ABG O2 Saturation 99 H 101 H 95 ABG Base Excess 3 -3 3 10/25/24 07:12 ABG pH 7.36 ABG pCO2 47 ABG pO2 91 ABG HCO3 27 H ABG O2 Saturation 98 ABG Base Excess 1 Quality Measures Quality Measures none (Contraindicated) Advance care planning discussed with:: patient Assessment & Plan Assessment Current Active Medications: Generic Name Dose Route Start Last Admin Trade Name Freq PRN Reason Stop Dose Admin Acetaminophen 650 mg 10/22/24 12:55 Acetaminophen 325 Mg Tablet PO 11/21/24 12:54 Q4HR PRN Fever >100.3 or pain Protocol Albuterol/Ipratropium 3 ml 10/28/24 15:17 Albuterol/Ipratropium (Duoneb) Rt Risa 3 Ml Nebu INH 11/27/24 18:59 Q4HRRT PRN wheeze Amiodarone HCl 200 mg 10/28/24 21:00 10/31/24 09:12 Amiodarone Hcl 200 Mg Tablet PO 11/27/24 20:59 Not Given BID FRED Dextrose 50 ml 10/22/24 17:48 10/26/24 18:09 Dextrose 50%-Water Inj 50 Ml Syringe IV 11/21/24 17:47 50 ml Q15MIN PRN Administration BG <50 OR BG <70 & pt unresponsive Glucagon 1 mg 10/22/24 17:48 Glucagon Inj 1 Mg Vial IM Q15MIN PRN BG <70, and no IV access Ceftriaxone Sodium/Dextrose 2 gm in 50 mls @ 100 mls/hr 10/25/24 09:00 10/31/24 09:52 Rocephin/D5w 2gm IV 11/01/24 08:59 100 mls/hr QDAY FRED Administration Insulin Human Lispro 0 unit 10/24/24 06:00 10/31/24 05:45 Insulin Lispro (Admelog) 1 Unit/0.01 Ml Unit SC 11/23/24 05:59 Not Given Q6HR FRED Protocol Pantoprazole Sodium 40 mg 10/24/24 09:00 10/31/24 09:12 Pantoprazole Inj 40 Mg Vial IVP 11/23/24 08:59 40 mg QDAY FRED Administration Plan Patient is an 84-year-old male with past medical history significant for HFrEF [15-20%], atrial fibrillation s/p HOT HEADER OPERATOR-D placement, [id number] diabetes mellitus type 2, primary hypertension, hyperlipidemia and BPH presented with a chief complaint of worsening shortness of breath.Patient will be admitted for acute respiratory failure with hypoxia secondary to acute decompensated CHF exacerbation. 1. Thrombocytopenia On admission plt 18 ---> plt 5---> plt 11 DDx: Leukemia, viral infection, autoimmune, portal hypertension. Currently no signs of active bleeding and patient not on any aspirin or antiplatelet agents. Currently low suspicion for TTP. LDH 206, reticulocyte count 2.5, Peripheral blood smear revealed severe thrombocytopenia No active signs of bleeding, currently no indication for transfusion. Plan: ? Avoid antiplatelet agents and heparin ? Monitor for signs of bleeding 2. Acute kidney injury prerenal versus renal Baseline appears to be between 1?1.2 On admission CR 1.6 ---> 5.1 ---> 5.3 Etiology: ATN, overdiuresis, medication side effects Family counseled by ICU team on need for possible dialysis. Family does not wish for any invasive intervention and wished for hospice care. Plan: ? Renally dose medication ? Avoid nephrotoxic agents 3. Acute respiratory failure with hypoxia - resolved 4. Acute decompensated chronic systolic and diastolic heart failure exacerbation [10-15%] 5. Dilated cardiomyopathy Patient presented with worsening shortness of breath On exam patient had decreased air entry bilaterally with scattered crackles at bases Chest x-ray significant for increased vascular markings and septal edema at lung bases. Transthoracic echocardiogram completed on 10/22/2024 findings include: Dilated Cariomyopathy. Severe LV systolic dysfunction. Estimated EF of 10-15%. Moderately dilated LV. Diastolic dysfunction present butc annot be graded due to paced rhythm. Normal Rv size and function. The estimated right ventricular systolic pressure, 31 mmHg. Mild TR. Modertately dilated LA and mildly dilated RA Mild MAC. Moderate MR. Mild thickening of the MV leaflets. NYHA class D stage IV BNP 1903 Home medication Bumex 1 Mg p.o. twice daily. Noncompliant Plan: - Strict input output charting ? Daily weight ? Continue Diuretic holiday ? Patient will need to start Entresto and SGLT2 at later date as part of GDMT. - Cardiology, Dr. Gonzalez consulted and closely following the case. Appreciate recommendations 6. Influenza A infection Patient had shortness of breath and cough that started 1 day ago Creatinine clearance 31 Completed 5-day course of Tamiflu 30 Mg p.o. twice daily on 10/27/2024 7. Atrial fibrillation -paroxysmal 8. History of V. tach s/p HOT HEADER OPERATOR T?D placement Patient had HOT HEADER OPERATOR TD placement greater than 12 years ago. Last battery change in June 2023 Vascor is high. Patient may benefit from anticoagulation EKG on admission showed ventricular paced rhythm rate 105. No acute ST changes Patient had 1 minute of sustained V. tach this morning EKG was ordered showed ventricular paced rhythm, rate 100. Started patient on amiodarone 200 Mg p.o. twice daily and metoprolol XL 50 Mg p.o. daily. Plan: ? Continue amiodarone 200 Mg p.o. twice daily ? Consider anticoagulation on discharge. Currently anticoagulation on hold due to thrombocytopenia. ? Cardiology, Dr. Gonzalez consulted and closely following the case. Appreciate recommendations 9. NSTEMI type I versus type II Patient denies any ACS symptoms including chest pain/pressure or palpitations. Likely type II in setting of acute decompensated CHF exacerbation Stroke I 0.134 ---> 0.178 ---> 0.117 Plan: ? No need to further trend troponin 10. Primary hypertension 11. Hyperlipidemia BP 136/91 12. BPH Home medication finasteride Plan: ? Continue home medication finasteride Health maintenance: Disposition: Pending placement for palliative care. Once off of restraints for 24 hours Diet: Dysphagia I Lines: pIVs GI Prophylaxis: Pantoprazole Thrombo Prophylaxis: Contraindicated Code status: DNR/DNI Plan of care discussed with Attending Dr. Miller and PGY2 Dr. Glen Tapia MD PGY 1 Attending Provider Attestation/Addendum I attest that I was physically present for the evaluation, physical examination, lab and imaging review of the patient with the residents. I discussed the case with the residents and agree with the findings and plans of care as documented above. Estela Miller MD
--- NOTE | 2024-10-31 13:15 | PD.RESPRO ---
Documentation for date of: 10/31/24 Subjective Subjective Interval history: 10/31: No acute overnight events reported. Patient seen and examined at bedside this pain. Patient is unable to verbalize his answers to my questions, however he is able to nod yes or no. Patient denies any chest pain. Pressure or palpitations. Per documentation patient's family opted to not pursue any invasive interventions including PEG tube placement or other means of alternative feeding as patient is unable to tolerate oral diet. Patient's family have decide on palliative care for further management. Currently patient is on amiodarone 200 mg twice daily. Will continue to hold Bumex until kidney function improves. Current creatinine is 5.3, BUN 95, GFR 10. Platelet count is 11 patient did receive platelet transfusion on 10/29 and pRBC transfusion on 10/30. Exam Vital Signs Temp Pulse Resp BP Pulse Ox O2 Del Method O2 Flow Rate 97.0 F 77 18 160/78 H 94 L Room Air 1 10/31/24 12:00 10/31/24 12:00 10/31/24 12:00 10/31/24 12:00 10/31/24 12:00 10/31/24 12:00 10/29/24 20:44 FiO2 30 10/25/24 13:52 Narrative Exam GENERAL: Awake, Not in acute distress NEURO: no focal neurological deficits HEENT: Atraumatic, Normocephalic. mucous membranes moist. Eyes open, symmetrical, & clear HEART: Normal Heart Sounds LUNGS: Clear to auscultation with no wheezing or crackles. ABDOMEN: soft, non-distended, non-tender, bowel sounds heard, no guarding or rebound tenderness SKIN: No Rash or ecchymoses EXTREMITIES: No edema, tenderness, able to move all 4 extremities, pedal pulses palpated Objective Labs 10/31/24 04:47 10/31/24 04:47 Labs: Laboratory Results - last 24 hr 10/25/24 10/29/24 10/30/24 04:56 11:02 13:11 WBC RBC Hgb Hct MCV MCH MCHC RDW Std Deviation Plt Count Neut % (Auto) Lymph % (Auto) Island % (Auto) Eos % (Auto) Baso % (Auto) Neut # (Auto) Lymph # (Auto) Island # (Auto) Eos # (Auto) Baso # (Auto) Immature Gran # (Auto) Absolute Nucleated RBC Immature Gran % Nucleated RBC % PT 13.6 H INR 1.3 APTT 22.2 Sodium Potassium Chloride Carbon Dioxide Anion Gap BUN Creatinine Estim Creat Clear Calc eGFR BUN/Creatinine Ratio Glucose Calculated Osmolality Calcium Corrected Calcium Phosphorus Magnesium Total Bilirubin AST ALT Alkaline Phosphatase Total Protein Albumin Globulin Albumin/Globulin Ratio Sm (Gomez) Antibody <1.0 NEG SM/SERVICES PROGRAM MANAGER IgG Antibody <1.0 NEG Double Strand DNA Ab <1 Misc Test Result See Sep Rpt Blood Type O Positive Antibody Screen NEGATIVE Crossmatch See Detail Blood Bank Wristband ID Yes Blood Bank Comment PLATP Ready 10/31/24 04:47 WBC 9.4 D RBC 3.84 L Hgb 12.3 L Hct 37.1 L MCV 97 MCH 32.0 MCHC 33.2 RDW Std Deviation 32.0 L Plt Count 11 L* D Neut % (Auto) 71 Lymph % (Auto) 11 Island % (Auto) 12 Eos % (Auto) 1 Baso % (Auto) 1 Neut # (Auto) 6.7 Lymph # (Auto) 1.0 Island # (Auto) 1.1 H Eos # (Auto) 0.1 Baso # (Auto) 0.1 Immature Gran # (Auto) 0.42 H Absolute Nucleated RBC 0.00 Immature Gran % 5 H Nucleated RBC % 0 PT INR APTT Sodium 148 H Potassium 3.7 Chloride 108 H Carbon Dioxide 24.9 Anion Gap 15 BUN 95 H Creatinine 5.3 H* Estim Creat Clear Calc 9.9 L eGFR 10 L* BUN/Creatinine Ratio 18 Glucose 99 Calculated Osmolality 323 H Calcium 10.4 Corrected Calcium 10.6 H Phosphorus 4.8 Magnesium 2.3 Total Bilirubin 1.5 H AST 23 ALT 21 Alkaline Phosphatase 79 Total Protein 7.1 Albumin 3.7 Globulin 3.4 Albumin/Globulin Ratio 1.1 L Sm (Gomez) Antibody SM/SERVICES PROGRAM MANAGER IgG Antibody Double Strand DNA Ab Misc Test Result Platelets confirmed Blood Type Antibody Screen Crossmatch Blood Bank Wristband ID Blood Bank Comment ABG Interpretation ABG results: 10/23/24 10/23/24 10/23/24 08:16 18:33 20:18 ABG pH 7.42 7.23 L D 7.35 D ABG pCO2 43 60 H D 54 H ABG pO2 107 296 H D 73 L D ABG HCO3 28 H 25 30 H ABG O2 Saturation 99 H 101 H 95 ABG Base Excess 3 -3 3 10/25/24 07:12 ABG pH 7.36 ABG pCO2 47 ABG pO2 91 ABG HCO3 27 H ABG O2 Saturation 98 ABG Base Excess 1 Quality Measures Quality Measures none (Contraindicated) Advance care planning discussed with:: other Assessment & Plan Assessment Current Active Medications: Generic Name Dose Route Start Last Admin Trade Name Freq PRN Reason Stop Dose Admin Acetaminophen 650 mg 10/22/24 12:55 Acetaminophen 325 Mg Tablet PO 11/21/24 12:54 Q4HR PRN Fever >100.3 or pain Protocol Albuterol/Ipratropium 3 ml 10/28/24 15:17 Albuterol/Ipratropium (Duoneb) Rt Risa 3 Ml Nebu INH 11/27/24 18:59 Q4HRRT PRN wheeze Amiodarone HCl 200 mg 10/28/24 21:00 10/31/24 09:12 Amiodarone Hcl 200 Mg Tablet PO 11/27/24 20:59 Not Given BID FRED Dextrose 50 ml 10/22/24 17:48 10/26/24 18:09 Dextrose 50%-Water Inj 50 Ml Syringe IV 11/21/24 17:47 50 ml Q15MIN PRN Administration BG <50 OR BG <70 & pt unresponsive Glucagon 1 mg 10/22/24 17:48 Glucagon Inj 1 Mg Vial IM Q15MIN PRN BG <70, and no IV access Ceftriaxone Sodium/Dextrose 2 gm in 50 mls @ 100 mls/hr 10/25/24 09:00 10/31/24 09:52 Rocephin/D5w 2gm IV 11/01/24 08:59 100 mls/hr QDAY FRED Administration Insulin Human Lispro 0 unit 10/24/24 06:00 10/31/24 05:45 Insulin Lispro (Admelog) 1 Unit/0.01 Ml Unit SC 11/23/24 05:59 Not Given Q6HR FRED Protocol Pantoprazole Sodium 40 mg 10/24/24 09:00 10/31/24 09:12 Pantoprazole Inj 40 Mg Vial IVP 11/23/24 08:59 40 mg QDAY FRED Administration Plan Mr. Ramos is an 84 year old male with past medical history significant for hypertension, hyperlipidemia, [id number] type 2 diabetes, BPH, A-fib status post TEACHER OF THE VISUALLY IMPAIRED-D placed 12 years ago, HFrEF with ejection fraction of 15 to 20% presented to the ED complaining of worsening shortness of breath. #Aute hypoxic respiratory failure #Influenza A #Acute on chronic CHF exacerbation #Dilated Cardiomyopathy s/p TEACHER OF THE VISUALLY IMPAIRED-D placement (12 years ago) -Pt complains of progressively worsening SOB, orthopnea, that is present even at rest. -Chest Xray - Mild heart failure, Moderate enlargement left ventricle -Pt's TEACHER OF THE VISUALLY IMPAIRED-D was placed 12 years ago with recent battery change in June 2023 -per chart reviewing : [employer] TEACHER OF THE VISUALLY IMPAIRED-D check was completed during last admission in November 2023 which showed no evidence of any acute events which required any shocks. -BNP on admission 1904 -Echo 12/05/23 findings include: Dilated cardiomyopathy. Severe dilated LV. Severe systolic dysfunction. Severe global hypokinesis. Estimated EF 15-20 % Diastolic dysfunction present but cannot grade due to paced rhythm. RV mildly dilated with normal systolic dysfunction. Pacing wire present Moderate MR, mild AI, mild to moderate TR, PI. Mild AV sclerosis without stenosis. Pleural effusion present. -In the ED patient was given 60 mg IV push of Lasix x 1 -Recommend continue amiodarone 200 mg twice daily and add metoprolol XL as patient's blood pressure permits- however Pt. is unable to swallow therefore difficult to swallow medications including crushed meds. -Strict ins and outs, fluid restriction and daily weights #A-fib #Hx of SVT -[id number] is 5, although due to his medical history Pt should be on anticoagulation. Unless there is a know contraindication recommend starting Pt on anticoagulation. -EKG on admission: ventricular paced rhythm with no ST or T wave changes. -Patient is started on amiodarone 200 Mg twice daily and metoprolol 50 XL once daily -Keep potassium above 4 and magnesium above 2 at all times -Pt had a rapid response on 10/23 called at approximately 7:15 for HR above 170, Pt was in afib and despite bolus amnio pt quickly started desatting to 60's and was unable to protect his airway, and immediate decision was made to intubate the patient. Amio GTT was started. Pt was extubated on 10/25 -Pt is unable to receive anticoagulation or antiplatelet therapy secondary severe thrombocytopenia -Recommend continue Amiodarone 200mg BID and recommend adding metoprolol XL 50mg daily as blood pressure is high #elevated troponins #troponins type 1 vs type 2 -likely type 2 demand ischemia. -initial troponins 0.134 -> 0.178 -> 0.143 -> 0.117 # MARK mostly sec to acute tubular necrosis -on admission creatinine was 1.6 and pts baseline is 1.2 -Mark thsi admission and peaked with BUN/Cr at 122/6.2 - possible ATN - nephrology following -Recommend to stop the Lasix and encourage oral vs gentle IV hydration -Current BUN 95, Cr 5.3, GFR 10 - although kidney function is mildly improving. -Urine output not measured -Will continue to monitor daily CMP and renally dose medications and avoid nephrotoxic drugs. #Thrombocytopenia -likely secondary to acute severe illness and worsening kidney function leading to ATN -Pt Plt count was on 10/30 was below 5 on 10/30 -Pt received 1 unit of platlets -repeat Plt count is 11 -continue to monitor and transfuse as needed #Hypotension- resolved -Patient became hypotensive this morning MAP below 65 patient was started on Levophed at 0.5 mL/h -Will hold the metoprolol until patient is off of pressors and if blood pressure permits will recommend to start metoprolol 50 XL twice daily #Influenza A positive -Patient is influenza A positive which likely contributed to the shortness of breath and cough. -Patient completed 5 days of Tamiflu by the primary team. #Primary hypertension -On admission patient blood pressure was 148/86 -Will not resume home amlodipine as patient likely will need metoprolol and diuresis which likely will soften the blood pressure and allow for room to increase metoprolol if needed. -recommend adding metoprolol XL as Pts BP is high (160/78) and HR is permissible at 77 # Hyperlipidemia - -patient was supposed to be taking statin but current medication list does not list. -Pt is recommended to continue statin #Hx of BPH -recommend to resume patient's home finasteride Assessment and plan discussed with my attending physician Dr. Carlos Fuentes (PGY-1)- Internal medicine resident Attending Provider Attestation/Addendum I have personally seen and examined the patient separately on the above date of service and discussed the plan of care with the resident. I reviewed the resident Dr. Luc Fuentes consultation progress note and agree with the resident findings and plan in the note above and have also edited the documentation to reflect my findings and plan. Jose M Gonzalez M.D. Interventional Cardiology
--- NOTE | 2024-10-31 15:46 | PC.NURSE ---
SS ntoified about pt. wont be discharge until pt. off of restraints 24 hrs. and we are waiting for 24 hr period to complete in order to discharge period. Until discharge is on hold.
[2024-11-01] VITALS (9 sets, daily range): BP systolic 148–161; BP diastolic 79–103; PULSE 68–92; RESP 16–96; TEMP 36.2–36.6; O2SAT 90–96
[2024-11-01 03:08] LABS: Basophils # (Auto) 0.1 Thou/mm3 (0.0-0.2); Basophils % (Auto) 1 % (0-2.5); Eosinophils % (Auto) 0 % (0-10); Hematocrit 39.8 % (41.0-53.0); Hemoglobin 13.1 g/dL (13.5-16.0); Immature Granulocytes % (Auto) 3 % (0-0); Immature Granulocytes Auto 0.37 Thou/mm3 (0.00-0.00); Lymphocytes # (Auto) 1.1 Thou/mm3 (1.0-4.8); Lymphocytes % (Auto) 10 % (10-50); Mean Corpuscular HGB Conc 32.9 g/dl (31.0-37.0); Mean Corpuscular Hemoglobin 31.7 pg (25.0-35.0); Mean Corpuscular Volume 96 fL (80-100); Monocytes # (Auto) 1.2 Thou/mm3 (0.0-0.8); Monocytes % (Auto) 11 % (0-12); Neutrophils # (Auto) 8.1 Thou/mm3 (1.8-7.7); Neutrophils % (Auto) 75 % (37-80); Nucleated Red Blood Cell % 0 /100 WBC (0); Red Blood Count 4.13 Miln/mm3 (4.50-5.90); White Blood Count 10.8 Thou/mm3 (3.8-10.6)
[2024-11-01 03:23] LABS: Alanine Aminotransferase 22 U/L (10-49); Albumin, Serum 4.2 gm/dL (3.4-4.8); Alkaline Phosphatase 90 U/L (46-116); Anion Gap 15 (7-16); Aspartate Amino Transferase 23 U/L (0-34); BUN/Creatinine Ratio 18 Ratio (12-20); Bilirubin,Total 1.6 mg/dL (0.3-1.2); Blood Urea Nitrogen 95 mg/dL (9-23); Carbon Dioxide 24.9 mMol/L (20.0-31.0); Chloride 115 mMol/L (98-107); Creatinine (Component) 5.2 mg/dL (0.6-1.3); Globulin 4.1 gm/dL (2.3-3.5); Glucose 112 mg/dL (74-106); Magnesium 2.4 mg/dL (1.6-2.6); Osmolality,Calculated 337 (275-295); Phosphorous 5.4 mg/dL (2.4-5.1); Potassium 3.8 mMol/L (3.4-5.1); Sodium 155 mMol/L (136-145); Total Protein 8.3 gm/dL (5.7-8.2); eGFR 10 See Note
[2024-11-01 03:27] LABS: Platelet Count 6 Thou/mm3 (140-440)
[2024-11-01 03:29] LABS: Slide Review Platelets confirmed
--- NOTE | 2024-11-01 07:25 | PD.NEPHPROG ---
Documentation for date of: 11/01/24 Subjective Subjective Interval history: Chart review done as patient has altered mental status Mr. Munson is a 84-year-old male with past medical history significant for HFrEF [15-20%], atrial fibrillation s/p INSOLE AND OUTSOLE PREPARER-D placement, [id number] diabetes mellitus type 2, primary hypertension, hyperlipidemia and BPH presented to the emergency department a week ago with shortness of breath and was in ICU. Diagnosed with congestive heart failure and was given diuretics and subsequently transferred to the floor. Noted significant worsening of renal function and renal consultation was requested. Medications currently included Tylenol, amiodarone, ceftriaxone, insulin sliding scale, Ativan as needed, Protonix. 10/28/2024 labs that showed sodium 152, potassium 3.7, bicarbonate 23.4, anion gap 16, BUN 122, creatinine 6.2, calcium 10.3, magnesium 3, LFTs normal, albumin 3.8 urine sodium 63. WBC 7.6, hemoglobin 12.4, platelets 29,000. Patient apparently was seen by Dr. Danielle Marroquin. Noted family requesting comfort care/hospice with no aggressive management including dialysis. 10/30/2024 patient more alert, awake. No cp, sob. Still weak. Did talk to 2 brothers yesterday regarding comfort care and they agreed. Pending hospice/comfort care eval. Explained that he is not a candidate for dialysis. Clinically patient looks rather hypervolemic. IV fluids discontinued. Blood pressure 1 3475, heart rate 75. Hemoglobin 12.4 WBC 5.8, platelets less than 5. INR 1.3. Sodium 147, potassium 3.8, BUN 93, creatinine 5.5, GFR 10, calcium 10.5, phosphorus 4.1, magnesium 2.4, total bilirubin 1.4 chest x-ray showed mild fluid overload. Spoke to Dr. Palmer-regarding his renal prognosis. In agreement with comfort care. Platelets are less than 5-cannot do any intervention. Suspect bone marrow problem with his advanced age. 10/31/2024 patient currently seen in medical floor. Barely arousable today. Could not take anything by mouth. Due to vascular congestion fluids were discontinued. Blood pressure 150/70, heart rate 75. Hemoglobin 12.3, platelets 11,000. No active bleed. Sodium 148, potassium 3.7, BUN 95, creatinine 5.3, calcium 10.6, phosphorus 4.8, magnesium 2.3, total bilirubin 1.5Chest x-ray yesterday showed vascular congestion. Patient currently on amiodarone (unable to take due to altered mental status) despite platelet pheresis his platelets remains very low. Patient waiting to be transferred to [facility] under palliative care. 11/01/2024 patient currently seen in medical floor. Barely arousable. No appetite. Not drinking any fluids. Blood sugar 118. Blood pressure 154/82, heart rate 70. WBC 10.8, hemoglobin 13.1, platelets 6. Sodium 155, 3.8 potassium, BUN 95, creatinine 5.2, calcium 11, phosphorus 5.4, LFTs elevated Spoke to the primary team to not do any further labs as patient is in palliative care. Pending transfer to rehab. Apparently was supposed to go yesterday but due to transportation was held until today. hopefully can be discharged today. Family aware of his poor prognosis. That seems to be imminent. Review of Systems Review of Systems Narrative Review of Systems: Patient seems to be more altered today. Not following any commands. Barely arousable. Exam Vital Signs Temp Pulse Resp BP Pulse Ox O2 Del Method O2 Flow Rate 36.2 C 73 20 158/98 H 90 L Room Air 1 11/01/24 04:00 11/01/24 04:00 11/01/24 04:00 11/01/24 04:00 11/01/24 04:00 11/01/24 04:00 10/29/24 20:44 FiO2 30 10/25/24 13:52 Narrative Exam GENERAL APPEARANCE: Elderly gentleman currently seen in medical floor. Dry mucosa NECK: Neck supple, no JVD or bruit CARDIOVASCULAR: Heart regular, no murmurs LUNGS/CHEST: Few rhonchi noted bilaterally ABDOMEN: Soft, nontender, nondistended. No masses. Normal bowel sounds. EXTREMITIES: Trace edema in the lower extremities SKIN: Skin exam normal without any rashes MUSCULOSKELETAL: In bed NEUROLOGICAL : Patient altered-barely arousable Objective Labs 11/01/24 02:54 11/01/24 02:54 Labs: Laboratory Results - last 24 hr 10/25/24 10/29/24 11/01/24 04:56 11:02 02:54 WBC 10.8 H RBC 4.13 L Hgb 13.1 L Hct 39.8 L MCV 96 MCH 31.7 MCHC 32.9 RDW Std Deviation 48.0 H Plt Count 6 L* D Neut % (Auto) 75 Lymph % (Auto) 10 [place] % (Auto) 11 Eos % (Auto) 0 Baso % (Auto) 1 Neut # (Auto) 8.1 H Lymph # (Auto) 1.1 [place] # (Auto) 1.2 H Eos # (Auto) 0.0 Baso # (Auto) 0.1 Immature Gran # (Auto) 0.37 H Absolute Nucleated RBC 0.00 Immature Gran % 3 H Nucleated RBC % 0 Sodium 155 H Potassium 3.8 Chloride 115 H Carbon Dioxide 24.9 Anion Gap 15 BUN 95 H Creatinine 5.2 H* Estim Creat Clear Calc 10.0 L eGFR 10 L* BUN/Creatinine Ratio 18 Glucose 112 H Calculated Osmolality 337 H Calcium 11.0 H Corrected Calcium 11.0 H Phosphorus 5.4 H Magnesium 2.4 Total Bilirubin 1.6 H AST 23 ALT 22 Alkaline Phosphatase 90 Total Protein 8.3 H Albumin 4.2 D Globulin 4.1 H Albumin/Globulin Ratio 1.0 L Misc Test Result See Sep Rpt Platelets confirmed Blood Type O Positive Antibody Screen NEGATIVE Crossmatch See Detail Blood Bank Wristband ID Yes Blood Bank Comment PLATP Ready ABG Interpretation ABG results: 10/23/24 10/23/24 10/23/24 08:16 18:33 20:18 ABG pH 7.42 7.23 L D 7.35 D ABG pCO2 43 60 H D 54 H ABG pO2 107 296 H D 73 L D ABG HCO3 28 H 25 30 H ABG O2 Saturation 99 H 101 H 95 ABG Base Excess 3 -3 3 10/25/24 07:12 ABG pH 7.36 ABG pCO2 47 ABG pO2 91 ABG HCO3 27 H ABG O2 Saturation 98 ABG Base Excess 1 Assessment & Plan Additional Assessment & Plan Additional Plan: Jeimy is a 84-year-old gentleman with severe cardiomyopathy and ejection fraction 10 to 15% presented with congestive heart failure and noted to be in a cardiorenal syndrome with worsening renal function despite giving fluids versus diuretics. However currently he seems to be dehydrated and D5W was initiated. Acute problems- #1 MARK secondary to ATN/cardiorenal syndrome appropriate for palliative care #2 acute hypoxic respiratory failure #3 acute decompensated chronic systolic heart failure with ejection fraction of 10 to 15% #4 dilated cardiomyopathy-NIHA stage IV #5 thrombocytopenia #6Atrial fibrillation #7 history of V. tach status post defibrillator #8Dyslipidemia #9 altered mental status from metabolic encephalopathy Had a long conversation with 2 brothers -- he is not a candidate for dialysis owing to his fragility and poor ejection fraction, platelet count less than 5. Hospice/comfort care/palliative care seems to be appropriate. Spoke to primary team stopped IV fluids due to fluid overload. family aware of his poor prognosis. Electrolyte imbalance, MARK from ATN and cardiorenal syndrome. Appropriate for palliative care. Pending transfer to rehab. Quality - progress note Quality Measures Quality Measures: VTE prophylaxis Reason for Continued Stay Reason for Continued Stay: further monitoring
[2024-11-01] MEDS: PANTOPRAZOLE INJ 40 MG VIAL IVP (09:16)
--- NOTE | 2024-11-01 09:16 | PD.RESPRO ---
Documentation for date of: 11/01/24 Subjective Subjective Interval history: No acute overnight events reported patient seen and bedside this morning patient's family is also at bedside. patient is able to mumble and respond to some questions he is also able to nod yes or no patient denies shortness of breath, chest pain, pressure or palpitations. Patient is currently saturating on room air. Although patient is on pur?ed diet he is unable to swallow any food and has not poor oral intake. Patient is also unable to take amiodarone p.o. As per family wishes patient is being discharged to rehab under palliative care and do not want invasive procedures including PEG tube placement or other means of alternative feeding. Pt and family is encouraged to increased oral diet. CBC is stable other than platelet count is 6. CMP include sodium 155, CL 115, calcium 11, phosphate 5.4, T. bili 1.6. BUN 95, creatinine 5.2, GFR 10, potassium 3.8 and magnesium 2.4. net positive 120 ml, no urine output is reported. Recommend keeping potassium above 4 and magnesium above 2 at the time. Currently patient is on amiodarone 200 mg twice daily. Will continue to hold Bumex until kidney function improves. Exam Vital Signs Temp Pulse Resp BP Pulse Ox O2 Del Method O2 Flow Rate 97.3 F 80 18 148/88 H 91 L Room Air 1 11/01/24 08:00 11/01/24 09:06 11/01/24 08:00 11/01/24 09:06 11/01/24 08:00 11/01/24 04:00 10/29/24 20:44 FiO2 30 10/25/24 13:52 Narrative Exam GENERAL: Awake, Not in acute distress NEURO: no focal neurological deficits HEENT: Atraumatic, Normocephalic. mucous membranes moist. Eyes open, symmetrical, & clear HEART: Normal Heart Sounds LUNGS: Clear to auscultation with no wheezing or crackles. ABDOMEN: soft, non-distended, non-tender, bowel sounds heard, no guarding or rebound tenderness SKIN: No Rash or ecchymoses EXTREMITIES: No edema, tenderness, able to move all 4 extremities, pedal pulses palpated Objective Labs 11/01/24 02:54 11/01/24 02:54 Labs: Laboratory Results - last 24 hr 10/29/24 11/01/24 11:02 02:54 WBC 10.8 H RBC 4.13 L Hgb 13.1 L Hct 39.8 L MCV 96 MCH 31.7 MCHC 32.9 RDW Std Deviation 48.0 H Plt Count 6 L* D Neut % (Auto) 75 Lymph % (Auto) 10 [place] % (Auto) 11 Eos % (Auto) 0 Baso % (Auto) 1 Neut # (Auto) 8.1 H Lymph # (Auto) 1.1 [place] # (Auto) 1.2 H Eos # (Auto) 0.0 Baso # (Auto) 0.1 Immature Gran # (Auto) 0.37 H Absolute Nucleated RBC 0.00 Immature Gran % 3 H Nucleated RBC % 0 Sodium 155 H Potassium 3.8 Chloride 115 H Carbon Dioxide 24.9 Anion Gap 15 BUN 95 H Creatinine 5.2 H* Estim Creat Clear Calc 10.0 L eGFR 10 L* BUN/Creatinine Ratio 18 Glucose 112 H Calculated Osmolality 337 H Calcium 11.0 H Corrected Calcium 11.0 H Phosphorus 5.4 H Magnesium 2.4 Total Bilirubin 1.6 H AST 23 ALT 22 Alkaline Phosphatase 90 Total Protein 8.3 H Albumin 4.2 D Globulin 4.1 H Albumin/Globulin Ratio 1.0 L Misc Test Result Platelets confirmed Blood Type O Positive Antibody Screen NEGATIVE Crossmatch See Detail Blood Bank Wristband ID Yes Blood Bank Comment PLATP Ready ABG Interpretation ABG results: 10/23/24 10/23/24 10/23/24 08:16 18:33 20:18 ABG pH 7.42 7.23 L D 7.35 D ABG pCO2 43 60 H D 54 H ABG pO2 107 296 H D 73 L D ABG HCO3 28 H 25 30 H ABG O2 Saturation 99 H 101 H 95 ABG Base Excess 3 -3 3 10/25/24 07:12 ABG pH 7.36 ABG pCO2 47 ABG pO2 91 ABG HCO3 27 H ABG O2 Saturation 98 ABG Base Excess 1 Quality Measures Quality Measures none (Contraindicated) Advance care planning discussed with:: other Assessment & Plan Assessment Current Active Medications: Generic Name Dose Route Start Last Admin Trade Name Freq PRN Reason Stop Dose Admin Acetaminophen 650 mg 10/22/24 12:55 Acetaminophen 325 Mg Tablet PO 11/21/24 12:54 Q4HR PRN Fever >100.3 or pain Protocol Albuterol/Ipratropium 3 ml 10/28/24 15:17 Albuterol/Ipratropium (Duoneb) Rt Risa 3 Ml Nebu INH 11/27/24 18:59 Q4HRRT PRN wheeze Amiodarone HCl 200 mg 10/28/24 21:00 11/01/24 09:06 Amiodarone Hcl 200 Mg Tablet PO 11/27/24 20:59 Not Given BID FRED Dextrose 50 ml 10/22/24 17:48 10/26/24 18:09 Dextrose 50%-Water Inj 50 Ml Syringe IV 11/21/24 17:47 50 ml Q15MIN PRN Administration BG <50 OR BG <70 & pt unresponsive Glucagon 1 mg 10/22/24 17:48 Glucagon Inj 1 Mg Vial IM Q15MIN PRN BG <70, and no IV access Insulin Human Lispro 0 unit 10/24/24 06:00 11/01/24 06:14 Insulin Lispro (Admelog) 1 Unit/0.01 Ml Unit SC 11/23/24 05:59 Not Given Q6HR FRED Protocol Pantoprazole Sodium 40 mg 10/24/24 09:00 11/01/24 09:16 Pantoprazole Inj 40 Mg Vial IVP 11/23/24 08:59 40 mg QDAY FRED Administration Plan Mr. Ramos is an 84 year old male with past medical history significant for hypertension, hyperlipidemia, [id number] type 2 diabetes, BPH, A-fib status post BUSINESS INTEGRATION MANAGER-D placed 12 years ago, HFrEF with ejection fraction of 15 to 20% presented to the ED complaining of worsening shortness of breath. #Aute hypoxic respiratory failure #Influenza A #Acute on chronic CHF exacerbation #Dilated Cardiomyopathy s/p BUSINESS INTEGRATION MANAGER-D placement (12 years ago) -Pt complains of progressively worsening SOB, orthopnea, that is present even at rest. -Chest Xray - Mild heart failure, Moderate enlargement left ventricle -Pt's BUSINESS INTEGRATION MANAGER-D was placed 12 years ago with recent battery change in June 2023 -per chart reviewing : [employer] BUSINESS INTEGRATION MANAGER-D check was completed during last admission in November 2023 which showed no evidence of any acute events which required any shocks. -BNP on admission 1904 -Echo 12/05/23 findings include: Dilated cardiomyopathy. Severe dilated LV. Severe systolic dysfunction. Severe global hypokinesis. Estimated EF 15-20 % Diastolic dysfunction present but cannot grade due to paced rhythm. RV mildly dilated with normal systolic dysfunction. Pacing wire present Moderate MR, mild AI, mild to moderate TR, PI. Mild AV sclerosis without stenosis. Pleural effusion present. -In the ED patient was given 60 mg IV push of Lasix x 1 -Recommend continue amiodarone 200 mg twice daily and add metoprolol XL as patient's blood pressure permits- however Pt. is unable to swallow therefore difficult to swallow medications including crushed meds. -Strict ins and outs, fluid restriction and daily weights #A-fib #Hx of SVT -[id number] is 5, although due to his medical history Pt should be on anticoagulation. Unless there is a know contraindication recommend starting Pt on anticoagulation. -EKG on admission: ventricular paced rhythm with no ST or T wave changes. -Patient is started on amiodarone 200 Mg twice daily and metoprolol 50 XL once daily -Keep potassium above 4 and magnesium above 2 at all times -Pt had a rapid response on 10/23 called at approximately 7:15 for HR above 170, Pt was in afib and despite bolus amnio pt quickly started desatting to 60's and was unable to protect his airway, and immediate decision was made to intubate the patient. Amio GTT was started. Pt was extubated on 10/25 -Pt is unable to receive anticoagulation or antiplatelet therapy secondary severe thrombocytopenia -Recommend continue Amiodarone 200mg BID and recommend adding metoprolol XL 50mg daily as blood pressure is high #elevated troponins #troponins type 1 vs type 2 -likely type 2 demand ischemia. -initial troponins 0.134 -> 0.178 -> 0.143 -> 0.117 # MARK mostly sec to acute tubular necrosis -on admission creatinine was 1.6 and pts baseline is 1.2 -Mark thsi admission and peaked with BUN/Cr at 122/6.2 - possible ATN - nephrology following -Recommend to stop the Lasix and encourage oral vs gentle IV hydration -Current BUN 95, Cr 5.3, GFR 10 - although kidney function is mildly improving. -Urine output not measured -Will continue to monitor daily CMP and renally dose medications and avoid nephrotoxic drugs. #Thrombocytopenia -likely secondary to acute severe illness and worsening kidney function leading to ATN -other differentials include - TTP, HUS, SLE -Pt Plt count was on 10/30 was below 5 on 10/30 -Pt received 1 unit of platlets on 10/30 -Plt today is 6 -continue to monitor and transfuse as needed #Hypotension- resolved -Patient became hypotensive this morning MAP below 65 patient was started on Levophed at 0.5 mL/h -Will hold the metoprolol until patient is off of pressors and if blood pressure permits will recommend to start metoprolol 50 XL twice daily #Influenza A positive -Patient is influenza A positive which likely contributed to the shortness of breath and cough. -Patient completed 5 days of Tamiflu by the primary team. #Primary hypertension -On admission patient blood pressure was 148/86 -Will home amlodipine is not resumed initially as Pt will likely need metoprolol. -recommend adding metoprolol XL if HR is permissible # Hyperlipidemia - -patient was supposed to be taking statin but current medication list does not list. -Pt is recommended to continue statin #Hx of BPH -recommend to resume patient's home finasteride Assessment and plan discussed with my attending physician Dr. Carlos Fuentes (PGY-1)- Internal medicine resident Attending Provider Attestation/Addendum I have personally seen and examined the patient separately on the above date of service and discussed the plan of care with the resident. I reviewed the resident Dr. Luc Fuentes consultation progress note and agree with the resident findings and plan in the note above and have also edited the documentation to reflect my findings and plan. Patient transitioned to palliative care and is DNR/DNI. Cardiology will sign off for now Jose M Gonzalez M.D. Interventional Cardiology
--- NOTE | 2024-11-01 09:17 | PC.SS ---
Addendum entered by Donita Fletcher [facility] 11/01/24 17:31: SS follow up: contacted [facility] as the transport has not come by for the patient. They informed that they could establish transport soonest available for the patient at midnight via [facility]. Updated school community relations coordinator. Addendum entered by Donita Fletcher [facility] 11/01/24 16:11: [facility] ETA 4:30pm. Updated school community relations coordinator. Dana at [facility] expecting the patient after. Addendum entered by Donita Fletcher [facility] 11/01/24 14:37: Dana at [facility] confirms patient can d/c to [facility] today. [facility] transportation arranged. Reference number: [id number]. Pending ETA. Addendum entered by Donita Fletcher [facility] 11/01/24 14:17: [facility] staff informed they will be doing on-site for the patient to determine if able to accept him today. Addendum entered by Donita Fletcher [facility] 11/01/24 13:31: Patient has DC orders. Notified Dana at [facility], left a voicemail. Pending response if able to accept the patient today to schedule transportation on behalf of the patient. Addendum entered by Donita Fletcher [facility] 11/01/24 11:27: SS update: Dana at [facility] to reach out to documentation writer if patient can DC. Patient is also pending DC orders. Addendum entered by Donita Fletcher [facility] 11/01/24 10:09: SS update: spoke with patient's son Bogdan to confirm the d/c plan to [facility] under palliative care. The patient's son is in agreement and would like transportation services to be arranged on behalf of the patient. Reviewed with Bogdan the patient's medicare rights and he verbalized understanding. Addendum entered by Donita Fletcher [facility] 11/01/24 09:20: Per patient's bed side nurse, the patient has been off of restraints and mittens for more than 24hrs. Notified Dana at [facility] to make aware. Original Note: SS follow up: attempted contact with patient's son, Bogdan at [phone], unable to reach him, voicemail provided requesting call back.
--- NOTE | 2024-11-01 10:13 | PCS.ST ---
Received new order. Pt is currently on service for swallowing safety. Pt was seen today. See swallow treatment notes for details. Continue current diet with precautions.
--- NOTE | 2024-11-01 11:33 | PC.SS ---
Late note 10-31-24: SS spoke to patient's son, Bogdan Munson, regarding patient's d/c plan.? Pt is confused at this time.? Per son, pt was alert and oriented before he became sick.? Pt resides with and grandson.? Pt was ambulating using a 4 wheel with seat, rollator walker.? Pt required assistance at home with ADLs.? Per son, family is unable to care for pt at home and is requesting SNF.? Son is aware [facility] has accepted pt but with Palliative Care services due to [facility] not having a hospice bed available at this time.? Son is agreeable to [facility] with Palliative Services.? Per Dana at [facility], pt has to be 24 hours off restraints before going to [facility].? SonBogdan states he is patient's medical decision maker.? Pt was admitted for SOB.?? DC Plan:? [facility] with Pallative Care Services Next of Kin:? Bogdan Munson, son, phone# [phone] Address:? Correct on facesheet
--- NOTE | 2024-11-01 11:34 | PC.SS ---
Late note 10-31-24: SS spoke to Dana at [facility] who explained pt has to be 24 hours off restraints. SS met with bedside nurse, Bindu who explained 7pm will be 24 hours off restrains. Dana at [facility] is aware.
--- NOTE | 2024-11-01 15:40 | PC.NURSE ---
report been given to nurse at the [facility] and updated them ETA id 16:30
--- NOTE | 2024-11-01 16:35 | ESDS_ITS ---
<Statement entered by Joann Fritz DO - 11/02/24 08:10> I, Joann Fritz DO, attest that I was physically present for the malhotra portions of the service and evaluated the patient with the resident and I reviewed and discussed the case with the resident and agree with the resident's findings and plans of care as documented above Planned Discharge Date 11/01/24 DS: Providers Provider Date of admission: 10/22/24 12:42 Primary care physician: Physician No Primary/Family Admitting Provider: Milton Trujillo MD Attending Provider on Admission: Rosaura Sesay MD Consults: 10/23/24 03:16 Referral Infection Control Routine Comment: influenza positive Reason for Infection Control Referral: Patient In Isolation Health Equity Referral - Knowledge Deficit Routine Comment: Positive screening for knowledge deficit needs. 10/23/24 09:46 Consult to Cardiology Urgent Comment: Consulting Provider: Jose M Gonzalez 10/25/24 15:40 Referral Hospice Routine Comment: 10/25/24 23:32 Referral Speech Therapy Urgent Comment: 10/28/24 08:49 Consult to Nephrology Routine Comment: Consulting Provider: Bonny Mederos 11/01/24 09:57 Referral Speech Therapy Routine Comment: Attending Provider on DC: Nghia Carroll MD Discharging Provider: Nghia Carroll MD DS: Diagnosis Problem List Completed Was Problem List Reviewed/Reconciled?: Yes Hospital Course Hospital Course Hospital course: Mr. Munson a 84-year-old male with significat medical history significant for HFrEF [15-20%], atrial fibrillation s/p METALSMITH HELPER-D placement, [id number] diabetes mellitus type 2, primary hypertension, hyperlipidemia and BPH presented with a chief complaint of worsening shortness of breath.Patient will be admitted for acute respiratory failure with hypoxia secondary to acute decompensated CHF exacerbation. With regards to patient's acute respiratory failure with hypoxia, he was initially treated with supplemental oxygen IV diuresis Bumex 1 Mg IV twice daily. On 10/23/2024 patient's went into A-fib with RVR and became hypoxic requiring BiPAP. Patient was unable to tolerate BiPAP and ABG showed hypercarbia with a pCO2 of 60. Subsequently patient was intubated and transferred to the ICU for mechanical ventilation and pressor support. He was initially treated with amiodarone infusion for A-fib with RVR and transition to amiodarone 200 Mg p.o. twice daily. He was extubated and downgraded back to the floors on 10/26/2024. He is on a diuretic holiday due to his MARK. Currently patient is saturating on room air and oriented to self. He is able to swallow and can follow some basic commands. With regards to patient's acute kidney injury, etiology is likely due to ATN. His baseline creatinine between 1?1.2 and currently is 5.8. Patient was receiving maintenance IV fluids with D5/NS. IV fluids were discontinued today [10/30/2024] due to patient's developing crackles on auscultation. Patient had severe thrombocytopenia on admission with platelets of 18. On 10/29/2024 patient's platelet downtrended to 5 and 1 unit of platelet transfusion were ordered. On 10/29/2024 patient's platelets were <5 and another unit of platelets were ordered for transfusion. Suspect thrombocytopenia likely secondary to myelosuppression. No signs of active bleeding noted For patient's influenza A infection, he completed a 5-day course of Tamiflu 30 Mg p.o. twice daily on 10/27/2024. With worsening renal function, Patient's family expressed that they would not wish him to undergo hemodialysis or any other invasive procedures. Patient's family wish for SNF/rehab with palliative/comfort care. Patient is now clinically stable for discharge to facility with palliative care. #Acute hypoxic respiratory failure #Acute decompensated HFrEF [10-15%] #MARK #Thrombocytopenia #Dilated cardiomyopathy #Influenza A infection #Paroxysmal atrial fibrillation #s/p METALSMITH HELPER?D placement [2010] #Primary hypertension #Hyperlipidemia #BPH Discharge plan: ? Patient to be discharged to facility with palliative care. Discharge summary was reviewed with my attending Dr. Lam Carroll, PGY-2 Time Spent with Patient Time attestation: Total time spent providing and/or coordinating discharge services: >35min Exam Vital Signs Temp Pulse Resp BP Pulse Ox O2 Del Method O2 Flow Rate 97.6 F 70 18 154/82 H 90 L Room Air 1 11/01/24 12:00 11/01/24 12:11/01/24 12:11/01/24 12:11/01/24 12:11/01/24 12:00 10/29/24 20:44 FiO2 30 10/25/24 13:52 Narrative Exam GENERAL APPEARANCE: Elderly gentleman currently seen in medical floor. Dry mucosa NECK: Neck supple, no JVD or bruit CARDIOVASCULAR: Heart regular, no murmurs LUNGS/CHEST: Few rhonchi noted bilaterally ABDOMEN: Soft, nontender, nondistended. No masses. Normal bowel sounds. EXTREMITIES: Trace edema in the lower extremities SKIN: Skin exam normal without any rashes MUSCULOSKELETAL: In bed NEUROLOGICAL : Patient altered-barely arousable Discharge Plan Plan Patient Disposition: Xfer Skilled Nsg Fac (SNF) Patient condition on transfer: Stable Care Plan Goals: ? Patient to be discharged to facility with palliative care. Prescriptions/Referrals Prescriptions/Med Rec: New acetaminophen 325 mg Tablet 650 mg PO Q4HR PRN (Reason: Fever >100.3 or pain) Qty: 14 0RF amiodarone 200 mg Tablet 200 mg PO BID Qty: 60 0RF morphine 2 mg/mL syringe 2 mg subcut Q2H MDD 24 mg PRN (Reason: respiratory distress) 7 Days Qty: 84 0RF gabapentin 100 mg capsule 100 mg PO Q8HR PRN (Reason: pain) 7 Days Qty: 30 0RF scopolamine base 1 mg over 3 days patch 3 day 1 mg topical Q72H Qty: 4 0RF ondansetron HCl (PF) 4 mg/2 mL syringe 4 mg IV Q8HR PRN (Reason: nausea and vomiting) 7 Days Qty: 48 0RF sennosides [senna] 8.8 mg/5 mL syrup 5 ml PO BID PRN (Reason: constipation) Qty: 200 0RF acetaminophen 650 mg/20.3 mL suspension 650 mg PO Q6H PRN (Reason: fever or pain) 7 Days Qty: 1000 0RF artifi.tears(hypromellose)(PF) 1.7 % drops with applicator 1 drp ophthalmic (eye) Q4H 7 Days Qty: 12 0RF diphenhydramine HCl [Allergy (diphenhydramine)] 25 mg tablet 25 mg PO TID PRN (Reason: allergic reaction) Qty: 60 0RF Continued finasteride 5 mg tablet 1 tab PO QDAY Patient Comments: take 1 tablet by mouth once daily albuterol sulfate 90 mcg/actuation HFA aerosol inhaler 90 mcg INHALATION Q4H PRN (Reason: short of breath) Patient Comments: inhale 2 puffs by mouth every 4 to 6 hours if needed Discontinued atorvastatin 10 mg Tablet 10 mg PO QDAY amlodipine 5 mg tablet 5 mg PO QDAY Patient Comments: take 1 tablet by mouth once daily bumetanide 1 mg tablet 1 mg PO QDAY Qty: 30 0RF dapagliflozin propanediol [Farxiga] 10 mg tablet 10 mg PO DAILY Patient Comments: take 1 tablet by mouth every morning Referrals: No Primary/Family,Physician [Primary Care Provider] - Patient/Caregiver Discharge Instructions Education Materials: Hemodialysis, Acute Kidney Failure Dc, CHF Ch, ED Hypertension, Established Print Language: Czech Stand Alone Forms: [facility]elia Award Info., Patient Portal Info Letter Discharge Order Discharge Orders: Discharge (Routine); Ordered 11/01/24 Ordered By: Nghia Carroll Quality Discharge Quality Measures VTE prophylaxis
--- NOTE | 2024-11-01 17:45 | PC.NURSE ---
SS contacted about the transport to follow up on pt. hasn't been picked up yet at the scheduled time. per SS the expected time of pickup is midnight tonight.
== END 2024-11-01 22:06 | disposition skilled nursing facility (03) | DRG 208 ==
LOC: SERX 06:41 → SERHOLD 13:08 → S2NX 20:07 → S2SX 10-24 08:42 → S2NX 10-25 12:01 → S3SX 10-26 19:37
PROVIDERS: Student in an Organized Health Care Education/Training Program; Admitting Provider Internal Medicine; Emergency Provider Emergency Medicine; Visit Provider Internal Medicine
DX: J96.01 Acute respiratory failure with hypoxia (principal); I50.43 Acute on chronic combined systolic (congestive) and diastolic (congestive) heart failure; J18.9 Pneumonia, unspecified organism; J10.00 Influenza due to other identified influenza virus with unspecified type of pneumonia; N17.0 Acute kidney failure with tubular necrosis; G93.41 Metabolic encephalopathy; I13.0 Hypertensive heart and chronic kidney disease with heart failure and stage 1 through stage 4 chronic kidney disease, or unspecified chronic kidney disease; I24.89 Other forms of acute ischemic heart disease; I47.20 Ventricular tachycardia, unspecified; I42.0 Dilated cardiomyopathy; I47.10 Supraventricular tachycardia, unspecified; E87.0 Hyperosmolality and hypernatremia; J96.02 Acute respiratory failure with hypercapnia; E11.9 Type 2 diabetes mellitus without complications; E11.22 Type 2 diabetes mellitus with diabetic chronic kidney disease; N40.0 Benign prostatic hyperplasia without lower urinary tract symptoms; E78.5 Hyperlipidemia, unspecified; I48.0 Paroxysmal atrial fibrillation; D69.6 Thrombocytopenia, unspecified; Z79.84 Long term (current) use of oral hypoglycemic drugs; N18.30 Chronic kidney disease, stage 3 unspecified; E83.39 Other disorders of phosphorus metabolism; F09 Unspecified mental disorder due to known physiological condition; I87.8 Other specified disorders of veins; Z79.899 Other long term (current) drug therapy; Z66 Do not resuscitate; Z11.52 Encounter for screening for COVID-19; Z91.148 Patient's other noncompliance with medication regimen for other reason; Z88.0 Allergy status to penicillin; I95.9 Hypotension, unspecified; D63.1 Anemia in chronic kidney disease; E86.0 Dehydration; Z87.891 Personal history of nicotine dependence; Z78.1 Physical restraint status
CPT/HCPCS: 36415; 36600; 71045; 76770; 80053; 80061; 80069; 80307; 80320; 81001; 82248; 82436; 82570; 82803; 83036; 83540; 83550; 83605; 83615; 83690; 83735; 83880; 84100; 84132; 84133; 84145; 84300; 84443; 84484; 84540; 85014; 85018; 85025; 85046; 85610; 85730; 86225; 86235; 86850; 86900; 86901; 86923; 86965; 87040; 87086; 87106; 87184; 87205; 87400; 87634; 87811; 92526; 92610; 93005; 93306; 94002; 94003; 94640; 94660; 94664; 94667; 96365; 96366; 99291; A9270; J0283; J0692; J0696; J1200; J1630; J1940; J2060; J2270; J2470; J2704; J3010; J3475; J3480; J3490; J7050; J7070; J7120; P9035; G0480; J1836